=== PATIENT | female | born 1965 | race Hispanic/Latino ===

== ENCOUNTER 2016-12-20 00:11 | Emergency (ER) | payer BC ==
[2016-12-20 00:24] VITALS: BMI 56.2
--- NOTE | 2016-12-20 02:35 | ED PDOC ---
Arrival/HPI - General Chief Complaint: Medical Clearance Time Seen by Provider: 12/20/16 01:59 Historian: Patient - History of Present Illness Narrative History of Present Illness (Text): 12/20/16 02:29 Karen Hogan is a 51 year old female, whose past medical history includes hypertension, bronchitis, pneumonia and diabetes, presents to the emergency department complaining of mild, vague throat and chest discomfort for past few hours. Patient states that symptoms initially presented while watching TV earlier yesterday. Reports that she felt mild shortness of breath, lightheadedness and weakness at that time which has since resolved. Denies any fever, chills, dizziness, nausea, vomiting, diarrhea, or any other complaints at this time. Time/Duration: 1-3 hours Symptom Onset: Sudden Symptom Course: Improving Severity Level: Mild Activities at Onset: Light Context: Home Past Medical History - Provider Review Nursing Documentation Reviewed: Yes - Infectious Disease Hx of Infectious Diseases: None - Tetanus Immunization Tetanus Immunization: Unknown - Cardiac Hx Hypertension: Yes - Pulmonary Hx Respiratory Disorders: Yes Hx Asthma: No Hx Bronchitis: Yes Hx Chronic Obstructive Pulmonary Disease (COPD): No Hx Emphysema: No Hx Pneumonia: Yes Hx Respiratory Aspiration: No Hx Respiratory Tract Infection: No Hx Sleep Apnea: No Hx Tuberculosis: No - Neurological Hx Neurological Disorder: No Hx Alzheimer's Disease: No HX Cerebrovascular Accident: No Hx Dementia: No Hx Dizziness: No Hx Meningitis: No Hx Migraine: No Hx Parkinson's Disease: No Hx Seizures: No Hx Transient Ischemic Attacks (TIA): No - HEENT Hx HEENT Disorder: No Hx Blind: No Hx Cataracts: No Hx Deafness: No Hx Difficulty Chewing: No Hx Epistaxis: No Hx Glaucoma: No Hx Macular Degeneration: No - Renal Hx Renal Disorder: No - Endocrine/Metabolic Hx Diabetes Mellitus Type 2: Yes - Hematological/Oncological Hx Blood Disorders: No - Integumentary Hx Dermatological Disorder: No - Musculoskeletal/Rheumatological Hx Musculoskeletal Disorders: No - Gastrointestinal Hx Gastrointestinal Disorders: No - Genitourinary/Gynecological Hx Genitourinary Disorders: No - Psychiatric Hx Psychophysiologic Disorder: No Hx Anxiety: Yes Hx Depression: No Hx Physical Abuse: No Hx Substance Use: No - Surgical History Hx Dilation and Curettage: Yes (x2) - Anesthesia Hx Anesthesia: Yes Hx Anesthesia Reactions: No - Suicidal Assessment Feels Threatened In Home Enviroment: No Family/Social History - Physician Review Nursing Documentation Reviewed: Yes Family/Social History: No Known Family HX Smoking Status: Never Smoked Hx Alcohol Use: No Hx Substance Use: No Hx Substance Use Treatment: No Allergies/Home Meds Allergies/Adverse Reactions: Allergies naproxen Allergy (Verified 12/20/16 00:21) RASH Home Medications: Home Meds Medication Instructions Recorded Confirmed Losartan [Cozaar] 25 mg PO DAILY 10/30/16 12/20/16 SITagliptin [Januvia] 100 mg PO DAILY 10/30/16 12/20/16 hydroCHLOROthiazide [Microzide] 25 mg PO DAILY 10/30/16 12/20/16 Review of Systems - Physician Review All systems were reviewed & negative as marked: Yes - Review of Systems Constitutional: Normal. absent: Fatigue, Fevers Respiratory: SOB (resolved ). absent: Cough, Sputum Cardiovascular: Chest Pain (vague chest pain ) Gastrointestinal: Normal. absent: Abdominal Pain, Diarrhea, Nausea, Vomiting Neurological: Headache, Other (lightheadedness ) Psychiatric: Normal Physical Exam Vital Signs Reviewed: Yes Vital Signs Temp Pulse Resp BP Pulse Ox 12/20/16 11:40 98.2 F 90 18 129/81 98 12/20/16 10:14 93 H 16 146/86 98 12/20/16 07:40 82 20 145/73 96 12/20/16 06:59 85 16 165/91 H 97 12/20/16 05:54 97.3 F L 95 H 18 152/108 H 96 12/20/16 00:23 98.1 F 103 H 20 152/105 H 99 Temperature: Afebrile Blood Pressure: Normal Pulse: Tachycardic Respiratory Rate: Normal Appearance: Positive for: Well-Appearing, Non-Toxic, Comfortable, Other ( morbidly obese ) Pain Distress: None Mental Status: Positive for: Alert and Oriented X 3 - Systems Exam Head: Present: Atraumatic, Normocephalic Pupils: Present: PERRL Extroacular Muscles: Present: EOMI Conjunctiva: Present: Normal Respiratory/Chest: Present: Clear to Auscultation, Good Air Exchange. No: Respiratory Distress, Accessory Muscle Use Cardiovascular: Present: Regular Rate and Rhythm, Normal S1, S2. No: Murmurs Abdomen: Present: Normal Bowel Sounds. No: Tenderness, Distention, Peritoneal Signs Neurological: Present: GCS=15, CN II-XII Intact, Speech Normal Skin: Present: Warm, Dry, Normal Color. No: Rashes Psychiatric: Present: Alert, Oriented x 3, Normal Insight, Normal Concentration Medical Decision Making ED Course and Treatment: 12/20/16 02:39 Impression: A 51 year old female who present to the emergency department complaining of vague chest and throat discomfort. Reports of shortness of breath , lightheadedness and weakness which has resolved. Plan: -- EKG -- Labs, cardiac enzymes -- Chest X-ray -- Reassess and disposition Progress Notes: 12/20/16 02:42 NSR @ 100 bpm. Normal [place]. Normal interval. 12/20/16 05:25 Chest X-ray interpreted by me: No active diseases. 12/20/16 05:37 Case discussed with and medical resdient, , who are aware and agree with the plan to admit patient to hospital for chest pain. - Lab Interpretations Lab Results: 12/20/16 07:50 12/20/16 07:50 Lab Results 12/20/16 07:50: WBC 7.7, RBC 4.02, Hgb 11.8 L, Hct 36.2, MCV 90.0, MCH 29.4, MCHC 32.6, RDW 13.5, Plt Count 397, MPV 8.4, Gran % 68.0, Lymph % (Auto) 25.0, Hyde % (Auto) 5.2, Eos % (Auto) 1.4 L, Baso % (Auto) 0.4, Gran # 5.20, Lymph # 1.9, Hyde # 0.4, Eos # 0.1, Baso # 0.03, Sodium 140, Potassium 4.1, Chloride 107 , Carbon Dioxide 25, Anion Gap 12, BUN 13, Creatinine 0.6, Est GFR ( Amer ) > 60, Est GFR (Non-Af Amer) > 60, Random Glucose 135 H, Calcium 8.7, Phosphorus 3.3, Magnesium 2.3 H, Total Bilirubin 0.7, AST 44 H, ALT 18, Alkaline Phosphatase 113, Troponin I 0.01, Total Protein 7.4, Albumin 3.6, Globulin 3.8, Albumin/Globulin Ratio 0.9 L 12/20/16 04:42: PT 11.2, INR 1.04, APTT 29.5 12/20/16 03:32: WBC 7.2, RBC 4.03, Hgb 12.1, Hct 36.5, MCV 90.6, MCH 30.0, MCHC 33.2, RDW 13.5, Plt Count 369, MPV 8.2, Sodium 139, Potassium 4.0, Chloride 105 , Carbon Dioxide 25, Anion Gap 13, BUN 15, Creatinine 0.6, Est GFR ( Amer ) > 60, Est GFR (Non-Af Amer) > 60, Random Glucose 165 H, Calcium 9.0, Total Bilirubin 0.6, AST 29, ALT 21, Alkaline Phosphatase 123, Lactate Dehydrogenase 432, Total Creatine Kinase 71, Troponin I 0.01, Total Protein 7.5, Albumin 3.7, Globulin 3.8, Albumin/Globulin Ratio 1.0 L I have reviewed the lab results: Yes - RAD Interpretation Radiology Orders: 12/20/16 02:16 CHEST PORTABLE [RAD] Stat [employer] Teacher: ED Physician - EKG Interpretation Interpreted by ED Physician: Yes Type: 12 lead EKG - Medication Orders Current Medication Orders: Discontinued Medications Aspirin (Ecotrin) 81 mg PO DAILY [facility] Last Admin: 12/20/16 11:11 Dose: 81 MG Hydrochlorothiazide (Hydrodiuril) 25 mg PO DAILY [facility] Last Admin: 12/20/16 11:11 Dose: 25 MG Losartan Potassium (Cozaar) 25 mg PO DAILY [facility] Last Admin: 12/20/16 11:11 Dose: 25 MG Pantoprazole Sodium (Protonix Ec Tab) 40 mg PO ACB [facility] Last Admin: 12/20/16 07:40 Dose: 40 MG - [place] Statement The provider has reviewed the documentation as recorded by the Messi Palm Provider Attestation: All medical record entries made by the Messi were at my direction and personally dictated by me. I have reviewed the chart and agree that the record accurately reflects my personal performance of the history, physical exam, medical decision making, and the department course for this patient. I have also personally directed, reviewed, and agree with the discharge instructions and disposition. Disposition/Present on Arrival - Present on Arrival Any Indicators Present on Arrival: No History of DVT/PE: No History of Uncontrolled Diabetes: No Urinary Catheter: No History of Decub. Ulcer: No History Surgical Site Infection Following: None - Disposition Have Diagnosis and Disposition been Completed?: Yes Diagnosis: Chest pain Disposition: HOSPITALIZED Disposition Time: 05:35 Patient Plan: Observation Condition: GOOD Discharge Instructions (ExitCare): Dyspnea (ED)
[2016-12-20 03:52] LABS: HEMATOCRIT 36.5 % (36.0-48.0); MEAN CELL VOLUME 90.6 fL (80.0-105.0); MEAN CORPUSCULAR HGB CONC 33.2 g/dl (31.0-37.0); MEAN PLATELET VOLUME 8.2 fl (7.0-11.0); RED CELL DISTRIBUTION WIDTH 13.5 % (11.5-14.5); WHITE BLOOD COUNT 7.2 10^3/ul (4.5-11.0)
[2016-12-20 04:29] LABS: TROPONIN I 0.01 ng/mL
[2016-12-20 05:07] LABS: INR 1.04 (0.93-1.08); PARTIAL THROMBOPLASTIN TIME 29.5 Seconds (23.7-30.8)
[2016-12-20 05:10] LABS: ALKALINE PHOSPHATASE 123 U/L (38-133); ALT/SGPT 21 U/L (7-56); AST/SGOT 29 U/L (15-39); BILIRUBIN,TOTAL 0.6 mg/dL (0.2-1.3); BLOOD UREA NITROGEN 15 mg/dL (7-21); CARBON DIOXIDE 25 mmol/L (21-33); CHLORIDE 105 mmol/L (98-107); GFR AFRICAN-AMERICAN > 60; GLUCOSE,RANDOM 165 mg/dL (70-110); SODIUM 139 mmol/L (132-148); TOTAL PROTEIN 7.5 g/dL (5.8-8.3)
--- NOTE | 2016-12-20 06:38 | CP.PCM.HP ---
<Trung Rodriguez - Last Filed: 12/20/16 06:28> History of Present Illness - History of Present Illness History of Present Illness: CC: Abnormal sensation in chest and hot flashes HPI: This is a 51 yo F with PMH of HTN, DM, and hot flashes who presents with complaint of abnormal sensation in her chest with concurrent dizziness, shortness of breath, and weakness. At time of exam, symptoms have resolved, but patient reports still not feeling right. She presented to [facility] on 11/03/16 with similar complaints, and was discharged same day with ASA and Statin and instructions to follow up with an High School Tutor for likely hot flashes and possible menopause. Patient reports that he symptoms are similar but not the same as last presentation, but is unable to verbalize how they are different other than stating, "It just felt a little different this time." She admits she has not yet followed up with the OB, and she has been non-compliant with her Januvia and Atorvastatin, as she feels off when she takes all of her meds at the same time. Patient is adamant that she is not experiencing Chest Pain. Denies current shortness of breath, sensation of room spinning, focal weakness, numbness, pain with inspiration, nausea/emesis, constipation/diarrhea, or dysuria/hematuria. PMH: as above PSH: denies FHx: Mother - CAD in her 70's; father of emphysema/CAD in his late 60's SHx: Denies tobacco, EtOH, illicits/IVDA PMD: Dr. Brock Present on Admission - Present on Admission Any Indicators Present on Admission: No History of DVT/PE: No History of Uncontrolled Diabetes: No Review of Systems - Constitutional Constitutional: Weakness (resolved at time of exam). absent: Chills, Fever Additional comments: sense of warmth/flushing throughout body - EENT Eyes: absent: Blurred Vision, Change in Vision, Loss of Vision Ears: Dizziness (resolved at time of exam) Nose/Mouth/Throat: absent: Sore Throat, Neck Pain - Cardiovascular Cardiovascular: Dyspnea (resolved), Other (chest/throat abnormal sensation/ flutter, patient is adamant this isn't chest pain). absent: Chest Pain, Pain Radiating to Arm/Neck/Jaw, Lightheadedness, Palpitations, Syncope - Respiratory Respiratory: Dyspnea (resolved). absent: Cough, Hemoptysis - Gastrointestinal Gastrointestinal: absent: Abdominal Pain, Constipation, Diarrhea, Nausea, Vomiting - Genitourinary Genitourinary: absent: Difficulty Urinating, Dysuria, Flank Pain, Hematuria - Reproductive: Female Reproductive:Female: Menopausal (suspected), Other (likely hot flashes) - Menstruation Menstruation: Menopausal (suspected) - Musculoskeletal Musculoskeletal: absent: Back Pain, Numbness, Radiating Pain into Limb - Integumentary Integumentary: absent: Pruritus, Rash - Neurological Neurological: Dizziness (resolved), Weakness (resolved). absent: Numbness, Focal Weakness, Loss of Vision, Syncope, Vertigo, Other Visual Disturbances - Psychiatric Psychiatric: Anxiety - Endocrine Endocrine: absent: Fatigue, Palpitations Past Patient History - Infectious Disease Hx of Infectious Diseases: None - Tetanus Immunizations Tetanus Immunization: Unknown - Past Social History Smoking Status: Never Smoked - CARDIAC Hx Hypertension: Yes - PULMONARY Hx Respiratory Disorders: Yes Hx Asthma: No Hx Bronchitis: Yes Hx Chronic Obstructive Pulmonary Disease (COPD): No Hx Emphysema: No Hx Pneumonia: Yes Hx Respiratory Aspiration: No Hx Respiratory Tract Infection: No Hx Sleep Apnea: No Hx Tuberculosis: No - NEUROLOGICAL Hx Neurological Disorder: No Hx Alzheimer's Disease: No HX Cerebrovascular Accident: No Hx Dementia: No Hx Dizziness: No Hx Meningitis: No Hx Migraine: No Hx Parkinson's Disease: No Hx Seizures: No Hx Transient Ischemic Attacks (TIA): No - HEENT Hx HEENT Problems: No Hx Blind: No Hx Cataracts: No Hx Deafness: No Hx Difficulty Chewing: No Hx Epistaxis: No Hx Glaucoma: No Hx Macular Degeneration: No - RENAL Hx Chronic Kidney Disease: No - ENDOCRINE/METABOLIC Hx Diabetes Mellitus Type 2: Yes - HEMATOLOGICAL/ONCOLOGICAL Hx Blood Disorders: No - INTEGUMENTARY Hx Dermatological Problems: No - MUSCULOSKELETAL/RHEUMATOLOGICAL Hx Musculoskeletal Disorders: No - GASTROINTESTINAL Hx Gastrointestinal Disorders: No - GENITOURINARY/GYNECOLOGICAL Hx Genitourinary Disorders: No - PSYCHIATRIC Hx Psychophysiologic Disorder: No Hx Anxiety: Yes Hx Depression: No Hx Physical Abuse: No Hx Substance Use: No - SURGICAL HISTORY Hx Dilation and Curettage: Yes (x2) - ANESTHESIA Hx Anesthesia: Yes Hx Anesthesia Reactions: No Meds Allergies/Adverse Reactions: Allergies Allergy/AdvReac Type Severity Reaction Status Date / Time naproxen Allergy RASH Verified 12/20/16 00:21 Physical Exam - Constitutional Appears: Well, Non-toxic, No Acute Distress - Head Exam Head Exam: ATRAUMATIC, NORMAL INSPECTION, NORMOCEPHALIC - Eye Exam Eye Exam: EOMI, Normal appearance. absent: Conjunctival injection, Scleral icterus Pupil Exam: absent: Irregular, Unequal - ENT Exam ENT Exam: Mucous Membranes Moist - Neck Exam Neck exam: Positive for: Full Rom. Negative for: Lymphadenopathy, Tenderness, Thyromegaly - Respiratory Exam Respiratory Exam: Clear to Auscultation Bilateral, NORMAL BREATHING PATTERN. absent: Accessory Muscle Use, Chest Wall Tenderness, Decreased Breath Sounds, Rales, Rhonchi, Wheezes, Respiratory Distress - Cardiovascular Exam Cardiovascular Exam: REGULAR RHYTHM, RRR, +S1, +S2. absent: Bradycardia, Tachycardia, Irregular Rhythm, +S4 - GI/Abdominal Exam GI & Abdominal Exam: Normal Bowel Sounds, Soft. absent: Diminished Bowel Sounds , Distended, Firm, Hyperactive Bowel Sounds, Hypoactive Bowel Sounds, Rigid, Tenderness Additional comments: obese, not distended - Rectal Exam Rectal Exam: Deferred - Extremities Exam Extremities exam: Positive for: normal capillary refill, normal inspection, pedal pulses present. Negative for: calf tenderness, pedal edema, tenderness - Neurological Exam Neurological exam: Alert, Oriented x3 - Psychiatric Exam Psychiatric exam: Normal Affect, Normal Mood - Skin Skin Exam: Dry, Intact, Normal Color, Warm Results - Vital Signs Recent Vital Signs: Last Vital Signs Temp 97.3 F L 12/20/16 05:54 Pulse 95 H 12/20/16 05:54 Resp 18 12/20/16 05:54 BP 152/108 H 12/20/16 05:54 Pulse Ox 96 12/20/16 05:54 - Labs Result Diagrams: 12/20/16 03:32 12/20/16 03:32 Assessment & Plan - Assessment and Plan (Free Text) Assessment: This is a 51 yo F with PMH of HTN, DM, and hot flashes who presents with complaint of abnormal sensation in her chest with concurrent dizziness, shortness of breath, and weakness. She is being admitted for ACS r/o. Plan: 1) Abnormal Chest sensation with dizziness/shortness of breath and hot flashes -ACS vs anxiety vs menopause vs 2/2 medication non-compliance -Patient was previously encouraged to follow up with OB regarding hot flashes and suspected menopause, she states she nows she needs to, just hasn't made an appointment with hers yet -EKG in the ED NSR at 100 bpm, repeat EKG in AM -Trop x1 negative, trending 2 more -Cardio consulted, appreciate any recs -Patient was previously scheduled to undergo nuclear stress test but was concerned about the test and did not have it; reinforced the need to have the test done and encouraged her to undergo the test -Non-compliant with home Statin and home Januvia, encouraged to follow up with her PCP for medication adjustment -Continue home ASA, Losartan, HCTZ 2) DM -ISS-low, holding home januvia as patient not taking -Consistent carb diet 3) HTN -continue home Losartan and HCTZ Dispo: Tele obs, pending repeat trops/EKG and Cardio's input FEN: Consistent carb diet Access: Peripheral IV Consults: Cardio Ppx: Protonix for GI, SCDs for DVT Patient seen, reviewed, and discussed with attending, Dr. Solis. - Date & Time Date: 12/20/16 Time: 06:56 Decision To Admit - Pt Status Changed To: Hospital Disposition Of: Observation - . Bed Request Type: Telemetry <Roque Solis - Last Filed: 12/23/16 19:20> Results - Vital Signs Recent Vital Signs: Last Vital Signs Temp 98.2 F 12/20/16 11:40 Pulse 90 12/20/16 11:40 Resp 18 12/20/16 11:40 BP 129/81 12/20/16 11:40 Pulse Ox 98 12/20/16 11:40 - Labs Result Diagrams: 12/20/16 07:50 12/20/16 07:50 Attending/Attestation - Attestation I have personally seen and examined this patient.: Yes I have fully participated in the care of the patient.: Yes I have reviewed all pertinent clinical information: Yes
[2016-12-20] MEDS ORDERED: Pantoprazole 40 mg EC Tab PO SCH (07:30)
[2016-12-20 08:06] LABS: ADD MANUAL DIFF? NO
[2016-12-20 08:14] LABS: BASO # 0.03 K/mm3 (0.0-2.0); BASO % 0.4 % (0.0-3.0); EOS # 0.1 (0.0-0.7); EOS % 1.4 % (1.5-5.0); HEMATOCRIT 36.2 % (36.0-48.0); LYMPH # 1.9 (1.2-3.4); MEAN CORPUSCULAR HEMOGLOBIN 29.4 pg (25.0-35.0); MEAN CORPUSCULAR HGB CONC 32.6 g/dl (31.0-37.0); MEAN PLATELET VOLUME 8.4 fl (7.0-11.0); MONO # 0.4 (0.1-0.6); MONO % 5.2 % (1.0-6.0); PLATELET COUNT 397 10^3/uL (120.0-450.0); RED CELL DISTRIBUTION WIDTH 13.5 % (11.5-14.5); WHITE BLOOD COUNT 7.7 10^3/ul (4.5-11.0)
[2016-12-20 08:39] LABS: TROPONIN I 0.01 ng/mL
[2016-12-20 08:56] LABS: ALB/GLOB RATIO 0.9 (1.1-1.8); ALKALINE PHOSPHATASE 113 U/L (38-133); ALT/SGPT 18 U/L (7-56); AST/SGOT 44 U/L (15-39); BILIRUBIN,TOTAL 0.7 mg/dL (0.2-1.3); BLOOD UREA NITROGEN 13 mg/dL (7-21); CALCIUM 8.7 mg/dL (8.4-10.5); CARBON DIOXIDE 25 mmol/L (21-33); CHLORIDE 107 mmol/L (98-107); GFR AFRICAN-AMERICAN > 60; GLUCOSE,RANDOM 135 mg/dL (70-110); MAGNESIUM 2.3 mg/dL (1.7-2.2); PHOSPHOROUS 3.3 mg/dL (2.5-4.5); POTASSIUM 4.1 mmol/L (3.6-5.0); SODIUM 140 mmol/L (132-148); TOTAL PROTEIN 7.4 g/dL (5.8-8.3)
[2016-12-20 10:15] VITALS: O2SAT 98
--- NOTE | 2016-12-20 11:17 | RAD ---
HISTORY: sob COMPARISON: Comparison is made to 11/03/2016 FINDINGS: LUNGS: No evidence of new infiltrate or consolidation in the lungs. PLEURA: No significant pleural effusion identified, no pneumothorax apparent. CARDIOVASCULAR: The cardiac silhouette is mildly enlarged. OSSEOUS STRUCTURES: No significant abnormalities. VISUALIZED UPPER ABDOMEN: Normal. OTHER FINDINGS: None. IMPRESSION: No active disease.
[2016-12-20 11:47] VITALS: BP 129/81; PULSE 90; RESP 18; TEMP 98.2
--- NOTE | 2016-12-20 12:50 | CON ---
DATE: 12/20/2016 SERVICE: Cardiology. REASON FOR CONSULTATION: Funny sensation in the chest, fluttering, like holding her breath, cardiac evaluation. BRIEF CLINICAL HISTORY: This is a 51-year-old female with past medical history significant for hyper tension, obesity, recently diagnosed diabetes, metformin since August, being followed by Dr. Misty hernandez, referred to Dr. Cao for a stress test, which was scheduled in September, but patient canceled herself. Prior to that, patient was scheduled on 07/25/2016, the patient canceled, then patient was rescheduled in September, she canceled. Most recently, the patient was scheduled on 12/01, the patient canceled again because she has mixed feeling that she really does not need that. Came to the [facility] and said that yesterday she had a feeling of a warm feeling all over the body, started from the nose. Then she had a funny feeling sensation in the chest that you feel after holding the breath . No history of nausea, vomiting, chest pain, no history of palpitation. No history of dyspnea on e xertion. No history of syncope. The patient came to the Emergency Room. Length of time discussed w ith the patient. Answered all the questions back and forth. The patient does not want to commit and does not want to that she will go for a stress test or not. Gave 3 options, either go for a s tress test tomorrow, she get admitted, or we can do as outpatient or does not want the stress test. She did not answer clearly. Definitely, she said that she is not ready for a stress test. Maybe cecilia l come as outpatient. No evidence of chest pain. Two troponins are negative. PAST MEDICAL HISTORY: Nothing significant except recently diagnosed diabetes, obesity, oral hypoglyc emic agent and borderline blood pressure. CURRENT MEDICATIONS: The patient is taking hydrochlorothiazide, Januvia, Cozaar, atorvastatin, Lipit or. SOCIAL HISTORY: Denies any smoking. Denies any history of alcohol abuse. RECENT CARDIAC WORKUP: Did not show up for cardiac workup scheduled on 07/25/2016, afterwards cancele d, in September patient rescheduled, now most recently [place] [place] [facility] [place] [facility] [place] a no show and canceled herself. CURRENT MEDICATIONS: As mentioned above. SOCIAL HISTORY: As mentioned above. REVIEW OF SYSTEMS: As per HPI. PHYSICAL EXAMINATION: VITAL SIGNS: Temperature afebrile, heart rate 80, blood pressure 145/73. HEENT: PERRLA. Extraocular muscles intact. NECK: Supple. No carotid bruits. No thyromegaly. CHEST: Clear to auscultation. HEART: S1, S2 regular. ABDOMEN: Soft. EXTREMITIES: Clubbing and cyanosis negative. LABORATORY DATA: Blood workup as follows: WBC 7.7, hemoglobin 11.8, hematocrit 36.2, platelet count 397. Chemistry shows sodium 140, potassium 4.0, chloride 107, carbon dioxide 25, anion gap of 12, B UN 13, creatinine 0.6. Troponin 0.01 x 2 negative. Previously in November, triglyceride 132, VLDL 2 6, cholesterol 209, LDL 148, HDL 35. TSH in November was 1.43. EKG shows normal sinus. No acute ST -T changes, essentially normal EKG. IMPRESSION AND PLAN: Atypical chest pain, does not want to have a stress test, scheduled 3 times so far, patient cancelled, rescheduled 07/25/2016, 09/2016 and then 12/01/2016. Discussed with the patien t at length. Gave all the options, either stay and get a stress test tomorrow or do a stress test an d schedule now, or does not want a stress, will not reschedule. The patient did not commit for anyth ing, said that she will think and will come back and call us herself to schedule. Discussed with Dr. Mas on the telephone in front of the patient and all the options, so will do an echo and then if the troponin remains negative, we will discharge the patient. The patient will call herself to schedule the stress test to complete the workup. Very noncompliant patient and very difficult to handle. Does not commit to anything. Barbara Jansen MD cc: [id number] TT: 12/20/2016 12:49:46 Confirmation # [id number] Dictation # [id number] connie
--- NOTE | 2016-12-20 13:37 | CP.PCM.DIS ---
<Joseph Lee - Last Filed: 12/21/16 23:24> Provider - Provider Time Spent in preparation of Discharge (in minutes): 35 Hospital Course - Lab Results Lab Results: Most Recent Lab Values WBC 7.7 10^3/ul (4.5-11.0) 12/20/16 07:50 RBC 4.02 10^6/uL (3.5-6.1) 12/20/16 07:50 Hgb 11.8 gm/dL (12.0-16.0) L 12/20/16 07:50 Hct 36.2 % (36.0-48.0) 12/20/16 07:50 MCV 90.0 fL (80.0-105.0) 12/20/16 07:50 MCH 29.4 pg (25.0-35.0) 12/20/16 07:50 MCHC 32.6 g/dl (31.0-37.0) 12/20/16 07:50 RDW 13.5 % (11.5-14.5) 12/20/16 07:50 Plt Count 397 10^3/uL (120.0-450.0) 12/20/16 07:50 MPV 8.4 fl (7.0-11.0) 12/20/16 07:50 Gran % 68.0 % (50.0-68.0) 12/20/16 07:50 Lymph % (Auto) 25.0 % (22.0-35.0) 12/20/16 07:50 Hand % (Auto) 5.2 % (1.0-6.0) 12/20/16 07:50 Eos % (Auto) 1.4 % (1.5-5.0) L 12/20/16 07:50 Baso % (Auto) 0.4 % (0.0-3.0) 12/20/16 07:50 Gran # 5.20 (1.4-6.5) 12/20/16 07:50 Lymph # 1.9 (1.2-3.4) 12/20/16 07:50 Hand # 0.4 (0.1-0.6) 12/20/16 07:50 Eos # 0.1 (0.0-0.7) 12/20/16 07:50 Baso # 0.03 K/mm3 (0.0-2.0) 12/20/16 07:50 PT 11.2 Seconds (9.9-11.8) 12/20/16 04:42 INR 1.04 (0.93-1.08) 12/20/16 04:42 APTT 29.5 Seconds (23.7-30.8) 12/20/16 04:42 Sodium 140 mmol/L (132-148) 12/20/16 07:50 Potassium 4.1 mmol/L (3.6-5.0) 12/20/16 07:50 Chloride 107 mmol/L (98-107) 12/20/16 07:50 Carbon Dioxide 25 mmol/L (21-33) 12/20/16 07:50 Anion Gap 12 (10-20) 12/20/16 07:50 BUN 13 mg/dL (7-21) 12/20/16 07:50 Creatinine 0.6 mg/dL (0.5-1.4) 12/20/16 07:50 Est GFR ( Amer) > 60 12/20/16 07:50 Est GFR (Non-Af Amer) > 60 12/20/16 07:50 Random Glucose 135 mg/dL (70-110) H 12/20/16 07:50 Calcium 8.7 mg/dL (8.4-10.5) 12/20/16 07:50 Phosphorus 3.3 mg/dL (2.5-4.5) 12/20/16 07:50 Magnesium 2.3 mg/dL (1.7-2.2) H 12/20/16 07:50 Total Bilirubin 0.7 mg/dL (0.2-1.3) 12/20/16 07:50 AST 44 U/L (15-39) H 12/20/16 07:50 ALT 18 U/L (7-56) 12/20/16 07:50 Alkaline Phosphatase 113 U/L (38-133) 12/20/16 07:50 Lactate Dehydrogenase 432 U/L (333-699) 12/20/16 03:32 Total Creatine Kinase 71 U/L (35-230) 12/20/16 03:32 Troponin I 0.01 ng/mL 12/20/16 07:50 Total Protein 7.4 g/dL (5.8-8.3) 12/20/16 07:50 Albumin 3.6 g/dL (3.0-4.8) 12/20/16 07:50 Globulin 3.8 gm/dL 12/20/16 07:50 Albumin/Globulin Ratio 0.9 (1.1-1.8) L 12/20/16 07:50 - Hospital Course Hospital Course: This is a 51 yo F with PMH of HTN, DM, and hot flashes who presents with complaint of abnormal sensation in her chest with concurrent dizziness, shortness of breath, and weakness. She was admitted to rule out ACS. EKG showed NSR @ 100bpm, chest xray showed no active disease, serial troponins were negative x2. An echocardiogram showed a normal chamber size with an EF of 55-60% , trace AR, trace MR, trace to mild TR with no pericardial effusion. She was then discharged and advised to follow up with cardio to perform a stress test. This is brief summary of her hospitalization. Please refer to her chart for a more detailed account. - Date & Time of H&P Date of H&P: 12/20/16 Time of H&P: 11:25 Discharge Exam - Head Exam Head Exam: ATRAUMATIC, NORMAL INSPECTION, NORMOCEPHALIC - Eye Exam Eye Exam: EOMI, Normal appearance - ENT Exam ENT Exam: Mucous Membranes Moist - Neck Exam Neck exam: Full Rom - Respiratory Exam Respiratory Exam: Clear to PA & Lateral, NORMAL BREATHING PATTERN, UNREMARKABLE - Cardiovascular Exam Cardiovascular Exam: REGULAR RHYTHM, RRR, +S1, +S2 - GI/Abdominal Exam GI & Abdominal Exam: Normal Bowel Sounds, Unremarkable - Extremities Exam Extremities exam: full ROM - Back Exam Back exam: NORMAL INSPECTION. absent: CVA tenderness (L), CVA tenderness (R) - Neurological Exam Neurological exam: CN II-XII Intact, Oriented x3 - Psychiatric Exam Psychiatric exam: Normal Affect, Normal Mood - Skin Skin Exam: Dry, Intact, Normal Color, Warm Discharge Plan - Follow Up Plan Condition: GOOD Disposition: HOSPITALIZED Instructions: Dyspnea (ED) <Hazel Conley - Last Filed: 12/22/16 13:28> Provider - Provider Time Spent in preparation of Discharge (in minutes): 35 Hospital Course - Lab Results Lab Results: Most Recent Lab Values WBC 7.7 10^3/ul (4.5-11.0) 12/20/16 07:50 RBC 4.02 10^6/uL (3.5-6.1) 12/20/16 07:50 Hgb 11.8 gm/dL (12.0-16.0) L 12/20/16 07:50 Hct 36.2 % (36.0-48.0) 12/20/16 07:50 MCV 90.0 fL (80.0-105.0) 12/20/16 07:50 MCH 29.4 pg (25.0-35.0) 12/20/16 07:50 MCHC 32.6 g/dl (31.0-37.0) 12/20/16 07:50 RDW 13.5 % (11.5-14.5) 12/20/16 07:50 Plt Count 397 10^3/uL (120.0-450.0) 12/20/16 07:50 MPV 8.4 fl (7.0-11.0) 12/20/16 07:50 Gran % 68.0 % (50.0-68.0) 12/20/16 07:50 Lymph % (Auto) 25.0 % (22.0-35.0) 12/20/16 07:50 Hand % (Auto) 5.2 % (1.0-6.0) 12/20/16 07:50 Eos % (Auto) 1.4 % (1.5-5.0) L 12/20/16 07:50 Baso % (Auto) 0.4 % (0.0-3.0) 12/20/16 07:50 Gran # 5.20 (1.4-6.5) 12/20/16 07:50 Lymph # 1.9 (1.2-3.4) 12/20/16 07:50 Hand # 0.4 (0.1-0.6) 12/20/16 07:50 Eos # 0.1 (0.0-0.7) 12/20/16 07:50 Baso # 0.03 K/mm3 (0.0-2.0) 12/20/16 07:50 PT 11.2 Seconds (9.9-11.8) 12/20/16 04:42 INR 1.04 (0.93-1.08) 12/20/16 04:42 APTT 29.5 Seconds (23.7-30.8) 12/20/16 04:42 Sodium 140 mmol/L (132-148) 12/20/16 07:50 Potassium 4.1 mmol/L (3.6-5.0) 12/20/16 07:50 Chloride 107 mmol/L (98-107) 12/20/16 07:50 Carbon Dioxide 25 mmol/L (21-33) 12/20/16 07:50 Anion Gap 12 (10-20) 12/20/16 07:50 BUN 13 mg/dL (7-21) 12/20/16 07:50 Creatinine 0.6 mg/dL (0.5-1.4) 12/20/16 07:50 Est GFR ( Amer) > 60 12/20/16 07:50 Est GFR (Non-Af Amer) > 60 12/20/16 07:50 Random Glucose 135 mg/dL (70-110) H 12/20/16 07:50 Calcium 8.7 mg/dL (8.4-10.5) 12/20/16 07:50 Phosphorus 3.3 mg/dL (2.5-4.5) 12/20/16 07:50 Magnesium 2.3 mg/dL (1.7-2.2) H 12/20/16 07:50 Total Bilirubin 0.7 mg/dL (0.2-1.3) 12/20/16 07:50 AST 44 U/L (15-39) H 12/20/16 07:50 ALT 18 U/L (7-56) 12/20/16 07:50 Alkaline Phosphatase 113 U/L (38-133) 12/20/16 07:50 Lactate Dehydrogenase 432 U/L (333-699) 12/20/16 03:32 Total Creatine Kinase 71 U/L (35-230) 12/20/16 03:32 Troponin I 0.01 ng/mL 12/20/16 07:50 Total Protein 7.4 g/dL (5.8-8.3) 12/20/16 07:50 Albumin 3.6 g/dL (3.0-4.8) 12/20/16 07:50 Globulin 3.8 gm/dL 12/20/16 07:50 Albumin/Globulin Ratio 0.9 (1.1-1.8) L 12/20/16 07:50 - Hospital Course Hospital Course: attending note; Patient seen and examined in ER. patient is a 51-year-old female With a history of hypertension,diabetes, perimenopausal symptom is admitted with atypical chest discomfort. EKG normal. Cardiac enzymes 2 negative. Echocardiogram prelim normal. Patient was evaluated by promotion officer Dr. Jansen. Patient did not get a stress test done as outpatient as recommended. Patient agreed to follow up with PMD and cardiology as outpatient. Patient agreed for outpatient stress test. Diagnosis; Atypical chest discomfort Diabetes Hypertension menopausal symptoms non compliance Obesity case discussed with PMD in detail.
--- NOTE | 2016-12-20 18:08 | CARD ---
APPROVED REPORT EKG Measurement Heart [id number] <Conclusion> Normal sinus rhythm Normal ECG
--- NOTE | 2016-12-21 18:37 | CARD ---
APPROVED REPORT EXAM: Two-dimensional and M-mode echocardiogram with Doppler and color Doppler. INDICATION Chest Pain 2D DIMENSIONS Left Atrium (2D)4.0 (1.6-4.0cm)IVSd1.2 (0.7-1.1cm) LVDd4.4 (3.9-5.9cm)PWd1.1 (0.7-1.1cm) LVDs3.1 (2.5-4.0cm)FS (%) 29.7 % LVEF (%)57.0 (>50%) M-Mode DIMENSIONS Aortic Root3.50 (2.2-3.7cm)Aortic Cusp Exc.1.90 (1.5-2.0cm) Aortic Valve AoV Peak Rbbwsrls510.0cm/Daniella Peak GR.7mmHg Mitral Valve MV E Uktblmqu347.0cm/sMV A Uawbseat97.5cm/sE/A ratio1.1 TDI E/Lateral E'0.0E/Medial E'0.0 Tricuspid Valve TR Peak Ggxxsvqk380nw/sRAP [id number] Peak Gr.19mmHg [id number] LEFT VENTRICLE The left ventricle is normal size. There is mild concentric left ventricular hypertrophy. The left ventricular function is normal.EF-55-60% There is normal LV segmental wall motion. The left ventricular diastolic function is normal. No left ventricle thrombus noted on this study. There is no ventricular septal defect visualized. There is no left ventricular aneurysm. There is no mass noted in the left ventricle. RIGHT VENTRICLE The right ventricle is normal size. There is normal right ventricular wall thickness. The right ventricular systolic function is normal. ATRIA The left atrium is borderline dilated. The right atrium size is normal. The interatrial septum is intact with no evidence for an atrial septal defect. AORTIC VALVE The aortic valve is normal in structure. There is trace aortic regurgitation. There is no aortic valvular stenosis. There is no aortic valvular vegetation. MITRAL VALVE The mitral valve is thickened but opens well. Mitral regurgitation is trace. There is no mitral valve stenosis. There is no evidence of mitral valve prolapse. TRICUSPID VALVE The tricuspid valve leaflets are thickened , but open well. There is trace to mild tricuspid regurgitation.RVSP-29 mmof Hg. There is no tricuspid valve stenosis. There is no tricuspid valve prolapse or vegetation. PULMONIC VALVE The pulmonary valve is normal in structure. There is trace pulmonic valvular regurgitation. There is no pulmonic valvular stenosis. GREAT VESSELS The aortic root is normal in size. The ascending aorta is normal in size. The pulmonary artery is normal. The IVC is normal in size and collapses >50% with inspiration. PERICARDIAL EFFUSION There is no pleural effusion. There is no pericardial effusion. <Conclusion> Normal chamber size. EF-55-60% There is trace aortic regurgitation. Mitral regurgitation is trace. There is trace to mild tricuspid regurgitation.RVSP-29 mmof Hg. There is no pericardial effusion. The IVC is normal in size and collapses >50% with inspiration.
== END 2016-12-20 12:21 | disposition home or self-care (01) ==
LOC: ED 00:11 → UNDOADMOB 05:29 → ERH 05:29 → ED 12:21
DX: R07.89 Other chest pain (principal); I10 Essential (primary) hypertension; E11.9 Type 2 diabetes mellitus without complications; E66.9 Obesity, unspecified; Z78.0 Asymptomatic menopausal state

== ENCOUNTER 2016-12-28 01:24 | Emergency (ER) | payer BC ==
[2016-12-28 01:24] VITALS: BMI 56.2
[2016-12-28 02:02] VITALS: RESP 16
--- NOTE | 2016-12-28 02:14 | ED PDOC ---
Arrival/HPI - General Time Seen by Provider: 12/28/16 01:45 Historian: Patient - History of Present Illness Narrative History of Present Illness (Text): 12/28/16 02:15 Karen Hogan is a 51 year old female, with a history of hypertension, bronchitis, pneumonia and diabetes, presents to the emergency department for evaluation of lightheadedness and anxiety. Patient reports that symptoms presented around 9:45 pm. States she has been unable to fall asleep due to the symptoms. Denies any chest pain, shortness of breath, headache, nausea, vomiting , diarrhea, urinary symptoms or any other complaints at this time. Time/Duration: 4-6 hours Symptom Onset: Gradual Symptom Course: Improving Severity Level: Mild Activities at Onset: Light Context: Home Past Medical History - Provider Review Nursing Documentation Reviewed: Yes - Infectious Disease Hx of Infectious Diseases: None - Tetanus Immunization Tetanus Immunization: Unknown - Cardiac Hx Hypertension: Yes - Pulmonary Hx Respiratory Disorders: Yes Hx Asthma: No Hx Bronchitis: Yes Hx Chronic Obstructive Pulmonary Disease (COPD): No Hx Emphysema: No Hx Pneumonia: Yes Hx Respiratory Aspiration: No Hx Respiratory Tract Infection: No Hx Sleep Apnea: No Hx Tuberculosis: No - Neurological Hx Neurological Disorder: No Hx Alzheimer's Disease: No HX Cerebrovascular Accident: No Hx Dementia: No Hx Dizziness: No Hx Meningitis: No Hx Migraine: No Hx Parkinson's Disease: No Hx Seizures: No Hx Transient Ischemic Attacks (TIA): No - HEENT Hx HEENT Disorder: No Hx Blind: No Hx Cataracts: No Hx Deafness: No Hx Difficulty Chewing: No Hx Epistaxis: No Hx Glaucoma: No Hx Macular Degeneration: No - Renal Hx Renal Disorder: No - Endocrine/Metabolic Hx Diabetes Mellitus Type 2: Yes - Hematological/Oncological Hx Blood Disorders: No - Integumentary Hx Dermatological Disorder: No - Musculoskeletal/Rheumatological Hx Musculoskeletal Disorders: No - Gastrointestinal Hx Gastrointestinal Disorders: No - Genitourinary/Gynecological Hx Genitourinary Disorders: No - Psychiatric Hx Psychophysiologic Disorder: No Hx Anxiety: Yes Hx Depression: No Hx Physical Abuse: No Hx Substance Use: No - Surgical History Hx Dilation and Curettage: Yes (x2) - Anesthesia Hx Anesthesia: Yes Hx Anesthesia Reactions: No - Suicidal Assessment Feels Threatened In Home Enviroment: No Family/Social History - Physician Review Nursing Documentation Reviewed: Yes Family/Social History: No Known Family HX Smoking Status: Never Smoked Hx Alcohol Use: No Hx Substance Use: No Hx Substance Use Treatment: No Allergies/Home Meds Allergies/Adverse Reactions: Allergies naproxen Allergy (Verified 12/28/16 02:14) RASH Home Medications: Home Meds Medication Instructions Recorded Confirmed Losartan [Cozaar] 25 mg PO DAILY 10/30/16 12/28/16 SITagliptin [Januvia] 100 mg PO DAILY 10/30/16 12/28/16 hydroCHLOROthiazide [Microzide] 25 mg PO DAILY 10/30/16 12/28/16 Review of Systems - Physician Review All systems were reviewed & negative as marked: Yes - Review of Systems Constitutional: Normal. absent: Fatigue, Fevers Respiratory: Normal. absent: SOB, Cough Cardiovascular: Normal. absent: Chest Pain Gastrointestinal: Normal. absent: Abdominal Pain, Diarrhea, Nausea, Vomiting Neurological: Other (lightheadedness ). absent: Headache Psychiatric: Anxiety Physical Exam Vital Signs Reviewed: Yes Vital Signs Temp Pulse Resp BP Pulse Ox 12/28/16 03:00 99.6 F 62 16 139/80 97 12/28/16 01:53 98.1 F 94 H 16 133/75 100 Temperature: Afebrile Blood Pressure: Normal Pulse: Regular Respiratory Rate: Normal Appearance: Positive for: Well-Appearing, Non-Toxic, Comfortable Pain Distress: None Mental Status: Positive for: Alert and Oriented X 3 Finger Stick Blood Glucose: 137 - Systems Exam Head: Present: Atraumatic, Normocephalic Pupils: Present: PERRL Extroacular Muscles: Present: EOMI Conjunctiva: Present: Normal Respiratory/Chest: Present: Clear to Auscultation, Good Air Exchange. No: Respiratory Distress, Accessory Muscle Use Cardiovascular: Present: Regular Rate and Rhythm, Normal S1, S2. No: Murmurs Abdomen: Present: Normal Bowel Sounds. No: Tenderness, Distention, Peritoneal Signs Upper Extremity: Present: Normal Inspection. No: Cyanosis, Edema Lower Extremity: Present: Normal Inspection. No: Edema Neurological: Present: GCS=15, CN II-XII Intact, Speech Normal Skin: Present: Warm, Dry, Normal Color. No: Rashes Psychiatric: Present: Alert, Oriented x 3, Normal Insight, Normal Concentration Medical Decision Making ED Course and Treatment: 12/28/16 02:25 Impression: A 51 year old female who presents to the emergency department for lightheadedness and anxiety. Plan: -- EKG -- Xanax -- Reassess and disposition Progress Notes: 12/28/16 02:30 EKG reviewed by me. NSR @ 87 bpm. Prologed QT On re-evaluation, patient feels better and is in no acute distress. I have discussed the results and plan with the patient, who expresses understanding. Patient in agreement with plan to be discharged home. Patient is stable for discharge. Patient was instructed to follow up with physician or return if symptoms worsen or new concerning symptoms arise. - EKG Interpretation Interpreted by ED Physician: Yes Type: 12 lead EKG - Medication Orders Current Medication Orders: Discontinued Medications Alprazolam (Xanax) 0.25 mg PO STAT STA PRN Reason: Protocol Stop: 12/28/16 02:46 Last Admin: 12/28/16 02:57 Dose: 0.25 MG Behavioural Document 12/28/16 02:57 KKL (Rec: 12/28/16 03:04 KKL [id number]) Maintenance Maintenance Dose No Nonmedicinal Nonmedicinal Interventions Redirect Therapeutic Communication Behavior Behavior for Medication: Anxiety - Scribe Statement The provider has reviewed the documentation as recorded by the Wyattibumesh Palm Provider Attestation: All medical record entries made by the Wyattibe were at my direction and personally dictated by me. I have reviewed the chart and agree that the record accurately reflects my personal performance of the history, physical exam, medical decision making, and the department course for this patient. I have also personally directed, reviewed, and agree with the discharge instructions and disposition. Disposition/Present on Arrival - Present on Arrival History of DVT/PE: No History of Uncontrolled Diabetes: No Urinary Catheter: No History Surgical Site Infection Following: None - Disposition Diagnosis: Anxiety Disposition: HOME/ ROUTINE Condition: GOOD Discharge Instructions (ExitCare): Anxiety (ED)
[2016-12-28 03:52] VITALS: BP 139/80; PULSE 62; TEMP 99.6; O2SAT 97
--- NOTE | 2016-12-28 09:00 | CARD ---
APPROVED REPORT EKG Measurement Heart [id number] <Conclusion> Normal sinus rhythm Prolonged QT Abnormal ECG
== END 2016-12-28 03:30 | disposition home or self-care (01) ==
LOC: ED 01:24
DX: F41.9 Anxiety disorder, unspecified (principal); I10 Essential (primary) hypertension; E11.9 Type 2 diabetes mellitus without complications

== ENCOUNTER 2017-01-01 17:41 | Observation (INO) | payer BC ==
[2017-01-01 17:42] VITALS: BMI 56.2
--- NOTE | 2017-01-01 18:39 | ED PDOC ---
Arrival/HPI - General Chief Complaint: Weakness/Neurological Deficit Time Seen by Provider: 01/01/17 18:18 Historian: Patient - History of Present Illness Narrative History of Present Illness (Text): 01/01/17 18:36 Karen Hogan is a 51 year old female, with a history of hypertension, bronchitis, pneumonia and diabetes, presents to the emergency department complaining of intermittent episodes of lightheadedness and generalized weakness for past 2-3 months. Patient also reports of having a non-persistent, occasional chest discomfort radiating to the arms associated with mild shortness of breath. Denies any headache, fever, chills, nausea, vomiting, diarrhea, urinary symptoms or any other complaints at this time. PMD:. Time/Duration: > month (2-3 months ) Symptom Onset: Gradual Symptom Course: Intermittent Severity Level: Mild Activities at Onset: Light Past Medical History - Provider Review Nursing Documentation Reviewed: Yes - Infectious Disease Hx of Infectious Diseases: None - Tetanus Immunization Tetanus Immunization: Unknown - Cardiac Hx Hypertension: Yes - Pulmonary Hx Respiratory Disorders: Yes Hx Asthma: No Hx Bronchitis: Yes Hx Chronic Obstructive Pulmonary Disease (COPD): No Hx Emphysema: No Hx Pneumonia: Yes Hx Respiratory Aspiration: No Hx Respiratory Tract Infection: No Hx Sleep Apnea: No Hx Tuberculosis: No - Neurological Hx Neurological Disorder: No Hx Alzheimer's Disease: No HX Cerebrovascular Accident: No Hx Dementia: No Hx Dizziness: No Hx Meningitis: No Hx Migraine: No Hx Parkinson's Disease: No Hx Seizures: No Hx Transient Ischemic Attacks (TIA): No - HEENT Hx HEENT Disorder: No Hx Blind: No Hx Cataracts: No Hx Deafness: No Hx Difficulty Chewing: No Hx Epistaxis: No Hx Glaucoma: No Hx Macular Degeneration: No - Renal Hx Renal Disorder: No - Endocrine/Metabolic Hx Diabetes Mellitus Type 2: Yes - Hematological/Oncological Hx Blood Disorders: No - Integumentary Hx Dermatological Disorder: No - Musculoskeletal/Rheumatological Hx Musculoskeletal Disorders: No - Gastrointestinal Hx Gastrointestinal Disorders: No - Genitourinary/Gynecological Hx Genitourinary Disorders: No - Psychiatric Hx Psychophysiologic Disorder: No Hx Anxiety: Yes Hx Depression: No Hx Physical Abuse: No Hx Substance Use: No - Surgical History Hx Dilation and Curettage: Yes (x2) - Anesthesia Hx Anesthesia: Yes Hx Anesthesia Reactions: No Hx Malignant Hyperthermia: No - Suicidal Assessment Feels Threatened In Home Enviroment: No Family/Social History - Physician Review Nursing Documentation Reviewed: Yes Family/Social History: No Known Family HX Smoking Status: Never Smoked Hx Alcohol Use: No Hx Substance Use: No Hx Substance Use Treatment: No Allergies/Home Meds Allergies/Adverse Reactions: Allergies naproxen Allergy (Verified 12/28/16 02:14) RASH Home Medications: Home Meds Medication Instructions Recorded Confirmed Losartan [Cozaar] 25 mg PO DAILY 10/30/16 01/01/17 SITagliptin [Januvia] 100 mg PO DAILY 10/30/16 01/01/17 hydroCHLOROthiazide [Microzide] 25 mg PO DAILY 10/30/16 01/01/17 Review of Systems - Physician Review All systems were reviewed & negative as marked: Yes - Review of Systems Constitutional: Fatigue (generalized weakness ). absent: Fevers Respiratory: SOB. absent: Cough, Sputum Cardiovascular: Chest Pain Gastrointestinal: absent: Abdominal Pain, Diarrhea, Nausea, Vomiting Genitourinary Female: Normal Neurological: Dizziness Psychiatric: Anxiety Physical Exam Vital Signs Reviewed: Yes Vital Signs Temp Pulse Resp BP Pulse Ox 01/01/17 19:10 83 24 122/76 95 01/01/17 17:42 98.9 F 96 H 20 131/91 H 99 Temperature: Afebrile Blood Pressure: Normal Pulse: Tachycardic Respiratory Rate: Normal Appearance: Positive for: Well-Appearing, Non-Toxic, Comfortable, Other ( morbidly obese ) Pain Distress: None Mental Status: Positive for: Alert and Oriented X 3 Finger Stick Blood Glucose: 126 - Systems Exam Head: Present: Atraumatic, Normocephalic Pupils: Present: PERRL Extroacular Muscles: Present: EOMI Conjunctiva: Present: Normal Respiratory/Chest: Present: Clear to Auscultation, Good Air Exchange. No: Respiratory Distress, Accessory Muscle Use Cardiovascular: Present: Regular Rate and Rhythm, Normal S1, S2. No: Murmurs Abdomen: Present: Normal Bowel Sounds. No: Tenderness, Distention, Peritoneal Signs Neurological: Present: GCS=15, CN II-XII Intact, Speech Normal, Motor Func Grossly Intact, Normal Sensory Function Skin: Present: Warm, Dry, Normal Color. No: Rashes Psychiatric: Present: Alert, Oriented x 3, Anxious Medical Decision Making ED Course and Treatment: 01/01/17 18:48 Impression: A 51 year old female who presents to the ed for evaluation of intermittent episodes of generalized weakness and dizziness associated with chest discomfort for past 2-3 months. Differential Diagnosis include but are not limited to: anxiety, possibly related to her perimenopausal symptoms vs. acs Plan: -- EKG -- labs, cardiac enzymes -- Xanax -- Reassess and disposition Progress Notes: 01/01/17 18:50 Patient's history is noted. She had an unremarkable echo recently but still has not had a stress test and patient has multiple risk factors for ACS. EKG is nondiagnostic. First set of CE negative - will need to observe further on tele and obtain cardiology consult and stress test. 01/01/17 21:[address] Stcay. - Lab Interpretations Lab Results: 01/01/17 18:17 01/01/17 18:17 Lab Results 01/01/17 18:17: WBC 6.7, RBC 4.49, Hgb 13.6, Hct 39.8, MCV 88.6, MCH 30.3, MCHC 34.2, RDW 13.3, Plt Count 404, MPV 8.4, Gran % 72.3 H, Lymph % (Auto) 21.8 L, [place] % (Auto) 4.7, Eos % (Auto) 0.9 L, Baso % (Auto) 0.3, Gran # 4.87, Lymph # 1.5, [place] # 0.3, Eos # 0.1, Baso # 0.02, PT 10.9, INR 1.01, APTT 30.8, D-Dimer, Quantitative 0.28, Sodium 140, Potassium 3.3 L, Chloride 99, Carbon Dioxide 29, Anion Gap 15, BUN 14, Creatinine 0.6, Est GFR ( Amer) > 60, Est GFR (Non- Af Amer) > 60, Random Glucose 132 H, Calcium 9.9, Magnesium 2.3 H, Total Bilirubin 0.9, AST 22, ALT 26, Alkaline Phosphatase 126, Lactate Dehydrogenase 399, Total Creatine Kinase 62, Troponin I < 0.01, NT-Pro-B Natriuret Pep 31.6, Total Protein 8.3, Albumin 4.3, Globulin 4.1, Albumin/Globulin Ratio 1.0 L, Lipase 70 - RAD Interpretation Radiology Orders: 01/01/17 21:14 CAROTID & VERTEBRAL DUPLEX [US] Stat - EKG Interpretation EKG Interpretation (Text): 01/01/17 21:26 NSR @ 84; no ST/T changes; QTC is 482; normal axis. - Medication Orders Current Medication Orders: Aspirin (Ecotrin) 81 mg PO DAILY HOOD Atorvastatin Calcium (Lipitor) 20 mg PO DIN HOOD Hydrochlorothiazide (Hydrodiuril) 25 mg PO DAILY HOOD Losartan Potassium (Cozaar) 25 mg PO DAILY HOOD Pantoprazole Sodium (Protonix Inj) 40 mg IVP DAILY HOOD Sitagliptin Phosphate (Januvia) 100 mg PO DAILY HOOD Discontinued Medications Alprazolam (Xanax) 0.25 mg PO STAT STA PRN Reason: Protocol Stop: 01/01/17 18:40 Last Admin: 01/01/17 19:11 Dose: 0.25 MG Sodium Chloride (Sodium Chloride 0.9%) 500 mls @ 999 mls/hr IV .Q31M STA Stop: 01/01/17 21:13 Last Admin: 01/01/17 21:17 Dose: 999 MLS/HR eMAR Start Stop Document 01/01/17 21:17 SB (Rec: 01/01/17 21:17 SB [id number]) Intravenous Solution Start Date 01/01/17 Start Time 21:17 End Date 01/01/17 - Scribe Statement The provider has reviewed the documentation as recorded by the Messi Palm Provider Attestation: All medical record entries made by the Messi were at my direction and personally dictated by me. I have reviewed the chart and agree that the record accurately reflects my personal performance of the history, physical exam, medical decision making, and the department course for this patient. I have also personally directed, reviewed, and agree with the discharge instructions and disposition. Disposition/Present on Arrival - Present on Arrival Any Indicators Present on Arrival: No History of DVT/PE: No History of Uncontrolled Diabetes: No Urinary Catheter: No History of Decub. Ulcer: No History Surgical Site Infection Following: None - Disposition Have Diagnosis and Disposition been Completed?: Yes Diagnosis: Atypical chest pain Disposition: HOSPITALIZED Disposition Time: 21:10 Patient Plan: Observation, Telemetry Patient Problems: Current Active Problems Problem Status Diagnosed Atypical chest pain Acute Condition: FAIR Discharge Instructions (ExitCare): Chest Pain (ED)
[2017-01-01 18:57] LABS: ADD MANUAL DIFF? NO
[2017-01-01 19:06] LABS: BASO # 0.02 K/mm3 (0.0-2.0); BASO % 0.3 % (0.0-3.0); EOS # 0.1 (0.0-0.7); EOS % 0.9 % (1.5-5.0); GRAN # 4.87 (1.4-6.5); GRAN % 72.3 % (50.0-68.0); HEMATOCRIT 39.8 % (36.0-48.0); LYMPH # 1.5 (1.2-3.4); LYMPH % 21.8 % (22.0-35.0); MEAN CELL VOLUME 88.6 fL (80.0-105.0); MEAN CORPUSCULAR HEMOGLOBIN 30.3 pg (25.0-35.0); MEAN CORPUSCULAR HGB CONC 34.2 g/dl (31.0-37.0); MEAN PLATELET VOLUME 8.4 fl (7.0-11.0); MONO # 0.3 (0.1-0.6); MONO % 4.7 % (1.0-6.0); PLATELET COUNT 404 10^3/uL (120.0-450.0); RED CELL DISTRIBUTION WIDTH 13.3 % (11.5-14.5); WHITE BLOOD COUNT 6.7 10^3/ul (4.5-11.0)
[2017-01-01 19:16] LABS: D DIMER 0.28 mg/L FEU (0-0.50); INR 1.01 (0.93-1.08); PARTIAL THROMBOPLASTIN TIME 30.8 Seconds (23.7-30.8)
[2017-01-01 20:14] LABS: LIPASE 70 U/L (23-300); MAGNESIUM 2.3 mg/dL (1.7-2.2)
[2017-01-01 20:27] LABS: GFR AFRICAN-AMERICAN > 60
[2017-01-01] MEDS ORDERED: Sodium Chloride 0.9% 500 ML IV STA (20:43)
[2017-01-01 20:55] LABS: TROPONIN I < 0.01 ng/mL
[2017-01-01 21:01] LABS: ALKALINE PHOSPHATASE 126 U/L (38-133); ALT/SGPT 26 U/L (7-56); AST/SGOT 22 U/L (15-39); BILIRUBIN,TOTAL 0.9 mg/dL (0.2-1.3); BLOOD UREA NITROGEN 14 mg/dL (7-21); CALCIUM 9.9 mg/dL (8.4-10.5); CARBON DIOXIDE 29 mmol/L (21-33); CHLORIDE 99 mmol/L (95-110); GLUCOSE,RANDOM 132 mg/dL (70-110); POTASSIUM 3.3 mmol/L (3.6-5.0); SODIUM 140 mmol/L (132-148); TOTAL PROTEIN 8.3 g/dL (5.8-8.3)
--- NOTE | 2017-01-01 21:23 | CP.PCM.HP ---
<Remy Foss - Last Filed: 01/01/17 21:17> History of Present Illness - History of Present Illness History of Present Illness: This is a 51 yo female with past medical hx of HTN, DM, HLD presenting with near syncope. Pt says she has been experiencing hot flashes for several months now and says she will also experience some generalized anxiety and wooziness along with the hot flashes. Usually it goes away. Today she was walking with her to [facility] about 10 am. The [place] is [place] few blocks from her house. She had to stop fdc there because a general feeling of anxiety and generalized wooziness overcame her. She was able to regroup and then went the rest of the way to [facility]. The feeling came back which she described as a "welch " to the head. She felt very unsettled and then decided to leave [facility]. She went with her to a diner, but did not make it all the way as she felt very uncomfortable and they went home instead. She felt some shakiness in her legs and arms but denies passing out. She rested at home, had a bagel to eat, but still felt the sensation after getting up from rest. She then drove to the ER with her . She denies LOC, chest pain, abdominal pain, fevers, chills , vomiting, diarrhea, urinary sx, blood in urine, bloody BMs. PMH: HTN, DM, HLD PSH: None Allergies: Remote hx of allergy to naproxen Home meds: HCTZ, losartan, asa, januvia, lipitor FH: Father- PA- age 69; mother- CAD- diagnosed 68 Social hx: Non smoker. Never smoked. Denies drinking and drug use. Lives in [place] with family. Present on Admission - Present on Admission Any Indicators Present on Admission: No History of DVT/PE: No History of Uncontrolled Diabetes: No Urinary Catheter: No Decubitus Ulcer Present: No Review of Systems - Review of Systems All systems: reviewed and no additional remarkable complaints except Review of Systems: Negative except as stated in HPI. Past Patient History - Infectious Disease Hx of Infectious Diseases: None - Tetanus Immunizations Tetanus Immunization: Unknown - Past Medical History & Family History Past Medical History?: Yes Pertinent Family History: Heart disease in mother and father - Past Social History Smoking Status: Never Smoked Chewing Tobacco Use: No Cigar Use: No Alcohol: None Drugs: Denies Home Situation {Lives}: With Family Domestic Violence: Negative - CARDIAC Hx Hypertension: Yes - PULMONARY Hx Respiratory Disorders: Yes Hx Asthma: No Hx Bronchitis: Yes Hx Chronic Obstructive Pulmonary Disease (COPD): No Hx Emphysema: No Hx Pneumonia: Yes Hx Respiratory Aspiration: No Hx Respiratory Tract Infection: No Hx Sleep Apnea: No Hx Tuberculosis: No - NEUROLOGICAL Hx Neurological Disorder: No Hx Alzheimer's Disease: No HX Cerebrovascular Accident: No Hx Dementia: No Hx Dizziness: No Hx Meningitis: No Hx Migraine: No Hx Parkinson's Disease: No Hx Seizures: No Hx Transient Ischemic Attacks (TIA): No - HEENT Hx HEENT Problems: No Hx Blind: No Hx Cataracts: No Hx Deafness: No Hx Difficulty Chewing: No Hx Epistaxis: No Hx Glaucoma: No Hx Macular Degeneration: No - RENAL Hx Chronic Kidney Disease: No - ENDOCRINE/METABOLIC Hx Diabetes Mellitus Type 2: Yes - HEMATOLOGICAL/ONCOLOGICAL Hx Blood Disorders: No - INTEGUMENTARY Hx Dermatological Problems: No - MUSCULOSKELETAL/RHEUMATOLOGICAL Hx Musculoskeletal Disorders: No - GASTROINTESTINAL Hx Gastrointestinal Disorders: No - GENITOURINARY/GYNECOLOGICAL Hx Genitourinary Disorders: No - PSYCHIATRIC Hx Psychophysiologic Disorder: No Hx Anxiety: Yes Hx Depression: No Hx Physical Abuse: No Hx Substance Use: No - SURGICAL HISTORY Hx Dilation and Curettage: Yes (x2) - ANESTHESIA Hx Anesthesia: Yes Hx Anesthesia Reactions: No Hx Malignant Hyperthermia: No Meds Allergies/Adverse Reactions: Allergies Allergy/AdvReac Type Severity Reaction Status Date / Time naproxen Allergy RASH Verified 12/28/16 02:14 Physical Exam - Constitutional Appears: Non-toxic, No Acute Distress - Head Exam Head Exam: ATRAUMATIC, NORMAL INSPECTION, NORMOCEPHALIC - Eye Exam Eye Exam: EOMI - ENT Exam ENT Exam: Mucous Membranes Moist - Neck Exam Neck exam: Positive for: Normal Inspection - Respiratory Exam Respiratory Exam: Clear to Auscultation Bilateral, NORMAL BREATHING PATTERN - Cardiovascular Exam Cardiovascular Exam: REGULAR RHYTHM, +S1, +S2 - GI/Abdominal Exam GI & Abdominal Exam: Normal Bowel Sounds, Soft. absent: Tenderness - Extremities Exam Extremities exam: Positive for: normal inspection - Back Exam Back exam: NORMAL INSPECTION - Neurological Exam Neurological exam: Alert, CN II-XII Intact, Oriented x3, Reflexes Normal - Psychiatric Exam Psychiatric exam: Anxious - Skin Skin Exam: Dry, Intact, Normal Color, Warm Results - Vital Signs Recent Vital Signs: Last Vital Signs Temp 98.9 F 01/01/17 17:42 Pulse 83 01/01/17 19:10 Resp 24 01/01/17 19:10 BP 122/76 01/01/17 19:10 Pulse Ox 95 01/01/17 19:10 - Labs Result Diagrams: 01/01/17 18:17 01/01/17 18:17 Labs: Laboratory Results - last 24 hr 01/01/17 18:17 WBC 6.7 RBC 4.49 Hgb 13.6 Hct 39.8 MCV 88.6 MCH 30.3 MCHC 34.2 RDW 13.3 Plt Count 404 MPV 8.4 Gran % 72.3 H Lymph % (Auto) 21.8 L [place] % (Auto) 4.7 Eos % (Auto) 0.9 L Baso % (Auto) 0.3 Gran # 4.87 Lymph # 1.5 [place] # 0.3 Eos # 0.1 Baso # 0.02 PT 10.9 INR 1.01 APTT 30.8 D-Dimer, Quantitative 0.28 Sodium 140 Potassium 3.3 L Chloride 99 Carbon Dioxide 29 Anion Gap 15 BUN 14 Creatinine 0.6 Est GFR ( Amer) > 60 Est GFR (Non-Af Amer) > 60 Random Glucose 132 H Calcium 9.9 Magnesium 2.3 H Total Bilirubin 0.9 AST 22 ALT 26 Alkaline Phosphatase 126 Lactate Dehydrogenase 399 Total Creatine Kinase 62 Troponin I < 0.01 NT-Pro-B Natriuret Pep 31.6 Total Protein 8.3 Albumin 4.3 Globulin 4.1 Albumin/Globulin Ratio 1.0 L Lipase 70 Assessment & Plan - Assessment and Plan (Free Text) Assessment: This is a 51 yo female with past medical hx of HTN, DM, HLD presenting with general feeling of wooziness and near syncope 1. Near syncope -orthostatic vital signs -carotid dopplers -neuro consult. Dr. Jennifer No. recs appreciated -cardio consult. -EKG shows nsr with prolonged qt, repeat ekg in morning -first trop negative, serial cardiac enzymes -neuro checks q 4 -telemetry bed 2. Hx of HTN -continue losartan -continue hctz 3. Hx of DM -continue januvia -ISS 4. hx of HLD -continue lipitor -continue asa daily 5. GI/DVT ppx -protonix daily -SCDs <Abhijit Stacy - Last Filed: 01/02/17 05:19> Results - Vital Signs Recent Vital Signs: Last Vital Signs Temp 98.9 F 01/01/17 17:42 Pulse 83 01/01/17 19:10 Resp 24 01/01/17 19:10 BP 122/76 01/01/17 19:10 Pulse Ox 95 01/01/17 19:10 - Labs Result Diagrams: 01/01/17 18:17 01/01/17 18:17 Labs: Laboratory Results - last 24 hr 01/02/17 04:00 Troponin I 0.02 D Attending/Attestation - Attestation I have personally seen and examined this patient.: Yes I have fully participated in the care of the patient.: Yes I have reviewed all pertinent clinical information: Yes Notes (Text): 01/02/17 05:17 Patient was seen with Remy Shields when she was in bed # 5 in the ER. Agree with history , physical examination , assessment and plan.
[2017-01-01] MEDS ORDERED: Potassium Chloride 40 mEq/30 ml LIQ UD PO STA (21:28)
--- NOTE | 2017-01-02 07:18 | US ---
PROCEDURE: Bilateral carotid artery duplex ultrasound HISTORY: Carotid stenosis PHYSICIAN(S): Ken Cruz MD. TECHNIQUE: Duplex sonography and color-flow Doppler were used to evaluate the carotid bifurcations and limited segments of the vertebral arteries bilaterally. FINDINGS: There is mild smooth hypoechoic plaque noted at the carotid bifurcations bilaterally. The peak systolic velocity in the proximal right internal carotid artery is 105 cm/sec. This corresponds to a 40-59 percent proximal right ICA stenosis. Normal systolic velocities are noted in the proximal right external carotid artery. There is antegrade flow in the right vertebral artery. The peak systolic velocity in the proximal left internal carotid artery is 114 cm/sec. This corresponds to a 40-59 percent proximal left ICA stenosis. Normal systolic velocities are noted in the proximal left external carotid artery. There is antegrade flow in the left vertebral artery. IMPRESSION: 1. Bilateral 40-59 percent proximal ICA stenoses. 2. Antegrade flow in both vertebral arteries.
[2017-01-02] MEDS: Insulin Reg-LOW-Coverage SC SCH ×2 (08:07→12:32)
[2017-01-02 09:31] VITALS: TEMP 98.2
--- NOTE | 2017-01-02 11:58 | CARD ---
APPROVED REPORT EKG Measurement Heart [id number] ID [id number] <Conclusion> Normal sinus rhythm Prolonged QT Abnormal ECG
[2017-01-02 14:15] VITALS: BP 120/73; PULSE 80; RESP 16; O2SAT 100
[2017-01-02 14:17] LABS: ADD MANUAL DIFF? NO
[2017-01-02 14:23] LABS: BASO # 0.02 K/mm3 (0.0-2.0); BASO % 0.3 % (0.0-3.0); EOS # 0.1 (0.0-0.7); EOS % 1.2 % (1.5-5.0); GRAN # 4.71 (1.4-6.5); GRAN % 71.4 % (50.0-68.0); LYMPH # 1.5 (1.2-3.4); LYMPH % 23.3 % (22.0-35.0); MEAN CELL VOLUME 89.8 fL (80.0-105.0); MEAN CORPUSCULAR HEMOGLOBIN 30.1 pg (25.0-35.0); MEAN CORPUSCULAR HGB CONC 33.5 g/dl (31.0-37.0); MEAN PLATELET VOLUME 8.4 fl (7.0-11.0); MONO # 0.3 (0.1-0.6); MONO % 3.8 % (1.0-6.0); PLATELET COUNT 370 10^3/uL (120.0-450.0); RED CELL DISTRIBUTION WIDTH 13.4 % (11.5-14.5); WHITE BLOOD COUNT 6.6 10^3/ul (4.5-11.0)
[2017-01-02 14:34] LABS: ALKALINE PHOSPHATASE 104 U/L (38-133); ALT/SGPT 16 U/L (7-56); AST/SGOT 33 U/L (15-39); BILIRUBIN,TOTAL 1.1 mg/dL (0.2-1.3); BLOOD UREA NITROGEN 12 mg/dL (7-21); CARBON DIOXIDE 33 mmol/L (21-33); CHLORIDE 98 mmol/L (98-107); GFR AFRICAN-AMERICAN > 60; GLUCOSE,RANDOM 163 mg/dL (70-110); POTASSIUM 3.2 mmol/L (3.6-5.0); SODIUM 139 mmol/L (132-148); TOTAL PROTEIN 7.8 g/dL (5.8-8.3)
[2017-01-02 14:46] LABS: TROPONIN I < 0.01 ng/mL
--- NOTE | 2017-01-02 14:59 | CP.PCM.DIS ---
<Lauren Dennis - Last Filed: 01/02/17 22:13> Provider - Provider Date of Admission: 01/01/17 21:02 Attending physician: Barbara Seaman MD Primary care physician: Pete Marroquin MD Consults: Cardiology: Dr. Clark Time Spent in preparation of Discharge (in minutes): 35 Diagnosis - Discharge Diagnosis (1) Weakness Status: Acute (2) Atypical chest pain Status: Acute (3) Abnormal EKG Status: Acute (4) Diabetes Status: Chronic (5) Hypertension Status: Chronic (6) Hyperlipidemia Status: Chronic (7) Obesities, morbid Status: Acute (8) Severe obesity (BMI >= 40) Status: Acute Hospital Course - Lab Results Lab Results: Most Recent Lab Values WBC 6.6 10^3/ul (4.5-11.0) 01/02/17 13:50 RBC 4.12 10^6/uL (3.5-6.1) 01/02/17 13:50 Hgb 12.4 gm/dL (12.0-16.0) 01/02/17 13:50 Hct 37.0 % (36.0-48.0) 01/02/17 13:50 MCV 89.8 fL (80.0-105.0) 01/02/17 13:50 MCH 30.1 pg (25.0-35.0) 01/02/17 13:50 MCHC 33.5 g/dl (31.0-37.0) 01/02/17 13:50 RDW 13.4 % (11.5-14.5) 01/02/17 13:50 Plt Count 370 10^3/uL (120.0-450.0) 01/02/17 13:50 MPV 8.4 fl (7.0-11.0) 01/02/17 13:50 Gran % 71.4 % (50.0-68.0) H 01/02/17 13:50 Lymph % (Auto) 23.3 % (22.0-35.0) 01/02/17 13:50 [place] % (Auto) 3.8 % (1.0-6.0) 01/02/17 13:50 Eos % (Auto) 1.2 % (1.5-5.0) L 01/02/17 13:50 Baso % (Auto) 0.3 % (0.0-3.0) 01/02/17 13:50 Gran # 4.71 (1.4-6.5) 01/02/17 13:50 Lymph # 1.5 (1.2-3.4) 01/02/17 13:50 [place] # 0.3 (0.1-0.6) 01/02/17 13:50 Eos # 0.1 (0.0-0.7) 01/02/17 13:50 Baso # 0.02 K/mm3 (0.0-2.0) 01/02/17 13:50 PT 10.9 Seconds (9.9-11.8) 01/01/17 18:17 INR 1.01 (0.93-1.08) 01/01/17 18:17 APTT 30.8 Seconds (23.7-30.8) 01/01/17 18:17 D-Dimer, Quantitative 0.28 mg/L FEU (0-0.50) 01/01/17 18:17 Sodium 139 mmol/L (132-148) 01/02/17 13:50 Potassium 3.2 mmol/L (3.6-5.0) L 01/02/17 13:50 Chloride 98 mmol/L (98-107) 01/02/17 13:50 Carbon Dioxide 33 mmol/L (21-33) 01/02/17 13:50 Anion Gap 11 (10-20) 01/02/17 13:50 BUN 12 mg/dL (7-21) 01/02/17 13:50 Creatinine 0.7 mg/dL (0.5-1.4) 01/02/17 13:50 Est GFR ( Amer) > 60 01/02/17 13:50 Est GFR (Non-Af Amer) > 60 01/02/17 13:50 POC Glucose (mg/dL) 117 mg/dL (65-110) H 01/02/17 08:05 Random Glucose 163 mg/dL (70-110) H 01/02/17 13:50 Calcium 9.0 mg/dL (8.4-10.5) 01/02/17 13:50 Magnesium 2.3 mg/dL (1.7-2.2) H 01/01/17 18:17 Total Bilirubin 1.1 mg/dL (0.2-1.3) 01/02/17 13:50 AST 33 U/L (15-39) 01/02/17 13:50 ALT 16 U/L (7-56) 01/02/17 13:50 Alkaline Phosphatase 104 U/L (38-133) 01/02/17 13:50 Lactate Dehydrogenase 399 U/L (333-699) 01/01/17 18:17 Total Creatine Kinase 62 U/L (35-230) 01/01/17 18:17 Troponin I < 0.01 ng/mL D 01/02/17 13:50 NT-Pro-B Natriuret Pep 31.6 pg/mL (0-450) 01/01/17 18:17 Total Protein 7.8 g/dL (5.8-8.3) 01/02/17 13:50 Albumin 3.8 g/dL (3.0-4.8) 01/02/17 13:50 Globulin 4.0 gm/dL 01/02/17 13:50 Albumin/Globulin Ratio 1.0 (1.1-1.8) L 01/02/17 13:50 Lipase 70 U/L (23-300) 01/01/17 18:17 FSH 3rd Generation 10.7 mIU/mL 01/01/17 18:17 - Hospital Course Hospital Course: Pt is a 51 y/o F with PMH of HTN, HLD, DM2, and severe obesity (BMI 56.3) who presented to the ED after having multiple episodes of feeling week, shaky, and a sensation of heat rushing through her body. Patient denied any dizziness, light headedness, abnormal gait, focal weakness, loss of consciousness or fall. Patient admitted multiple similar episodes, often accompanied by anxiety, over the past few months. Upon presentation she was afebrile, VSS, and CBC and CMP wnl except for a mild hypokalemia and mild hypermagnesemia. EKG showed prolonged QT segment, carotid artery ultrasound revealed BL 40-59% proximal ICA stenosis with BL vertebral antegrade flow, orthostatic vitals showed no orthostatic hypotension. Patient's symptoms resolved after a dose of ativan in the ER. Patient was advised that she should undergo a cardiac stress test, but patient requested setting up an outpatient appointment for a stress test. Cardiology was consulted, and Dr. Clark recommended that patient follow up with him outpatiently for a stress test in the near future. Patient remained stable throughout entire hospital course with resolution of her symptoms for greater than 12 hours. The patient's results and their meanings as well as plans to discharge the patient to home with follow up with her PMD and cardiology were explained at length to the patient. Patient and patient's family expressed understanding and agreed with the plan. Patient also stated that she would discuss with her PMD our recommendation to follow up with a psychiatrist for anxiety. For full hospital course, please refer to full chart. Discharge Exam - Head Exam Head Exam: ATRAUMATIC, NORMAL INSPECTION, NORMOCEPHALIC - Eye Exam Eye Exam: Normal appearance. absent: Conjunctival injection, Scleral icterus - ENT Exam ENT Exam: Mucous Membranes Moist, Normal Oropharynx - Respiratory Exam Respiratory Exam: Clear to PA & Lateral, NORMAL BREATHING PATTERN. absent: Accessory Muscle Use, Rales, Rhonchi, Wheezes, Respiratory Distress - Cardiovascular Exam Cardiovascular Exam: RRR, +S1, +S2. absent: Systolic Murmur - GI/Abdominal Exam GI & Abdominal Exam: Distended, Soft. absent: Tenderness - Extremities Exam Extremities exam: pedal edema Additional comments: no calf tenderness or swelling or erythema - Neurological Exam Neurological exam: Alert, Oriented x3 - Psychiatric Exam Psychiatric exam: Normal Affect, Normal Mood - Skin Skin Exam: Dry, Intact, Normal Color, Warm Discharge Plan - Follow Up Plan Condition: FAIR Disposition: HOME/ ROUTINE Instructions: Menopause (DC), Hypotension (DC), Weakness (GEN), Anxiety (DC) Additional Instructions: 1. Follow up with Dr. Marroquin in his office 1 week 2. Follow up with Dr. Clark in his office as soon as possible for cardiac stress test 3. Consider follow up with [facility] for anxiety 4. Continue to take medications as prescribed by you primary care physician 5. Return to the ED if you experience chest pain, shortness of breath, dizziness , light headedness, have a fall, or any other concerning symptoms. Referrals: Sam Clark MD [Staff Provider] - Pete Marroquin MD [Primary Care Provider] - [facility] [Outside] <Jurgen TAPIA,Barbara - Last Filed: 01/03/17 07:37> Provider - Provider Date of Admission: 01/01/17 21:02 Attending physician: Barbara Seaman MD Primary care physician: Pete Marroquin MD Hospital Course - Lab Results Lab Results: Most Recent Lab Values WBC 6.6 10^3/ul (4.5-11.0) 01/02/17 13:50 RBC 4.12 10^6/uL (3.5-6.1) 01/02/17 13:50 Hgb 12.4 gm/dL (12.0-16.0) 01/02/17 13:50 Hct 37.0 % (36.0-48.0) 01/02/17 13:50 MCV 89.8 fL (80.0-105.0) 01/02/17 13:50 MCH 30.1 pg (25.0-35.0) 01/02/17 13:50 MCHC 33.5 g/dl (31.0-37.0) 01/02/17 13:50 RDW 13.4 % (11.5-14.5) 01/02/17 13:50 Plt Count 370 10^3/uL (120.0-450.0) 01/02/17 13:50 MPV 8.4 fl (7.0-11.0) 01/02/17 13:50 Gran % 71.4 % (50.0-68.0) H 01/02/17 13:50 Lymph % (Auto) 23.3 % (22.0-35.0) 01/02/17 13:50 [place] % (Auto) 3.8 % (1.0-6.0) 01/02/17 13:50 Eos % (Auto) 1.2 % (1.5-5.0) L 01/02/17 13:50 Baso % (Auto) 0.3 % (0.0-3.0) 01/02/17 13:50 Gran # 4.71 (1.4-6.5) 01/02/17 13:50 Lymph # 1.5 (1.2-3.4) 01/02/17 13:50 [place] # 0.3 (0.1-0.6) 01/02/17 13:50 Eos # 0.1 (0.0-0.7) 01/02/17 13:50 Baso # 0.02 K/mm3 (0.0-2.0) 01/02/17 13:50 PT 10.9 Seconds (9.9-11.8) 01/01/17 18:17 INR 1.01 (0.93-1.08) 01/01/17 18:17 APTT 30.8 Seconds (23.7-30.8) 01/01/17 18:17 D-Dimer, Quantitative 0.28 mg/L FEU (0-0.50) 01/01/17 18:17 Sodium 139 mmol/L (132-148) 01/02/17 13:50 Potassium 3.2 mmol/L (3.6-5.0) L 01/02/17 13:50 Chloride 98 mmol/L (98-107) 01/02/17 13:50 Carbon Dioxide 33 mmol/L (21-33) 01/02/17 13:50 Anion Gap 11 (10-20) 01/02/17 13:50 BUN 12 mg/dL (7-21) 01/02/17 13:50 Creatinine 0.7 mg/dL (0.5-1.4) 01/02/17 13:50 Est GFR ( Amer) > 60 01/02/17 13:50 Est GFR (Non-Af Amer) > 60 01/02/17 13:50 POC Glucose (mg/dL) 117 mg/dL (65-110) H 01/02/17 08:05 Random Glucose 163 mg/dL (70-110) H 01/02/17 13:50 Calcium 9.0 mg/dL (8.4-10.5) 01/02/17 13:50 Magnesium 2.3 mg/dL (1.7-2.2) H 01/01/17 18:17 Total Bilirubin 1.1 mg/dL (0.2-1.3) 01/02/17 13:50 AST 33 U/L (15-39) 01/02/17 13:50 ALT 16 U/L (7-56) 01/02/17 13:50 Alkaline Phosphatase 104 U/L (38-133) 01/02/17 13:50 Lactate Dehydrogenase 399 U/L (333-699) 04/02/17 18:17 Total Creatine Kinase 62 U/L (35-230) 01/01/17 18:17 Troponin I < 0.01 ng/mL D 01/02/17 13:50 NT-Pro-B Natriuret Pep 31.6 pg/mL (0-450) 01/01/17 18:17 Total Protein 7.8 g/dL (5.8-8.3) 01/02/17 13:50 Albumin 3.8 g/dL (3.0-4.8) 01/02/17 13:50 Globulin 4.0 gm/dL 01/02/17 13:50 Albumin/Globulin Ratio 1.0 (1.1-1.8) L 01/02/17 13:50 Lipase 70 U/L (23-300) 01/01/17 18:17 FSH 3rd Generation 10.7 mIU/mL 01/01/17 18:17 Attending/Attestation - Attestation I have personally seen and examined this patient.: Yes I have fully participated in the care of the patient.: Yes I have reviewed all pertinent clinical information, including history, physical exam and plan: Yes Notes (Text): Patient was seen and examined with medical van driver .Agreed with resident assessment and plan. Patient does not has any focal weakness, she is amulatory, there is no history of chest paain, palpitation or dyspnea, troponins are negative.She was scheduled to have out patient stress test by her PCP with , wasnot done as she was in ER, did not want to stay for stress test as in patient, patient will be discharged home and will have out patient stress test with . Management plan was discussed in detail with patient Education was provided.
--- NOTE | 2017-01-02 18:59 | CARD ---
APPROVED REPORT EKG Measurement Heart [id number] NM [id number] <Conclusion> Normal sinus rhythm Prolonged QT Abnormal ECG
[2017-01-04 17:17] LABS: ANTI-MULLERIAN HORMONE < 0.03 ng/mL (())
== END 2017-01-02 16:59 | disposition home or self-care (01) ==
LOC: ED 17:41 → ERH 21:02 → 3RSO 01-02 14:09
PROVIDERS: ADMIT Hospitalist; ATTEND Internal Medicine
DX: R07.89 Other chest pain (principal); R53.1 Weakness; I10 Essential (primary) hypertension; E11.9 Type 2 diabetes mellitus without complications; E78.5 Hyperlipidemia, unspecified; E66.01 Morbid (severe) obesity due to excess calories; Z68.43 Body mass index [BMI] 50.0-59.9, adult; I65.23 Occlusion and stenosis of bilateral carotid arteries; E87.6 Hypokalemia; E83.41 Hypermagnesemia; R94.31 Abnormal electrocardiogram [ECG] [EKG]; Z82.49 Family history of ischemic heart disease and other diseases of the circulatory system
CPT/HCPCS: 80053; 82550; 82948; 83001; 83520; 83615; 83690; 83735; 83880; 84484; 85025; 85378; 85610; 85730; 93005; 93880; 99285; C9113; G0378; J3480; J7040

== ENCOUNTER 2017-01-14 14:32 | Emergency (ER) | payer BC ==
[2017-01-14 14:34] VITALS: BMI 56.2
[2017-01-14 14:53] VITALS: TEMP 97.7
--- NOTE | 2017-01-14 16:02 | ED PDOC ---
Arrival/HPI - General Chief Complaint: Weakness/Neurological Deficit Time Seen by Provider: 01/14/17 15:20 Historian: Patient - History of Present Illness Narrative History of Present Illness (Text): 01/14/17 15:30 Karen Hogan is a 51 year old female, whose past medical history includes prediabetes, hypertension, and hyperlipidemia, who presents to the emergency department complaining of feeling uneasy and having "fuzzy thinking" prior to arrival. Patient states that when symptoms began she took Xanax which did not help, causing patient to feel even more uneasy. Patient states that she began to experience body twitching sensation and "fuzzy thinking" prompting patient to come to emergency department. Patient notes that she has had these symptoms before. Patient saw her PMD, Dr. Marroquin, who gave her Xanax for her symptoms. Patient denies any chest pain, shortness of breath, or any other complaint at this time. PMD: Dr. Marroquin Time/Duration: Prior to Arrival Symptom Onset: Gradual Symptom Course: Unchanged Severity Level: Mild Activities at Onset: Light Context: Home Past Medical History - Provider Review Nursing Documentation Reviewed: Yes - Infectious Disease Hx of Infectious Diseases: None - Tetanus Immunization Tetanus Immunization: Unknown - Reproductive Menopause: Yes - Cardiac Hx Hypertension: Yes - Pulmonary Hx Respiratory Disorders: Yes Hx Asthma: No Hx Bronchitis: Yes Hx Chronic Obstructive Pulmonary Disease (COPD): No Hx Emphysema: No Hx Pneumonia: Yes Hx Respiratory Aspiration: No Hx Respiratory Tract Infection: No Hx Sleep Apnea: No Hx Tuberculosis: No - Neurological Hx Neurological Disorder: No Hx Alzheimer's Disease: No HX Cerebrovascular Accident: No Hx Dementia: No Hx Dizziness: No Hx Meningitis: No Hx Migraine: No Hx Parkinson's Disease: No Hx Seizures: No Hx Transient Ischemic Attacks (TIA): No - HEENT Hx HEENT Disorder: No Hx Blind: No Hx Cataracts: No Hx Deafness: No Hx Difficulty Chewing: No Hx Epistaxis: No Hx Glaucoma: No Hx Macular Degeneration: No - Renal Hx Renal Disorder: No - Endocrine/Metabolic Hx Diabetes Mellitus Type 2: Yes - Hematological/Oncological Hx Blood Disorders: No - Integumentary Hx Dermatological Disorder: No - Musculoskeletal/Rheumatological Hx Musculoskeletal Disorders: No - Gastrointestinal Hx Gastrointestinal Disorders: No - Genitourinary/Gynecological Hx Genitourinary Disorders: No - Psychiatric Hx Psychophysiologic Disorder: No Hx Anxiety: Yes Hx Depression: No Hx Physical Abuse: No Hx Substance Use: No - Surgical History Hx Dilation and Curettage: Yes (x2) - Anesthesia Hx Anesthesia: Yes Hx Anesthesia Reactions: No Hx Malignant Hyperthermia: No - Suicidal Assessment Feels Threatened In Home Enviroment: No Family/Social History - Physician Review Nursing Documentation Reviewed: Yes Family/Social History: No Known Family HX Smoking Status: Never Smoked Hx Alcohol Use: No Hx Substance Use: No Hx Substance Use Treatment: No Allergies/Home Meds Allergies/Adverse Reactions: Allergies naproxen Allergy (Verified 01/14/17 14:53) RASH Home Medications: Home Meds Medication Instructions Recorded Confirmed Losartan [Cozaar] 25 mg PO DAILY 10/30/16 01/14/17 SITagliptin [Januvia] 100 mg PO DAILY 10/30/16 01/14/17 Review of Systems - Review of Systems Constitutional: absent: Fevers, Night Sweats Eyes: absent: Vision Changes ENT: absent: Hearing Changes Respiratory: absent: SOB Cardiovascular: absent: Chest Pain, Syncope Gastrointestinal: absent: Abdominal Pain Genitourinary Female: absent: Urine Output Changes Musculoskeletal: absent: Back Pain, Neck Pain Skin: absent: Rash Neurological: absent: Headache, Facial Droop Hemo/Lymphatic: absent: Adenopathy Psychiatric: Anxiety Physical Exam Vital Signs Reviewed: Yes Vital Signs Temp Pulse Resp BP Pulse Ox 01/14/17 17:21 16 99 01/14/17 16:11 79 18 124/79 97 01/14/17 15:22 97.7 F 85 18 126/86 97 01/14/17 14:47 97.7 F 85 19 126/86 98 Temperature: Afebrile Blood Pressure: Normal Pulse: Regular Respiratory Rate: Normal Appearance: Positive for: Well-Appearing, Non-Toxic, Comfortable Pain Distress: None Mental Status: Positive for: Alert and Oriented X 3 - Systems Exam Head: Present: Atraumatic, Normocephalic Pupils: Present: PERRL Extroacular Muscles: Present: EOMI Conjunctiva: Present: Normal Mouth: Present: Moist Mucous Membranes Neck: Present: Normal Range of Motion Respiratory/Chest: Present: Clear to Auscultation, Good Air Exchange. No: Respiratory Distress, Accessory Muscle Use Cardiovascular: Present: Regular Rate and Rhythm, Normal S1, S2. No: Murmurs Abdomen: Present: Normal Bowel Sounds. No: Tenderness, Distention, Peritoneal Signs Back: Present: Normal Inspection Upper Extremity: Present: Normal Inspection. No: Cyanosis, Edema Lower Extremity: Present: Normal Inspection. No: Edema Neurological: Present: GCS=15, CN II-XII Intact, Speech Normal, Motor Func Grossly Intact, Normal Sensory Function, Normal Cerebellar Funct, Norm Deep Tendon Reflexes, Gait Normal, Memory Normal, Normal 2Pt Descrimination Skin: Present: Warm, Dry, Normal Color. No: Rashes Psychiatric: Present: Alert, Oriented x 3, Normal Insight, Normal Concentration Medical Decision Making ED Course and Treatment: 01/14/17 15:30 Impression: 51 year old female complaining of feeling uneasy and "fuzzy thinking" prior to arrival. Differential Diagnosis included but are not limited to: Anxiety, Arrythmia Plan: -- EKG -- Ativan -- Reassess and disposition Prior Visits: Notes and results from previous visits were reviewed. Patient last seen in the ED on 01/01/17 for intermittent episodes of lightheadedness and generalized weakness for past 2-3 months. Patient was admitted to telemetry for further evaluation. Progress Notes: EKG: Ordered, reviewed, and independently interpreted the EKG. Rate : 81 BPM Rhythm : NSR Interpretation : No ST-segment elevations or depressions, no T-wave inversions, normal intervals. Comparison : No previous EKG for comparison. 01/14/17 15:57 Patient symptoms are most consistant with her anxiety. Her exam was completely normal. There were no neurological deficits so this is not consistent wtih stroke like symptoms. After Ativan she felt completely better and will be discharged. Instructed to follow up with Dr. Marroquin. - Medication Orders Current Medication Orders: Discontinued Medications Lorazepam (Ativan) 1 mg PO ONCE ONE PRN Reason: Protocol Stop: 01/14/17 15:44 Last Admin: 01/14/17 16:03 Dose: 1 MG Behavioural Document 01/14/17 16:03 [email or web address] (Rec: 01/14/17 16:03 [email or web address] [id number]) Maintenance Maintenance Dose Yes Nonmedicinal Nonmedicinal Interventions Redirect Behavior Behavior for Medication: Anxiety - Scribe Statement The provider has reviewed the documentation as recorded by the Messi Taylor Provider Scribe Attestation: All medical record entries made by the Scribe were at my direction and personally dictated by me. I have reviewed the chart and agree that the record accurately reflects my personal performance of the history, physical exam, medical decision making, and the department course for this patient. I have also personally directed, reviewed, and agree with the discharge instructions and disposition. Disposition/Present on Arrival - Present on Arrival Any Indicators Present on Arrival: No History of DVT/PE: No History of Uncontrolled Diabetes: No Urinary Catheter: No History of Decub. Ulcer: No History Surgical Site Infection Following: None - Disposition Have Diagnosis and Disposition been Completed?: Yes Diagnosis: Anxiety Disposition: HOME/ ROUTINE Disposition Time: 15:57 Patient Plan: Discharge Condition: IMPROVED Discharge Instructions (ExitCare): Anxiety (ED) Additional Instructions: Ms Hogan, thank you for letting us take care of you today. Your provider was Dr. Doyle You were treated for Anxiety. The emergency medical care you received today was directed at your acute symptoms. If you were prescribed any medication, please fill it and take as directed. It may take several days for your symptoms to resolve. Return to the Emergency Department if your symptoms worsen, do not improve, or if you have any other problems. Please contact your doctor or call one of the physicians/clinics you have been referred to that are listed on the Patient Visit Information form that is included in your discharge packet. Bring any paperwork you were given at discharge with you along with any medications you are taking to your follow up visit. Our treatment cannot replace ongoing medical care by a primary care provider (PCP) outside of the emergency department. Thank you for allowing the [facility] team to be part of your care today. If you had an X-Ray or CT scan: A Radiologist will review the ED reading if any change in treatment is needed we will contact you. If you had a blood, urine, or wound culture: It will take several days for the results, if any change in treatment is needed we will contact you. If you had an STI test: It will take 48 hours for the results. Please call after 1 week if you have not heard back. Referrals: Pete Marroquin MD [Family Provider] - Follow up with primary Forms: WORK NOTE
[2017-01-14 16:11] VITALS: BP 124/79; PULSE 79
[2017-01-14 17:22] VITALS: RESP 16; O2SAT 99
--- NOTE | 2017-01-15 09:49 | CARD ---
APPROVED REPORT EKG Measurement Heart [id number] <Conclusion> Normal sinus rhythm Normal ECG
== END 2017-01-14 17:22 | disposition home or self-care (01) ==
LOC: ED 14:32
DX: F41.9 Anxiety disorder, unspecified (principal)

== ENCOUNTER 2017-01-17 17:42 | Observation (INO) | payer BC ==
[2017-01-17 18:07] VITALS: BMI 62.4
--- NOTE | 2017-01-17 18:32 | ED PDOC ---
Arrival/HPI <Ken Engle Jr. - Last Filed: 01/17/17 19:02> - General Historian: Patient - History of Present Illness Time/Duration: 1-3 hours Symptom Course: Unchanged <Jessica Au - Last Filed: 01/17/17 19:08> - General Time Seen by Provider: 01/17/17 18:05 - History of Present Illness Narrative History of Present Illness (Text): 01/17/17 18:33 51 year old female with past medical history of anxiety, diabetes, hypertension, hyperlipidemia, and morbid obesity presents to [facility] ED complaining of feeling "unwell". Patient reports symptoms first started at 3pm today. Patient was in a in the passenger seat, where she suddenly felt a weird sensation in her chest that travels to the back of her left shoulder. Patient became frustrated and tearful as she could not find the words to describe her symptoms. Patient also reports having finger tremors. Patient has been having multiple similar episodes since August 2016. Patient was evaluated by OBGYN whom suggested her symptoms are menopausal related. Patient was admitted to [facility] in early December. Patient underwent cardiac workups including carotid doppler and echocardiogram which were all unremarkable. Patient had an outpatient stress test last Monday, which was also negative. Patient denies headache, LOC, fever, chills, shortness of breath, chest pain, abdominal pain, nausea, vomiting , diarrhea, constipation, lower extremity swelling, or urinary symptoms. (Jessica Au) Past Medical History - Provider Review Nursing Documentation Reviewed: Yes - Infectious Disease Hx of Infectious Diseases: None - Tetanus Immunization Tetanus Immunization: Unknown - Cardiac Hx Hypertension: Yes - Pulmonary Hx Respiratory Disorders: Yes Hx Asthma: No Hx Bronchitis: Yes Hx Chronic Obstructive Pulmonary Disease (COPD): No Hx Emphysema: No Hx Pneumonia: Yes Hx Respiratory Aspiration: No Hx Respiratory Tract Infection: No Hx Sleep Apnea: No Hx Tuberculosis: No - Neurological Hx Neurological Disorder: No Hx Alzheimer's Disease: No HX Cerebrovascular Accident: No Hx Dementia: No Hx Dizziness: No Hx Meningitis: No Hx Migraine: No Hx Parkinson's Disease: No Hx Seizures: No Hx Transient Ischemic Attacks (TIA): No - HEENT Hx HEENT Disorder: No Hx Blind: No Hx Cataracts: No Hx Deafness: No Hx Difficulty Chewing: No Hx Epistaxis: No Hx Glaucoma: No Hx Macular Degeneration: No - Renal Hx Renal Disorder: No - Endocrine/Metabolic Hx Diabetes Mellitus Type 2: Yes - Hematological/Oncological Hx Blood Disorders: No - Integumentary Hx Dermatological Disorder: No - Musculoskeletal/Rheumatological Hx Musculoskeletal Disorders: No - Gastrointestinal Hx Gastrointestinal Disorders: No - Genitourinary/Gynecological Hx Genitourinary Disorders: No - Psychiatric Hx Psychophysiologic Disorder: No Hx Anxiety: Yes Hx Depression: No Hx Physical Abuse: No Hx Substance Use: No - Surgical History Hx Dilation and Curettage: Yes (x2) - Anesthesia Hx Anesthesia: Yes Hx Anesthesia Reactions: No Hx Malignant Hyperthermia: No - Suicidal Assessment Feels Threatened In Home Enviroment: No <Jessica Au - Last Filed: 01/17/17 19:08> Family/Social History - Physician Review Nursing Documentation Reviewed: Yes Family/Social History: Unknown Family HX Smoking Status: Never Smoked Hx Alcohol Use: No Hx Substance Use: No Hx Substance Use Treatment: No <Jessica Au - Last Filed: 01/17/17 19:08> Allergies/Home Meds <Ken Engle Jr. - Last Filed: 01/17/17 19:02> <Jessica Au - Last Filed: 01/17/17 19:08> Allergies/Adverse Reactions: Allergies naproxen Allergy (Verified 01/17/17 18:09) RASH Home Medications: Home Meds Medication Instructions Recorded Confirmed Losartan [Cozaar] 25 mg PO DAILY 10/30/16 01/14/17 SITagliptin [Januvia] 100 mg PO DAILY 10/30/16 01/14/17 Review of Systems - Physician Review All systems were reviewed & negative as marked: Yes - Review of Systems Constitutional: Other ("feeling unwell"). absent: Fatigue, Fevers Eyes: Normal. absent: Vision Changes ENT: Normal Respiratory: absent: SOB, Cough, Wheezing Cardiovascular: absent: Chest Pain, Palpitations, Calf Pain, Syncope Gastrointestinal: absent: Abdominal Pain, Diarrhea, Nausea, Vomiting Genitourinary Female: absent: Frequency, Hematuria, Vaginal Bleeding Musculoskeletal: Other ("weird sensation on posterior left shoulder"). absent: Arthralgias, Back Pain, Joint Swelling Skin: Normal. absent: Rash, Pruritis Neurological: absent: Headache, Dizziness, Speech Changes, Seizure Endocrine: absent: Diaphoresis Hemo/Lymphatic: absent: Adenopathy, Easy Bleeding, Easy Bruising Psychiatric: Anxiety <Jessica Au - Last Filed: 01/17/17 19:08> Physical Exam Vital Signs Reviewed: Yes Temperature: Afebrile Blood Pressure: Hypertensive Pulse: Regular Respiratory Rate: Normal Appearance: Positive for: Non-Toxic, Unkept Pain Distress: None Mental Status: Positive for: Alert and Oriented X 3 - Systems Exam Head: Present: Atraumatic, Normocephalic Pupils: Present: PERRL Extroacular Muscles: Present: EOMI Conjunctiva: Present: Normal Mouth: Present: Moist Mucous Membranes Neck: Present: Normal Range of Motion Respiratory/Chest: Present: Clear to Auscultation, Good Air Exchange. No: Respiratory Distress, Accessory Muscle Use, Wheezes, Decreased Breath Sounds Cardiovascular: Present: Regular Rate and Rhythm, Normal S1, S2, Peripheal Pulses Present. No: Murmurs, Tachycardic Abdomen: Present: Normal Bowel Sounds. No: Tenderness, Distention, Peritoneal Signs Back: Present: Normal Inspection. No: CVA Tenderness Upper Extremity: Present: Normal Inspection, NORMAL PULSES, Neurovascularly Intact. No: Cyanosis, Edema, Tenderness, Swelling Lower Extremity: Present: Normal Inspection, NORMAL PULSES, Neurovascularly Intact. No: Edema, Tenderness, Swelling Neurological: Present: GCS=15 Skin: Present: Warm, Dry, Normal Color. No: Rashes Psychiatric: Present: Alert, Oriented x 3, Normal Insight, Normal Concentration <Jessica Au - Last Filed: 01/17/17 19:08> Vital Signs Temp Pulse Resp BP Pulse Ox 01/17/17 18:33 98.3 F 85 16 185/112 H 99 01/17/17 18:30 98.2 F 81 18 185/112 H 97 Medical Decision Making <Ken Engle Jr. - Last Filed: 01/17/17 19:02> <Jessica Au - Last Filed: 01/17/17 19:08> ED Course and Treatment: ATTENDING PHYSICIAN FOCUSED HISTORY AND PHYSICAL: Pt is a 51 yr old female who was seen and examined w/ the resident. Pt is c/o of a muscle ache type of pain in her chest off and on since August. Pt had negative stress test last week with Dr. Johnson. Pt also with nondiagnostic recent echos and carotid doppler. No SOB. Pt also c/o feeling anxious for past 1 month or so. The chest symptoms first developed in August--around the same time she stopped getting her period. On our exam, BP 185/112, P 81, R 18, PO 99% Gen: Pt is A&O x 3 in NAD. Pt is obese Heart: RRR Lungs: CTA B/L Neuro: nonfocal Initial Impression: Chest pain Initial Plan: Will get basic labs and EKG and CXR. Fortunately, pt has had fairly extensive cardiac workup over the course of past few weeks. (Ken Engle Jr.) 01/17/17 18:55 -CBC, CMP, BNP -ASA 325mg -CXR -UA, HCG -EKG DDx: Anxiety, menopausal symptoms, electrolyte imbalance 01/17/17 18:58 Based on history and physical examination, patient's symptoms are likely anxiety in nature. (Jessica Au) - RAD Interpretation Radiology Orders: 01/17/17 18:22 CHEST PORTABLE [RAD] Stat - EKG Interpretation EKG Interpretation (Text): 01/17/17 18:57 NSR at 81bpm, no axis deviations, no acute ST change. Read by me. (Jessica Au) - Medication Orders Current Medication Orders: Enalaprilat (Vasotec Iv) 0.625 mg IVP STAT STA Stop: 01/17/17 19:07 Discontinued Medications Aspirin (Aspirin) 325 mg PO STAT STA Stop: 01/17/17 18:22 Last Admin: 01/17/17 19:03 Dose: Not Given Non-Admin Reason: Patient Refused Disposition/Present on Arrival <Ken Engle Jr. - Last Filed: 01/17/17 19:02> - Present on Arrival Any Indicators Present on Arrival: No History of DVT/PE: No History of Uncontrolled Diabetes: No Urinary Catheter: No History of Decub. Ulcer: No History Surgical Site Infection Following: None - Disposition Have Diagnosis and Disposition been Completed?: Yes Disposition Time: 19:08 <Jessica Au - Last Filed: 01/17/17 19:08> - Disposition Diagnosis: Anxiety Condition: STABLE Physician Patient Turnover - . Patient Signed Over To: Beni Ford Handoff Comments: To follow up labs and dispo accordingly <Ken Engle Jr. - Last Filed: 01/17/17 19:02>
[2017-01-17 18:58] LABS: ADD MANUAL DIFF? NO
[2017-01-17 19:03] LABS: BASO # 0.02 K/mm3 (0.0-2.0); BASO % 0.3 % (0.0-3.0); EOS # 0.1 (0.0-0.7); EOS % 1.6 % (1.5-5.0); GRAN # 4.76 (1.4-6.5); GRAN % 70.2 % (50.0-68.0); HEMATOCRIT 40.8 % (36.0-48.0); LYMPH # 1.5 (1.2-3.4); LYMPH % 22.2 % (22.0-35.0); MEAN CELL VOLUME 90.3 fL (80.0-105.0); MEAN CORPUSCULAR HEMOGLOBIN 30.3 pg (25.0-35.0); MEAN CORPUSCULAR HGB CONC 33.6 g/dl (31.0-37.0); MEAN PLATELET VOLUME 8.3 fl (7.0-11.0); MONO # 0.4 (0.1-0.6); MONO % 5.7 % (1.0-6.0); PLATELET COUNT 403 10^3/uL (120.0-450.0); RED CELL DISTRIBUTION WIDTH 13.7 % (11.5-14.5); WHITE BLOOD COUNT 6.8 10^3/ul (4.5-11.0)
[2017-01-17] MEDS ORDERED: EnalaprilAT 1.25 mg/ml Inj IVP STA (19:06)
[2017-01-17 19:12] LABS: INR 0.99 (0.93-1.08); PARTIAL THROMBOPLASTIN TIME 30.2 Seconds (23.7-30.8)
[2017-01-17 19:14] LABS: ALB/GLOB RATIO 0.9 (1.1-1.8); ALKALINE PHOSPHATASE 102 U/L (38-133); ALT/SGPT 31 U/L (7-56); AST/SGOT 23 U/L (15-39); BILIRUBIN,TOTAL 1.1 mg/dL (0.2-1.3); BLOOD UREA NITROGEN 14 mg/dL (7-21); CALCIUM 9.7 mg/dL (8.4-10.5); CARBON DIOXIDE 31 mmol/L (21-33); CHLORIDE 102 mmol/L (98-107); GFR AFRICAN-AMERICAN > 60; GLUCOSE,RANDOM 133 mg/dL (70-110); MAGNESIUM 2.2 mg/dL (1.7-2.2); POTASSIUM 4.5 mmol/L (3.6-5.0); SODIUM 141 mmol/L (132-148)
[2017-01-17 19:24] LABS: URINE BILIRUBIN NEGATIVE (NEGATIVE); URINE BLOOD NEGATIVE (NEGATIVE); URINE GLUCOSE (UA) NEGATIVE (NEGATIVE); URINE KETONE NEGATIVE (NEGATIVE); URINE LEUKOCYTE ESTERASE TRACE Leu/uL (NEGATIVE); URINE PROTEIN NEGATIVE mg/dL (<30 mg/dL); URINE UROBILINOGEN 0.2 E.U./dL (<1 E.U./dL)
[2017-01-17 19:25] LABS: URINE APPEARANCE SLIGHT-CLOUDY (CLEAR); URINE COLOR YELLOW (YELLOW)
[2017-01-17 19:26] LABS: URINE RBC 0 - 2 /hpf (0-2)
[2017-01-17 19:27] LABS: TROPONIN I < 0.01 ng/mL
[2017-01-17 19:27] LABS: URINE BACTERIA OCC (NEG)
--- NOTE | 2017-01-17 19:47 | ED PDOC ---
Physical Exam - Physical Exam Narrative Physical Exam (Text): 01/17/17 19:46 Case endorsed from .Pt. with PMHX HTN,DM,Hyperlipidemia,obesity with c/ o intermittent vague left sided chest discomfort at times radiating to left shoulder/back.No associated sob.No fever,chills or cough.Has had recent Doppler U/S,cardiac stress test which was negative. Vital Signs Temp Pulse Resp BP Pulse Ox 01/17/17 19:35 82 23 149/93 H 100 01/17/17 18:33 98.3 F 85 16 185/112 H 99 01/17/17 18:30 98.2 F 81 18 185/112 H 97 Medical Decision Making ED Course and Treatment: 01/17/17 19:49 Pt. labs here WNL. Pt. still very concerned over recurrence of her symptoms.Cardiac risk factors noted.Will keep for observation ,cardiac reevaluation.president Edmund Guerrero and House MD Dr. Stacy spoken with.Accepts to hospitalist service. - Lab Interpretations Lab Results: 01/17/17 18:40 01/17/17 18:40 Lab Results 01/17/17 19:18: Urine Color Yellow, Urine Appearance Slight-cloudy, Urine pH 7.0 , Ur Specific [place] 1.015, Urine Protein Negative, Urine Glucose (UA) Negative , Urine Ketones Negative, Urine Blood Negative, Urine Nitrate Negative, Urine Bilirubin Negative, Urine Urobilinogen 0.2, Ur Leukocyte Esterase Trace H, Urine RBC 0 - 2, Urine WBC 1 - 3, Ur Epithelial Cells 3 - 4, Urine Bacteria Occ , Urine HCG, Qual Negative 01/17/17 18:40: WBC 6.8, RBC 4.52, Hgb 13.7, Hct 40.8, MCV 90.3, MCH 30.3, MCHC 33.6, RDW 13.7, Plt Count 403, MPV 8.3, Gran % 70.2 H, Lymph % (Auto) 22.2, [place] % (Auto) 5.7, Eos % (Auto) 1.6, Baso % (Auto) 0.3, Gran # 4.76, Lymph # 1.5 , [place] # 0.4, Eos # 0.1, Baso # 0.02, PT 10.7, INR 0.99, APTT 30.2, Sodium 141, Potassium 4.5, Chloride 102, Carbon Dioxide 31, Anion Gap 13, BUN 14, Creatinine 0.7, Est GFR ( Amer) > 60, Est GFR (Non-Af Amer) > 60, Random Glucose 133 H, Calcium 9.7, Magnesium 2.2, Total Bilirubin 1.1, AST 23, ALT 31, Alkaline Phosphatase 102, Lactate Dehydrogenase 476, Total Creatine Kinase 60, Troponin I < 0.01, NT-Pro-B Natriuret Pep 29.3, Total Protein 9.0 H, Albumin 4.4 , Globulin 4.7, Albumin/Globulin Ratio 0.9 L - RAD Interpretation Radiology Orders: 01/17/17 18:22 CHEST PORTABLE [RAD] Stat - Medication Orders Current Medication Orders: Discontinued Medications Aspirin (Aspirin) 325 mg PO STAT STA Stop: 01/17/17 18:22 Last Admin: 01/17/17 19:03 Dose: Not Given Non-Admin Reason: Patient Refused Enalaprilat (Vasotec Iv) 0.625 mg IVP STAT STA Stop: 01/17/17 19:07 Last Admin: 01/17/17 19:44 Dose: Disposition/Present on Arrival - Present on Arrival Any Indicators Present on Arrival: No History of DVT/PE: No History of Uncontrolled Diabetes: No Urinary Catheter: No History of Decub. Ulcer: No History Surgical Site Infection Following: None - Disposition Have Diagnosis and Disposition been Completed?: Yes Diagnosis: Chest pain Disposition: HOSPITALIZED Disposition Time: 19:52 Patient Plan: Observation Patient Problems: Current Active Problems Problem Status Diagnosed Chest pain Acute Condition: STABLE
[2017-01-17 20:22] LABS: CHOLESTEROL 232 mg/dL (130-200)
--- NOTE | 2017-01-17 20:56 | CP.PCM.HP ---
<Eloina Guerrero - Last Filed: 01/17/17 20:41> History of Present Illness - History of Present Illness History of Present Illness: 51 F with PMHx of HTN, DM, and HLD presents to [facility] ED with complaints of chest discomfort. Pt states that beggining at approx 3pm pt started to feel symptoms of uneasiness, anxiety, hot flash, and chest discomfort. THe chest discomfort was described as a "twinge" and radiated towards left shoulder. Pt has experienced these symptoms multiple times over the past 6 months, starting in August 2016. Patient was evaluated by OBGYN whom suggested her symptoms are dayanna-menopausal. Patient was recently admitted to [facility] earlier this month with a negative cardiac workup including: carotid doppler and echocardiogram and an outpatient stress test last Monday, which was also negative. Pt reports of uncontrollable anxiety episodes without any identifiable trigger. Pt denies any recent changes or stresses at work or at home. Pt has a sedentary lifestyle, works from home and doesn't exercise regularly. Pt denied headaches, loc, dizziness, confusions, fever, chills, sob, palpitations, abdominal pains, n/v/d/ c or urinary symptoms. PMHx: HTN, DM, HLD, morbid obesity PSHx: Denied FamHx: Father- CT- 69; mother- CAD Social hx: Non smoker. Never smoked. Denies drinking and drug use. [place]. Home meds: losartan, asa, januvia, lipitor Allergies: naproxen PMD: Dr. Marroquin [employer]: Dr. Clark sign language interpreter: Dr. Camp? Present on Admission - Present on Admission Any Indicators Present on Admission: No History of DVT/PE: No History of Uncontrolled Diabetes: No Urinary Catheter: No Decubitus Ulcer Present: No Review of Systems - Review of Systems Review of Systems: as per HPI otherwise negative Past Patient History - Infectious Disease Hx of Infectious Diseases: None - Tetanus Immunizations Tetanus Immunization: Unknown - Past Medical History & Family History Past Medical History?: Yes - Past Social History Smoking Status: Never Smoked - CARDIAC Hx Hypertension: Yes - PULMONARY Hx Respiratory Disorders: Yes Hx Asthma: No Hx Bronchitis: Yes Hx Chronic Obstructive Pulmonary Disease (COPD): No Hx Emphysema: No Hx Pneumonia: Yes Hx Respiratory Aspiration: No Hx Respiratory Tract Infection: No Hx Sleep Apnea: No Hx Tuberculosis: No - NEUROLOGICAL Hx Neurological Disorder: No Hx Alzheimer's Disease: No HX Cerebrovascular Accident: No Hx Dementia: No Hx Dizziness: No Hx Meningitis: No Hx Migraine: No Hx Parkinson's Disease: No Hx Seizures: No Hx Transient Ischemic Attacks (TIA): No - HEENT Hx HEENT Problems: No Hx Blind: No Hx Cataracts: No Hx Deafness: No Hx Difficulty Chewing: No Hx Epistaxis: No Hx Glaucoma: No Hx Macular Degeneration: No - RENAL Hx Chronic Kidney Disease: No - ENDOCRINE/METABOLIC Hx Diabetes Mellitus Type 2: Yes - HEMATOLOGICAL/ONCOLOGICAL Hx Blood Disorders: No - INTEGUMENTARY Hx Dermatological Problems: No - MUSCULOSKELETAL/RHEUMATOLOGICAL Hx Musculoskeletal Disorders: No - GASTROINTESTINAL Hx Gastrointestinal Disorders: No - GENITOURINARY/GYNECOLOGICAL Hx Genitourinary Disorders: No - PSYCHIATRIC Hx Psychophysiologic Disorder: No Hx Anxiety: Yes Hx Depression: No Hx Physical Abuse: No Hx Substance Use: No - SURGICAL HISTORY Hx Dilation and Curettage: Yes (x2) - ANESTHESIA Hx Anesthesia: Yes Hx Anesthesia Reactions: No Hx Malignant Hyperthermia: No Meds Allergies/Adverse Reactions: Allergies Allergy/AdvReac Type Severity Reaction Status Date / Time naproxen Allergy RASH Verified 01/17/17 18:09 Physical Exam - Constitutional Appears: Well, No Acute Distress Additional comments: morbidly obese - Head Exam Head Exam: ATRAUMATIC, NORMAL INSPECTION, NORMOCEPHALIC - Eye Exam Eye Exam: EOMI, Normal appearance, PERRL Pupil Exam: NORMAL ACCOMODATION, PERRL - ENT Exam ENT Exam: Mucous Membranes Moist, Normal Exam - Neck Exam Neck exam: Positive for: Normal Inspection - Respiratory Exam Respiratory Exam: Clear to Auscultation Bilateral, NORMAL BREATHING PATTERN - Cardiovascular Exam Cardiovascular Exam: REGULAR RHYTHM, +S1, +S2 - GI/Abdominal Exam GI & Abdominal Exam: Normal Bowel Sounds, Soft. absent: Tenderness - Extremities Exam Extremities exam: Positive for: normal inspection. Negative for: pedal edema, tenderness - Back Exam Back exam: NORMAL INSPECTION - Neurological Exam Neurological exam: Alert, CN II-XII Intact, Normal Gait, Oriented x3, Reflexes Normal - Psychiatric Exam Psychiatric exam: Normal Affect, Normal Mood - Skin Skin Exam: Dry, Intact, Normal Color, Warm Results - Vital Signs Recent Vital Signs: Last Vital Signs Temp 98.3 F 01/17/17 18:33 Pulse 82 01/17/17 19:35 Resp 23 01/17/17 19:35 BP 149/93 H 01/17/17 19:35 Pulse Ox 100 01/17/17 19:35 - Labs Result Diagrams: 01/17/17 18:40 01/17/17 18:40 Labs: Laboratory Results - last 24 hr 01/17/17 01/17/17 18:40 19:18 WBC 6.8 RBC 4.52 Hgb 13.7 Hct 40.8 MCV 90.3 MCH 30.3 MCHC 33.6 RDW 13.7 Plt Count 403 MPV 8.3 Gran % 70.2 H Lymph % (Auto) 22.2 [place] % (Auto) 5.7 Eos % (Auto) 1.6 Baso % (Auto) 0.3 Gran # 4.76 Lymph # 1.5 [place] # 0.4 Eos # 0.1 Baso # 0.02 PT 10.7 INR 0.99 APTT 30.2 Sodium 141 Potassium 4.5 Chloride 102 Carbon Dioxide 31 Anion Gap 13 BUN 14 Creatinine 0.7 Est GFR ( Amer) > 60 Est GFR (Non-Af Amer) > 60 Random Glucose 133 H Calcium 9.7 Magnesium 2.2 Total Bilirubin 1.1 AST 23 ALT 31 Alkaline Phosphatase 102 Lactate Dehydrogenase 476 Total Creatine Kinase 60 Troponin I < 0.01 NT-Pro-B Natriuret Pep 29.3 Total Protein 9.0 H Albumin 4.4 Globulin 4.7 Albumin/Globulin Ratio 0.9 L Triglycerides 236 H Cholesterol 232 H LDL Cholesterol Direct 157 H HDL Cholesterol 39 Urine Color Yellow Urine Appearance Slight-cloudy Urine pH 7.0 Ur Specific [place] 1.015 Urine Protein Negative Urine Glucose (UA) Negative Urine Ketones Negative Urine Blood Negative Urine Nitrate Negative Urine Bilirubin Negative Urine Urobilinogen 0.2 Ur Leukocyte Esterase Trace H Urine RBC 0 - 2 Urine WBC 1 - 3 Ur Epithelial Cells 3 - 4 Urine Bacteria Occ Urine HCG, Qual Negative Assessment & Plan - Assessment and Plan (Free Text) Assessment: 51 F with PMHx of HTN, DM, and HLD presents to [facility] ED with complaints of chest discomfort, admitted to tele obs to r/o acs. 1. Chest discomfort, resolved - r/o acs - likely anxiety related - Trops (-) x1, serial trops, serial ekg - EKG: NSR @81 in ED - asa, lipitor - TSH, lipid panel, A1C - Cardiology consulted, Dr. Clark 2. HTN - Hypertensive in ED, likely anxiety related - continue to monitor and continue home meds - cozaar 25 mg daily 3. DM - stable, continue home meds - accuchecks, ISS - HHD 4. HLD - fu lipid panel - lipitor 5. GI ppx 6. DVT ppx seen reviewed and discussed with attending <Abhijit Stacy - Last Filed: 01/17/17 22:44> Results - Vital Signs Recent Vital Signs: Last Vital Signs Temp 98.3 F 01/17/17 18:33 Pulse 82 01/17/17 19:35 Resp 23 01/17/17 19:35 BP 149/93 H 01/17/17 19:35 Pulse Ox 100 01/17/17 19:35 - Labs Result Diagrams: 01/17/17 18:40 01/17/17 18:40 Labs: Laboratory Results - last 24 hr 01/17/17 21:33 POC Glucose (mg/dL) 116 H Attending/Attestation - Attestation I have personally seen and examined this patient.: Yes I have fully participated in the care of the patient.: Yes I have reviewed all pertinent clinical information: Yes Notes (Text): 01/17/17 22:37 Patient was seen by me when she was in room # 266-02. Agree with history , physical examination , assessment and plan. This 51 year old white woman is here after she did not feel well this afternoon and she had chest discomfort, has past medical history of anxiety, NIDDM, obesity, leg swelling being on lasix," walking " PNA, bronchitis , UTI at age 21 years, hot flushes as she is pre menopausal ,migraine headaches.Her PMD is , [employer] at present is , she has an appointment to see , psychiatrist.
[2017-01-17] MEDS: Insulin Lispro (humaLOG) LOW Coverage SC SCH (21:48)
[2017-01-17] MEDS ORDERED: Pneumococcal 23-Valent Vaccine IM ONE (23:20)
[2017-01-18 02:04] VITALS: RESP 20
[2017-01-18 03:03] LABS: ADD MANUAL DIFF? NO
[2017-01-18 03:19] LABS: ALB/GLOB RATIO 0.9 (1.1-1.8); ALKALINE PHOSPHATASE 94 U/L (38-133); ALT/SGPT 35 U/L (7-56); AST/SGOT 26 U/L (15-39); BILIRUBIN,TOTAL 0.9 mg/dL (0.2-1.3); BLOOD UREA NITROGEN 13 mg/dL (7-21); CALCIUM 9.6 mg/dL (8.4-10.5); CARBON DIOXIDE 31 mmol/L (21-33); GFR AFRICAN-AMERICAN > 60; GLUCOSE,RANDOM 109 mg/dL (70-110); TOTAL PROTEIN 7.9 g/dL (5.8-8.3)
[2017-01-18 03:23] LABS: BASO # 0.03 K/mm3 (0.0-2.0); BASO % 0.4 % (0.0-3.0); EOS # 0.2 (0.0-0.7); EOS % 2.7 % (1.5-5.0); GRAN # 3.95 (1.4-6.5); GRAN % 55.7 % (50.0-68.0); HEMATOCRIT 36.8 % (36.0-48.0); LYMPH # 2.4 (1.2-3.4); LYMPH % 34.3 % (22.0-35.0); MEAN CELL VOLUME 90.2 fL (80.0-105.0); MEAN CORPUSCULAR HEMOGLOBIN 29.9 pg (25.0-35.0); MEAN CORPUSCULAR HGB CONC 33.2 g/dl (31.0-37.0); MEAN PLATELET VOLUME 8.2 fl (7.0-11.0); MONO # 0.5 (0.1-0.6); MONO % 6.9 % (1.0-6.0); PLATELET COUNT 374 10^3/uL (120.0-450.0); RED CELL DISTRIBUTION WIDTH 13.8 % (11.5-14.5); WHITE BLOOD COUNT 7.1 10^3/ul (4.5-11.0)
[2017-01-18 03:30] LABS: CHLORIDE 101 mmol/L (98-107); POTASSIUM 3.9 mmol/L (3.6-5.0); SODIUM 138 mmol/L (132-148)
[2017-01-18 03:38] LABS: TROPONIN I < 0.01 ng/mL
[2017-01-18 05:50] VITALS: O2SAT 97
[2017-01-18] MEDS: Insulin Lispro (humaLOG) LOW Coverage SC SCH ×2 (07:58→11:56)
--- NOTE | 2017-01-18 08:49 | CARD ---
APPROVED REPORT EKG Measurement Heart [id number] <Conclusion> Normal sinus rhythm Normal ECG
[2017-01-18] MEDS ORDERED: Enoxaparin 40 mg Syringe SC SCH (10:00)
--- NOTE | 2017-01-18 10:03 | RAD ---
HISTORY: chest pain COMPARISON: 12/20/2016 FINDINGS: LUNGS: No active pulmonary disease. PLEURA: No significant pleural effusion identified, no pneumothorax apparent. CARDIOVASCULAR: Normal. OSSEOUS STRUCTURES: No significant abnormalities. VISUALIZED UPPER ABDOMEN: Normal. OTHER FINDINGS: None. IMPRESSION: No active disease.
[2017-01-18 12:06] VITALS: BP 134/76; PULSE 104; TEMP 98.4
--- NOTE | 2017-01-18 13:53 | CON ---
DATE: 01/18/2017 REQUESTING PHYSICIAN: Dr. Jimenez REASON FOR CONSULTATION: Chest pain. HISTORY OF PRESENT ILLNESS: This is a 51-year-old woman with multiple recent admissions for chest pa in who presented to the Emergency Room with atypical chest discomfort. She has a history of hyperten juvenal and recent onset diabetes and obesity. She states she has been extremely anxious lately. Last week, she underwent an outpatient stress test which was unremarkable. She presents to the Emergency Room yesterday with left-sided chest pain, which she describes as a stabbing sensation lasting severa l seconds. She also had neck pain. She had some associated dyspnea. Her electrocardiogram was unremarkable and cardiac enzymes have been negative. She has had no pain s jacinta admission. She had recently been referred to a psychiatrist and that appointment is pending. H er cardiac risk factors include diabetes, obesity and hypertension. SOCIAL HISTORY: She does not smoke or drink. She is . 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 CURRENT MEDICATIONS: Include Losartan, Januvia, Lipitor and aspirin. ALLERGIES: She had a REACTION TO NAPROSYN in the past. FAMILY HISTORY: Father from myocardial infarction at the age of 69. Her mother had heart disea se as well. REVIEW OF SYSTEMS: A 10 point review of systems is otherwise unremarkable. PHYSICAL EXAMINATION: GENERAL: She is an obese middle-aged woman. She appears moderately anxious. VITAL SIGNS: Blood pressure is 134/76 with a pulse of 100 in sinus, respirations are 16. She is afe brile. HEENT: Normocephalic, atraumatic. NECK: Supple, no JVD noted. CHEST: A few scattered rhonchi heard. HEART: PMI displaced laterally. No pathologic murmur or gallops noted. ABDOMEN: Soft, obese, nontender, normoactive bowel sounds. EXTREMITIES: No clubbing, cyanosis or edema. SKIN: Warm and dry. PSYCHIATRIC: Normal mood and affect. NEUROLOGIC: Alert and oriented x 3. No gross motor or sensory deficits appreciable. DIAGNOSTIC DATA: White count 7.1, hemoglobin and hematocrit 12.2 and 36.8 with a platelet count of 3 74,000. BUN and creatinine are 13 and 0.7, potassium is 3.9. Three sets of cardiac enzymes are norm al. Cholesterol was 232 with an LDL 157, triglycerides of 236, HDL of 39. IMPRESSION: 1. Atypical chest pain, doubt cardiac ischemia. The patient had recent negative stress test and mychal st pain appears atypical at this time. 2. Multiple cardiac risk factors. 3. Recent onset anxiety. RECOMMENDATIONS: From a cardiac standpoint, she is stable for discharge home at this time. She was encouraged to follow through with psychological counseling. Her current medications should be contin ued. Risk factor control was advised. Outpatient followup will be arranged as needed. Thank you for this consultation. Colt Nam MD cc: [id number] TT: 01/18/2017 13:52:15 Confirmation # [id number] Dictation # [id number]
--- NOTE | 2017-01-18 14:47 | CP.PCM.DIS ---
<Cas Harvey - Last Filed: 01/18/17 16:58> Provider - Provider Date of Admission: 01/17/17 19:42 Attending physician: Barbara Seaman MD Primary care physician: Pete Marroquin MD Consults: Dr. Sam Means Time Spent in preparation of Discharge (in minutes): 45 Hospital Course - Lab Results Lab Results: Most Recent Lab Values WBC 7.1 10^3/ul (4.5-11.0) 01/18/17 02:50 RBC 4.08 10^6/uL (3.5-6.1) 01/18/17 02:50 Hgb 12.2 gm/dL (12.0-16.0) 01/18/17 02:50 Hct 36.8 % (36.0-48.0) 01/18/17 02:50 MCV 90.2 fL (80.0-105.0) 01/18/17 02:50 MCH 29.9 pg (25.0-35.0) 01/18/17 02:50 MCHC 33.2 g/dl (31.0-37.0) 01/18/17 02:50 RDW 13.8 % (11.5-14.5) 01/18/17 02:50 Plt Count 374 10^3/uL (120.0-450.0) 01/18/17 02:50 MPV 8.2 fl (7.0-11.0) 01/18/17 02:50 Gran % 55.7 % (50.0-68.0) 01/18/17 02:50 Lymph % (Auto) 34.3 % (22.0-35.0) 01/18/17 02:50 [place] % (Auto) 6.9 % (1.0-6.0) H 01/18/17 02:50 Eos % (Auto) 2.7 % (1.5-5.0) 01/18/17 02:50 Baso % (Auto) 0.4 % (0.0-3.0) 01/18/17 02:50 Gran # 3.95 (1.4-6.5) 01/18/17 02:50 Lymph # 2.4 (1.2-3.4) 01/18/17 02:50 [place] # 0.5 (0.1-0.6) 01/18/17 02:50 Eos # 0.2 (0.0-0.7) 01/18/17 02:50 Baso # 0.03 K/mm3 (0.0-2.0) 01/18/17 02:50 PT 10.7 Seconds (9.9-11.8) 01/17/17 18:40 INR 0.99 (0.93-1.08) 01/17/17 18:40 APTT 30.2 Seconds (23.7-30.8) 01/17/17 18:40 Sodium 138 mmol/L (132-148) 01/18/17 02:50 Potassium 3.9 mmol/L (3.6-5.0) 01/18/17 02:50 Chloride 101 mmol/L (98-107) 01/18/17 02:50 Carbon Dioxide 31 mmol/L (21-33) 01/18/17 02:50 Anion Gap 10 (10-20) 01/18/17 02:50 BUN 13 mg/dL (7-21) 01/18/17 02:50 Creatinine 0.7 mg/dL (0.5-1.4) 01/18/17 02:50 Est GFR ( Amer) > 60 01/18/17 02:50 Est GFR (Non-Af Amer) > 60 01/18/17 02:50 POC Glucose (mg/dL) 102 mg/dL (65-110) 01/18/17 11:07 Random Glucose 109 mg/dL (70-110) 01/18/17 02:50 Hemoglobin A1c 6.9 % (4.2-6.5) H 01/17/17 18:40 Calcium 9.6 mg/dL (8.4-10.5) 01/18/17 02:50 Magnesium 2.2 mg/dL (1.7-2.2) 01/17/17 18:40 Total Bilirubin 0.9 mg/dL (0.2-1.3) 01/18/17 02:50 AST 26 U/L (15-39) 01/18/17 02:50 ALT 35 U/L (7-56) 01/18/17 02:50 Alkaline Phosphatase 94 U/L (38-133) 01/18/17 02:50 Lactate Dehydrogenase 476 U/L (333-699) 01/17/17 18:40 Total Creatine Kinase 60 U/L (35-230) 01/17/17 18:40 Troponin I < 0.01 ng/mL 01/18/17 10:20 NT-Pro-B Natriuret Pep 29.3 pg/mL (0-450) 01/17/17 18:40 Total Protein 7.9 g/dL (5.8-8.3) 01/18/17 02:50 Albumin 3.8 g/dL (3.0-4.8) 01/18/17 02:50 Globulin 4.1 gm/dL 01/18/17 02:50 Albumin/Globulin Ratio 0.9 (1.1-1.8) L 01/18/17 02:50 Triglycerides 236 mg/dL (35-160) H 01/17/17 18:40 Cholesterol 232 mg/dL (130-200) H 01/17/17 18:40 LDL Cholesterol Direct 157 mg/dL (0-129) H 01/17/17 18:40 HDL Cholesterol 39 mg/dL (29-60) 01/17/17 18:40 TSH 3rd Generation 1.44 mIU/mL (0.46-4.68) 01/17/17 18:40 Urine Color Yellow (YELLOW) 01/17/17 19:18 Urine Appearance Slight-cloudy (CLEAR) 01/17/17 19:18 Urine pH 7.0 (4.7-8.0) 01/17/17 19:18 Ur Specific [place] 1.015 (1.005-1.035) 01/17/17 19:18 Urine Protein Negative mg/dL (<30 mg/dL) 01/17/17 19:18 Urine Glucose (UA) Negative mg/dL (NEGATIVE) 01/17/17 19:18 Urine Ketones Negative mg/dL (NEGATIVE) 01/17/17 19:18 Urine Blood Negative (NEGATIVE) 01/17/17 19:18 Urine Nitrate Negative (NEGATIVE) 01/17/17 19:18 Urine Bilirubin Negative (NEGATIVE) 01/17/17 19:18 Urine Urobilinogen 0.2 E.U./dL (<1 E.U./dL) 01/17/17 19:18 Ur Leukocyte Esterase Trace [place]/uL (NEGATIVE) H 01/17/17 19:18 Urine RBC 0 - 2 /hpf (0-2) 01/17/17 19:18 Urine WBC 1 - 3 /hpf (0-6) 01/17/17 19:18 Ur Epithelial Cells 3 - 4 /hpf (0-5) 01/17/17 19:18 Urine Bacteria Occ (NEG) 01/17/17 19:18 Urine HCG, Qual Negative (NEGATIVE) 01/17/17 19:18 - Hospital Course Hospital Course: HPI: 51 F with PMHx of HTN, DM, and HLD presents to [facility] with complaints of chest discomfort. Pt states that beggining at approx 3pm pt started to feel symptoms of uneasiness, anxiety, hot flash, and chest discomfort. THe chest discomfort was described as a "twinge" and radiated towards left shoulder. Pt has experienced these symptoms multiple times over the past 6 months, starting in August 2016. Patient was evaluated by OBGYN whom suggested her symptoms are dayanna-menopausal. Patient was recently admitted to [facility] earlier this month with a negative cardiac workup including: carotid doppler and echocardiogram and an outpatient stress test last Monday, which was also negative. Pt reports of uncontrollable anxiety episodes without any identifiable trigger. Pt denies any recent changes or stresses at work or at home. Pt has a sedentary lifestyle, works from home and doesn't exercise regularly. Pt denied headaches, loc, dizziness, confusions, fever, chills, sob, palpitations, abdominal pains, n /v/d/c or urinary symptoms. Patient is a 51 y/o F who presented to the hospital with complaint of chest discomfort. An initial chest x-ray showed no active disease process. Her initial EKG showed NSR@[address] wave changes. She was admitted for cardiac monitoring and cardiology was consulted. Per cardiology, the patient had a recent stress test which was negative. Her cholesterol was found to be elevated and A1c was found to be 6.9 and she was counseled on the importance of a diabetic diet, weight loss, and daily exercise regimen. She endorsed anxiety and was offered a psychiatry consult. She later reported she had an appointment with an outpatient psychiatrist. Cardiology determined her stable for discharge. She was told to: follow up with your primary care physician and senior trial attorney within a week of discharge; keep a daily log of your blood sugar and what you eat; resume your home medications and take as prescribed; get exercise at least 30 minutes 3 days a week; follow up with your psychiatrist within a week; and if your condition worsens or new symptoms arise, please return to the emergency room. Patient verbalized understanding and was discharged home. - Date & Time of H&P Date of H&P: 01/17/17 Time of H&P: 20:41 Discharge Exam - Head Exam Head Exam: ATRAUMATIC, NORMAL INSPECTION, NORMOCEPHALIC - Eye Exam Eye Exam: EOMI, Normal appearance, PERRL Pupil Exam: NORMAL ACCOMODATION, PERRL - ENT Exam ENT Exam: Mucous Membranes Moist, Normal Oropharynx - Neck Exam Neck exam: Normal Inspection - Respiratory Exam Respiratory Exam: Clear to PA & Lateral, NORMAL BREATHING PATTERN. absent: Rales, Rhonchi, Wheezes - Cardiovascular Exam Cardiovascular Exam: REGULAR RHYTHM, +S1, +S2. absent: Gallop, Rubs, Systolic Murmur - GI/Abdominal Exam GI & Abdominal Exam: Normal Bowel Sounds, Soft. absent: Distended, Firm, Guarding, Tenderness - Extremities Exam Extremities exam: normal capillary refill, pedal edema Additional comments: dusky region on tibia - Neurological Exam Neurological exam: Alert, CN II-XII Intact, Oriented x3 - Psychiatric Exam Psychiatric exam: Anxious - Skin Skin Exam: Dry, Intact, Warm Discharge Plan - Follow Up Plan Condition: STABLE Disposition: HOME/ ROUTINE Instructions: Chest Pain (ED), Chest Pain (DC), Chest Pain (GEN), Obesity (DC) , Obesity (GEN), Hypertension (DC), Hypertension (GEN) Additional Instructions: You are medically stable for discharge. Please follow up with your primary care physician and senior trial attorney within a week of discharge. Keep a daily log of your blood sugar and what you eat. Please resume your home medications and take as prescribed. Get exercise at least 30 minutes 3 days a week. Please follow up with your psychiatrist within a week. If your condition worsens or new symptoms arise, please return to the emergency room. Referrals: Pete Marroquin MD [Primary Care Provider] - Follow up with primary <Barbara Seaman MD - Last Filed: 01/18/17 17:51> Provider - Provider Date of Admission: 01/17/17 19:42 Attending physician: Barbara Seaman MD Primary care physician: Pete Marroquin MD Hospital Course - Lab Results Lab Results: Most Recent Lab Values WBC 7.1 10^3/ul (4.5-11.0) 01/18/17 02:50 RBC 4.08 10^6/uL (3.5-6.1) 01/18/17 02:50 Hgb 12.2 gm/dL (12.0-16.0) 01/18/17 02:50 Hct 36.8 % (36.0-48.0) 01/18/17 02:50 MCV 90.2 fL (80.0-105.0) 01/18/17 02:50 MCH 29.9 pg (25.0-35.0) 01/18/17 02:50 MCHC 33.2 g/dl (31.0-37.0) 01/18/17 02:50 RDW 13.8 % (11.5-14.5) 01/18/17 02:50 Plt Count 374 10^3/uL (120.0-450.0) 01/18/17 02:50 MPV 8.2 fl (7.0-11.0) 01/18/17 02:50 Gran % 55.7 % (50.0-68.0) 01/18/17 02:50 Lymph % (Auto) 34.3 % (22.0-35.0) 01/18/17 02:50 [place] % (Auto) 6.9 % (1.0-6.0) H 01/18/17 02:50 Eos % (Auto) 2.7 % (1.5-5.0) 01/18/17 02:50 Baso % (Auto) 0.4 % (0.0-3.0) 01/18/17 02:50 Gran # 3.95 (1.4-6.5) 01/18/17 02:50 Lymph # 2.4 (1.2-3.4) 01/18/17 02:50 [place] # 0.5 (0.1-0.6) 01/18/17 02:50 Eos # 0.2 (0.0-0.7) 01/18/17 02:50 Baso # 0.03 K/mm3 (0.0-2.0) 01/18/17 02:50 PT 10.7 Seconds (9.9-11.8) 01/17/17 18:40 INR 0.99 (0.93-1.08) 01/17/17 18:40 APTT 30.2 Seconds (23.7-30.8) 01/17/17 18:40 Sodium 138 mmol/L (132-148) 01/18/17 02:50 Potassium 3.9 mmol/L (3.6-5.0) 01/18/17 02:50 Chloride 101 mmol/L (98-107) 01/18/17 02:50 Carbon Dioxide 31 mmol/L (21-33) 01/18/17 02:50 Anion Gap 10 (10-20) 01/18/17 02:50 BUN 13 mg/dL (7-21) 01/18/17 02:50 Creatinine 0.7 mg/dL (0.5-1.4) 01/18/17 02:50 Est GFR ( Amer) > 60 01/18/17 02:50 Est GFR (Non-Af Amer) > 60 01/18/17 02:50 POC Glucose (mg/dL) 102 mg/dL (65-110) 01/18/17 11:07 Random Glucose 109 mg/dL (70-110) 01/18/17 02:50 Hemoglobin A1c 6.9 % (4.2-6.5) H 01/17/17 18:40 Calcium 9.6 mg/dL (8.4-10.5) 01/18/17 02:50 Magnesium 2.2 mg/dL (1.7-2.2) 01/17/17 18:40 Total Bilirubin 0.9 mg/dL (0.2-1.3) 01/18/17 02:50 AST 26 U/L (15-39) 01/18/17 02:50 ALT 35 U/L (7-56) 01/18/17 02:50 Alkaline Phosphatase 94 U/L (38-133) 01/18/17 02:50 Lactate Dehydrogenase 476 U/L (333-699) 01/17/17 18:40 Total Creatine Kinase 60 U/L (35-230) 01/17/17 18:40 Troponin I < 0.01 ng/mL 01/18/17 10:20 NT-Pro-B Natriuret Pep 29.3 pg/mL (0-450) 01/17/17 18:40 Total Protein 7.9 g/dL (5.8-8.3) 01/18/17 02:50 Albumin 3.8 g/dL (3.0-4.8) 01/18/17 02:50 Globulin 4.1 gm/dL 01/18/17 02:50 Albumin/Globulin Ratio 0.9 (1.1-1.8) L 01/18/17 02:50 Triglycerides 236 mg/dL (35-160) H 01/17/17 18:40 Cholesterol 232 mg/dL (130-200) H 01/17/17 18:40 LDL Cholesterol Direct 157 mg/dL (0-129) H 01/17/17 18:40 HDL Cholesterol 39 mg/dL (29-60) 01/17/17 18:40 TSH 3rd Generation 1.44 mIU/mL (0.46-4.68) 01/17/17 18:40 Urine Color Yellow (YELLOW) 01/17/17 19:18 Urine Appearance Slight-cloudy (CLEAR) 01/17/17 19:18 Urine pH 7.0 (4.7-8.0) 01/17/17 19:18 Ur Specific [place] 1.015 (1.005-1.035) 01/17/17 19:18 Urine Protein Negative mg/dL (<30 mg/dL) 01/17/17 19:18 Urine Glucose (UA) Negative mg/dL (NEGATIVE) 01/17/17 19:18 Urine Ketones Negative mg/dL (NEGATIVE) 01/17/17 19:18 Urine Blood Negative (NEGATIVE) 01/17/17 19:18 Urine Nitrate Negative (NEGATIVE) 01/17/17 19:18 Urine Bilirubin Negative (NEGATIVE) 01/17/17 19:18 Urine Urobilinogen 0.2 E.U./dL (<1 E.U./dL) 01/17/17 19:18 Ur Leukocyte Esterase Trace [place]/uL (NEGATIVE) H 01/17/17 19:18 Urine RBC 0 - 2 /hpf (0-2) 01/17/17 19:18 Urine WBC 1 - 3 /hpf (0-6) 01/17/17 19:18 Ur Epithelial Cells 3 - 4 /hpf (0-5) 01/17/17 19:18 Urine Bacteria Occ (NEG) 01/17/17 19:18 Urine HCG, Qual Negative (NEGATIVE) 01/17/17 19:18 Attending/Attestation - Attestation I have personally seen and examined this patient.: Yes I have fully participated in the care of the patient.: Yes I have reviewed all pertinent clinical information, including history, physical exam and plan: Yes Notes (Text): Patient was seen and examined with medical staff services coordinator .Agreed with resident assessment and plan. 51 F with PMHx of HTN, DM, and Hyperlipidemia , recent negative stress test was admitted with atypical chest pain, serial troponins are normal, EKG is negative for ischemic changes,patient was evaluated by cardiology, no further work up is needed.She will be discharged home and will follow up with PCP and her Psychiatrist as out patient. Management plan was discussed in detail with patient Education was provided.
== END 2017-01-18 17:47 | disposition home or self-care (01) ==
LOC: ED 17:42 → ERH 19:42 → 2RNO 20:58
PROVIDERS: ADMIT Internal Medicine; ATTEND Internal Medicine
DX: R07.89 Other chest pain (principal); F41.9 Anxiety disorder, unspecified; I10 Essential (primary) hypertension; E78.5 Hyperlipidemia, unspecified; E11.9 Type 2 diabetes mellitus without complications; E66.01 Morbid (severe) obesity due to excess calories; Z68.43 Body mass index [BMI] 50.0-59.9, adult; Z79.84 Long term (current) use of oral hypoglycemic drugs
CPT/HCPCS: 36415; 71010; 80053; 80061; 81001; 82550; 82948; 83036; 83615; 83735; 83880; 84443; 84484; 84703; 85025; 85610; 85730; 87086; 93005; 99285; G0378; J1650

== ENCOUNTER 2017-01-28 08:08 | Emergency (ER) | payer BC ==
[2017-01-28 08:12] VITALS: BMI 56.8
[2017-01-28 08:22] VITALS: PULSE 80; TEMP 97.6
--- NOTE | 2017-01-28 08:23 | ED PDOC ---
Arrival/HPI - General Time Seen by Provider: 01/28/17 08:14 Historian: Patient - History of Present Illness Narrative History of Present Illness (Text): 01/28/17 08:25 Karen Hogan is a 51 year old female whose past medical history includes Hypertension, Diabetes, Hyperlipidemia, and Anxiety, who presents to the emergency department complaining of feeling generally weak and shaky. Patient reports she has been regularly taking her blood pressure and sugar levels and patient states it is within normal limits. Patient also reports increased irritability. Patient has been eating normally and denies any changes in habits. Patient also states symptoms are not similar to her previous anxiety attacks. Patient denies any fever, chills, chest pain, shortness of breath, nausea, vomiting, diarrhea, urinary symptoms, back pain, neck pain, headache, or any other complaints. PMD: Pete Marroquin MD Time/Duration: < week (2-3 days) Symptom Onset: Gradual Symptom Course: Unchanged Activities at Onset: Light Context: Home Past Medical History - Provider Review Nursing Documentation Reviewed: Yes - Infectious Disease Hx of Infectious Diseases: None - Tetanus Immunization Tetanus Immunization: Unknown - Cardiac Hx Hypertension: Yes Hx Peripheral Edema: Yes (ble +1 discolored dry skin) Other/Comment: pt denies chest pain, c/o a twing to right and left side of breast and r arm at times - Pulmonary Hx Respiratory Disorders: Yes Hx Asthma: No Hx Bronchitis: Yes Hx Chronic Obstructive Pulmonary Disease (COPD): No Hx Emphysema: No Hx Pneumonia: Yes Hx Respiratory Aspiration: No Hx Respiratory Tract Infection: No Hx Sleep Apnea: No Hx Tuberculosis: No - Neurological Hx Neurological Disorder: No Hx Alzheimer's Disease: No HX Cerebrovascular Accident: No Hx Dementia: No Hx Dizziness: No Hx Meningitis: No Hx Migraine: No Hx Parkinson's Disease: No Hx Seizures: No Hx Transient Ischemic Attacks (TIA): No - HEENT Hx HEENT Disorder: Yes (reading glasses) Hx Blind: No Hx Cataracts: No Hx Deafness: No Hx Difficulty Chewing: No Hx Epistaxis: No Hx Glaucoma: No Hx Macular Degeneration: No - Renal Hx Renal Disorder: No - Endocrine/Metabolic Hx Diabetes Mellitus Type 2: Yes - Hematological/Oncological Hx Blood Disorders: No - Integumentary Hx Dermatological Disorder: No - Musculoskeletal/Rheumatological Hx Musculoskeletal Disorders: No Hx Falls: No - Gastrointestinal Hx Gastrointestinal Disorders: Yes (obese) - Genitourinary/Gynecological Hx Genitourinary Disorders: No - Psychiatric Hx Psychophysiologic Disorder: No Hx Anxiety: Yes Hx Depression: No Hx Physical Abuse: No Hx Substance Use: No - Surgical History Hx Amputation: No Hx Appendectomy: No Hx Cholecystectomy: No Hx Gastric Bypass Surgery: No Hx Hysterectomy: No Hx Inguinal Hernia Repair: No Hx Joint Replacement: No Hx Kidney Transplant: No Hx Liver Transplant: No Hx Mastectomy: No Hx Musculoskeletal Surgery: No Hx Open Heart Surgery: No Hx Orthopedic Surgery: No Hx Splenectomy: No Hx Valve Replacement: No Other/Comment: d and c x 2 - Anesthesia Hx Anesthesia: Yes Hx Anesthesia Reactions: No Hx Malignant Hyperthermia: No - Suicidal Assessment Feels Threatened In Home Enviroment: No Family/Social History - Physician Review Nursing Documentation Reviewed: Yes Family/Social History: No Known Family HX Smoking Status: Never Smoked Hx Alcohol Use: No Hx Substance Use: No Hx Substance Use Treatment: No Allergies/Home Meds Allergies/Adverse Reactions: Allergies naproxen Allergy (Verified 01/17/17 18:09) RASH Home Medications: Home Meds Medication Instructions Recorded Confirmed Losartan [Cozaar] 25 mg PO DAILY 10/30/16 01/28/17 SITagliptin [Januvia] 100 mg PO DAILY 10/30/16 01/28/17 ALPRAZolam [Xanax] 0.25 mg PO TID PRN 01/28/17 01/28/17 DULoxetine [Cymbalta] 30 mg PO HS 01/28/17 01/28/17 Review of Systems - Physician Review All systems were reviewed & negative as marked: Yes - Review of Systems Constitutional: Other (Generalized Weakness; Tremors). absent: Fevers Eyes: Normal ENT: Normal Respiratory: Normal. absent: SOB, Cough Cardiovascular: Normal. absent: Chest Pain, Palpitations Gastrointestinal: Normal. absent: Abdominal Pain, Diarrhea, Nausea, Vomiting Genitourinary Female: Normal. absent: Dysuria, Frequency, Hematuria, Urine Output Changes Musculoskeletal: Normal. absent: Back Pain, Neck Pain Skin: Normal Neurological: Other (Lightheaded). absent: Headache Endocrine: Normal Hemo/Lymphatic: Normal Psychiatric: Normal. absent: Anxiety, Depression, Suicidal Ideation Physical Exam Vital Signs Reviewed: Yes Vital Signs Temp Pulse Resp BP Pulse Ox 01/28/17 11:03 80 16 130/94 H 98 01/28/17 08:09 97.6 F 80 18 149/87 97 Temperature: Afebrile Blood Pressure: Normal Pulse: Regular Respiratory Rate: Normal Appearance: Positive for: Well-Appearing, Non-Toxic, Comfortable Pain Distress: None Mental Status: Positive for: Alert and Oriented X 3 - Systems Exam Head: Present: Atraumatic, Normocephalic Pupils: Present: PERRL Extroacular Muscles: Present: EOMI Conjunctiva: Present: Normal Mouth: Present: Moist Mucous Membranes Neck: Present: Normal Range of Motion Respiratory/Chest: Present: Clear to Auscultation, Good Air Exchange. No: Respiratory Distress, Accessory Muscle Use Cardiovascular: Present: Regular Rate and Rhythm, Normal S1, S2. No: Murmurs Abdomen: Present: Normal Bowel Sounds. No: Tenderness, Distention, Peritoneal Signs Back: Present: Normal Inspection Upper Extremity: Present: Normal Inspection. No: Cyanosis, Edema Lower Extremity: Present: Normal Inspection. No: Edema Neurological: Present: GCS=15, CN II-XII Intact, Speech Normal Skin: Present: Warm, Dry, Normal Color. No: Rashes Psychiatric: Present: Alert, Oriented x 3, Normal Insight, Normal Concentration Medical Decision Making ED Course and Treatment: 01/28/17 08:25 Impression: 51 year old female complaining of feeling weak, lightheaded, and shaky. Differential Diagnosis include but are not limited to: Anxiety vs. Hyperglycemia vs. Electrolyte Abnormalities Plan: -- EKG -- Labs, cardiac enzymes -- Ativan -- Reassess and disposition Prior Visits: Notes and results from previous visits were reviewed. Patient was last seen in the emergency department on 01/17/17 for general maliase and uncomfortable feeling in her chest. Progress Notes: 01/28/17 08:30 EKG: Ordered, reviewed, and independently interpreted the EKG. Rate : 85 BPM Rhythm : NSR Interpretation : No ST-segment elevations or depressions, no T-wave inversions, normal intervals. 01/28/17 10:50 Labs reviewed. EKG reviewed and documented. Symptoms have resolved after a dose of Ativan. On re-evaluation, the patient feels better and is in no acute distress. I have discussed the results and plan with the patient, who expresses understanding. Patient in agreement with plan to discharged home. Patient is stable for discharge. Patient was instructed to follow up with physician/clinic in 1-2 days or return if symptoms worsen or new concerning symptoms arise. - Lab Interpretations Lab Results: 01/28/17 09:06 01/28/17 09:06 Lab Results 01/28/17 09:06: Sodium 139, Potassium 3.9, Chloride 102, Carbon Dioxide 28, Anion Gap 13, BUN 12, Creatinine 0.7, Est GFR ( Amer) > 60, Est GFR (Non- Af Amer) > 60, Random Glucose 147 H, Calcium 9.4, Magnesium 2.1, Total Bilirubin 1.1, AST 23, ALT 37, Alkaline Phosphatase 89, Lactate Dehydrogenase 394, Total Creatine Kinase 53, Troponin I < 0.01, Total Protein 7.8, Albumin 3.9 , Globulin 4.0, Albumin/Globulin Ratio 1.0 L 01/28/17 09:06: WBC 6.1, RBC 4.05, Hgb 12.1, Hct 36.2, MCV 89.4, MCH 29.9, MCHC 33.4, RDW 13.7, Plt Count 367, MPV 8.3, Gran % 62.2, Lymph % (Auto) 27.8, [place] % (Auto) 7.5 H, Eos % (Auto) 2.0, Baso % (Auto) 0.5, Gran # 3.81, Lymph # 1.7, [place] # 0.5, Eos # 0.1, Baso # 0.03 - EKG Interpretation Interpreted by ED Physician: Yes Type: 12 lead EKG - Medication Orders Current Medication Orders: Discontinued Medications Lorazepam (Ativan) 1 mg PO ONCE ONE PRN Reason: Protocol Stop: 01/28/17 08:32 Last Admin: 01/28/17 09:00 Dose: 1 mg - [place] Statement The provider has reviewed the documentation as recorded by the Messi Carvalho Provider Attestation: All medical record entries made by the Messi were at my direction and personally dictated by me. I have reviewed the chart and agree that the record accurately reflects my personal performance of the history, physical exam, medical decision making, and the department course for this patient. I have also personally directed, reviewed, and agree with the discharge instructions and disposition. Disposition/Present on Arrival - Present on Arrival Any Indicators Present on Arrival: No History of DVT/PE: No History of Uncontrolled Diabetes: No Urinary Catheter: No History Surgical Site Infection Following: None - Disposition Have Diagnosis and Disposition been Completed?: Yes Diagnosis: Weakness Disposition: HOME/ ROUTINE Disposition Time: 10:51 Patient Plan: Discharge Condition: IMPROVED Discharge Instructions (ExitCare): Weakness (ED) Additional Instructions: Ms Hogan, thank you for letting us take care of you today. Your provider was Dr. Doyle. You were treated for Weakness, Anxiety. The emergency medical care you received today was directed at your acute symptoms. If you were prescribed any medication, please fill it and take as directed. It may take several days for your symptoms to resolve. Return to the Emergency Department if your symptoms worsen, do not improve, or if you have any other problems. Please contact your doctor or call one of the physicians/clinics you have been referred to that are listed on the Patient Visit Information form that is included in your discharge packet. Bring any paperwork you were given at discharge with you along with any medications you are taking to your follow up visit. Our treatment cannot replace ongoing medical care by a primary care provider (PCP) outside of the emergency department. Thank you for allowing the [facility] team to be part of your care today. If you had an X-Ray or CT scan: A Radiologist will review the ED reading if any change in treatment is needed we will contact you. If you had a blood, urine, or wound culture: It will take several days for the results, if any change in treatment is needed we will contact you. If you had an STI test: It will take 48 hours for the results. Please call after 1 week if you have not heard back. Referrals: Jildy Josefina Smith, [Non-Staff] - Follow up with primary Forms: [facility] Visits Discharge (Senegalese)
[2017-01-28 09:07] LABS: ADD MANUAL DIFF? NO
[2017-01-28 09:20] LABS: BASO # 0.03 K/mm3 (0.0-2.0); BASO % 0.5 % (0.0-3.0); EOS # 0.1 (0.0-0.7); GRAN # 3.81 (1.4-6.5); GRAN % 62.2 % (50.0-68.0); HEMATOCRIT 36.2 % (36.0-48.0); LYMPH # 1.7 (1.2-3.4); LYMPH % 27.8 % (22.0-35.0); MEAN CELL VOLUME 89.4 fL (80.0-105.0); MEAN CORPUSCULAR HEMOGLOBIN 29.9 pg (25.0-35.0); MEAN CORPUSCULAR HGB CONC 33.4 g/dl (31.0-37.0); MEAN PLATELET VOLUME 8.3 fl (7.0-11.0); MONO # 0.5 (0.1-0.6); MONO % 7.5 % (1.0-6.0); PLATELET COUNT 367 10^3/uL (120.0-450.0); RED CELL DISTRIBUTION WIDTH 13.7 % (11.5-14.5); WHITE BLOOD COUNT 6.1 10^3/ul (4.5-11.0)
[2017-01-28 09:25] LABS: ALKALINE PHOSPHATASE 89 U/L (38-133); ALT/SGPT 37 U/L (7-56); AST/SGOT 23 U/L (15-39); BILIRUBIN,TOTAL 1.1 mg/dL (0.2-1.3); BLOOD UREA NITROGEN 12 mg/dL (7-21); CALCIUM 9.4 mg/dL (8.4-10.5); CARBON DIOXIDE 28 mmol/L (21-33); CHLORIDE 102 mmol/L (98-107); GFR AFRICAN-AMERICAN > 60; GLUCOSE,RANDOM 147 mg/dL (70-110); MAGNESIUM 2.1 mg/dL (1.7-2.2); POTASSIUM 3.9 mmol/L (3.6-5.0); SODIUM 139 mmol/L (132-148); TOTAL PROTEIN 7.8 g/dL (5.8-8.3)
[2017-01-28 09:39] LABS: TROPONIN I < 0.01 ng/mL
[2017-01-28 11:05] VITALS: BP 130/94; RESP 16; O2SAT 98
--- NOTE | 2017-01-28 13:29 | CARD ---
APPROVED REPORT EKG Measurement Heart [id number] <Conclusion> Normal sinus rhythm Normal ECG
== END 2017-01-28 11:04 | disposition home or self-care (01) ==
LOC: ED 08:08
DX: R53.1 Weakness (principal); E11.9 Type 2 diabetes mellitus without complications; I10 Essential (primary) hypertension

== ENCOUNTER 2017-01-30 07:43 | Emergency (ER) | payer BC ==
[2017-01-30 07:44] VITALS: BMI 56.8
--- NOTE | 2017-01-30 07:52 | ED PDOC ---
Arrival/HPI - General Time Seen by Provider: 01/30/17 07:50 Historian: Patient - History of Present Illness Narrative History of Present Illness (Text): 01/30/17 08:00 A 51 year old female presents to the emergency department complaining of anxiety attack and feeling anxious since this morning. Patient reports feels like previous anxiety attack. Patient denies any chest pain, shortness of breath , palpitations, dyspnea on exertion or any other complaints at this time. Patient also notes Ativan helped her symptoms last time she presented to emergency department. Time/Duration: 4-6 hours Symptom Onset: Sudden Symptom Course: Unchanged Activities at Onset: Rest Context: Home Associated Symptoms (Text): none Past Medical History - Provider Review Nursing Documentation Reviewed: Yes - Infectious Disease Hx of Infectious Diseases: None - Tetanus Immunization Tetanus Immunization: Unknown - Cardiac Hx Hypertension: Yes Hx Peripheral Edema: Yes (ble +1 discolored dry skin) Other/Comment: pt denies chest pain, c/o a twing to right and left side of breast and r arm at times - Pulmonary Hx Respiratory Disorders: Yes Hx Asthma: No Hx Bronchitis: Yes Hx Chronic Obstructive Pulmonary Disease (COPD): No Hx Emphysema: No Hx Pneumonia: Yes Hx Respiratory Aspiration: No Hx Respiratory Tract Infection: No Hx Sleep Apnea: No Hx Tuberculosis: No - Neurological Hx Neurological Disorder: No Hx Alzheimer's Disease: No HX Cerebrovascular Accident: No Hx Dementia: No Hx Dizziness: No Hx Meningitis: No Hx Migraine: No Hx Parkinson's Disease: No Hx Seizures: No Hx Transient Ischemic Attacks (TIA): No - HEENT Hx HEENT Disorder: Yes (reading glasses) Hx Blind: No Hx Cataracts: No Hx Deafness: No Hx Difficulty Chewing: No Hx Epistaxis: No Hx Glaucoma: No Hx Macular Degeneration: No - Renal Hx Renal Disorder: No - Endocrine/Metabolic Hx Diabetes Mellitus Type 2: Yes - Hematological/Oncological Hx Blood Disorders: No - Integumentary Hx Dermatological Disorder: No - Musculoskeletal/Rheumatological Hx Musculoskeletal Disorders: No Hx Falls: No - Gastrointestinal Hx Gastrointestinal Disorders: Yes (obese) - Genitourinary/Gynecological Hx Genitourinary Disorders: No - Psychiatric Hx Psychophysiologic Disorder: No Hx Anxiety: Yes Hx Depression: No Hx Physical Abuse: No Hx Substance Use: No - Surgical History Hx Amputation: No Hx Appendectomy: No Hx Cholecystectomy: No Hx Gastric Bypass Surgery: No Hx Hysterectomy: No Hx Inguinal Hernia Repair: No Hx Joint Replacement: No Hx Kidney Transplant: No Hx Liver Transplant: No Hx Mastectomy: No Hx Musculoskeletal Surgery: No Hx Open Heart Surgery: No Hx Orthopedic Surgery: No Hx Splenectomy: No Hx Valve Replacement: No Other/Comment: d and c x 2 - Anesthesia Hx Anesthesia: Yes Hx Anesthesia Reactions: No Hx Malignant Hyperthermia: No - Suicidal Assessment Feels Threatened In Home Enviroment: No Family/Social History - Physician Review Nursing Documentation Reviewed: Yes Family/Social History: No Known Family HX Smoking Status: Never Smoked Hx Alcohol Use: No Hx Substance Use: No Hx Substance Use Treatment: No Allergies/Home Meds Allergies/Adverse Reactions: Allergies naproxen Allergy (Verified 01/17/17 18:09) RASH Home Medications: Home Meds Medication Instructions Recorded Confirmed Losartan [Cozaar] 25 mg PO DAILY 10/30/16 01/30/17 SITagliptin [Januvia] 100 mg PO DAILY 10/30/16 01/30/17 ALPRAZolam [Xanax] 0.25 mg PO HS PRN 01/28/17 01/30/17 DULoxetine [Cymbalta] 30 mg PO HS 01/28/17 01/30/17 Review of Systems - Physician Review All systems were reviewed & negative as marked: Yes Physical Exam - Physical Exam Narrative Physical Exam (Text): 01/30/17 08:06- Review of Systems Constitutional: Normal. absent: Fatigue, Weight Change, Fevers Eyes: Normal ENT: Normal Respiratory: Normal absent: SOB, Cough, Sputum Cardiovascular: Normal absent: Chest pain, Palpitations, Syncope, Dyspnea on exertion Gastrointestinal: Normal absent: Abdominal pain, Diarrhea, Nausea, Vomiting Genitourinary: Normal. absent: Dysuria, Frequency, Hematuria Musculoskeletal: Normal. absent: Arthralgias, Back Pain, Neck Pain Skin: Normal Neurological: Normal absent: Focal Weakness Endocrine: Normal Hemo/Lymphatic: Normal Psychiatric: Anxiety - Physical exam Patient appears age appropriate, speaking full sentences without difficulty - Systems Exam Head: Present: Atraumatic, Normocephalic Pupils: Present: PERRL Extraocular Muscles: Present: EOMI Conjunctiva: Present: Normal Mouth: Present: Moist Mucous Membranes Neck: Present: Normal Range of Motion. No: MIDLINE TENDERNESS, Paraspinal Tenderness Respiratory/Chest: Present: Clear to Auscultation, Good Air Exchange. No: Respiratory Distress, Accessory Muscle Use, Tachypneic Cardiovascular: Present: Regular Rate and Rhythm, Normal S1, S2, Peripheral Pulses Present. No: Murmurs Abdomen: Present: Normal Bowel Sounds, No: Tenderness, Peritoneal Signs, Rebound, Guarding, Distention Back: Present: Normal Inspection. No: Midline Tenderness, Paraspinal Tenderness Upper Extremity: Present: Normal Inspection. No: Cyanosis, Edema Lower Extremity: Present: Normal Inspection. No: Edema Neurological: Present: GCS=15, Speech Normal, cranial nerves II through XII fully intact with no cerebellar abnormality, neuro-sensory fully intact. No focal neurological deficits. Skin: Present: Warm, Dry, Normal Color. No: Rashes Lymphatic: Present: OX3, NI, NC Psychiatric: Present: Alert, Oriented x 3, Normal Insight, Normal Concentration. Denies SI/HI Vital Signs Reviewed: Yes Vital Signs Pulse Resp BP Pulse Ox 01/30/17 07:53 85 18 166/95 H 98 Temperature: Afebrile Blood Pressure: Hypertensive Pulse: Regular Respiratory Rate: Normal Appearance: Positive for: Well-Appearing, Non-Toxic, Comfortable Pain Distress: None Mental Status: Positive for: Alert and Oriented X 3 Medical Decision Making ED Course and Treatment: 01/30/17 08:07 Impression: A 51 year old female with anxiety attack. On physical exam, patient had no acute findings. Plan: -- Ativan -- Reassess and disposition Prior Visits: Notes and results from previous visits were reviewed. Patient was admitted to emergency department on 01/17/17 for evaluation of chest discomfort. Patient had a negative Carotid Doppler Eco and outpatient stress test. Progress Notes: 01/30/17 09:00 On reevaluation, patient states that her anxiety is much better at this time. States that she has a psychiatrist with whom she follows up. States that she has no suicidal or homicidal ideations. States she feels comfortable being discharged home with outpatient follow-up. Pt states she understands to return to the ER right away for new or worsening symptoms or for inability to f/u with PMD or specialist as instructed. Patient states that she fully agrees with and understands discharge instructions. States that she agrees with the plan and disposition. Verbalized and repeated discharge instructions and plan. I have given the patient opportunity to ask any additional questions. - Medication Orders Current Medication Orders: Discontinued Medications Lorazepam (Ativan) 2 mg IM ONCE ONE Stop: 01/30/17 08:12 Last Admin: 01/30/17 08:20 Dose: 2 mg - Wyattibe Statement The provider has reviewed the documentation as recorded by the Wyattibumesh Treviño All medical record entries made by the Wyattibumesh were at my direction and personally dictated by me. I have reviewed the chart and agree that the record accurately reflects my personal performance of the history, physical exam, medical decision making, and the department course for this patient. I have also personally directed, reviewed, and agree with the discharge instructions and disposition. Disposition/Present on Arrival - Present on Arrival Any Indicators Present on Arrival: No History of DVT/PE: No History of Uncontrolled Diabetes: No Urinary Catheter: No History Surgical Site Infection Following: None - Disposition Have Diagnosis and Disposition been Completed?: Yes Diagnosis: Anxiety Disposition: HOME/ ROUTINE Disposition Time: 09:01 Patient Plan: Discharge Condition: GOOD Discharge Instructions (ExitCare): Anxiety (ED) Additional Instructions: PLEASE RETURN TO THE EMERGENCY DEPARTMENT FOR NEW OR WORSENING SYMPTOMS. RETURN RIGHT AWAY IF YOU CANNOT FOLLOW UP WITH YOUR PRIMARY CARE DOCTOR, CLINIC, OR SPECIALIST IN 1-2 DAYS. Referrals: Pete Marroquin MD [Primary Care Provider] - Follow up with primary
[2017-01-30 09:12] VITALS: BP 134/88; PULSE 75; RESP 16; O2SAT 95
[2017-01-30 09:45] VITALS: TEMP 98.7
== END 2017-01-30 09:50 | disposition home or self-care (01) ==
LOC: ED 07:43
DX: F41.9 Anxiety disorder, unspecified (principal); I10 Essential (primary) hypertension; E11.9 Type 2 diabetes mellitus without complications
CPT/HCPCS: 96372; 99283; J2060

== ENCOUNTER 2017-01-31 14:01 | Inpatient (IN) | payer BC ==
[2017-01-31 14:02] VITALS: BMI 56.8
[2017-01-31 14:29] VITALS: O2SAT 98
--- NOTE | 2017-01-31 14:34 | ED PDOC ---
Arrival/HPI - General Chief Complaint: Anxiety Time Seen by Provider: 01/31/17 14:04 Historian: Patient - History of Present Illness Narrative History of Present Illness (Text): 01/31/17 14:29 A 51 year old female presents to the emergency department complaining of feeling anxious. Patient reports it is similar to previous anxiety attacks. Patient denies suicidal or homicidal ideation. Patient denies any other complaints at this time. Symptom Onset: Sudden Symptom Course: Unchanged Activities at Onset: Rest Context: Home Associated Symptoms (Text): none Past Medical History - Provider Review Nursing Documentation Reviewed: Yes - Infectious Disease Hx of Infectious Diseases: None - Tetanus Immunization Tetanus Immunization: Unknown - Cardiac Hx Hypertension: Yes Hx Peripheral Edema: Yes (ble +1 discolored dry skin) Other/Comment: pt denies chest pain, c/o a twing to right and left side of breast and r arm at times - Pulmonary Hx Respiratory Disorders: Yes Hx Asthma: No Hx Bronchitis: Yes Hx Chronic Obstructive Pulmonary Disease (COPD): No Hx Emphysema: No Hx Pneumonia: Yes Hx Respiratory Aspiration: No Hx Respiratory Tract Infection: No Hx Sleep Apnea: No Hx Tuberculosis: No - Neurological Hx Neurological Disorder: No Hx Alzheimer's Disease: No HX Cerebrovascular Accident: No Hx Dementia: No Hx Dizziness: No Hx Meningitis: No Hx Migraine: No Hx Parkinson's Disease: No Hx Seizures: No Hx Transient Ischemic Attacks (TIA): No - HEENT Hx HEENT Disorder: Yes (reading glasses) Hx Blind: No Hx Cataracts: No Hx Deafness: No Hx Difficulty Chewing: No Hx Epistaxis: No Hx Glaucoma: No Hx Macular Degeneration: No - Renal Hx Renal Disorder: No - Endocrine/Metabolic Hx Diabetes Mellitus Type 2: Yes - Hematological/Oncological Hx Blood Disorders: No - Integumentary Hx Dermatological Disorder: No - Musculoskeletal/Rheumatological Hx Musculoskeletal Disorders: No Hx Falls: No - Gastrointestinal Hx Gastrointestinal Disorders: Yes (obese) - Genitourinary/Gynecological Hx Genitourinary Disorders: No - Psychiatric Hx Psychophysiologic Disorder: No Hx Anxiety: Yes Hx Depression: No Hx Physical Abuse: No Hx Substance Use: No - Surgical History Hx Amputation: No Hx Appendectomy: No Hx Cholecystectomy: No Hx Gastric Bypass Surgery: No Hx Hysterectomy: No Hx Joint Replacement: No Hx Kidney Transplant: No Hx Liver Transplant: No Hx Mastectomy: No Hx Musculoskeletal Surgery: No Hx Open Heart Surgery: No Hx Orthopedic Surgery: No Hx Splenectomy: No Hx Valve Replacement: No Other/Comment: d and c x 2 - Anesthesia Hx Anesthesia: Yes Hx Anesthesia Reactions: No Hx Malignant Hyperthermia: No - Suicidal Assessment Feels Threatened In Home Enviroment: No Family/Social History - Physician Review Nursing Documentation Reviewed: Yes Family/Social History: No Known Family HX Smoking Status: Never Smoked Hx Alcohol Use: No Hx Substance Use: No Hx Substance Use Treatment: No Allergies/Home Meds Allergies/Adverse Reactions: Allergies naproxen Allergy (Verified 01/31/17 14:23) RASH Home Medications: Home Meds Medication Instructions Recorded Confirmed Losartan [Cozaar] 25 mg PO DAILY 10/30/16 01/30/17 SITagliptin [Januvia] 100 mg PO DAILY 10/30/16 01/30/17 ALPRAZolam [Xanax] 0.25 mg PO HS PRN 01/28/17 01/31/17 DULoxetine [Cymbalta] 30 mg PO HS 01/28/17 01/30/17 Review of Systems - Physician Review All systems were reviewed & negative as marked: Yes Physical Exam - Physical Exam Narrative Physical Exam (Text): 01/31/17 14:34- Review of Systems Constitutional: Normal. absent: Fatigue, Weight Change, Fevers Eyes: Normal ENT: Normal Respiratory: Normal absent: SOB, Cough, Sputum Cardiovascular: Normal absent: Chest pain, Palpitations, Syncope Gastrointestinal: Normal absent: Abdominal pain, Diarrhea, Nausea, Vomiting Genitourinary: Normal. absent: Dysuria, Frequency, Hematuria Musculoskeletal: Normal. absent: Arthralgias, Back Pain, Neck Pain Skin: Normal Neurological: Normal absent: Focal Weakness Endocrine: Normal Hemo/Lymphatic: Normal Psychiatric: Anxiety - Physical exam Patient appears age appropriate, speaking full sentences without difficulty - Systems Exam Head: Present: Atraumatic, Normocephalic Pupils: Present: PERRL Extraocular Muscles: Present: EOMI Conjunctiva: Present: Normal Mouth: Present: Moist Mucous Membranes Neck: Present: Normal Range of Motion. No: MIDLINE TENDERNESS, Paraspinal Tenderness Respiratory/Chest: Present: Clear to Auscultation, Good Air Exchange. No: Respiratory Distress, Accessory Muscle Use, Tachypneic Cardiovascular: Present: Regular Rate and Rhythm, Normal S1, S2, Peripheral Pulses Present. No: Murmurs Abdomen: Present: Normal Bowel Sounds, No: Tenderness, Peritoneal Signs, Rebound, Guarding, Distention Back: Present: Normal Inspection. No: Midline Tenderness, Paraspinal Tenderness Upper Extremity: Present: Normal Inspection. No: Cyanosis, Edema Lower Extremity: Present: Normal Inspection. No: Edema Neurological: Present: GCS=15, Speech Normal, cranial nerves II through XII fully intact with no cerebellar abnormality, neuro-sensory fully intact. No focal neurological deficits. Skin: Present: Warm, Dry, Normal Color. No: Rashes Lymphatic: Present: OX3, NI, NC Psychiatric: Present: Anxious, Alert, Oriented x 3, Normal Concentration. No: homicidal and suicidal ideation Vital Signs Reviewed: Yes Vital Signs Temp Pulse Resp BP Pulse Ox 01/31/17 14:19 98.4 F 88 18 121/87 98 Temperature: Afebrile Blood Pressure: Normal Pulse: Regular Respiratory Rate: Normal Appearance: Positive for: Well-Appearing, Non-Toxic, Comfortable Pain Distress: None Mental Status: Positive for: Alert and Oriented X 3 Medical Decision Making ED Course and Treatment: 01/31/17 14:36 Impression: A 51 year old female with anxiety attacks. On physical exam, patient had no acute findings. Patient denies suicidal and homicidal ideation. Plan: -- EKG -- chest xray -- labs -- Urinalysis -- Ativan -- Reassess and disposition Prior Visits: Notes and results from previous visits were reviewed. Patient last seen in the emergency department on 01/31/16 for evaluation of similar anxiety attack. Progress Notes: EKG: Ordered, reviewed, and independently interpreted the EKG. Rate : 88 BPM Rhythm : NSR Interpretation : No ST-segment elevations or depressions, no T-wave inversions, normal intervals. Patient will be evaluated by [facility]. 01/31/17 15:51 evaluated by Trish from [facility], states to admit to Dr. Brown's service pt in no distress at this time, aware of and agrees with plan - Lab Interpretations Lab Results: 01/31/17 14:30 01/31/17 14:30 Lab Results 01/31/17 14:30: Alcohol, Quantitative < 10 01/31/17 14:30: Salicylates < 1 L, Acetaminophen < 10.0 L 01/31/17 14:30: Sodium 139, Potassium 3.7, Chloride 100, Carbon Dioxide 28, Anion Gap 15, BUN 10, Creatinine 0.8, Est GFR ( Amer) > 60, Est GFR (Non- Af Amer) > 60, Random Glucose 119 H, Calcium 9.3, Total Bilirubin 1.4 H, AST 22 , ALT 34, Alkaline Phosphatase 90, Lactate Dehydrogenase 428, Total Creatine Kinase 97, Troponin I < 0.01, Total Protein 8.8 H, Albumin 4.2, Globulin 4.7, Albumin/Globulin Ratio 0.9 L 01/31/17 14:30: WBC 8.1 D, RBC 4.35, Hgb 13.2, Hct 39.1, MCV 89.9, MCH 30.3, MCHC 33.8, RDW 13.6, Plt Count 383, MPV 8.1, Gran % 67.2, Lymph % (Auto) 24.7, [place] % (Auto) 6.2 H, Eos % (Auto) 1.7, Baso % (Auto) 0.2, Gran # 5.41, Lymph # 2.0, [place] # 0.5, Eos # 0.1, Baso # 0.02 I have reviewed the lab results: Yes - RAD Interpretation Radiology Orders: 01/31/17 14:27 CHEST PORTABLE [RAD] Stat - EKG Interpretation Interpreted by ED Physician: Yes Type: 12 lead EKG - Medication Orders Current Medication Orders: Discontinued Medications Lorazepam (Ativan) 2 mg IM STAT STA Stop: 01/31/17 14:27 Last Admin: 01/31/17 14:42 Dose: 2 mg - Scribe Statement The provider has reviewed the documentation as recorded by the Messi Treviño All medical record entries made by the Messi were at my direction and personally dictated by me. I have reviewed the chart and agree that the record accurately reflects my personal performance of the history, physical exam, medical decision making, and the department course for this patient. I have also personally directed, reviewed, and agree with the discharge instructions and disposition. Disposition/Present on Arrival - Present on Arrival Any Indicators Present on Arrival: No History of DVT/PE: No History of Uncontrolled Diabetes: No Urinary Catheter: No History of Decub. Ulcer: No History Surgical Site Infection Following: None - Disposition Have Diagnosis and Disposition been Completed?: Yes Diagnosis: Anxiety Disposition: HOSPITALIZED Disposition Time: 15:53 Patient Plan: Admission Condition: FAIR Referrals: Pete Marroquin MD [Primary Care Provider] - Follow up with primary
[2017-01-31 14:52] LABS: ADD MANUAL DIFF? NO
[2017-01-31 14:55] LABS: BASO # 0.02 K/mm3 (0.0-2.0); BASO % 0.2 % (0.0-3.0); EOS # 0.1 (0.0-0.7); EOS % 1.7 % (1.5-5.0); GRAN # 5.41 (1.4-6.5); GRAN % 67.2 % (50.0-68.0); HEMATOCRIT 39.1 % (36.0-48.0); LYMPH % 24.7 % (22.0-35.0); MEAN CELL VOLUME 89.9 fL (80.0-105.0); MEAN CORPUSCULAR HEMOGLOBIN 30.3 pg (25.0-35.0); MEAN CORPUSCULAR HGB CONC 33.8 g/dl (31.0-37.0); MEAN PLATELET VOLUME 8.1 fl (7.0-11.0); MONO # 0.5 (0.1-0.6); MONO % 6.2 % (1.0-6.0); PLATELET COUNT 383 10^3/uL (120.0-450.0); RED CELL DISTRIBUTION WIDTH 13.6 % (11.5-14.5); WHITE BLOOD COUNT 8.1 10^3/ul (4.5-11.0)
[2017-01-31 15:07] LABS: ALB/GLOB RATIO 0.9 (1.1-1.8); ALKALINE PHOSPHATASE 90 U/L (38-133); ALT/SGPT 34 U/L (7-56); AST/SGOT 22 U/L (15-39); BILIRUBIN,TOTAL 1.4 mg/dL (0.2-1.3); BLOOD UREA NITROGEN 10 mg/dL (7-21); CALCIUM 9.3 mg/dL (8.4-10.5); CARBON DIOXIDE 28 mmol/L (21-33); CHLORIDE 100 mmol/L (98-107); GFR AFRICAN-AMERICAN > 60; GLUCOSE,RANDOM 119 mg/dL (70-110); POTASSIUM 3.7 mmol/L (3.6-5.0); SODIUM 139 mmol/L (132-148); TOTAL PROTEIN 8.8 g/dL (5.8-8.3)
[2017-01-31 15:25] LABS: TROPONIN I < 0.01 ng/mL
--- NOTE | 2017-01-31 20:54 | CARD ---
APPROVED REPORT EKG Measurement Heart [id number] <Conclusion> Normal sinus rhythm Normal ECG
[2017-02-01 07:29] VITALS: RESP 20
[2017-02-01 08:09] LABS: FREE T4 1.25 ng/dL (0.78-2.19)
[2017-02-01 08:23] LABS: THYROID STIMULATING HORMONE 2.47 mIU/mL (0.46-4.68)
--- NOTE | 2017-02-01 13:44 | PN ---
DATE: 02/01/2017 INITIAL PROGRESS NOTE AND ADMISSION MEDICAL NOTE The patient is a 51-year-old white female. She is seen in the behavioral care unit. She was admitted yesterday with anxiety and feeling down. The patient has past history of hypertension. She also has a history of hyperglycemia on and off. The patient had no other symptoms, significant medical history. She has 4 children. The youngest is 9 years of age. The patient is not a DNR. ALLERGIES: The patient has no known allergies at this time. PAST SURGICAL HISTORY: None. MEDICAL EXAMINATION: GENERAL: She is ambulating. She answers all questions, and she is monitoring her blood sugar twice a day. HEAD: Normocephalic. EYES: Pupils are equal and reactive to light. NECK: Thyroid is not enlarged clinically. No lymphadenopathy. Carotid pulses are present. LUNGS: Trachea is central. Breath sounds vesicular. No adventitious sounds are heard. HEART: NSR. S1, S2 present. No murmurs. No arrhythmias noted. The patient has no evidence of any clinical rubs on the precordial area. ABDOMEN: Obesity is present, predominantly truncal. The patient's organ examination: Liver, spleen not palpable clinically. The patient has no evidence of clinical hernia. CENTRAL NERVOUS SYSTEM: She is conscious, rational, oriented. Her cranial nerves are intact II-XII. The patient's examination of the eye as mentioned - the pupils are equal and reactive to light, and vision is good. Examination of the motor and sensory functions are within normal limits. Cerebellar function is within normal limits clinically. ADMITTING DIAGNOSIS: Anxiety with hypertension and hyperglycemia by history. The patient is on a diet. Her blood pressure will be monitored. MEDICATIONS: Losartan 50 mg p.o. daily. The patient will also be on a 2 gram sodium diet. We will follow up medically, and the thyroid function studies are within normal limits. LABORATORY DATA: Chemistry: The sugar was 119 - the highest number. The low number is 94. The patient's bilirubin is 1.4, but we will repeat her chemistries in 2 days. Currently, the sodium is 139. Potassium is 3.7, and the patient's GFR is within normal limits - greater than 60. The x-ray of the chest is clear. EKG is normal sinus rhythm, no murmurs, and no ischemic abnormalities are noted. Mandy Kirk MD cc: [phone] TT: 02/01/2017 13:42:57 Confirmation # [id number] Dictation # [id number] MTDD
--- NOTE | 2017-02-01 14:25 | PCM.PSYCH ---
Initial Psychiatric Evaluation - Initial Psychiatric Evaluation Type of Admission: Voluntary Legal Status: Capacity (pt has capacity to sign consent for treatment) Chief Complaint (in patient's own words): "I don't know what happened to me, nothing was bothering me, but since November started to feel very depressed, hopeless feeling very anxious, was not able to function, I need to have help". Patient's Reaction to Hospitalization: patient was admitted to the psychiatric inpatient unit for evaluation and stabilization of depressive symptoms, anxiety symptoms, panic attacks, inability to function. History of Present Illness and Precipitating Events: shortly patient is 51 years old female, not known previous psychiatric history, patient denied history of being admitted to psychiatric inpatient unit, denied history of suicidal attempts, patient was brought in to the emergency room by her , status post panic attack, patient found to be depressed, anxious, was not able to function, patient had frequent visits to the emergency room for evaluation of anxiety symptoms (since October 2016 patient had 11 visits to the emergency room for panic attacks) patient was seen by psychiatrist Dr. Marrero last Monday, but patient was not able to wait until follow-up appointment with him and brought herself to the hospital looking for admission. pt was seen at the treatment team today with RICHARD DOWNEY and this ticket writer, good personal hygiene, good ADLs. Pt presented to be tearful, affect was flat at the beginning of the interview, by the end of the interview pt was able to smile. Pt also presented to be anxious. Patient said that since November 2016 patient started to feel depressed, there is no precipitating factors, patient also reported to feel hopeless, low energy , it would take extra time for her chores to be completed, patient was not able to function. Patient denied thoughts of harming herself or others. Patient reported that she was feeling anxious, had a feeling that her throat is closing, patient would feel very anxious, restless patient tried to calm herself and going outside as well as breathing exercises but nothing was helping her. Patient also reported that she was feeling that she is dying and something horrible might happen to her. Patient reported there is no stress in the house, patient has supportive and loving family, patient denied hearing voices denied seeing things, patient denied smoking denies using drugs. Patient also reported that she cannot drive car, feeling very uncomfortable on the highways, was not able to visit her familypolice while from here. Past psychiatric history: Patient denied history of being admissions to psychiatric inpatient and patient denied history of suicidal attempts. Patient reported initially Dr. Marroquin prescribed her Xanax 0.25 mg twice a day as needed and Cymbalte, but patient reported that medications were not helping her , her PMD sent pt for the psychiatric evaluation and that is why pt was seen by Dr. Marrero last week but pt was not able to wait till the next appt. More over patient had more than 11 visits to the emergency room for anxiety symptoms sounds October 2016, obviously patient was not functioning well, keeps : [facility] emergency room, needed to be admitted into the psychiatric inpatient unit in order to be stabilized on medications. Medical h/o: obesity and HTN. Family h/o: denied this ticket writer started Klonopin yesterday 0.5 mg was given to the patient at the nighttime patient reported that she tolerated that well willing to increase that further as well as denied any side effects from that medication. Patient also was educated about Prozac on Paxil as well as Wellbutrin patient used to be on Prozac for depression and anxiety. Risk benefits alternatives of the medications were discussed with the patient patient verbalized understanding. Patient denied history of abuse, denied history of trauma. 01/31/17 14:30 01/31/17 14:30 Lab Results 02/01/17 11:59: POC Glucose (mg/dL) 94 02/01/17 07:34: Free T4 1.25, TSH 3rd Generation 2.47 02/01/17 07:34: Fasting Glucose 110 02/01/17 07:23: POC Glucose (mg/dL) 104 01/31/17 21:59: POC Glucose (mg/dL) 114 H 01/31/17 14:30: Alcohol, Quantitative < 10 01/31/17 14:30: Salicylates < 1 L, Acetaminophen < 10.0 L 01/31/17 14:30: Sodium 139, Potassium 3.7, Chloride 100, Carbon Dioxide 28, Anion Gap 15, BUN 10, Creatinine 0.8, Est GFR ( Amer) > 60, Est GFR (Non- Af Amer) > 60, Random Glucose 119 H, Calcium 9.3, Total Bilirubin 1.4 H, AST 22 , ALT 34, Alkaline Phosphatase 90, Lactate Dehydrogenase 428, Total Creatine Kinase 97, Troponin I < 0.01, Total Protein 8.8 H, Albumin 4.2, Globulin 4.7, Albumin/Globulin Ratio 0.9 L 01/31/17 14:30: WBC 8.1 D, RBC 4.35, Hgb 13.2, Hct 39.1, MCV 89.9, MCH 30.3, MCHC 33.8, RDW 13.6, Plt Count 383, MPV 8.1, Gran % 67.2, Lymph % (Auto) 24.7, [place] % (Auto) 6.2 H, Eos % (Auto) 1.7, Baso % (Auto) 0.2, Gran # 5.41, Lymph # 2.0, [place] # 0.5, Eos # 0.1, Baso # 0.02 Temp Pulse Resp BP Pulse Ox 98.1 F 79 20 111/68 98 02/01/17 07:28 02/01/17 09:41 02/01/17 07:28 02/01/17 09:41 01/31/17 15:56 Current Medications: Active Medications Generic Name Dose Route Start Last Admin Trade Name Freq PRN Reason Stop Dose Admin Aspirin 81 mg 02/01/17 09:45 02/01/17 09:41 Ecotrin PO 81 mg DAILY HOOD Administration Clonazepam 0.5 mg 02/01/17 14:00 Klonopin PO 0800,1400 HOOD Protocol Clonazepam 0.5 mg 02/01/17 10:22 Klonopin PO HS PRN prn anxiety/insomnia Protocol Fluoxetine HCl 10 mg 02/01/17 10:15 Prozac PO DAILY HOOD Losartan Potassium 50 mg 02/01/17 09:30 02/01/17 09:41 Cozaar PO 50 mg DAILY HOOD Administration Trazodone HCl 50 mg 01/31/17 18:33 Desyrel PO HS PRN Insomnia Past Psychiatric History - Past Psychiatric History Previous Treatment History: None Prior Professional Help: see HPI Prior Psychiatric Treatment: see HPI At what hospital: see HPI Duration: see HPI Nature of Treatment: see HPI Explanation of prior treatment: see HPI History of Abuse: see HPI History of ETOH/Drug Use: see HPI History of Family Illness: see HPI Pertinent Medical Hx (Current Medical&Sleep Prob, Allergies): Allergies Allergy/AdvReac Type Severity Reaction Status Date / Time naproxen Allergy RASH Verified 01/31/17 17:16 Losartan [Cozaar] 50 mg PO DAILY 10/30/16 SITagliptin [Januvia] 100 mg PO DAILY 10/30/16 Aspirin [Ecotrin] 81 mg PO DAILY #30 tabec 11/03/16 Atorvastatin [Lipitor] 20 mg PO DIN #30 tab 11/03/16 ALPRAZolam [Xanax] 0.25 mg PO HS PRN 01/28/17 DULoxetine [Cymbalta] 30 mg PO HS 01/28/17 Review of Systems - Review of Systems Systems not reviewed;Unavailable: Acuity of Condition - EENT Eyes: As Per HPI Ears: As Per HPI Nose/Mouth/Throat: As Per HPI - Breasts Breasts: As Per HPI - Cardiovascular Cardiovascular: As Per HPI - Respiratory Respiratory: As Per HPI - Gastrointestinal Gastrointestinal: As Per HPI - Genitourinary Genitourinary: As Per HPI - Reproductive: Female Reproductive:Female: As Per HPI - Menstruation Menstruation: As Per HPI - Musculoskeletal Musculoskeletal: As Par HPI - Integumentary Integumentary: As Per HPI - Neurological Neurological: As Per HPI - Psychiatric Psychiatric: As Per HPI - Endocrine Endocrine: As Per HPI - Hematologic/Lymphatic Hematologic: As Per HPI Mental Status Examination - Personal Presentation Personal Presentation: Looks stated age - Affect Affect: Constricted - Motor Activity Motor Activity: Calm - Reliability in Providing Information Reliability in Providing Information: Fair - Speech Speech: Organized - Mood Mood: Depressed, Anxious - Formal Thought Process Formal Thought Process: No Impairment - Obsessions/Compulsions Obsessions: None Compulsions: None - Cognitive Functions Orientation: Person, Place, Situation Sensorium: Alert Attention/Concentration: Easily distracted Abstract Thinking: [place] Estimate of Intelligence: Average Judgement: Intact, as evidence by: Insight regarding need for hospitalization - Risk Risk: Diminished functioning - Strength & Assets Inventory Strength & Assets Inventory: Intelligence, Family support, Education, Employment status, Employment history, Skills, Interests/hobbies, Spiritual affiliations, Life experience, Cooperative DSM 5 DX - DSM 5 DSM 5 Diagnosis: rule out major depressive disorder Rule out panic disorder with agoraphobia - Recommended/Plan of Treatment Treatment Recommendations and Plan of Treatment: milieu, structure, supportive therapy Losartan [Cozaar] 50 mg PO DAILY to be continued SITagliptin [Januvia] 100 mg PO DAILY to be continued Aspirin [Ecotrin] 81 mg PO DAILY to be continued Atorvastatin [Lipitor] 20 mg PO DIN to be continued ALPRAZolam will be discontinued DULoxetine will be discontinued Klonopin was started 0.5 mg twice a day and at the nighttime for insomnia and anxiety Prozac will be started 10 mg daily for depression and anxiety with a plan to titrate it up orchard worker 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 Elise's office as outpatient We'll monitor closely Medical consult appreciated. Patient complained of insomnia, frequent wake ups but refused to be seen by postal service sectional center manager, patient does not want o be evaluated for sleep apnea Projected ELOS: 5 days Prognosis: fair Discharge Plan and Discharge Criteria: Pt will be not depressed or manic, will be more hopeful, will be not psychotic or anxious, will be not having thoughts of harming self or others, will be tolerating medications well, will not have major side effects, will be able to function, will not pose threat to self or others. - Smoking Cessation Smoking Cessation Initiated: No Reason for not providing: Patient does not smoke, does not use drugs
[2017-02-01] MEDS ORDERED: Alum-Mag Hydrox-Simethicone Susp (30 mL) PO PRN (18:15)
[2017-02-01] MEDS ORDERED: Magnesium Hydroxide Susp 30 ml UD PO PRN (18:15)
--- NOTE | 2017-02-02 12:16 | PN ---
DATE: 02/02/2017 The patient is a 51-year-old white female. She is admitted to the [facility] behavioral care unit. She was admitted with anxiety and the patient has history of hypertension. ALLERGIES: SHE HAS ALLERGY TO NAPROSYN. SHE IS ALSO NOT ABLE TO TOLERATE JANUVIA AND METFORMIN IN THE PAST. The patient is seen this morning. She is comfortable, cheerful, but continues to dwell on her anxiety state. She has no pain, no shortness of breath. MEDICATIONS: Consist of losartan 50 mg daily, aspirin 81 mg daily. The patient is on trazodone 50 mg at night. The patient takes Klonopin 0.5 mg at night and patient is on Prozac 10 mg daily. PHYSICAL EXAMINATION: VITAL SIGNS: This morning, the patient's pulse is 80, blood pressure 132/86. HEAD: Normocephalic. NECK: The thyroid is not enlarged. Carotid pulses are present. No lymphadenopathy. LUNGS: Trachea central. Breath sounds vesicular. No adventitious sounds. HEART: Normal sinus rhythm. S1, S2 present. No murmurs, no rubs. ABDOMEN: Soft, obesity present, which is truncal obesity. Liver, spleen not palpable. CENTRAL NERVOUS SYSTEM: The patient has no focal neurological deficits. The patient is ambulating. Her medications will be continued. Her lab work was reviewed. There is no significant abnormality. We will continue medical management. Follow up with the patient's care. Mandy Kirk MD cc: [id number] TT: 02/02/2017 12:16:18 Confirmation # [id number] Dictation # [id number] en MTDD
--- NOTE | 2017-02-02 14:50 | PCM.PYCHPN ---
Psychiatric Progress Note - Psychiatric Progress Note Patient seen today, length of contact: 30 minutes Patient Chief Complaint: "I think Klonopin works better than Xanax" Problems Identified/Issues Discussed: Suicide/ homicide prevention, past psychiatric h/o, current psychiatric symptoms , medical problems, risk/benefits and alternatives of medications, medications compliance, coping strategies, substance abuse h/o, relapse prevention, importance of follow up with psychiatrist and therapist, discharge plan. Medical Problems: obesity, hypertension, see HPI for more detailed information Diagnostic Results: 01/31/17 14:30 01/31/17 14:30 Lab Results 02/02/17 11:21: POC Glucose (mg/dL) 110 02/02/17 08:06: POC Glucose (mg/dL) 101 02/01/17 16:32: POC Glucose (mg/dL) 92 02/01/17 11:59: POC Glucose (mg/dL) 94 02/01/17 07:34: Free T4 1.25, TSH 3rd Generation 2.47 02/01/17 07:34: Fasting Glucose 110 02/01/17 07:34: RPR Nonreactive 02/01/17 07:23: POC Glucose (mg/dL) 104 01/31/17 21:59: POC Glucose (mg/dL) 114 H 01/31/17 14:30: Alcohol, Quantitative < 10 01/31/17 14:30: Salicylates < 1 L, Acetaminophen < 10.0 L 01/31/17 14:30: Sodium 139, Potassium 3.7, Chloride 100, Carbon Dioxide 28, Anion Gap 15, BUN 10, Creatinine 0.8, Est GFR ( Amer) > 60, Est GFR (Non- Af Amer) > 60, Random Glucose 119 H, Calcium 9.3, Total Bilirubin 1.4 H, AST 22 , ALT 34, Alkaline Phosphatase 90, Lactate Dehydrogenase 428, Total Creatine Kinase 97, Troponin I < 0.01, Total Protein 8.8 H, Albumin 4.2, Globulin 4.7, Albumin/Globulin Ratio 0.9 L 01/31/17 14:30: WBC 8.1 D, RBC 4.35, Hgb 13.2, Hct 39.1, MCV 89.9, MCH 30.3, MCHC 33.8, RDW 13.6, Plt Count 383, MPV 8.1, Gran % 67.2, Lymph % (Auto) 24.7, [place] % (Auto) 6.2 H, Eos % (Auto) 1.7, Baso % (Auto) 0.2, Gran # 5.41, Lymph # 2.0, [place] # 0.5, Eos # 0.1, Baso # 0.02 Vital Signs Temp Pulse Resp BP Pulse Ox 02/02/17 09:29 80 132/86 02/02/17 07:36 98.8 F 80 20 132/86 02/01/17 16:42 70 20 119/80 02/01/17 09:41 79 111/68 02/01/17 07:28 98.1 F 79 20 111/68 01/31/17 15:56 79 18 135/88 98 01/31/17 14:27 98 F 80 18 137/93 H 01/31/17 14:19 98.4 F 88 18 121/87 98 DSM 5 Symptoms Update: shortly patient is 51 years old female, not known previous psychiatric history, patient denied history of being admitted to psychiatric inpatient unit, denied history of suicidal attempts, patient was brought in to the emergency room by her , status post panic attack, patient found to be depressed, anxious, was not able to function, patient had frequent visits to the emergency room for evaluation of anxiety symptoms (since October 2016 patient had 11 visits to the emergency room for panic attacks) patient was seen by psychiatrist Dr. Marrero last Monday, but patient was not able to wait until follow-up appointment with him and brought herself to the hospital looking for admission. pt was seen at the TV room today , good personal hygiene, good ADLs. Pt presented to be ess tearful, affect was more reactive. Patient reported that she likes Klonopin better than Xanax, patient reported to feel mild improvement with her anxiety, patient reported no side effects from the Prozac, patient is willing to increase the dose today. Patient still has episodes of panic attacks, patient reported that she had one yesterday but it was less severe than usual. patient reported to feeldepressed and hopeless, denied suicidal ideation or plan or intent. Patient adjusting to the unit well, patient started to go to groups, visible in the unit. patient tolerates medication well, no side effects observed or reported, no EPS , aims 0 impression: DSM 5 rule out major depressive disorder Rule out panic disorder with agoraphobia Medication Change: Yes (Prozac increased) Medical Record Reviewed: Yes Consults ordered or reviewed: medical consultation appreciated, note reviewed Mental Status Examination - Cognitive Function Orientation: Person, Place, Situation Memory: Intact Attention: Poor (some improvement) Concentration: Poor (some improvement) Association: WNL Fund of Knowledge: WNL - Mood Mood: Depressed (I feel depressed ), Anxious (had 1 panic attack yesterday) - Affect Affect: Constricted (Less tearful, mood congruent) - Speech Speech: Appropriate - Formal Thought Process Formal Thought Process: No Impairment - Suicidal Ideation Suicidal Ideation: No - Homicidal Ideation Homicidal Ideation: No Goal/Treatment Plan - Goal/Treatment Plan Need for Continued Stay: Remain at risks for inpatient hospitalization, Severe depression anxiety, Discharge may exacerbated symptoms, Severe functional impairment Progress Toward Problem(s) and Goals/Treatment Plan: milieu, structure, supportive therapy Losartan [Cozaar] 50 mg PO DAILY to be continued SITagliptin [Januvia] 100 mg PO DAILY to be continued Aspirin [Ecotrin] 81 mg PO DAILY to be continued Atorvastatin [Lipitor] 20 mg PO DIN to be continued ALPRAZolam will be discontinued DULoxetine will be discontinued Klonopin was started 0.5 mg twice a day and at the nighttime for insomnia and anxiety yesterday Prozac will be increased to 20mg daily for depression and anxiety with a plan to titrate it up 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 Elise's office as outpatient We'll monitor closely Medical consult appreciated. Patient complained of insomnia, frequent wake ups but refused to be seen by pulp maker, patient does not want o be evaluated for sleep apnea Estimated Date of D/C: 02/06/17 (we'll monitor closely)
--- NOTE | 2017-02-03 17:00 | PCM.PYCHPN ---
Psychiatric Progress Note - Psychiatric Progress Note Patient seen today, length of contact: 30 minutes Patient Chief Complaint: "I think Klonopin works better than Xanax" Problems Identified/Issues Discussed: Suicide/ homicide prevention, past psychiatric h/o, current psychiatric symptoms , medical problems, risk/benefits and alternatives of medications, medications compliance, coping strategies, substance abuse h/o, relapse prevention, importance of follow up with psychiatrist and therapist, discharge plan. Medical Problems: obesity, hypertension, see HPI for more detailed information Diagnostic Results: 01/31/17 14:30 01/31/17 14:30 Lab Results 02/02/17 11:21: POC Glucose (mg/dL) 110 02/02/17 08:06: POC Glucose (mg/dL) 101 02/01/17 16:32: POC Glucose (mg/dL) 92 02/01/17 11:59: POC Glucose (mg/dL) 94 02/01/17 07:34: Free T4 1.25, TSH 3rd Generation 2.47 02/01/17 07:34: Fasting Glucose 110 02/01/17 07:34: RPR Nonreactive 02/01/17 07:23: POC Glucose (mg/dL) 104 01/31/17 21:59: POC Glucose (mg/dL) 114 H 01/31/17 14:30: Alcohol, Quantitative < 10 01/31/17 14:30: Salicylates < 1 L, Acetaminophen < 10.0 L 01/31/17 14:30: Sodium 139, Potassium 3.7, Chloride 100, Carbon Dioxide 28, Anion Gap 15, BUN 10, Creatinine 0.8, Est GFR ( Amer) > 60, Est GFR (Non- Af Amer) > 60, Random Glucose 119 H, Calcium 9.3, Total Bilirubin 1.4 H, AST 22 , ALT 34, Alkaline Phosphatase 90, Lactate Dehydrogenase 428, Total Creatine Kinase 97, Troponin I < 0.01, Total Protein 8.8 H, Albumin 4.2, Globulin 4.7, Albumin/Globulin Ratio 0.9 L 01/31/17 14:30: WBC 8.1 D, RBC 4.35, Hgb 13.2, Hct 39.1, MCV 89.9, MCH 30.3, MCHC 33.8, RDW 13.6, Plt Count 383, MPV 8.1, Gran % 67.2, Lymph % (Auto) 24.7, [place] % (Auto) 6.2 H, Eos % (Auto) 1.7, Baso % (Auto) 0.2, Gran # 5.41, Lymph # 2.0, [place] # 0.5, Eos # 0.1, Baso # 0.02 Vital Signs Temp Pulse Resp BP Pulse Ox 02/02/17 09:29 80 132/86 02/02/17 07:36 98.8 F 80 20 132/86 02/01/17 16:42 70 20 119/80 02/01/17 09:41 79 111/68 02/01/17 07:28 98.1 F 79 20 111/68 01/31/17 15:56 79 18 135/88 98 01/31/17 14:27 98 F 80 18 137/93 H 01/31/17 14:19 98.4 F 88 18 121/87 98 Temp Pulse Resp BP Pulse Ox 98.2 F 70 20 115/75 98 02/03/17 06:31 02/03/17 16:15 02/03/17 06:31 02/03/17 16:15 01/31/17 15:56 DSM 5 Symptoms Update: shortly patient is 51 years old female, not known previous psychiatric history, patient denied history of being admitted to psychiatric inpatient unit, denied history of suicidal attempts, patient was brought in to the emergency room by her , status post panic attack, patient found to be depressed, anxious, was not able to function, patient had frequent visits to the emergency room for evaluation of anxiety symptoms (since October 2016 patient had 11 visits to the emergency room for panic attacks) patient was seen by psychiatrist Dr. Marrero last Monday, but patient was not able to wait until follow-up appointment with him and brought herself to the hospital looking for admission. pt was seen at the tx team today , good personal hygiene, good ADLs. Pt presented to be less tearful, affect was more reactive. Patient reported that she feels improvement with her anxiety, patient reported no side effects from the Prozac, dose was increased yesterday. denied panic attacks, last one was yesterday, reported to feel less depressed, denied suicidal ideation or plan or intent. Pt willing to be d/c tomorrow. Patient adjusting to the unit well, patient started to go to groups, visible in the unit. patient tolerates medication well, no side effects observed or reported, no EPS , aims 0 impression: DSM 5 rule out major depressive disorder Rule out panic disorder with agoraphobia Medication Change: No (Prozac increased yesterday) Medical Record Reviewed: Yes Consults ordered or reviewed: medical consultation appreciated, note reviewed Mental Status Examination - Cognitive Function Orientation: Person, Place, Situation Memory: Intact Attention: Poor (some improvement) Concentration: Poor (some improvement) Association: WNL Fund of Knowledge: WNL - Mood Mood: Depressed (I feel little better), Anxious (I think it's under control now) - Affect Affect: Constricted (Less tearful, mood congruent) - Speech Speech: Appropriate - Formal Thought Process Formal Thought Process: No Impairment - Suicidal Ideation Suicidal Ideation: No - Homicidal Ideation Homicidal Ideation: No Goal/Treatment Plan - Goal/Treatment Plan Need for Continued Stay: Remain at risks for inpatient hospitalization, Severe depression anxiety, Discharge may exacerbated symptoms, Severe functional impairment Progress Toward Problem(s) and Goals/Treatment Plan: milieu, structure, supportive therapy Losartan [Cozaar] 50 mg PO DAILY to be continued SITagliptin [Januvia] 100 mg PO DAILY to be continued Aspirin [Ecotrin] 81 mg PO DAILY to be continued Atorvastatin [Lipitor] 20 mg PO DIN to be continued Klonopin was started 0.5 mg twice a day and at the nighttime for insomnia and anxiety yesterday Prozac 20mg daily for depression and anxiety with a plan to titrate it up 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 Elise's office as outpatient We'll monitor closely Medical consult appreciated. Patient complained of insomnia, frequent wake ups but refused to be seen by wind field manager, patient does not want o be evaluated for sleep apnea patient said that she will be ready to be discharged tomorrow, we'll prescriptions were left with the nurses, patient is scheduled for discharge on 02/04/2017. Estimated Date of D/C: 02/04/17 (we'll monitor closely)
--- NOTE | 2017-02-03 17:10 | PN ---
DATE: 02/03/2017 The patient in the behavioral care unit, [facility] in [place], room 515, bed 2. The patient is seen sitting down. The patient has no additional complaints. She states she is feeling better and improving. PHYSICAL EXAMINATION: VITAL SIGNS: The patient's pulse 70, blood pressure 115/75, respirations are 20. The patient's O2 sat is 99% on room air. LUNGS: Clear. HEART: Normal sinus rhythm. ABDOMEN: Soft. CENTRAL NERVOUS SYSTEM: No focal deficits. MEDICATIONS: Consist of losartan 50 mg daily. The patient is on Desyrel 50 mg at bedtime, aspirin, Klonopin, Prozac 20 mg daily. Her condition is improving. The patient is clinically stable. Blood pressure is controlled. The patient will be seen for follow up. Mandy Kirk MD cc: [id number] TT: 02/03/2017 17:10:06 Confirmation # [id number] Dictation # [id number] MTDD
[2017-02-04 06:40] VITALS: BP 119/75; PULSE 87; TEMP 98
--- NOTE | 2017-02-04 09:37 | PCM.PYCHDC ---
Mental Status Examination - Mental Status Examination Orientation: Person, Place, Situation Memory: Intact Mood: Neutral Affect: Broad Speech: Appropriate Attention: WNL Concentration: WNL Association: WNL Fund of Knowledge: WNL Formal Thought Process: No Impairment Description of patient's judgement and insight: fair I/J Psychotic Thoughts and Behaviors: No AVH, paranoia. No delusions elicited Suicidal Ideation: No Current Homicidal Ideation?: No Discharge Summary - Discharge Note Reason for Hospitalization: shortly patient is 51 years old female, not known previous psychiatric history, patient denied history of being admitted to psychiatric inpatient unit, denied history of suicidal attempts, patient was brought in to the emergency room by her , status post panic attack, patient found to be depressed, anxious, was not able to function, patient had frequent visits to the emergency room for evaluation of anxiety symptoms (since October 2016 patient had 11 visits to the emergency room for panic attacks) patient was seen by psychiatrist Dr. Marrero last Monday, but patient was not able to wait until follow-up appointment with him and brought herself to the hospital looking for admission. Psychiatric History (includes Medical, Family, Personal Hx): see HPI Laboratory Data: Abnormal Lab Results 02/02/17 02/03/17 02/03/17 16:41 07:17 11:43 POC Glucose (mg/dL) 121 H 90 95 02/03/17 02/03/17 16:04 21:47 POC Glucose (mg/dL) 93 155 H Laboratory Tests 01/31/17 01/31/17 01/31/17 14:30 14:30 14:30 WBC 8.1 D RBC 4.35 Hgb 13.2 Hct 39.1 MCV 89.9 MCH 30.3 MCHC 33.8 RDW 13.6 Plt Count 383 MPV 8.1 Gran % 67.2 Lymph % (Auto) 24.7 Keith % (Auto) 6.2 H Eos % (Auto) 1.7 Baso % (Auto) 0.2 Gran # 5.41 Lymph # 2.0 Keith # 0.5 Eos # 0.1 Baso # 0.02 Sodium 139 Potassium 3.7 Chloride 100 Carbon Dioxide 28 Anion Gap 15 BUN 10 Creatinine 0.8 Est GFR ( Amer) > 60 Est GFR (Non-Af Amer) > 60 POC Glucose (mg/dL) Random Glucose 119 H Fasting Glucose Calcium 9.3 Total Bilirubin 1.4 H AST 22 ALT 34 Alkaline Phosphatase 90 Lactate Dehydrogenase 428 Total Creatine Kinase 97 Troponin I < 0.01 Total Protein 8.8 H Albumin 4.2 Globulin 4.7 Albumin/Globulin Ratio 0.9 L Free T4 TSH 3rd Generation Salicylates < 1 L Acetaminophen < 10.0 L Alcohol, Quantitative RPR 01/31/17 01/31/17 02/01/17 14:30 21:59 07:23 WBC RBC Hgb Hct MCV MCH MCHC RDW Plt Count MPV Gran % Lymph % (Auto) Keith % (Auto) Eos % (Auto) Baso % (Auto) Gran # Lymph # Keith # Eos # Baso # Sodium Potassium Chloride Carbon Dioxide Anion Gap BUN Creatinine Est GFR ( Amer) Est GFR (Non-Af Amer) POC Glucose (mg/dL) 114 H 104 Random Glucose Fasting Glucose Calcium Total Bilirubin AST ALT Alkaline Phosphatase Lactate Dehydrogenase Total Creatine Kinase Troponin I Total Protein Albumin Globulin Albumin/Globulin Ratio Free T4 TSH 3rd Generation Salicylates Acetaminophen Alcohol, Quantitative < 10 RPR 02/01/17 02/01/17 02/01/17 07:34 07:34 07:34 WBC RBC Hgb Hct MCV MCH MCHC RDW Plt Count MPV Gran % Lymph % (Auto) Keith % (Auto) Eos % (Auto) Baso % (Auto) Gran # Lymph # Keith # Eos # Baso # Sodium Potassium Chloride Carbon Dioxide Anion Gap BUN Creatinine Est GFR ( Amer) Est GFR (Non-Af Amer) POC Glucose (mg/dL) Random Glucose Fasting Glucose 110 Calcium Total Bilirubin AST ALT Alkaline Phosphatase Lactate Dehydrogenase Total Creatine Kinase Troponin I Total Protein Albumin Globulin Albumin/Globulin Ratio Free T4 1.25 TSH 3rd Generation 2.47 Salicylates Acetaminophen Alcohol, Quantitative RPR Nonreactive 02/01/17 02/01/17 02/02/17 11:59 16:32 08:06 WBC RBC Hgb Hct MCV MCH MCHC RDW Plt Count MPV Gran % Lymph % (Auto) Keith % (Auto) Eos % (Auto) Baso % (Auto) Gran # Lymph # Keith # Eos # Baso # Sodium Potassium Chloride Carbon Dioxide Anion Gap BUN Creatinine Est GFR ( Amer) Est GFR (Non-Af Amer) POC Glucose (mg/dL) 94 92 101 Random Glucose Fasting Glucose Calcium Total Bilirubin AST ALT Alkaline Phosphatase Lactate Dehydrogenase Total Creatine Kinase Troponin I Total Protein Albumin Globulin Albumin/Globulin Ratio Free T4 TSH 3rd Generation Salicylates Acetaminophen Alcohol, Quantitative RPR 02/02/17 02/02/17 02/03/17 11:21 16:41 07:17 WBC RBC Hgb Hct MCV MCH MCHC RDW Plt Count MPV Gran % Lymph % (Auto) Keith % (Auto) Eos % (Auto) Baso % (Auto) Gran # Lymph # Keith # Eos # Baso # Sodium Potassium Chloride Carbon Dioxide Anion Gap BUN Creatinine Est GFR ( Amer) Est GFR (Non-Af Amer) POC Glucose (mg/dL) 110 121 H 90 Random Glucose Fasting Glucose Calcium Total Bilirubin AST ALT Alkaline Phosphatase Lactate Dehydrogenase Total Creatine Kinase Troponin I Total Protein Albumin Globulin Albumin/Globulin Ratio Free T4 TSH 3rd Generation Salicylates Acetaminophen Alcohol, Quantitative RPR 02/03/17 02/03/17 02/03/17 11:43 16:04 21:47 WBC RBC Hgb Hct MCV MCH MCHC RDW Plt Count MPV Gran % Lymph % (Auto) Keith % (Auto) Eos % (Auto) Baso % (Auto) Gran # Lymph # Keith # Eos # Baso # Sodium Potassium Chloride Carbon Dioxide Anion Gap BUN Creatinine Est GFR ( Amer) Est GFR (Non-Af Amer) POC Glucose (mg/dL) 95 93 155 H Random Glucose Fasting Glucose Calcium Total Bilirubin AST ALT Alkaline Phosphatase Lactate Dehydrogenase Total Creatine Kinase Troponin I Total Protein Albumin Globulin Albumin/Globulin Ratio Free T4 TSH 3rd Generation Salicylates Acetaminophen Alcohol, Quantitative RPR Consultations:: List each consultation separately and include: 1. Reason for request. 2. Findings. 3. Follow-up Consultations: Seen by Dr. Kirk on 02/01, 02/02 and 02/03/17 Summary of Hospital Course include:: 1. Description of specific treatment plan utilized for patients during their course of treatmen. 2. Summarize the time- course for resolution of acute symptoms and/or regressed behaviors. 3. Describe issues identified and worked on during hospitalization. 4. Describe medication utilized. 5. Describe medical problems identified and treated. 6. Reassessment of suicide risk Summary of Hospital Course: shortly patient is 51 years old female, not known previous psychiatric history, patient denied history of being admitted to psychiatric inpatient unit, denied history of suicidal attempts, patient was brought in to the emergency room by her , status post panic attack, patient found to be depressed, anxious, was not able to function, patient had frequent visits to the emergency room for evaluation of anxiety symptoms (since October 2016 patient had 11 visits to the emergency room for panic attacks) patient was seen by psychiatrist Dr. Marrero last Monday, but patient was not able to wait until follow-up appointment with him and brought herself to the hospital looking for admission. pt was seen at the tx team today , good personal hygiene, good ADLs. Pt presented to be less tearful, affect was more reactive. Patient reported that she feels improvement with her anxiety, patient reported no side effects from the Prozac, dose was increased yesterday. denied panic attacks, last one was yesterday, reported to feel less depressed, denied suicidal ideation or plan or intent. Pt willing to be d/c tomorrow. Patient adjusting to the unit well, patient started to go to groups, visible in the unit. patient tolerates medication well, no side effects observed or reported, no EPS , aims 0 ~~~~~ Patient scheduled for discharge today and this provider meets with her to ensure stability for discharge. Patient reports improvement since her admission and denies having any new concerns. Indicates anxiety is much improved, and feels mood is improved due to improved anxiety. Denies having any wishes, suicidal thoughts or thoughts to harm others. Patient also denies having any perceptual disturbance during today's interview. Focus and eye contact are good. Patient is related and affect demonstrates full range with appropriate reactivity. Overall she feels very comfortable with today's discharge date and after care plans. - Final Diagnosis (DSM 5) Condition upon Discharge: FAIR DSM 5: DSM 5 rule out major depressive disorder Disposition: HOME/ ROUTINE Follow-up Treatment Plan: PER NOTE 02/01/17 Social Work Progress Note by Christine Will Treatment Team Meeting: PT met with staff and Dr. Ratliff regarding pt's course of treatment. Dr. Ratliff explained purpose of meeting to patient. PT reports having no prior psychiatric admissions. PT reports living in [place], [place] with her and 4 children. PT reports having 4 kids, 24,22,17, and 9 years old. PT reports she was referred to on Monday. PT reports over the weekend, she woke up feeling depressed and later felt that her legs felt shaky. PT reports she tried to do different activities to distract herself. PT reports her brought her to the hospital. PT reports she was given Ativan IM which made her sleepy for the entire day. PT reports she was then discharged. PT reports feeling uncomfortable yesterday and reported feeling soreness on her upper chest and side. PT reports having symptoms while out to lunch with her and her friend. PT reports conversation was not stressful. PT reports her brought her back to the hospital, was given Ativan IM. PT reports having no reason to feel depressed or anxious. PT reports having a good marriage and family. Pt reports having no hx of trauma. PT reports she started to feel anxious and depressed in November 2016. PT reports often speaking to her PCP, Dr. Pascual about her symptoms. PT reports sometimes having low energy. PT describes herself as a "control freak." PT denies having OCD traits. PT denies any hx of abuse. PT reports sometimes feeling restless for a long length of time. PT reports going to [employer] in which she was told that she is not going through menopause. PT denies any drug, alcohol, or tobacco use. PT denies any a/v/t hallucinations. PT reports hx of HTN, and borderline diabetic. PT reports she does not sleep a lot but is not unusual for the patient. Dr. Ratliff discussed treatment plan with patient. Dr. Ratliff informed pt that she will be d/c on Monday (02/03/17). PLEASE REFER TO SW NOTE FOR FULL DISPOSITION AND D/C MEDS Prescriptions/Medication Reconciliation: Atorvastatin [Lipitor] 20 mg PO DIN #7 tab clonazePAM [Klonopin] 0.5 mg PO 0800,1400,2200 #45 tab FLUoxetine [Fluoxetine HCl] 20 mg PO DAILY #14 cap Losartan [Cozaar] 50 mg PO DAILY #7 tab - Smoking Cessation Smoking Cessation Medication prescribed: No - Antipsychotic Medications Pt discharged on 2 or more routine antipsychotic medications: No
--- NOTE | 2017-02-05 14:52 | PN ---
DATE: 02/04/2017 The patient is seen on psychiatry floor, standing in the hallway, talking on the phone. The patient stated that she felt a little anxious this morning and wanted to wait to discuss with the psychiatris t regarding discharge option. The patient's overnight nurse's notes were reviewed. The patient slep t well without any adverse event documented overnight. The patient reported that this morning she fe lt some anxiety. The patient has been cleared by psychiatry for discharge. PHYSICAL EXAMINATION: VITAL SIGNS: T-max 98.2, heart rate 87, blood pressure 119/75-102/88, 115/75, respirations 20, O2 sa t is 98%. HEAD: Normocephalic, atraumatic. HEENT: Shows pink conjunctivae, anicteric sclerae. No oropharyngeal lesion. No neck rigidity. CHEST: Symmetrical. LUNGS: Shows no rales, crackles, or wheezing. CARDIOVASCULAR: S1, S2, regular rhythm. ABDOMEN: Obese, positive bowel sounds. GENITALIA: Female. RECTAL: Deferred. EXTREMITIES: Shows chronic nonpitting edema. MUSCULOSKELETAL: Shows a body mass index of 58. The patient is morbidly obese at almost 300 pounds. NEUROLOGIC: Cranial nerves II-XII intact. GAIT: Independent. VASCULAR: Palpable pulses. PSYCHIATRIC: As per psychiatrist's note. DIAGNOSTICS: From 01/31, fingerstick blood sugars were reviewed. All diagnostic data reviewed from t his hospitalization. Drug screen was negative. RPR negative. Microbiology negative. EKG was revie wed, which was normal sinus rhythm, normal EKG. The patient was seen by psychiatrists, Dr. Brown and Dr. Means. IMPRESSION AND PLAN: 1. Morbid obesity with elevated body mass index of almost 58. 2. Hypertension. 3. Anxiety disorder. 4. Panic disorder. 5. History of anxiety and depression. 6. Major depressive disorder versus panic disorder with agoraphobia. 7. History of hypertension, history of dyslipidemia, history of morbid obesity. PLAN: At this time, patient is to be seen and cleared by psychiatrist for discharge. Covering for Nehal Brown. The patient is medically otherwise stable. CURRENT MEDICATIONS: 1. Cozaar 50 mg daily. 2. Desyrel or trazodone 50 mg at bedtime p.r.n. 3. Aspirin 81 mg daily. 4. Klonopin 0.5 mg at bedtime p.r.n. 5. Klonopin 0.5 mg twice a day at 8 a.m., 2 p.m. 6. Maalox and milk of magnesia p.r.n. 7. Prozac 20 mg daily. 8. Tylenol 650 p.r.n. If patient is discharged by the psychiatrist, patient needs to follow up with outpatient primary care physician and psychiatrist, which patient is aware. Dictated and electronically signed, not read. Desean Pinto MD cc: [id number] TT: 02/05/2017 14:51:38 Confirmation # [id number] Dictation # [id number]
== END 2017-02-04 17:33 | disposition home or self-care (01) | DRG 881 ==
LOC: ED 14:01 → ERH 15:54 → PSYC 16:38
PROVIDERS: ADMIT Psychiatry & Neurology Psychiatry; ATTEND Psychiatry & Neurology Psychiatry
PROC: GZ3ZZZZ Medication Management (ICD-10-PCS; principal; 2017-02-01)
DX: F32.9 Major depressive disorder, single episode, unspecified (principal); Z68.43 Body mass index [BMI] 50.0-59.9, adult; I10 Essential (primary) hypertension; E11.9 Type 2 diabetes mellitus without complications; E66.01 Morbid (severe) obesity due to excess calories; F41.0 Panic disorder [episodic paroxysmal anxiety]; E78.5 Hyperlipidemia, unspecified; G47.00 Insomnia, unspecified; Z79.84 Long term (current) use of oral hypoglycemic drugs

== ENCOUNTER 2017-02-05 13:06 | Emergency (ER) | payer BC ==
[2017-02-05 13:13] VITALS: BP 147/82; PULSE 88; RESP 18; TEMP 98.5; O2SAT 97; BMI 55.6
--- NOTE | 2017-02-05 13:42 | ED PDOC ---
Arrival/HPI - General Chief Complaint: Weakness/Neurological Deficit Time Seen by Provider: 02/05/17 13:14 Historian: Patient - History of Present Illness Narrative History of Present Illness (Text): 02/05/17 16:56 Patient is a 51 yo female presents to the ED with history of feeling very weak today after taking her medications this morning. Patient state she took an additional dose of Cymbalta this morning on instructions of her psychiatrist. She was recently discharged from psychiatric floor yesterday. Patient denies overdose of medication, denies suicidal or homicidal ideation. Denies headache. Denies chest pain or shortness of breath. states that she did not have energy and did not want to get up and walk this morning after taking medication. Past Medical History - Provider Review Nursing Documentation Reviewed: Yes - Infectious Disease Hx of Infectious Diseases: None - Tetanus Immunization Tetanus Immunization: Unknown - Cardiac Hx Hypertension: Yes Hx Peripheral Edema: Yes (ble +1 discolored dry skin) - Pulmonary Hx Respiratory Disorders: Yes Hx Bronchitis: Yes Hx Pneumonia: Yes - Neurological Hx Neurological Disorder: No - HEENT Hx HEENT Disorder: No (reading glasses) - Renal Hx Renal Disorder: No - Endocrine/Metabolic Hx Diabetes Mellitus Type 2: Yes (Diet controlled) - Hematological/Oncological Hx Blood Disorders: No - Integumentary Hx Dermatological Disorder: No - Musculoskeletal/Rheumatological Hx Musculoskeletal Disorders: No - Gastrointestinal Hx Gastrointestinal Disorders: Yes (obese) - Genitourinary/Gynecological Hx Genitourinary Disorders: No - Psychiatric Hx Psychophysiologic Disorder: Yes Hx Anxiety: Yes Hx Substance Use: No - Surgical History Hx Amputation: No Hx Appendectomy: No Hx Cholecystectomy: No Hx Gastric Bypass Surgery: No Hx Hysterectomy: No Hx Joint Replacement: No Hx Kidney Transplant: No Hx Liver Transplant: No Hx Mastectomy: No Hx Musculoskeletal Surgery: No Hx Open Heart Surgery: No Hx Orthopedic Surgery: No Hx Splenectomy: No Hx Valve Replacement: No Other/Comment: d and c x 2 - Anesthesia Hx Anesthesia: Yes Hx Anesthesia Reactions: No Hx Malignant Hyperthermia: No - Suicidal Assessment Feels Threatened In Home Enviroment: No Family/Social History - Physician Review Nursing Documentation Reviewed: Yes Family/Social History: No Known Family HX Smoking Status: Never Smoked Hx Alcohol Use: No Hx Substance Use: No Hx Substance Use Treatment: No Allergies/Home Meds Allergies/Adverse Reactions: Allergies naproxen Allergy (Verified 02/05/17 13:13) RASH Home Medications: Home Meds Medication Instructions Recorded Confirmed DULoxetine [Cymbalta] 60 mg PO DAILY 02/05/17 02/05/17 Review of Systems - Review of Systems Constitutional: Fatigue. absent: Fevers Eyes: absent: Vision Changes ENT: absent: Hearing Changes, Sore Throat Respiratory: absent: SOB, Cough Cardiovascular: absent: Chest Pain, Palpitations, Edema, WARREN Gastrointestinal: Appetite Changes. absent: Abdominal Pain Genitourinary Female: absent: Dysuria, Frequency Musculoskeletal: absent: Back Pain, Neck Pain Skin: absent: Rash Neurological: absent: Headache, Dizziness, Focal Weakness Hemo/Lymphatic: absent: Easy Bleeding Psychiatric: Anxiety, Depression. absent: Suicidal Ideation Physical Exam Vital Signs Reviewed: Yes Vital Signs Temp Pulse Resp BP Pulse Ox 02/05/17 13:07 98.5 F 88 18 147/82 97 Temperature: Afebrile Blood Pressure: Normal Pulse: Regular Respiratory Rate: Normal Appearance: Positive for: Well-Appearing, Non-Toxic, Comfortable Pain Distress: None Mental Status: Positive for: Alert and Oriented X 3 - Systems Exam Head: Present: Atraumatic, Normocephalic Pupils: Present: PERRL Extroacular Muscles: Present: EOMI Mouth: Present: Moist Mucous Membranes Pharnyx: No: ERYTHEMA Nose (Internal): Present: Normal Inspection, No Active Bleeding Neck: Present: Normal Range of Motion. No: Meningeal Signs Respiratory/Chest: Present: Clear to Auscultation. No: Respiratory Distress Cardiovascular: Present: Regular Rate and Rhythm Abdomen: Present: Normal Bowel Sounds. No: Tenderness, Distention, Peritoneal Signs Rectal: No: Gross Blood Back: No: CVA Tenderness Upper Extremity: No: Cyanosis, Edema Lower Extremity: Present: NORMAL PULSES, Neurovascularly Intact. No: Edema, CALF TENDERNESS Neurological: Present: CN II-XII Intact, Speech Normal, Motor Func Grossly Intact, Normal Sensory Function, Memory Normal Skin: Present: Warm Psychiatric: Present: Alert, Anxious, Depressed Mood Medical Decision Making ED Course and Treatment: 02/05/17 13:41 Impression: Patient with recent admission for depression/anxiety, felt weakness after taking her psychiatric mediation today. suppelments history. She was instructed to take an additional does of her medication today and felt symptoms after taking additonal dose. No overdose or suicidal ideation expressed. Prior Visits: Notes and results from previous visits were reviewed. Patient was last reported to the emergency department on 01/31/17 for evaluation after a panic attack. Patient had frequent visits to the emergency department for evaluation of depression and anxiety symptoms. Progress Notes: Patient with serial neuro exams in ed. She has no slurred speech. No cranial nerve deficits. She is ambulatory. No fever. No headache. No focal motor or sensory deficits with serial exams. Patient's past cardiac workups and medical evaluation reviewed. Exam not consistent with endocrine emergency. She was cleared for mental health evaluation. Patient evaluated bey mental health and cleared for discharge as she has psychiatrist and therapist followup. On reexam, labs reviewed with patient and family. Stressed need for close follow-up and for her to just take medication as prescribed until follow-up with her physician. 02/05/17 22:35 - Lab Interpretations Lab Results: 02/05/17 14:05 02/05/17 14:05 Lab Results 02/05/17 14:05: Sodium 138, Potassium 4.1, Chloride 101, Carbon Dioxide 27, Anion Gap 14, BUN 12, Creatinine 0.6, Est GFR ( Amer) > 60, Est GFR (Non- Af Amer) > 60, Random Glucose 120 H, Calcium 9.2, Total Bilirubin 1.1, AST 23, ALT 39, Alkaline Phosphatase 89, Total Protein 8.4 H, Albumin 4.0, Globulin 4.4 , Albumin/Globulin Ratio 0.9 L 02/05/17 14:05: WBC 7.2, RBC 4.29, Hgb 13.1, Hct 38.7, MCV 90.2, MCH 30.5, MCHC 33.9, RDW 13.7, Plt Count 383, MPV 8.3, Gran % 68.9 H, Lymph % (Auto) 24.2, [place] % (Auto) 5.3, Eos % (Auto) 1.3 L, Baso % (Auto) 0.3, Gran # 4.96, Lymph # 1.7, [place] # 0.4, Eos # 0.1, Baso # 0.02 - EKG Interpretation EKG Interpretation (Text): 02/05/17 22:34 EKG at 13:50 normal sinus rhythm rate of [address] elevations Interpreted by ED Physician: Yes Type: 12 lead EKG - Scribe Statement Arleensalmaida Treviño All medical record entries made by the Scribe were at my direction and personally dictated by me. I have reviewed the chart and agree that the record accurately reflects my personal performance of the history, physical exam, medical decision making, and the department course for this patient. I have also personally directed, reviewed, and agree with the discharge instructions and disposition. Disposition/Present on Arrival - Present on Arrival Any Indicators Present on Arrival: No History of DVT/PE: No History of Uncontrolled Diabetes: No Urinary Catheter: No History of Decub. Ulcer: No History Surgical Site Infection Following: None - Disposition Have Diagnosis and Disposition been Completed?: Yes Diagnosis: Weakness Disposition: HOME/ ROUTINE Disposition Time: 16:00 Patient Plan: Discharge Condition: GOOD Discharge Instructions (ExitCare): Weakness (ED) Additional Instructions: Take your medication only as directed. For any headaches, any chest pain, any shortness of breath, any abdominal pain, any nausea or vomiting, any numbness or weakness, any unsteadiness, any persistent or worsening of symptoms, get rechecked. Follow-up with your psychiatrist as directed. Referrals: Pete Marroquin MD [Primary Care Provider] - Follow up with primary
[2017-02-05 14:06] LABS: ADD MANUAL DIFF? NO
[2017-02-05 14:11] LABS: BASO # 0.02 K/mm3 (0.0-2.0); BASO % 0.3 % (0.0-3.0); EOS # 0.1 (0.0-0.7); EOS % 1.3 % (1.5-5.0); GRAN # 4.96 (1.4-6.5); GRAN % 68.9 % (50.0-68.0); HEMATOCRIT 38.7 % (36.0-48.0); LYMPH # 1.7 (1.2-3.4); LYMPH % 24.2 % (22.0-35.0); MEAN CELL VOLUME 90.2 fL (80.0-105.0); MEAN CORPUSCULAR HEMOGLOBIN 30.5 pg (25.0-35.0); MEAN CORPUSCULAR HGB CONC 33.9 g/dl (31.0-37.0); MEAN PLATELET VOLUME 8.3 fl (7.0-11.0); MONO # 0.4 (0.1-0.6); MONO % 5.3 % (1.0-6.0); PLATELET COUNT 383 10^3/uL (120.0-450.0); RED CELL DISTRIBUTION WIDTH 13.7 % (11.5-14.5); WHITE BLOOD COUNT 7.2 10^3/ul (4.5-11.0)
[2017-02-05 14:18] LABS: ALB/GLOB RATIO 0.9 (1.1-1.8); ALKALINE PHOSPHATASE 89 U/L (38-133); ALT/SGPT 39 U/L (7-56); AST/SGOT 23 U/L (15-39); BILIRUBIN,TOTAL 1.1 mg/dL (0.2-1.3); BLOOD UREA NITROGEN 12 mg/dL (7-21); CALCIUM 9.2 mg/dL (8.4-10.5); CARBON DIOXIDE 27 mmol/L (21-33); CHLORIDE 101 mmol/L (98-107); GFR AFRICAN-AMERICAN > 60; GLUCOSE,RANDOM 120 mg/dL (70-110); POTASSIUM 4.1 mmol/L (3.6-5.0); SODIUM 138 mmol/L (132-148); TOTAL PROTEIN 8.4 g/dL (5.8-8.3)
--- NOTE | 2017-02-05 21:20 | CARD ---
APPROVED REPORT EKG Measurement Heart [id number] <Conclusion> Normal sinus rhythm Normal ECG
== END 2017-02-05 17:14 | disposition home or self-care (01) ==
LOC: ED 13:06
DX: R53.1 Weakness (principal); I10 Essential (primary) hypertension; E11.9 Type 2 diabetes mellitus without complications; F41.9 Anxiety disorder, unspecified

== ENCOUNTER 2017-02-14 18:06 | Inpatient (IN) | payer BC ==
[2017-02-14 18:06] VITALS: BMI 55.6
[2017-02-14 20:05] LABS: URINE BILIRUBIN NEGATIVE (NEGATIVE); URINE BLOOD NEGATIVE (NEGATIVE); URINE GLUCOSE (UA) NEGATIVE (NEGATIVE); URINE KETONE NEGATIVE (NEGATIVE); URINE LEUKOCYTE ESTERASE MODERATE Leu/uL (NEGATIVE); URINE PROTEIN NEGATIVE mg/dL (<30 mg/dL); URINE UROBILINOGEN 0.2 E.U./dL (<1 E.U./dL)
[2017-02-14 20:07] LABS: URINE APPEARANCE CLEAR (CLEAR); URINE COLOR YELLOW (YELLOW)
[2017-02-14 20:13] LABS: URINE BACTERIA SMALL (NEG); URINE EPITHELIAL CELLS MANY /hpf (0-5); URINE RBC NEGATIVE /hpf (0-2)
[2017-02-14 20:33] LABS: ADD MANUAL DIFF? NO
[2017-02-14 20:59] LABS: BASO # 0.03 K/mm3 (0.0-2.0); BASO % 0.4 % (0.0-3.0); EOS # 0.1 (0.0-0.7); EOS % 1.4 % (1.5-5.0); GRAN # 4.42 (1.4-6.5); GRAN % 59.7 % (50.0-68.0); HEMATOCRIT 38.3 % (36.0-48.0); LYMPH # 2.5 (1.2-3.4); LYMPH % 33.1 % (22.0-35.0); MEAN CELL VOLUME 90.1 fL (80.0-105.0); MEAN CORPUSCULAR HEMOGLOBIN 30.1 pg (25.0-35.0); MEAN CORPUSCULAR HGB CONC 33.4 g/dl (31.0-37.0); MEAN PLATELET VOLUME 8.4 fl (7.0-11.0); MONO # 0.4 (0.1-0.6); MONO % 5.4 % (1.0-6.0); PLATELET COUNT 393 10^3/uL (120.0-450.0); RED CELL DISTRIBUTION WIDTH 13.8 % (11.5-14.5); WHITE BLOOD COUNT 7.4 10^3/ul (4.5-11.0)
[2017-02-14 21:08] LABS: ALKALINE PHOSPHATASE 97 U/L (38-133); ALT/SGPT 29 U/L (7-56); AST/SGOT 22 U/L (15-39); BILIRUBIN,TOTAL 1.1 mg/dL (0.2-1.3); BLOOD UREA NITROGEN 13 mg/dL (7-21); CALCIUM 9.1 mg/dL (8.4-10.5); CARBON DIOXIDE 27 mmol/L (21-33); CHLORIDE 102 mmol/L (98-107); GFR AFRICAN-AMERICAN > 60; GLUCOSE,RANDOM 95 mg/dL (70-110); POTASSIUM 3.8 mmol/L (3.6-5.0); SODIUM 137 mmol/L (132-148); TOTAL PROTEIN 7.9 g/dL (5.8-8.3)
--- NOTE | 2017-02-14 22:09 | ED PDOC ---
Arrival/HPI - General Chief Complaint: Weakness/Neurological Deficit Time Seen by Provider: 02/14/17 18:30 Historian: Patient - History of Present Illness Narrative History of Present Illness (Text): 02/14/17 22:06 51-year-old female presents today with worsening anxiety. pt states she has been taking klonipin without improvement in her anxiety. pt states that every time she takes medication it works for only 4 hours and then the symptoms come back. She denies any exacerbating factors. Pt states she just isnt feeling right. states she feels very anxious. states that she is having problems functioning at home due to the severe anxiety. Patient states this is been an ongoing issue and she's had to be admitted in the past for medication adjustment. She states she recently started Prozac about 10 days ago when she knows it takes more time to take effect that she is not feeling any better. Time/Duration: Prior to Arrival Symptom Onset: Sudden Past Medical History - Provider Review Nursing Documentation Reviewed: Yes - Travel History Have you recently traveled outside [place] w/in the past 3 mons?: No - Infectious Disease Hx of Infectious Diseases: None - Tetanus Immunization Tetanus Immunization: Unknown - Cardiac Hx Cardiac Disorders: Yes Hx Hypertension: Yes - Pulmonary Hx Tuberculosis: No - Neurological HX Cerebrovascular Accident: No Hx Seizures: No - HEENT Hx HEENT Disorder: No (reading glasses) - Renal Hx Renal Disorder: No - Endocrine/Metabolic Hx Endocrine Disorders: Yes Hx Diabetes Mellitus Type 2: Yes - Hematological/Oncological Hx Cancer: No - Integumentary Hx Dermatological Disorder: No - Musculoskeletal/Rheumatological Hx Musculoskeletal Disorders: No - Gastrointestinal Hx Gastrointestinal Disorders: No - Genitourinary/Gynecological Hx Sexually Transmitted Diseases: No - Psychiatric Hx Psychophysiologic Disorder: Yes Hx Anxiety: Yes Hx Substance Use: No - Surgical History Hx Amputation: No Hx Appendectomy: No Hx Cholecystectomy: No Hx Gastric Bypass Surgery: No Hx Hysterectomy: No Hx Joint Replacement: No Hx Kidney Transplant: No Hx Liver Transplant: No Hx Mastectomy: No Hx Musculoskeletal Surgery: No Hx Open Heart Surgery: No Hx Orthopedic Surgery: No Hx Splenectomy: No Hx Valve Replacement: No Other/Comment: d and c x 2 - Anesthesia Hx Anesthesia: Yes Hx Anesthesia Reactions: No Hx Malignant Hyperthermia: No - Suicidal Assessment Feels Threatened In Home Enviroment: No Family/Social History - Physician Review Nursing Documentation Reviewed: Yes Family/Social History: Unknown Family HX Smoking Status: Never Smoked Hx Alcohol Use: No Hx Substance Use: No Hx Substance Use Treatment: No Allergies/Home Meds Allergies/Adverse Reactions: Allergies naproxen Allergy (Verified 02/14/17 18:18) RASH Home Medications: Home Meds Medication Instructions Recorded Confirmed FLUoxetine [Prozac] 20 mg PO DAILY 02/14/17 02/14/17 clonazePAM [Klonopin] 0.5 tab PO QID PRN 02/14/17 02/14/17 Review of Systems - Review of Systems Constitutional: absent: Fatigue, Fevers Respiratory: absent: SOB, Cough Cardiovascular: absent: Chest Pain, Palpitations Gastrointestinal: absent: Abdominal Pain, Nausea, Vomiting Genitourinary Female: absent: Dysuria, Frequency, Hematuria Musculoskeletal: absent: Arthralgias Skin: absent: Rash, Pruritis Neurological: absent: Headache, Dizziness, Gait Changes Psychiatric: Anxiety. absent: Depression, Suicidal Ideation Physical Exam Vital Signs Reviewed: Yes Vital Signs Temp Pulse Resp BP Pulse Ox 02/14/17 22:28 97.5 F L 80 18 122/61 98 02/14/17 18:18 98 F 78 16 141/89 97 Temperature: Afebrile Blood Pressure: Normal Pulse: Regular Respiratory Rate: Normal Appearance: Positive for: Well-Appearing, Non-Toxic, Comfortable Pain Distress: None Mental Status: Positive for: Alert and Oriented X 3 - Systems Exam Head: Present: Atraumatic Mouth: Present: Moist Mucous Membranes Neck: Present: Normal Range of Motion Respiratory/Chest: Present: Clear to Auscultation, Good Air Exchange. No: Respiratory Distress, Accessory Muscle Use Cardiovascular: Present: Regular Rate and Rhythm, Normal S1, S2. No: Murmurs Abdomen: No: Tenderness Upper Extremity: Present: Normal Inspection, Normal ROM Lower Extremity: Present: Normal Inspection, Normal ROM Neurological: Present: GCS=15, Speech Normal Skin: Present: Warm, Dry, Normal Color. No: Rashes Psychiatric: Present: Alert, Oriented x 3 Medical Decision Making ED Course and Treatment: 02/14/17 22:10 Patient is nontoxic well-appearing in no distress vital signs are stable. CBC WNL CMP WNL Tylenol WNL Salicylate WNL Alcohol level WNL Urine drug screen wnl UA; moderate leukocytes; contaminated; will check urine culture. cxr: wnl ekg: NSR at 66b/m no st elevations normal axis. pt is medically cleared for PES evaluation Patient was seen and evaluated by PES screener: damion will admit patient to behavioral health floor for anxiety Impression; anxiety admit to behavioral health floor. - Lab Interpretations Lab Results: 02/14/17 20:15 02/14/17 20:15 Lab Results 02/14/17 20:15: WBC 7.4, RBC 4.25, Hgb 12.8, Hct 38.3, MCV 90.1, MCH 30.1, MCHC 33.4, RDW 13.8, Plt Count 393, MPV 8.4, Gran % 59.7, Lymph % (Auto) 33.1, Clinch % (Auto) 5.4, Eos % (Auto) 1.4 L, Baso % (Auto) 0.4, Gran # 4.42, Lymph # 2.5, Clinch # 0.4, Eos # 0.1, Baso # 0.03 02/14/17 20:15: Alcohol, Quantitative < 10 02/14/17 20:15: Salicylates < 1 L, Acetaminophen < 10.0 L 02/14/17 20:15: Sodium 137, Potassium 3.8, Chloride 102, Carbon Dioxide 27, Anion Gap 12, BUN 13, Creatinine 0.6, Est GFR ( Amer) > 60, Est GFR (Non- Af Amer) > 60, Random Glucose 95, Calcium 9.1, Total Bilirubin 1.1, AST 22, ALT 29, Alkaline Phosphatase 97, Total Protein 7.9, Albumin 4.0, Globulin 3.9, Albumin/Globulin Ratio 1.0 L 02/14/17 19:40: Urine Color Yellow, Urine Appearance Clear, Urine pH 6.0, Ur Specific [place] <= 1.005, Urine Protein Negative, Urine Glucose (UA) Negative, Urine Ketones Negative, Urine Blood Negative, Urine Nitrate Negative, Urine Bilirubin Negative, Urine Urobilinogen 0.2, Ur Leukocyte Esterase Moderate H, Urine RBC Negative, Urine WBC 1 - 3, Ur Epithelial Cells Many, Urine Bacteria Small, Urine HCG, Qual Negative 02/14/17 19:40: Urine Opiates Screen Negative, Urine Methadone Screen Negative, Ur Barbiturates Screen Negative, Ur Phencyclidine Scrn Negative, Ur Amphetamines Screen Negative, U Benzodiazepines Scrn Negative, U Oth Cocaine Metabols Negative, U Cannabinoids Screen Negative - RAD Interpretation Radiology Orders: 02/14/17 19:28 CHEST PORTABLE [RAD] Stat Disposition/Present on Arrival - Present on Arrival Any Indicators Present on Arrival: No History of DVT/PE: No History of Uncontrolled Diabetes: No Urinary Catheter: No History of Decub. Ulcer: No History Surgical Site Infection Following: None - Disposition Have Diagnosis and Disposition been Completed?: Yes Diagnosis: Anxiety Disposition: HOSPITALIZED Disposition Time: 22:00 Patient Plan: Admission Condition: FAIR
[2017-02-14] MEDS ORDERED: Magnesium Hydroxide Susp 30 ml UD PO PRN (23:59)
[2017-02-14] MEDS ORDERED: Alum-Mag Hydrox-Simethicone Susp (30 mL) PO PRN (23:59)
--- NOTE | 2017-02-15 07:33 | RAD ---
HISTORY: pes/anxiety COMPARISON: 01/17/2017 FINDINGS: LUNGS: No active pulmonary disease. PLEURA: No significant pleural effusion identified, no pneumothorax apparent. CARDIOVASCULAR: Normal. OSSEOUS STRUCTURES: No significant abnormalities. VISUALIZED UPPER ABDOMEN: Normal. OTHER FINDINGS: None. IMPRESSION: No active disease.
[2017-02-15] MEDS: Pantoprazole 40 mg EC Tab PO SCH (11:54)
--- NOTE | 2017-02-15 14:08 | CON ---
DATE: 02/15/2017 REQUESTING PHYSICIAN: Dr. Evy Brown. REASON FOR CONSULTATION: Medical management. HISTORY OF PRESENT ILLNESS: The patient is a 51-year-old morbidly obese female who was recently hosp italized into psychiatric service came back to the Emergency Room yesterday complaining of increasing anxiety, increasing panic, interrupted sleep and waking up and having short periods of sleep with wa vielka up from sleep because of anxiety and panic with generalized weakness. The patient stated that s he was discharged recently from [facility] on 02/04 or 02/05. The patient was also seen according to her by Dr. Marrero. The patient was referred for psychotherapy section which the patient was suppos ed to start today. The patient was seen in the Emergency Room by the physician community assistant and the pat zohreh's 13-system review was positive for anxiety despite taking Klonopin without having any improveme nt in anxiety and panic. The patient also stated that the medication only works for few hours, then the symptoms are coming back with increasing anxiety, increasing panic and fragmented and interrupted sleep: REVIEW OF SYSTEMS: A 13-system review was done. Pertinent positive and negative dictated above. ALLERGIES: NAPROSYN. CODE STATUS: Full code. LIVING WILL AND ADVANCED DIRECTIVE: None. HEIGHT: 5 feet. WEIGHT: 284. BMI: Almost 56. HOME MEDICATIONS: Klonopin 0.5 mg q.i.d. p.r.n., Cozaar 50 mg daily, aspirin 81 mg daily, Prozac 20 mg daily. SOCIAL HISTORY: The patient denies smoking, denies alcohol, denies substance abuse. Denies communic able transmissible disease. 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 FAMILY HISTORY: Positive for hypertension, questionable diabetes. PAST MEDICAL HISTORY: Significant for hypertension, morbid obesity, history of questionable type 2 d iabetes mellitus, history of anxiety, history of depression, history of panic disorder, history of in somnia, history of D and C, history of pneumonia. The patient's past medical history is also signifi cant for morbid obesity, history of diabetes mellitus with last hemoglobin A1c of 6.9 in 12/2016. Pas t medical history is also significant for hypertension, hyperlipidemia, hypercholesterolemia with syed vated LDL and hypertriglyceridemia, history of morbid obesity. The patient's past medical history is significant pyuria. The patient's past medical history is significant for 40-59% proximal bilateral internal carotid artery stenosis of the carotid ultrasound done by the patient's primary care physic zuleyka in 12/2016. The patient's past medical history is significant for hypertension, history of hypert ensive cardiovascular disease, history of left ventricular ejection fraction of 57%, history of mild concentric left ventricular hypertrophy, history of trace mitral and aortic regurgitation, history of mild tricuspid regurgitation, history of morbid obesity with a body mass index of greater than 55. History of hypertensive cardiovascular disease. The patient's past medical history is also significa nt for history of morbid obesity, history of panic disorder, history of major depressive disorder ariane mary panic disorder and agoraphobia, history of morbid obesity. The patient's past medical history is also significant for, history of hypertension, history of atypical chest pain, history of hypertensi on, history of diabetes mellitus, family history of coronary artery disease and emphysema. The patie nt's past medical history is also significant for obesity, history of atypical chest pain, history of menometrorrhagia. The patient's past medical history is significant for history of atypical chest p ain. The patient's past medical history is also significant for morbid obesity. The patient was seen and evaluated in the Emergency Room by the physician community assistant. PHYSICAL EXAMINATION: VITAL SIGNS: T-max of 98, heart rate of 78-98, blood pressure ranging from 141/89 to 123/93, respira tions 18-20, O2 sat 98%. GENERAL: The patient is seen in room 516. The patient is ambulating independently. The patient is alert, oriented x 3, states that she is feeling less anxious and less panicky since admission. HEAD: Normocephalic, atraumatic. HEENT: Shows pink conjunctivae, anicteric sclerae, No oropharyngeal lesion. NECK: No neck rigidity. CHEST: Kyphosis. LUNGS: Show no rales, crackles, or wheezing. CARDIOVASCULAR: S1, S2, regular rhythm. ABDOMEN: Morbidly obese, positive bowel sounds. GENITALIA: Female. RECTAL: Deferred. EXTREMITIES: Show swelling of the lower extremity. GAIT: Independent. NEUROLOGIC: The patient is alert, awake, oriented x 3. Cranial nerves II-XII intact. Gait examinat ion is independent. MUSCULOSKELETAL: Shows a body mass index of greater than 55. VASCULAR: Palpable pulses. PSYCHIATRIC: As per psychiatry evaluation. DIAGNOSTICS: WBC 7.4, hemoglobin/hematocrit 12.8 and 38.3, platelets 393. Chemistry: Sodium 137, p otassium 3.8, chloride 102, CO2 27, anion gap 12, BUN 13, creatinine 0.6, GFR greater than 60, glucos e 95. LFTs are normal. Urine pH 6.0, specific gravity less than 1.005. moderate leukocyte, bacteri a small, hCG negative, glucose negative, nitrite negative, urine protein negative. Urine drug screen negative. Tylenol and salicylate level negative. Alcohol level less than 10. The patient's chest x-ray was done in the Emergency Room on 02/14. The chest x-ray was reported to be negative. It shows no active disease. EKG shows sinus rhythm, heart rate in 60s, LVH pattern. The patient was evaluated in the Emergency Room by the physician community assistant in the ER. The patient wa s referred to ____. The patient was medically cleared in the Emergency Room. The patient was admitt ed to psychiatry floor in acute exacerbation of anxiety. IMPRESSION: 1. Acute exacerbation of anxiety with panic episodes. 2. Sleep disorder with fragmented sleep. 3. History of hypertension. 4. History of diabetes, history of hypercholesterolemia, dyslipidemia, history of morbid obesity, hi story of depression. 5. History of morbid obesity, history of depressive disorder. 6. History of panic disorder with anxiety, depression. PLAN: At this time, the patient is to be admitted to psychiatry floor under Dr. Evy Brown. T he patient's lab data for the last few months was reviewed. The patient's cholesterol was found to b e elevated. The patient has been ordered hemoglobin A1c, vitamin D25 hydroxy. CURRENT MEDICATIONS: 1. Aspirin 81 mg daily, Cozaar 50 mg daily, trazodone or Desyrel 50 mg at bedtime p.r.n., Inderal 10 mg at bedtime for tachycardia. 2. Klonopin 0.5 mg 3 times a day at 8:00 a.m., 2:00 p.m. and 10:00 p.m. 3. Lipitor 40 mg daily. Maalox, milk of magnesia p.r.n. 4. Protonix 40 mg daily for GI prophylaxis, Prozac 20 mg daily, Tylenol p.r.n. The patient has been put on heart healthy diet. Out of bed, BANDAR stockings. At present, patient's fu rther diagnostic data which will be ordered be reviewed. The patient will be followed closely from m edical perspective depending upon any intervention needed from the medicine which will be offered and ordered. Dictated and electronically signed, not read. Desean Pinto MD cc: [id number] TT: 02/15/2017 14:08:03 Confirmation # [id number] Dictation # [id number]
--- NOTE | 2017-02-15 15:37 | PCM.PSYCH ---
Initial Psychiatric Evaluation - Initial Psychiatric Evaluation Type of Admission: Voluntary Legal Status: Capacity (patient has capacity to sign consent for treatment) Chief Complaint (in patient's own words): "I was not able to function, I was keep having panic attacks, every 4 hours and was feeling very anxious, yesterday had severe panic attack, that's why I came to the hospital" Patient's Reaction to Hospitalization: atient was admitted for evaluation and stabilization of anxiety symptoms, depressive symptoms, inability to function, for medication management, and therapy. History of Present Illness and Precipitating Events: shortly patient is 51 years old female, with h/o anxiety, most likely panic disorder with agoraphobia, one previous admission to the psych unit less than a month ago, no suicidal attempts, patient brought herself to the hospital , c/o "severe panic attack", requested to be admitted to the psych unit, pt said she cannot function, her anxiety is "out of control", pt was keep coming to ED for panic attacks(since October 2016 patient had 12 visits to the emergency room for panic attacks) patient was seen by psychiatrist Dr[facility]rero [facility], but patient was not able to wait until follow-up appointment with him and brought herself to the hospital looking for admission. pt was seen at the treatment team today with RICHARD DOWNEY and this database report writer, good personal hygiene, good ADLs. Pt presented to be anxious. Pt said that she has anxiety "every four hours", pt said "I am waking up with panic attacks", pt said she was not able to function, was not able to do her chores. pt said that due to pharmacy refusing to fill her prozac she was taking cymbalta (60mg) (most likely pt filled cymbalta and this database report writer provided pt with prescription of prozac, pt said that she was feeling "like a zombie", pt tried to take klonopin but was "very sedated". Patient reported that she was feeling anxious, had a feeling that her throat is closing, patient would feel very anxious, restless patient tried to calm herself and going outside as well as breathing exercises but nothing was helping her. Patient also reported that she was feeling that she is dying and something horrible might happen to her. Patient reported there is no stress in the house, patient has supportive and loving family, patient denied hearing voices denied seeing things, patient denied smoking denies using drugs. Patient said that since November 2016 patient started to feel depressed, there is no precipitating factors, patient also reported to feel hopeless, low energy , it would take extra time for her chores to be completed, patient was not able to function. Patient denied thoughts of harming herself or others. Patient also reported that she cannot drive car, feeling very uncomfortable on the highways, was not able to visit her familypolice while from here. Past psychiatric history: Patient has one hospitalization to this unit less than a month ago, denied history of suicidal attempts. Initially Dr. Marroquin prescribed her Xanax 0.25 mg twice a day as needed and Cymbalta, but patient reported that medications were not helping her, currently pt under care of Dr. Marrero pt had appt scheduled for today, but pt was not able to wait and came to the hospital, looking for admission. More over patient had more than 12 visits to the emergency room for anxiety symptoms sounds October 2016, obviously patient was not functioning well, keeps coming to the emergency room, needed to be admitted into the psychiatric inpatient unit in order to be stabilized on medications. Medical h/o: obesity and HTN. Family h/o: denied patient reported that she tolerated Prozac well, presented to be continuing to continue on that medication, patient reported that Klonopin was helping her anxiety willing to continue that. Patient denied history of abuse, denied history of trauma. 02/14/17 20:15 02/14/17 20:15 Lab Results 02/14/17 20:15: WBC 7.4, RBC 4.25, Hgb 12.8, Hct 38.3, MCV 90.1, MCH 30.1, MCHC 33.4, RDW 13.8, Plt Count 393, MPV 8.4, Gran % 59.7, Lymph % (Auto) 33.1, [place] % (Auto) 5.4, Eos % (Auto) 1.4 L, Baso % (Auto) 0.4, Gran # 4.42, Lymph # 2.5, [place] # 0.4, Eos # 0.1, Baso # 0.03 02/14/17 20:15: Alcohol, Quantitative < 10 02/14/17 20:15: Salicylates < 1 L, Acetaminophen < 10.0 L 02/14/17 20:15: Sodium 137, Potassium 3.8, Chloride 102, Carbon Dioxide 27, Anion Gap 12, BUN 13, Creatinine 0.6, Est GFR ( Amer) > 60, Est GFR (Non- Af Amer) > 60, Random Glucose 95, Calcium 9.1, Total Bilirubin 1.1, AST 22, ALT 29, Alkaline Phosphatase 97, Total Protein 7.9, Albumin 4.0, Globulin 3.9, Albumin/Globulin Ratio 1.0 L 02/14/17 19:40: Urine Color Yellow, Urine Appearance Clear, Urine pH 6.0, Ur Specific Duff <= 1.005, Urine Protein Negative, Urine Glucose (UA) Negative, Urine Ketones Negative, Urine Blood Negative, Urine Nitrate Negative, Urine Bilirubin Negative, Urine Urobilinogen 0.2, Ur Leukocyte Esterase Moderate H, Urine RBC Negative, Urine WBC 1 - 3, Ur Epithelial Cells Many, Urine Bacteria Small, Urine HCG, Qual Negative 02/14/17 19:40: Urine Opiates Screen Negative, Urine Methadone Screen Negative, Ur Barbiturates Screen Negative, Ur Phencyclidine Scrn Negative, Ur Amphetamines Screen Negative, U Benzodiazepines Scrn Negative, U Oth Cocaine Metabols Negative, U Cannabinoids Screen Negative Vital Signs Temp Pulse Pulse Resp BP Pulse Ox 02/15/17 08:24 98 H 123/93 H 02/15/17 07:18 97.9 F 98 H 22 123/93 H 02/14/17 23:59 78 16 02/14/17 22:28 97.5 F L 80 18 122/61 98 02/14/17 18:18 98 F 78 16 141/89 97 Current Medications: Active Medications Generic Name Dose Route Start Last Admin Trade Name Freq PRN Reason Stop Dose Admin Acetaminophen 650 mg 02/14/17 23:59 Tylenol 325mg Tab PO Q6H PRN Pain, Mild (1-3) Al Hydrox/Mg Hydrox/Simethicone 30 ml 02/14/17 23:59 Maalox Plus 30 Ml PO DAILY PRN Upset Stomach Aspirin 81 mg 02/15/17 12:00 02/15/17 12:03 Aspirin Chewable PO 81 mg DAILY HOOD Administration Atorvastatin Calcium 40 mg 02/15/17 17:00 Lipitor PO DIN HOOD Clonazepam 0.5 mg 02/15/17 08:00 02/15/17 13:48 Klonopin PO 0.5 mg 0800,1400,2200 HOOD Administration Protocol Fluoxetine HCl 20 mg 02/15/17 08:00 02/15/17 08:25 Prozac PO 20 mg DAILY HOOD Administration Losartan Potassium 50 mg 02/15/17 08:00 02/15/17 08:24 Cozaar PO 50 mg DAILY HOOD Administration Magnesium Hydroxide 30 ml 02/14/17 23:59 Milk Of Magnesia PO DAILY PRN Constipation Pantoprazole Sodium 40 mg 02/15/17 09:15 02/15/17 11:54 Protonix Ec Tab PO 40 mg ACB HOOD Administration Propranolol HCl 10 mg 02/15/17 22:00 Inderal PO HS HOOD Trazodone HCl 50 mg 02/14/17 23:57 Desyrel PO HS PRN Insomnia Past Psychiatric History - Past Psychiatric History Previous Treatment History: Inpatient Prior Professional Help: see HPI Prior Psychiatric Treatment: see HPI At what hospital: see HPI Duration: see HPI Nature of Treatment: see HPI Explanation of prior treatment: see HPI History of Abuse: see HPI History of ETOH/Drug Use: see HPI History of Family Illness: see HPI Pertinent Medical Hx (Current Medical&Sleep Prob, Allergies): Allergies Allergy/AdvReac Type Severity Reaction Status Date / Time naproxen Allergy RASH Verified 02/14/17 18:18 Aspirin [Ecotrin] 81 mg PO DAILY 02/03/17 Losartan [Cozaar] 50 mg PO DAILY #7 tab 02/03/17 FLUoxetine [Prozac] 20 mg PO DAILY 02/14/17 clonazePAM [Klonopin] 0.5 tab PO QID PRN 02/14/17 was educated about the risk, benefits, alternatives of all of the medications. Review of Systems - Review of Systems Systems not reviewed;Unavailable: Acuity of Condition - EENT Eyes: As Per HPI Ears: As Per HPI Nose/Mouth/Throat: As Per HPI - Breasts Breasts: As Per HPI - Cardiovascular Cardiovascular: As Per HPI - Respiratory Respiratory: As Per HPI - Gastrointestinal Gastrointestinal: As Per HPI - Genitourinary Genitourinary: As Per HPI - Reproductive: Female Reproductive:Female: As Per HPI - Menstruation Menstruation: As Per HPI - Musculoskeletal Musculoskeletal: As Par HPI - Integumentary Integumentary: As Per HPI - Neurological Neurological: As Per HPI - Psychiatric Psychiatric: As Per HPI - Endocrine Endocrine: As Per HPI - Hematologic/Lymphatic Hematologic: As Per HPI Mental Status Examination - Personal Presentation Personal Presentation: Looks stated age - Affect Affect: Constricted - Motor Activity Motor Activity: Calm - Reliability in Providing Information Reliability in Providing Information: Fair - Speech Speech: Organized - Mood Mood: Depressed, Anxious - Formal Thought Process Formal Thought Process: No Impairment - Obsessions/Compulsions Obsessions: None Compulsions: None - Cognitive Functions Orientation: Person, Place, Situation, Time Sensorium: Alert Attention/Concentration: Easily distracted Abstract Thinking: As evidence by literal perception of proverbs, As evidence by abstract perception of proverbs Estimate of Intelligence: Average Judgement: Intact, as evidence by: Insight regarding need for hospitalization - Risk Risk: Diminished functioning - Strength & Assets Inventory Strength & Assets Inventory: Intelligence, Family support, Education, Employment status, Employment history, Skills, Interests/hobbies, Spiritual affiliations, Life experience, Cooperative - Limitations Limitations: Other (severe anxiety disorder) DSM 5 DX - DSM 5 DSM 5 Diagnosis: major depressive disorder Panic disorder with agoraphobia Rule out generalized anxiety disorder Rule out anxiety due to general medical condition, patient seems to be premenopausal and hormonal changes could contribute to pt's presentation - Recommended/Plan of Treatment Treatment Recommendations and Plan of Treatment: milieu, structure, supportive therapy Aspirin [Ecotrin] 81 mg PO DAILY Losartan [Cozaar] 50 mg PO DAILY FLUoxetine [Prozac] 20 mg PO DAILY clonazePAM [Klonopin] 0.5 tab PO tid pt was asked to do anxiety chart with timing prn meds HS meds for insomnia medical f/u will monitor closely Projected ELOS: 7days Prognosis: guarded Discharge Plan and Discharge Criteria: Pt will be not depressed or manic, will be more hopeful, will be not psychotic or anxious, will be not having thoughts of harming self or others, will be tolerating medications well, will not have major side effects, will be able to function, will not pose threat to self or others. - Smoking Cessation Smoking Cessation Initiated: No Reason for not providing: pt does not smoke
--- NOTE | 2017-02-15 16:33 | CARD ---
APPROVED REPORT EKG Measurement Heart [id number] <Conclusion> Normal sinus rhythm Normal ECG
--- NOTE | 2017-02-16 15:05 | PN ---
DATE: 02/16/2017 The patient is seen in the day room in psychiatry. The patient is sitting up in the chair in the group therapy. The patient is alert, awake, responsive. The patient appears to be cheerful. The patient denies any anxiety or depression. The patient denies any sleep problems. PHYSICAL EXAMINATION: VITAL SIGNS: I am unable to access the vital signs, but last vital signs according to the nurses blood pressure has improved to 128/73, heart rate is down to 78. The patient was yesterday seen by the social studies department chair and the psychiatrist. HEAD: Normocephalic, atraumatic. HEENT: Shows pink conjunctivae, anicteric sclerae. No oropharyngeal lesion. NECK: No neck rigidity. CHEST: Symmetrical. LUNGS: Show no rales, crackles, or wheezing. CARDIOVASCULAR: Shows S1, S2, regular rhythm. ABDOMEN: Morbidly obese. GENITALIA: Female. RECTAL: Deferred. EXTREMITIES: Chronic nonpitting swelling of the lower extremity, no calf tenderness, no Homans signs. MUSCULOSKELETAL: Shows elevated body mass index of greater than 55. NEUROLOGIC: The patient is alert, awake, oriented x 3. Cranial nerves II-XII limited. Gait examination is independent. VASCULAR: Palpable pulses. PSYCHIATRIC: As per evaluation by psychiatrist. DIAGNOSTICS: Hemoglobin A1c 6.3. Vitamin D25 hydroxy level is low, less than 20. IMPRESSION: 1. Acute exacerbation of anxiety with episodic panic disorder and agoraphobia. 2. History of depression. 3. Sleep disorder with interrupted, fragmented sleep. 4. Questionable Insomnia. 5. Morbid obesity with elevated body mass index of greater than 55. 6. Hypertension. 7. Tachycardia. 8. Prediabetes with hemoglobin A1c of 6.3. 9. Hypovitaminosis D. 10. History of dyslipidemia, hyperlipidemia, elevated LDL. 1. Acute exacerbation of anxiety with panic episodes. 2. Sleep disorder with fragmented sleep. 3. History of hypertension. 4. History of diabetes, history of hypercholesterolemia, dyslipidemia, history of morbid obesity, history of depression. 5. History of morbid obesity, history of depressive disorder. 6. History of panic disorder with anxiety, depression. PLAN: At this time, the patient will be continued on the medications as per the MAR. The patient is to be continued on antihypertensive plus patient is started on vitamin D3 2000 international units daily. The patient will continue on the psychiatric medication which has been ordered by Dr. Brown and the patient will be continued on her antihypertensives, including Cozaar 50 daily, Inderal 10 mg at bedtime, Lipitor 40 mg daily and other medications. The patient's further diagnostic and therapeutic data will be reviewed when the [employer] system is up and running. Dictated and electronically signed, not read. Desean Pinto MD cc: [id number] TT: 02/16/2017 11:11:10 Confirmation # [id number] Dictation # [id number] tn MTDD
--- NOTE | 2017-02-16 15:06 | PN ---
DATE: 02/16/2017 FOLLOWUP NOTE Shortly, the patient is a 51-year-old female who was admitted for worsening of depressive s ymptoms, as well as anxiety and inability to function. Please see my initial note for more detailed information. The patient was seen today at the morning time next to the nursing station. As the patient was advis ed yesterday to start doing anxiety chart, the patient was compliant with that task. The patient ray ded to this check writer salesperson. Based on the patient's impression, she had 1 panic attack during the nighttime a t 4:00 a.m., which lasted 15 minutes. Without medication, the patient started to feel better. The p atient was advised to continue doing the anxiety chart. The patient reported that she tolerates medications well, denied side effects. The patient has trans ient panic attacks, as well as depressive symptoms are present. The patient is willing to increase t he dose of Prozac tomorrow. We will definitely do so. The patient tolerates medication well. No si de effects observed or reported. No psychotic symptoms observed. As per nursing staff, the patient started to go to groups. The patient is pleasant and cooperative. LABORATORY DATA: There are no new labs. The patient was seen by medical team. The patient wanted to be seen by Dr. Kirk and requested his consult while she is in the psychiatric inpatient unit. Dr. Kirk is on vacation. Dr. Sia calvo is covering. Dr. Pinto saw the patient yesterday and today. MENTAL STATUS EXAMINATION: The patient presented to be alert and oriented. Hygiene is improving. F air eye contact. Speech was underproductive, low volume. Mood described, "I have panic attacks at t he nighttime." Affect was constricted. Thought process was goal directed, coherent. Thought conten t: The patient denied visual, auditory, or tactile hallucinations. Denied paranoid ideation. The p atient denied thoughts of harming herself or others, denied intent or plan. Insight and judgment are fair. Impulses are well controlled. IMPRESSION: Major depressive disorder, single episode, severe, without psychosis, panic disorder wit h agoraphobia. Rule out generalized anxiety disorder. PLAN: Continue current management. Prozac will be increased to 30 mg daily, as well as Klonopin 0.5 mg 3 times a day. If we need to, we will give medication at the nighttime for insomnia. Medical te am will follow the patient up. Milieu structure and supportive therapy. Should you have any questio ns, give me a call back. Evy Brown MD cc: [id number] TT: 02/16/2017 14:49:25 Confirmation # [id number] Dictation # [id number] jn
[2017-02-17] MEDS: Pantoprazole 40 mg EC Tab PO SCH (08:50)
--- NOTE | 2017-02-17 09:28 | PN ---
DATE: 02/17/2017 The patient is seen in psychiatry day room and in dining room. The patient is sitting up in the bed. The patient is very cheerful, appears happy, does not appear to be depressed, does not appear to be anxious. Overnight nurse's notes were reviewed. The patient's nurse's notes were reviewed. The patient slept well according to the nurse's notes. The patient was found to be pleasant and friendly. PHYSICAL EXAMINATION: VITAL SIGNS: T-max afebrile. Heart rate 66, 68, 64, 90. Blood pressure 134/98 , 125/62, 122/66. Respirations 20, O2 sat is 97%-98%. HEAD: Normocephalic, atraumatic. HEENT: Shows pink conjunctivae, anicteric sclerae. No oropharyngeal lesion. NECK: No neck rigidity. CHEST: Kyphosis. LUNGS: Shows no rales, crackles, or wheezing. CARDIOVASCULAR: Shows S1, S2, regular rhythm. ABDOMEN: Morbidly obese. GENITALIA: Female. RECTAL: Deferred. EXTREMITIES: Shows chronic nonpitting edema of the lower extremity. MUSCULOSKELETAL: Shows a body mass index of 55.5. NEUROLOGIC: Cranial nerves II-XII intact. GAIT: Independent. VASCULAR: Palpable pulses. PSYCHIATRIC: As per psychiatry evaluation. DIAGNOSTIC DATA: Reviewed. Vitamin B12 less than 12.8. CBC within normal limits. Hemoglobin A1c 6.3. IMPRESSION AND PLAN: 1. Major depressive disorder, single episode, severe, without psychosis. 2. Panic disorder with agoraphobia. 3. Possible generalized anxiety disorder. 4. Morbid obesity with elevated body mass index of greater than 55. 5. Acute exacerbation of anxiety with panic disorder and agoraphobia. 6. History of depression. 7. Sleep disorder with interrupted, fragmented sleep. 8. Questionable Insomnia. 9. Hypertension. 10. Tachycardia 11. Prediabetes with hemoglobin A1c of 6.3. 12. Hypovitaminosis D. 13. History of dyslipidemia and hyperlipidemia and elevated LDL. 1. Acute exacerbation of anxiety with episodic panic disorder and agoraphobia. 2. History of depression. 3. Sleep disorder with interrupted, fragmented sleep. 4. Questionable Insomnia. 5. Morbid obesity with elevated body mass index of greater than 55. 6. Hypertension. 7. Tachycardia. 8. Prediabetes with hemoglobin A1c of 6.3. 9. Hypovitaminosis D. 10. History of dyslipidemia, hyperlipidemia, elevated LDL. 1. Acute exacerbation of anxiety with panic episodes. 2. Sleep disorder with fragmented sleep. 3. History of hypertension. 4. History of diabetes, history of hypercholesterolemia, dyslipidemia, history of morbid obesity, history of depression. 5. History of morbid obesity, history of depressive disorder. 6. History of panic disorder with anxiety, depression. PLAN: At this time, patient is medically stable. The patient has been followed by psychiatry. The patient was seen by psych social worker. The patient is to be continued on the following medications: Aspirin 81 mg daily, Cozaar 50 mg daily, Desyrel or trazodone 50 mg at bedtime p.r.n., Inderal 10 mg at bedtime, Klonopin 0.5 mg at 8 a.m., 2 p.m. 10 p.m., Lipitor 40 mg daily, Protonix 40 mg daily, Prozac 30 mg daily, Tylenol 650 q. 6 p.r.n., vitamin D3 2000 units daily. The patient is on heart healthy diet, out of bed, BANDAR stockings. At present, patient is stable from medical perspective. The patient medically stable from a medicine perspective. The patient is cleared medically at present. The patient will be followed peripherally and would intervene if any medical indications are there for evaluation and treatment. Will presently sign off from the case. The patient has been advised and recommended to maintain outpatient followup with her medical doctor on a regular basis with continuation of her blood pressure medicines including Cozaar 50 daily, Inderal 10 mg, Lipitor 40 daily, and Vitamin D3 2000 international units daily. The patient was explained about the details of her medical condition, diagnostic test results. All details explained to the patient in layman's language. All questions and concerns answered. Dictated and electronically signed, not read. Desean Pinto MD cc: [id number] TT: 02/17/2017 09:27:45 Confirmation # [id number] Dictation # [id number] MTDD
--- NOTE | 2017-02-17 16:52 | PCM.PYCHPN ---
Psychiatric Progress Note - Psychiatric Progress Note Patient seen today, length of contact: 30 minutes Patient Chief Complaint: "I feel that now I am doing it right weight' Problems Identified/Issues Discussed: Suicide/ homicide prevention, past psychiatric h/o, current psychiatric symptoms , medical problems, risk/benefits and alternatives of medications, medications compliance, coping strategies, substance abuse h/o, relapse prevention, importance of follow up with psychiatrist and therapist, discharge plan. Medical Problems: hypertension, obesity, hypovitminosis D, dyslipidemia Diagnostic Results: 02/14/17 20:15 02/14/17 20:15 Lab Results 02/15/17 09:40: Hemoglobin A1c 6.3 02/15/17 09:40: 25-OH Vitamin D Total < 12.8 L 02/14/17 20:15: WBC 7.4, RBC 4.25, Hgb 12.8, Hct 38.3, MCV 90.1, MCH 30.1, MCHC 33.4, RDW 13.8, Plt Count 393, MPV 8.4, Gran % 59.7, Lymph % (Auto) 33.1, [place] % (Auto) 5.4, Eos % (Auto) 1.4 L, Baso % (Auto) 0.4, Gran # 4.42, Lymph # 2.5, [place] # 0.4, Eos # 0.1, Baso # 0.03 02/14/17 20:15: Alcohol, Quantitative < 10 02/14/17 20:15: Salicylates < 1 L, Acetaminophen < 10.0 L 02/14/17 20:15: Sodium 137, Potassium 3.8, Chloride 102, Carbon Dioxide 27, Anion Gap 12, BUN 13, Creatinine 0.6, Est GFR ( Amer) > 60, Est GFR (Non- Af Amer) > 60, Random Glucose 95, Calcium 9.1, Total Bilirubin 1.1, AST 22, ALT 29, Alkaline Phosphatase 97, Total Protein 7.9, Albumin 4.0, Globulin 3.9, Albumin/Globulin Ratio 1.0 L 02/14/17 19:40: Urine Color Yellow, Urine Appearance Clear, Urine pH 6.0, Ur Specific [place] <= 1.005, Urine Protein Negative, Urine Glucose (UA) Negative, Urine Ketones Negative, Urine Blood Negative, Urine Nitrate Negative, Urine Bilirubin Negative, Urine Urobilinogen 0.2, Ur Leukocyte Esterase Moderate H, Urine RBC Negative, Urine WBC 1 - 3, Ur Epithelial Cells Many, Urine Bacteria Small, Urine HCG, Qual Negative 02/14/17 19:40: Urine Opiates Screen Negative, Urine Methadone Screen Negative, Ur Barbiturates Screen Negative, Ur Phencyclidine Scrn Negative, Ur Amphetamines Screen Negative, U Benzodiazepines Scrn Negative, U Oth Cocaine Metabols Negative, U Cannabinoids Screen Negative Vital Signs Temp Pulse Pulse Resp BP Pulse Ox 02/17/17 16:43 60 111/68 02/17/17 08:49 66 102/71 02/17/17 07:22 97.8 F 90 20 102/71 02/17/17 07:20 97.8 F 66 20 125/62 02/16/17 21:57 68 134/98 H 02/16/17 16:00 64 151/74 H 02/15/17 16:51 62 122/66 02/15/17 08:24 98 H 123/93 H 02/15/17 07:18 97.9 F 98 H 22 123/93 H 02/14/17 23:59 78 16 02/14/17 22:28 97.5 F L 80 18 122/61 98 02/14/17 18:18 98 F 78 16 141/89 97 DSM 5 Symptoms Update: shortly patient is 51 years old female, with h/o anxiety, most likely panic disorder with agoraphobia, one previous admission to the psych unit less than a month ago, no suicidal attempts, patient brought herself to the hospital , c/o "severe panic attack", requested to be admitted to the psych unit, pt said she cannot function, her anxiety is "out of control", pt was keep coming to ED for panic attacks(since October 2016 patient had 12 visits to the emergency room for panic attacks) patient was seen by psychiatrist Dr. Marrero [facility], but patient was not able to wait until follow-up appointment with him and brought herself to the hospital looking for admission. pt was seen at the TV room. Pt presented to be less anxious. Pt said that anxiety is mostly at the night time, but "I could feel better within a few minutes", pt said that she tolerates meds well, no side effects observed or reported. Pt said that he depressive symptoms are "little better, I thing this combination of medications works well", pt said "I feel this time I am doing it right way, I needed to be in the hospital to adjust my meds, I was not doing well". I aims 0, no EPS. As per staff patient is pleasant, corporative, started to go to groups, socially appropriate, at times could be grandiose and refusing groups. Impression: DSM 5 Diagnosis: major depressive disorder Panic disorder with agoraphobia Rule out generalized anxiety disorder Rule out anxiety due to general medical condition, patient seems to be premenopausal and hormonal changes could contribute to pt's presentation Medication Change: Yes (Prozac was increased) Medical Record Reviewed: Yes Consults ordered or reviewed: medical consult appreciated Mental Status Examination - Cognitive Function Orientation: Person, Place, Situation, Time Memory: Intact Attention: Poor (ssome improvement) Concentration: Poor (some improvement) Association: WNL Fund of Knowledge: WNL - Mood Mood: Depressed (I feel little better), Anxious (anxiety majority of the time at night) - Affect Affect: Constricted - Formal Thought Process Formal Thought Process: No Impairment - Suicidal Ideation Suicidal Ideation: No - Homicidal Ideation Homicidal Ideation: No Goal/Treatment Plan - Goal/Treatment Plan Need for Continued Stay: Remain at risks for inpatient hospitalization, Severe depression anxiety, Discharge may exacerbated symptoms, Failed transitioning, Severe functional impairment Progress Toward Problem(s) and Goals/Treatment Plan: milieu, structure, supportive therapy Aspirin [Ecotrin] 81 mg PO DAILY Losartan [Cozaar] 50 mg PO DAILY FLUoxetine [Prozac] 30 mg PO DAILY clonazePAM [Klonopin] 0.5 tab PO tid pt was asked to do anxiety chart with timing, aims anxiety on that the nighttime prn meds HS meds for insomnia medical f/u appreciated 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
--- NOTE | 2017-02-18 08:39 | PCM.PYCHPN ---
Psychiatric Progress Note - Psychiatric Progress Note Patient seen today, length of contact: 25 minutes Patient Chief Complaint: "still anxious" Problems Identified/Issues Discussed: I reviewed assessment and recent notes. I met with patient In the dayroom. She is fairly groomed and oriented to month, year, location and circumstances. She reports some improvement since admission however anxiety persists. Affect is congruent. Patient denies any hopelessness or suicidal thoughts. She can express her needs well. Patient denies perceptual disturbance and does not appear to be responded to internal stimuli. Delusions were not elicited. She has been tolerating her medications and denies any new discomfort or pain. Staff notes indicate the patient has been bright and smiling in the community. Compliant with medications and generally pleasant. There were no behavioral issues overnight Diagnostic Results: major depressive disorder Panic disorder with agoraphobia Rule out generalized anxiety disorder Rule out anxiety due to general medical condition, patient seems to be premenopausal and hormonal changes could contribute to pt's presentation Medication Change: No ( ) Medical Record Reviewed: Yes (notes, reports, labs, vitals) Mental Status Examination - Cognitive Function Orientation: Person, Place, Situation, Time Memory: Intact Attention: Poor (ssome improvement) Concentration: Poor (some improvement) Association: WNL Fund of Knowledge: WNL - Mood Mood: Depressed (I feel little better), Anxious (anxiety majority of the time at night) - Affect Affect: Constricted, Other (anxious) - Speech Speech: Appropriate - Formal Thought Process Formal Thought Process: No Impairment - Suicidal Ideation Suicidal Ideation: No - Homicidal Ideation Homicidal Ideation: No Goal/Treatment Plan - Goal/Treatment Plan Need for Continued Stay: Remain at risks for inpatient hospitalization, Severe depression anxiety, Discharge may exacerbated symptoms, Failed transitioning, Severe functional impairment Progress Toward Problem(s) and Goals/Treatment Plan: * c/w current tx and plan * No new weekend labs * Vitals reviewed and noted below: Selected Entries 02/17/17 02/17/17 02/17/17 07:22 08:49 16:43 Temperature 97.8 F Pulse Rate 90 66 60 Respiratory 20 Rate Blood Pressure 102/71 102/71 111/68 02/18/17 00:08 Temperature 98.1 F Pulse Rate 71 Respiratory 18 Rate Blood Pressure 133/86 Estimated Date of D/C: 02/21/17 (monitor closely)
[2017-02-18] MEDS: Pantoprazole 40 mg EC Tab PO SCH ×2 (09:17→09:25)
[2017-02-19] MEDS: Pantoprazole 40 mg EC Tab PO SCH (08:55)
--- NOTE | 2017-02-19 09:14 | PCM.PYCHPN ---
Psychiatric Progress Note - Psychiatric Progress Note Patient seen today, length of contact: 25 minutes Patient Chief Complaint: "still anxious" Problems Identified/Issues Discussed: I reviewed recent notes and met with patient in her room. She is groomed and well-oriented to month, year, location and circumstances. She reports some improvement in anxiety since admission though still felt "a little anxious" in the afternoon yesterday. Denies panic attacks. Affect is still anxious. Patient denies any hopelessness or suicidal thoughts. She can express her needs well. Slept well again last night. Patient denies perceptual disturbance and does not appear to be responded to internal stimuli. Delusions were not elicited. She has been tolerating her medications and denies any new discomfort or pain. Staff notes indicate the patient has been bright and smiling in the community. Compliant with medications and generally pleasant. There were no behavioral issues over the weekend Diagnostic Results: major depressive disorder Panic disorder with agoraphobia Rule out generalized anxiety disorder Rule out anxiety due to general medical condition, patient seems to be premenopausal and hormonal changes could contribute to pt's presentation Medication Change: No ( ) Medical Record Reviewed: Yes (notes, reports, labs, vitals) Mental Status Examination - Cognitive Function Orientation: Person, Place, Situation, Time Memory: Intact Attention: Poor (ssome improvement) Concentration: Poor (some improvement) Association: WNL Fund of Knowledge: WNL - Mood Mood: Depressed (I feel little better), Anxious (still anxious) - Affect Affect: Constricted, Other (anxious) - Speech Speech: Appropriate - Formal Thought Process Formal Thought Process: No Impairment - Suicidal Ideation Suicidal Ideation: No - Homicidal Ideation Homicidal Ideation: No Goal/Treatment Plan - Goal/Treatment Plan Need for Continued Stay: Remain at risks for inpatient hospitalization, Severe depression anxiety, Discharge may exacerbated symptoms, Failed transitioning, Severe functional impairment Progress Toward Problem(s) and Goals/Treatment Plan: * c/w current tx and plan * No new weekend labs * Vitals reviewed and noted below: Selected Entries 02/19/17 02/19/17 08:00 08:55 Temperature 98.7 F Pulse Rate 71 71 Respiratory 16 Rate Blood Pressure 103/70 103/70 Estimated Date of D/C: 02/21/17 (monitor closely)
[2017-02-20] MEDS: Pantoprazole 40 mg EC Tab PO SCH (09:13)
--- NOTE | 2017-02-20 12:09 | PN ---
DATE: 02/20/2017 The patient is still in the psychiatry floor. The patient is seen in the breakfast room. The patient is interacting with the group. Overnight and the weekend nurse's notes were reviewed. The patient has been calm without any panic attacks, without any adverse events documented. The patient slept well. PHYSICAL EXAMINATION: VITAL SIGNS: In the last 24-48 hours were reviewed. Heart rate is averaging around 70s and 60s beats per minute, blood pressure is averaging systolic around 120s and 130s, diastolic around 70s and 80s and 60s, respiration 20, O2 sat is 97%-98%. HEAD: Normocephalic, atraumatic. HEENT: Shows pinkish conjunctivae. Anicteric sclerae. No oropharyngeal lesion. NECK: No neck rigidity. CHEST: Kyphosis. LUNGS: Shows no rales, crackles, or wheezing. CARDIOVASCULAR: Shows S1, S2, regular rhythm. ABDOMEN: Morbidly obese. GENITALIA: Female. RECTAL: Deferred. EXTREMITIES: Shows chronic nonpitting edema. MUSCULOSKELETAL: Shows a body mass index of 56. NEUROLOGIC: Cranial nerves II-XII intact. Plantars are downward. DTRs are 2+ . Neuro examination without any gross deficit. GAIT: Independent. VASCULAR: Palpable pulses. PSYCHIATRIC: As per psychiatrist's recommendations and evaluation. DIAGNOSTICS: None in the last 24-48 hours. The patient seen by the psychiatrist. The patient is scheduled for possible discharge today or tomorrow. IMPRESSION AND PLAN: 1. Major depressive disorder, single episode, severe, without psychosis. 2. Panic disorder with agoraphobia. 3. Possible generalized anxiety disorder. 4. Morbid obesity with elevated body mass index of greater than 55. 5. Hypertension. 6. Tachycardia. 7. Prediabetes with hemoglobin A1c of 6.3. 8. Morbid obesity. 9. Hypertension. 10. Tachycardia. 11. Acute exacerbation of anxiety with panic disorder and agoraphobia. 12. History of depression. 13. Questionable and possible sleep disorder with interrupted fragmented sleep with questionable insomnia. 14. Hypertension. 15. Hypovitaminosis D. 16. Dyslipidemia, hyperlipidemia and elevated LDL. 17. Hypovitaminosis D. 1. Major depressive disorder, single episode, severe, without psychosis. 2. Panic disorder with agoraphobia. 3. Possible generalized anxiety disorder. 4. Morbid obesity with elevated body mass index of greater than 55. 5. Acute exacerbation of anxiety with panic disorder and agoraphobia. 6. History of depression. 7. Sleep disorder with interrupted, fragmented sleep. 8. Questionable Insomnia. 9. Hypertension. 10. Tachycardia 11. Prediabetes with hemoglobin A1c of 6.3. 12. Hypovitaminosis D. 13. History of dyslipidemia and hyperlipidemia and elevated LDL. 1. Acute exacerbation of anxiety with episodic panic disorder and agoraphobia. 2. History of depression. 3. Sleep disorder with interrupted, fragmented sleep. 4. Questionable Insomnia. 5. Morbid obesity with elevated body mass index of greater than 55. 6. Hypertension. 7. Tachycardia. 8. Prediabetes with hemoglobin A1c of 6.3. 9. Hypovitaminosis D. 10. History of dyslipidemia, hyperlipidemia, elevated LDL. 1. Acute exacerbation of anxiety with panic episodes. 2. Sleep disorder with fragmented sleep. 3. History of hypertension. 4. History of diabetes, history of hypercholesterolemia, dyslipidemia, history of morbid obesity, history of depression. 5. History of morbid obesity, history of depressive disorder. 6. History of panic disorder with anxiety, depression. PLAN: At this time, patient is medically cleared for discharge. The patient is to continue her antihypertensive medicines, vitamin D and statins. CURRENT MEDICATIONS: Aspirin 81 mg daily, Cozaar 50 mg daily, trazodone or Desyrel 50 mg at bedtime p.r.n., Inderal 10 mg at bedtime, Klonopin 0.5 mg 3 times a day 8 a.m., 2 p.m., 10 p.m., Lipitor 40 mg daily, Protonix 40 mg daily for GI prophylaxis, Prozac 30 mg daily, Tylenol 650 q. 6 p.r.n. and vitamin D3 2000 units daily. Heart healthy diet, out of bed, BANDAR stockings. The patient has been extensively explained about the details of her medical condition, need for close outpatient followup, need for outpatient routine blood testing. All discussed and explained to the patient at length and all questions and concerns answered. Dictated and electronically signed, not read. Desean Pinto MD cc: [id number] TT: 02/20/2017 12:08:25 Confirmation # [id number] Dictation # [id number] en MTDD
--- NOTE | 2017-02-20 15:29 | PCM.PYCHPN ---
Psychiatric Progress Note - Psychiatric Progress Note Patient seen today, length of contact: Patient minutes Patient Chief Complaint: "I I feel medication started to work" Problems Identified/Issues Discussed: Suicide/ homicide prevention, past psychiatric h/o, current psychiatric symptoms , medical problems, risk/benefits and alternatives of medications, medications compliance, coping strategies, substance abuse h/o, relapse prevention, importance of follow up with psychiatrist and therapist, discharge plan. Medical Problems: hypertension, obesity, hypovitminosis D, dyslipidemia Diagnostic Results: 02/14/17 20:15 02/14/17 20:15 Lab Results 02/15/17 09:40: Hemoglobin A1c 6.3 02/15/17 09:40: 25-OH Vitamin D Total < 12.8 L 02/14/17 20:15: WBC 7.4, RBC 4.25, Hgb 12.8, Hct 38.3, MCV 90.1, MCH 30.1, MCHC 33.4, RDW 13.8, Plt Count 393, MPV 8.4, Gran % 59.7, Lymph % (Auto) 33.1, [place] % (Auto) 5.4, Eos % (Auto) 1.4 L, Baso % (Auto) 0.4, Gran # 4.42, Lymph # 2.5, [place] # 0.4, Eos # 0.1, Baso # 0.03 02/14/17 20:15: Alcohol, Quantitative < 10 02/14/17 20:15: Salicylates < 1 L, Acetaminophen < 10.0 L 02/14/17 20:15: Sodium 137, Potassium 3.8, Chloride 102, Carbon Dioxide 27, Anion Gap 12, BUN 13, Creatinine 0.6, Est GFR ( Amer) > 60, Est GFR (Non- Af Amer) > 60, Random Glucose 95, Calcium 9.1, Total Bilirubin 1.1, AST 22, ALT 29, Alkaline Phosphatase 97, Total Protein 7.9, Albumin 4.0, Globulin 3.9, Albumin/Globulin Ratio 1.0 L 02/14/17 19:40: Urine Color Yellow, Urine Appearance Clear, Urine pH 6.0, Ur Specific [place] <= 1.005, Urine Protein Negative, Urine Glucose (UA) Negative, Urine Ketones Negative, Urine Blood Negative, Urine Nitrate Negative, Urine Bilirubin Negative, Urine Urobilinogen 0.2, Ur Leukocyte Esterase Moderate H, Urine RBC Negative, Urine WBC 1 - 3, Ur Epithelial Cells Many, Urine Bacteria Small, Urine HCG, Qual Negative 02/14/17 19:40: Urine Opiates Screen Negative, Urine Methadone Screen Negative, Ur Barbiturates Screen Negative, Ur Phencyclidine Scrn Negative, Ur Amphetamines Screen Negative, U Benzodiazepines Scrn Negative, U Oth Cocaine Metabols Negative, U Cannabinoids Screen Negative Vital Signs Temp Pulse Pulse Resp BP Pulse Ox 02/17/17 16:43 60 111/68 02/17/17 08:49 66 102/71 02/17/17 07:22 97.8 F 90 20 102/71 02/17/17 07:20 97.8 F 66 20 125/62 02/16/17 21:57 68 134/98 H 02/16/17 16:00 64 151/74 H 02/15/17 16:51 62 122/66 02/15/17 08:24 98 H 123/93 H 02/15/17 07:18 97.9 F 98 H 22 123/93 H 02/14/17 23:59 78 16 02/14/17 22:28 97.5 F L 80 18 122/61 98 02/14/17 18:18 98 F 78 16 141/89 97 DSM 5 Symptoms Update: shortly patient is 51 years old female, with h/o anxiety, most likely panic disorder with agoraphobia, one previous admission to the psych unit less than a month ago, no suicidal attempts, patient brought herself to the hospital , c/o "severe panic attack", requested to be admitted to the psych unit, pt said she cannot function, her anxiety is "out of control", pt was keep coming to ED for panic attacks(since October 2016 patient had 12 visits to the emergency room for panic attacks) patient was seen by psychiatrist Dr. Marrero at the [facility], but patient was not able to wait until follow-up appointment with him and brought herself to the hospital looking for admission. Pt presented to be less anxious. Pt said she had two panic attacks over the weekend, but "they were less severe", pt tolerated meds well, no side effects, pt still feels not ready for d/c, pt willing to increase dose of meds. As per staff patient is pleasant, corporative, started to go to groups, socially appropriate, at times could be grandiose and refusing groups. Impression: DSM 5 Diagnosis: major depressive disorder Panic disorder with agoraphobia Rule out generalized anxiety disorder Rule out anxiety due to general medical condition, patient seems to be premenopausal and hormonal changes could contribute to pt's presentation Medication Change: Yes (Prozac increased) Medical Record Reviewed: Yes (notes, reports, labs, vitals) Consults ordered or reviewed: medical consult appreciated Mental Status Examination - Cognitive Function Orientation: Person, Place, Situation, Time Memory: Intact Attention: Poor (some improvement) Concentration: Poor (some improvement) Association: WNL Fund of Knowledge: WNL - Mood Mood: Depressed (I feel little better), Anxious (still anxious) - Affect Affect: Constricted, Other (anxious) - Speech Speech: Appropriate - Formal Thought Process Formal Thought Process: No Impairment - Suicidal Ideation Suicidal Ideation: No - Homicidal Ideation Homicidal Ideation: No Goal/Treatment Plan - Goal/Treatment Plan Need for Continued Stay: Remain at risks for inpatient hospitalization, Severe depression anxiety, Discharge may exacerbated symptoms, Failed transitioning, Severe functional impairment Progress Toward Problem(s) and Goals/Treatment Plan: milieu, structure, supportive therapy Aspirin [Ecotrin] 81 mg PO DAILY Losartan [Cozaar] 50 mg PO DAILY FLUoxetine [Prozac] 40 mg PO DAILY clonazePAM [Klonopin] 0.5 tab PO tid pt was asked to do anxiety chart with timing, aims anxiety on that the nighttime prn meds HS meds for insomnia medical f/u 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
[2017-02-21] MEDS: Pantoprazole 40 mg EC Tab PO SCH (09:08)
[2017-02-21 10:04] VITALS: O2SAT 98
--- NOTE | 2017-02-21 16:10 | PCM.PYCHPN ---
Psychiatric Progress Note - Psychiatric Progress Note Patient seen today, length of contact: 30min Patient Chief Complaint: "I feel better" Problems Identified/Issues Discussed: Suicide/ homicide prevention, past psychiatric h/o, current psychiatric symptoms , medical problems, risk/benefits and alternatives of medications, medications compliance, coping strategies, substance abuse h/o, relapse prevention, importance of follow up with psychiatrist and therapist, discharge plan. Medical Problems: hypertension, obesity, hypovitminosis D, dyslipidemia Diagnostic Results: 02/14/17 20:15 02/14/17 20:15 Lab Results 02/15/17 09:40: Hemoglobin A1c 6.3 02/15/17 09:40: 25-OH Vitamin D Total < 12.8 L 02/14/17 20:15: WBC 7.4, RBC 4.25, Hgb 12.8, Hct 38.3, MCV 90.1, MCH 30.1, MCHC 33.4, RDW 13.8, Plt Count 393, MPV 8.4, Gran % 59.7, Lymph % (Auto) 33.1, [place] % (Auto) 5.4, Eos % (Auto) 1.4 L, Baso % (Auto) 0.4, Gran # 4.42, Lymph # 2.5, [place] # 0.4, Eos # 0.1, Baso # 0.03 02/14/17 20:15: Alcohol, Quantitative < 10 02/14/17 20:15: Salicylates < 1 L, Acetaminophen < 10.0 L 02/14/17 20:15: Sodium 137, Potassium 3.8, Chloride 102, Carbon Dioxide 27, Anion Gap 12, BUN 13, Creatinine 0.6, Est GFR ( Amer) > 60, Est GFR (Non- Af Amer) > 60, Random Glucose 95, Calcium 9.1, Total Bilirubin 1.1, AST 22, ALT 29, Alkaline Phosphatase 97, Total Protein 7.9, Albumin 4.0, Globulin 3.9, Albumin/Globulin Ratio 1.0 L 02/14/17 19:40: Urine Color Yellow, Urine Appearance Clear, Urine pH 6.0, Ur Specific [place] <= 1.005, Urine Protein Negative, Urine Glucose (UA) Negative, Urine Ketones Negative, Urine Blood Negative, Urine Nitrate Negative, Urine Bilirubin Negative, Urine Urobilinogen 0.2, Ur Leukocyte Esterase Moderate H, Urine RBC Negative, Urine WBC 1 - 3, Ur Epithelial Cells Many, Urine Bacteria Small, Urine HCG, Qual Negative 02/14/17 19:40: Urine Opiates Screen Negative, Urine Methadone Screen Negative, Ur Barbiturates Screen Negative, Ur Phencyclidine Scrn Negative, Ur Amphetamines Screen Negative, U Benzodiazepines Scrn Negative, U Oth Cocaine Metabols Negative, U Cannabinoids Screen Negative Vital Signs Temp Pulse Pulse Resp BP Pulse Ox 02/17/17 16:43 60 111/68 02/17/17 08:49 66 102/71 02/17/17 07:22 97.8 F 90 20 102/71 02/17/17 07:20 97.8 F 66 20 125/62 02/16/17 21:57 68 134/98 H 02/16/17 16:00 64 151/74 H 02/15/17 16:51 62 122/66 02/15/17 08:24 98 H 123/93 H 02/15/17 07:18 97.9 F 98 H 22 123/93 H 02/14/17 23:59 78 16 02/14/17 22:28 97.5 F L 80 18 122/61 98 02/14/17 18:18 98 F 78 16 141/89 97 Temp Pulse Resp BP Pulse Ox 97.6 F 62 19 154/84 H 98 02/21/17 09:40 02/21/17 09:40 02/21/17 09:40 02/21/17 09:40 02/14/17 22:28 DSM 5 Symptoms Update: shortly patient is 51 years old female, with h/o anxiety, most likely panic disorder with agoraphobia, one previous admission to the psych unit less than a month ago, no suicidal attempts, patient brought herself to the hospital , c/o "severe panic attack", requested to be admitted to the psych unit, pt said she cannot function, her anxiety is "out of control", pt was keep coming to ED for panic attacks(since October 2016 patient had 12 visits to the emergency room for panic attacks) patient was seen by psychiatrist [facility], but patient was not able to wait until follow-up appointment with him and brought herself to the hospital looking for admission. Pt presented to be less anxious. pt reported that she thinks that she could deal with her anxiety symptoms now, pt also said that her depressive symptoms are "much better". pt deem ready for d/c tomorrow. pt reported tolerating medications well, no side effects observed or reported, aims 0, no EPS. As per staff patient is pleasant, corporative, started to go to groups, socially appropriate. Impression: DSM 5 Diagnosis: major depressive disorder Panic disorder with agoraphobia Rule out generalized anxiety disorder Rule out anxiety due to general medical condition, patient seems to be premenopausal and hormonal changes could contribute to pt's presentation Medication Change: No (Prozac increased yesterday) Medical Record Reviewed: Yes (notes, reports, labs, vitals) Consults ordered or reviewed: medical consult appreciated Mental Status Examination - Cognitive Function Orientation: Person, Place, Situation, Time Memory: Intact Attention: Poor (some improvement) Concentration: Poor (some improvement) Association: WNL Fund of Knowledge: WNL - Mood Mood: Depressed (I feel little better), Anxious (I feel less depressed and less anxious) - Affect Affect: Constricted (but more reactive) - Speech Speech: Appropriate - Formal Thought Process Formal Thought Process: No Impairment - Suicidal Ideation Suicidal Ideation: No - Homicidal Ideation Homicidal Ideation: No Goal/Treatment Plan - Goal/Treatment Plan Need for Continued Stay: Remain at risks for inpatient hospitalization, Severe depression anxiety, Discharge may exacerbated symptoms, Failed transitioning, Severe functional impairment Progress Toward Problem(s) and Goals/Treatment Plan: milieu, structure, supportive therapy Aspirin [Ecotrin] 81 mg PO DAILY Losartan [Cozaar] 50 mg PO DAILY FLUoxetine [Prozac] 40 mg PO DAILY clonazePAM [Klonopin] 0.5 tab PO tid pt was asked to do anxiety chart with timing, aims anxiety on that the nighttime prn meds HS meds for insomnia medical f/u appreciated will monitor closely reworker evaluation patient will be discharged tomorrow Estimated Date of D/C: 02/22/17 (monitor closely)
[2017-02-22 07:44] VITALS: BP 110/73; PULSE 68; RESP 20; TEMP 98.1
[2017-02-22] MEDS: Pantoprazole 40 mg EC Tab PO SCH (07:52)
--- NOTE | 2017-02-22 16:11 | PCM.PYCHDC ---
Mental Status Examination - Mental Status Examination Orientation: Person, Place, Situation, Time Memory: Intact Mood: Neutral Affect: Broad Attention: WNL Concentration: WNL Association: WNL Fund of Knowledge: WNL Formal Thought Process: No Impairment Description of patient's judgement and insight: Pt has improved insight into mental and medical illness, pt was compliant with medications and unit rules and regulations, pt was going to groups, was calm, cooperative, socially appropriate, no behavioral incidents, no agitation, no aggression. Psychotic Thoughts and Behaviors: Pt denied v/a/t hallucinations, denied paranoid ideations, pt does not appear to be psychotic, and thought process is goal directed. Suicidal Ideation: No Current Homicidal Ideation?: No Plan: pt adamantly denied thoughts of harming self or others denied intent or plan. Discharge Summary - Discharge Note Reason for Hospitalization: radha was admitted for evaluation and stabilization of anxiety symptoms, depressive symptoms, inability to function, for medication management, and therapy. Psychiatric History (includes Medical, Family, Personal Hx): see HPI Laboratory Data: 02/14/17 20:15 02/14/17 20:15 Lab Results 02/15/17 09:40: Hemoglobin A1c 6.3 02/15/17 09:40: 25-OH Vitamin D Total < 12.8 L 02/14/17 20:15: WBC 7.4, RBC 4.25, Hgb 12.8, Hct 38.3, MCV 90.1, MCH 30.1, MCHC 33.4, RDW 13.8, Plt Count 393, MPV 8.4, Gran % 59.7, Lymph % (Auto) 33.1, [place] % (Auto) 5.4, Eos % (Auto) 1.4 L, Baso % (Auto) 0.4, Gran # 4.42, Lymph # 2.5, [place] # 0.4, Eos # 0.1, Baso # 0.03 02/14/17 20:15: Alcohol, Quantitative < 10 02/14/17 20:15: Salicylates < 1 L, Acetaminophen < 10.0 L 02/14/17 20:15: Sodium 137, Potassium 3.8, Chloride 102, Carbon Dioxide 27, Anion Gap 12, BUN 13, Creatinine 0.6, Est GFR ( Amer) > 60, Est GFR (Non- Af Amer) > 60, Random Glucose 95, Calcium 9.1, Total Bilirubin 1.1, AST 22, ALT 29, Alkaline Phosphatase 97, Total Protein 7.9, Albumin 4.0, Globulin 3.9, Albumin/Globulin Ratio 1.0 L 02/14/17 19:40: Urine Color Yellow, Urine Appearance Clear, Urine pH 6.0, Ur Specific [place] <= 1.005, Urine Protein Negative, Urine Glucose (UA) Negative, Urine Ketones Negative, Urine Blood Negative, Urine Nitrate Negative, Urine Bilirubin Negative, Urine Urobilinogen 0.2, Ur Leukocyte Esterase Moderate H, Urine RBC Negative, Urine WBC 1 - 3, Ur Epithelial Cells Many, Urine Bacteria Small, Urine HCG, Qual Negative 02/14/17 19:40: Urine Opiates Screen Negative, Urine Methadone Screen Negative, Ur Barbiturates Screen Negative, Ur Phencyclidine Scrn Negative, Ur Amphetamines Screen Negative, U Benzodiazepines Scrn Negative, U Oth Cocaine Metabols Negative, U Cannabinoids Screen Negative Vital Signs Temp Pulse Pulse Resp BP Pulse Ox 02/22/17 07:42 98.1 F 68 20 110/73 02/21/17 23:08 72 117/80 02/21/17 16:13 58 L 116/76 02/21/17 09:40 97.6 F 62 19 154/84 H 02/21/17 09:08 62 154/84 H 02/21/17 06:52 97.6 F 62 19 154/84 H 02/20/17 23:15 80 101/70 02/20/17 16:30 70 114/72 02/20/17 09:13 81 137/75 02/20/17 07:43 97.9 F 61 20 137/75 02/19/17 16:00 97.4 F L 63 17 134/91 H 02/19/17 08:55 71 103/70 02/19/17 08:00 98.7 F 71 16 103/70 02/18/17 22:47 80 126/82 02/18/17 10:20 97.5 F L 02/18/17 09:24 72 122/78 02/18/17 09:14 72 122/78 02/18/17 09:03 97.8 F 72 16 122/78 02/18/17 07:47 97.8 F 72 16 122/78 02/18/17 00:08 98.1 F 71 18 133/86 02/17/17 16:43 60 111/68 02/17/17 08:49 66 102/71 02/17/17 07:22 97.8 F 90 20 102/71 02/17/17 07:20 97.8 F 66 20 125/62 02/16/17 21:57 68 134/98 H 02/16/17 16:00 64 151/74 H 02/15/17 16:51 62 122/66 02/15/17 08:24 98 H 123/93 H 02/15/17 07:18 97.9 F 98 H 22 123/93 H 02/14/17 23:59 78 16 02/14/17 22:28 97.5 F L 80 18 122/61 98 02/14/17 18:18 98 F 78 16 141/89 97 Consultations:: List each consultation separately and include: 1. Reason for request. 2. Findings. 3. Follow-up Consultations: medical consult appreciated see notes for more detailed information Summary of Hospital Course include:: 1. Description of specific treatment plan utilized for patients during their course of treatmen. 2. Summarize the time- course for resolution of acute symptoms and/or regressed behaviors. 3. Describe issues identified and worked on during hospitalization. 4. Describe medication utilized. 5. Describe medical problems identified and treated. 6. Reassessment of suicide risk Summary of Hospital Course: shortly patient is 51 years old female, with h/o anxiety, most likely panic disorder with agoraphobia, one previous admission to the psych unit less than a month ago, no suicidal attempts, patient brought herself to the hospital , c/o "severe panic attack", requested to be admitted to the psych unit, pt said she cannot function, her anxiety is "out of control", pt was keep coming to ED for panic attacks(since October 2016 patient had 12 visits to the emergency room for panic attacks) patient was seen by psychiatrist Dr. [facility]rero [facility] the [facility], but patient was not able to wait until follow-up appointment with him and brought herself to the hospital looking for admission. at the time of admission pt presented to be anxious. Pt said that she has anxiety "every four hours", pt said "I am waking up with panic attacks", pt said she was not able to function, was not able to do her chores. pt said that due to pharmacy refusing to fill her prozac she was taking cymbalta (60mg) ( most likely pt filled cymbalta and this writer editor provided pt with prescription of prozac, pt said that she was feeling "like a zombie", pt tried to take klonopin but was "very sedated". Patient reported that she was feeling anxious, had a feeling that her throat is closing, patient would feel very anxious, restless patient tried to calm herself and going outside as well as breathing exercises but nothing was helping her. Patient also reported that she was feeling that she is dying and something horrible might happen to her. Patient reported there is no stress in the house, patient has supportive and loving family, patient denied hearing voices denied seeing things, patient denied smoking denies using drugs. Patient said that since November 2016 patient started to feel depressed, there is no precipitating factors, patient also reported to feel hopeless, low energy , it would take extra time for her chores to be completed, patient was not able to function. Patient denied thoughts of harming herself or others. Patient also reported that she cannot drive car, feeling very uncomfortable on the highways, was not able to visit her familypolice while from here. Past psychiatric history: Patient has one hospitalization to this unit less than a month ago, denied history of suicidal attempts. Initially Dr. Marroquin prescribed her Xanax 0.25 mg twice a day as needed and Cymbalta, but patient reported that medications were not helping her, currently pt under care of Dr. Marrero pt had appt scheduled for today, but pt was not able to wait and came to the hospital, looking for admission. More over patient had more than 12 visits to the emergency room for anxiety symptoms sounds October 2016, obviously patient was not functioning well, keeps coming to the emergency room, needed to be admitted into the psychiatric inpatient unit in order to be stabilized on medications. Medical h/o: obesity and HTN. Family h/o: denied patient reported that she tolerated Prozac well, presented to be continuing to continue on that medication, patient reported that Klonopin was helping her anxiety willing to continue that. Patient denied history of abuse, denied history of trauma. 02/14/17 20:15 02/14/17 20:15 Lab Results 02/14/17 20:15: WBC 7.4, RBC 4.25, Hgb 12.8, Hct 38.3, MCV 90.1, MCH 30.1, MCHC 33.4, RDW 13.8, Plt Count 393, MPV 8.4, Gran % 59.7, Lymph % (Auto) 33.1, [place] % (Auto) 5.4, Eos % (Auto) 1.4 L, Baso % (Auto) 0.4, Gran # 4.42, Lymph # 2.5, [place] # 0.4, Eos # 0.1, Baso # 0.03 02/14/17 20:15: Alcohol, Quantitative < 10 02/14/17 20:15: Salicylates < 1 L, Acetaminophen < 10.0 L 02/14/17 20:15: Sodium 137, Potassium 3.8, Chloride 102, Carbon Dioxide 27, Anion Gap 12, BUN 13, Creatinine 0.6, Est GFR ( Amer) > 60, Est GFR (Non- Af Amer) > 60, Random Glucose 95, Calcium 9.1, Total Bilirubin 1.1, AST 22, ALT 29, Alkaline Phosphatase 97, Total Protein 7.9, Albumin 4.0, Globulin 3.9, Albumin/Globulin Ratio 1.0 L 02/14/17 19:40: Urine Color Yellow, Urine Appearance Clear, Urine pH 6.0, Ur Specific [place] <= 1.005, Urine Protein Negative, Urine Glucose (UA) Negative, Urine Ketones Negative, Urine Blood Negative, Urine Nitrate Negative, Urine Bilirubin Negative, Urine Urobilinogen 0.2, Ur Leukocyte Esterase Moderate H, Urine RBC Negative, Urine WBC 1 - 3, Ur Epithelial Cells Many, Urine Bacteria Small, Urine HCG, Qual Negative 02/14/17 19:40: Urine Opiates Screen Negative, Urine Methadone Screen Negative, Ur Barbiturates Screen Negative, Ur Phencyclidine Scrn Negative, Ur Amphetamines Screen Negative, U Benzodiazepines Scrn Negative, U Oth Cocaine Metabols Negative, U Cannabinoids Screen Negative Vital Signs Temp Pulse Pulse Resp BP Pulse Ox 02/15/17 08:24 98 H 123/93 H 02/15/17 07:18 97.9 F 98 H 22 123/93 H 02/14/17 23:59 78 16 02/14/17 22:28 97.5 F L 80 18 122/61 98 02/14/17 18:18 98 F 78 16 141/89 97 shouldn't was stabilized on the following medications: Prozac 40 mg daily for depression and anxiety Klonopin 0.5 mg 3 times a day as needed for anxiety atient tolerated medications well, no side effects observed or reported, no EPS , aims 0. Patient was seen by medical team patient wanted to be seen by Dr. Sellers, was on vacation, Dr. Thornton was covering for him. Over the course of this hospitalization pt was attending groups, pt also had medication management, had therapeutic milieu. Overall pt improved significantly, pt's affect became brighter, pt was less depressed, has realistic future oriented plans, pt also does not appear to be psychotic, or anxious, pt was socially appropriate, no behavioral issues, pts insight improved as well and soon pt deemed to be ready for discharge. At the time of the discharge pt denied been depressed, denied thoughts of harming self or others, denied psychotic symptoms, and pt does not appeared to be psychotic, denied been anxious, was considered to pose no threat to self or others, will be following up at 's office, information about follow up appointment, time and address provided to the pt, it is patient responsibility to follow up with outpatient clinic, PMD as well as specialists (see SW note for more detailed information). In case pt will need to obtain results of studies pending at discharge pt was provided with contact information of Psychiatric Inpatient unit [phone] as well as Medical Record Department [phone]. pt was provided with prescriptions for all of medications (please see medication reconciliation form) Pt was educated about safety plan in case of worsening of symptoms or in case of suicidal or homicidal ideation call 911 or go to the nearest ER, also was educated to take meds as prescribed and stay away from drugs, pt verbalized understanding. - Diagnosis (1) Major depressive disorder Current Visit: Yes Status: Acute (2) Panic disorder with agoraphobia Current Visit: Yes Status: Acute (3) Anxiety Current Visit: Yes Status: Acute - Final Diagnosis (DSM 5) Condition upon Discharge: FAIR Disposition: HOME/ ROUTINE Follow-up Treatment Plan: At the time of the discharge pt denied been depressed, denied thoughts of harming self or others, denied psychotic symptoms, and pt does not appeared to be psychotic, denied been anxious, was considered to pose no threat to self or others, will be following up at 's office, information about follow up appointment, time and address provided to the pt, it is patient responsibility to follow up with outpatient clinic, PMD as well as specialists (see SW note for more detailed information). In case pt will need to obtain results of studies pending at discharge pt was provided with contact information of Psychiatric Inpatient unit [phone] as well as Medical Record Department [phone]. pt was provided with prescriptions for all of medications (please see medication reconciliation form) Pt was educated about safety plan in case of worsening of symptoms or in case of suicidal or homicidal ideation call 911 or go to the nearest ER, also was educated to take meds as prescribed and stay away from drugs, pt verbalized understanding. Prescriptions/Medication Reconciliation: Aspirin [Aspirin Chewable] 81 mg PO DAILY #30 Atorvastatin [Lipitor] 40 mg PO DIN #30 tab Cholecalciferol [Vitamin D 1000 IU] 2,000 iu PO DAILY #120 tab clonazePAM [Klonopin] 0.5 mg PO 0800,1400,2200 #30 tab FLUoxetine [Prozac] 40 mg PO DAILY #14 cap - Smoking Cessation Smoking Cessation Medication prescribed: No Reason for not providing: patient doesn't smoke - Antipsychotic Medications Pt discharged on 2 or more routine antipsychotic medications: No
--- NOTE | 2017-02-22 20:32 | PN ---
DATE: 02/22/2017 The patient is seen in the day room. The patient was ambulating on the floor. The patient was seen in the day room and then outside in the hallway. The patient is alert, awake, oriented x 3. Overnight nurse's notes were reviewed. There was no documented adverse event documented. The patient is feeling significantly better since the of admission. The patient denies anxiety. Denies suicidal or homicidal ideation, denies depression, denies panic, denies sleep problems. PHYSICAL EXAMINATION: VITAL SIGNS: T-max afebrile, heart rate 78-84, blood pressure yesterday was elevated at 140/84, 152/87. Today, blood pressure 122/70, 112/80. Heart rate is within normal limits. O2 sat is within normal limits. HEAD: Normocephalic, atraumatic. HEENT: Shows pink conjunctivae, anicteric sclerae. No oropharyngeal lesion. NECK: No neck rigidity. CHEST: Kyphosis. LUNGS: Shows no rales, crackles or wheezing. CARDIOVASCULAR: Shows S1, S2, regular rhythm. ABDOMEN: Morbidly obese. GENITALIA: Female. RECTAL: Deferred. EXTREMITIES: Shows chronic nonpitting edema of the lower extremity and chronic swelling of the lower extremities. MUSCULOSKELETAL: Shows elevated body mass index. NEUROLOGIC: The patient is alert, awake, oriented x 3. Cranial nerves II-XII intact. Gait examination is independent. VASCULAR: Palpable pulses. PSYCHIATRIC: As per psychiatry. DIAGNOSTIC DATA: None from today. The patient is presently being in the process of being discharged today as per psychiatry. IMPRESSION AND PLAN: 1. Acute exacerbation of anxiety, depression. 2. Panic disorder with agoraphobia. 3. Questionable sleep disorder with fragmented interrupted sleep. 4. Morbid obesity with elevated body mass index. 5. Hypertension. 6. Tachycardia. 7. Prediabetes with hemoglobin A1c of 6.3. 8. Dyslipidemia with hypercholesterolemia and elevated LDL. 9. Hypovitaminosis D. 10. Morbid obesity. 1. Major depressive disorder, single episode, severe, without psychosis. 2. Panic disorder with agoraphobia. 3. Possible generalized anxiety disorder. 4. Morbid obesity with elevated body mass index of greater than 55. 5. Hypertension. 6. Tachycardia. 7. Prediabetes with hemoglobin A1c of 6.3. 8. Morbid obesity. 9. Hypertension. 10. Tachycardia. 11. Acute exacerbation of anxiety with panic disorder and agoraphobia. 12. History of depression. 13. Questionable and possible sleep disorder with interrupted fragmented sleep with questionable insomnia. 14. Hypertension. 15. Hypovitaminosis D. 16. Dyslipidemia, hyperlipidemia and elevated LDL. 17. Hypovitaminosis D. 1. Major depressive disorder, single episode, severe, without psychosis. 2. Panic disorder with agoraphobia. 3. Possible generalized anxiety disorder. 4. Morbid obesity with elevated body mass index of greater than 55. 5. Acute exacerbation of anxiety with panic disorder and agoraphobia. 6. History of depression. 7. Sleep disorder with interrupted, fragmented sleep. 8. Questionable Insomnia. 9. Hypertension. 10. Tachycardia 11. Prediabetes with hemoglobin A1c of 6.3. 12. Hypovitaminosis D. 13. History of dyslipidemia and hyperlipidemia and elevated LDL. 1. Acute exacerbation of anxiety with episodic panic disorder and agoraphobia. 2. History of depression. 3. Sleep disorder with interrupted, fragmented sleep. 4. Questionable Insomnia. 5. Morbid obesity with elevated body mass index of greater than 55. 6. Hypertension. 7. Tachycardia. 8. Prediabetes with hemoglobin A1c of 6.3. 9. Hypovitaminosis D. 10. History of dyslipidemia, hyperlipidemia, elevated LDL. 1. Acute exacerbation of anxiety with panic episodes. 2. Sleep disorder with fragmented sleep. 3. History of hypertension. 4. History of diabetes, history of hypercholesterolemia, dyslipidemia, history of morbid obesity, history of depression. 5. History of morbid obesity, history of depressive disorder. 6. History of panic disorder with anxiety, depression. PLAN: At this time, patient has been cleared by psychiatry for discharge. I have already cleared the patient for discharge a few days ago. The patient was again re-advised to follow up with her primary care physician. The patient was advised to resume the medicines which are recommended by me including Inderal 10 mg at bedtime, Lipitor 40 mg daily, Cozaar 50 mg daily, Vitamin D3 2000 International Units daily in addition to the psychotropic medications, which are ordered by Dr. Brown. The patient is for discharge today. The patient is to be followed up with PMD and psychiatry on the outpatient. The patient was advised and counseled about weight loss, strict diet. The patient was advised routine screening diagnostic tests including routine and screening mammogram, bone density and colonoscopy, etc. Dictated and electronically signed, not read. Desean Pinto MD cc: [id number] TT: 02/22/2017 20:31:31 Confirmation # [id number] Dictation # [id number]
== END 2017-02-22 16:52 | disposition home or self-care (01) | DRG 885 ==
LOC: ED 18:06 → ERH 22:12 → PSYC 23:53
PROVIDERS: ADMIT Psychiatry & Neurology Psychiatry; ATTEND Psychiatry & Neurology Psychiatry
DX: F32.2 Major depressive disorder, single episode, severe without psychotic features (principal); Z68.43 Body mass index [BMI] 50.0-59.9, adult; F40.01 Agoraphobia with panic disorder; I10 Essential (primary) hypertension; E78.5 Hyperlipidemia, unspecified; E78.00 Pure hypercholesterolemia, unspecified; E66.01 Morbid (severe) obesity due to excess calories; R73.03 Prediabetes; E55.9 Vitamin D deficiency, unspecified; R00.0 Tachycardia, unspecified; G47.00 Insomnia, unspecified

== ENCOUNTER 2017-03-23 23:13 | Emergency (ER) | payer BC ==
[2017-03-23 23:26] VITALS: BMI 54.6
[2017-03-23 23:33] VITALS: TEMP 96.5; O2SAT 98
[2017-03-24 01:30] LABS: ADD MANUAL DIFF? NO
--- NOTE | 2017-03-24 01:34 | ED PDOC ---
Arrival/HPI - General Historian: Patient <Kalani Faust PA-C - Last Filed: 03/24/17 02:17> <Dyllan Rene - Last Filed: 03/24/17 04:35> - General Chief Complaint: Weakness/Neurological Deficit Time Seen by Provider: 03/24/17 00:00 - History of Present Illness Narrative History of Present Illness (Text): 03/24/17 01:38 51 yo F w/ pmh of DM, HTN, high cholesterol, depression and anxiety presents with 1 day h/o feeling fatigue, with generalized weakness which started after taking a new anti-psychotic medication Rexuli this AM, which was Rx by her psychiatrist to take along with prozac to improve her chronic depression. Patient states that she then developed at 5 pm this evening while sitting and talking on the phone, R shoulder / arm discomfort worse with movement, which radiates to the R upper chest. Otherwise : (-) diaphoresis, (-) dyspnea, (-) pleuritic component, (-) ripping or tearing quality, (-) positional component, ( -) exertional component, (-) dizziness, (-) syncope, (-) nausea, (-) abdominal pain, (-) vomiting, (-) urinary symptoms, (-) calf swelling/pain, (-) neuro deficits, (-) trauma, (-) fever, (-) URI, (-) headache, (-) travel. Psychiatric symptoms: (-) hallucinations, (-) suicidal ideation, (-) homicidal ideation, (- ) substance abuse. PMD [place] (Kalani Faust PA-C) Past Medical History - Provider Review Nursing Documentation Reviewed: Yes - Infectious Disease Hx of Infectious Diseases: None - Tetanus Immunization Tetanus Immunization: Unknown - Cardiac Hx Peripheral Edema: Yes - Pulmonary Hx Tuberculosis: No - Neurological HX Cerebrovascular Accident: No Hx Seizures: No - HEENT Hx HEENT Disorder: No (reading glasses) - Renal Hx Renal Disorder: No - Endocrine/Metabolic Hx Endocrine Disorders: Yes Hx Diabetes Mellitus Type 2: Yes - Hematological/Oncological Hx Cancer: No - Integumentary Hx Dermatological Disorder: No - Musculoskeletal/Rheumatological Hx Musculoskeletal Disorders: No - Gastrointestinal Hx Gastrointestinal Disorders: No - Genitourinary/Gynecological Hx Sexually Transmitted Diseases: No - Psychiatric Hx Anxiety: Yes Hx Substance Use: No - Surgical History Hx Amputation: No Hx Appendectomy: No Hx Cholecystectomy: No Hx Gastric Bypass Surgery: No Hx Hysterectomy: No Hx Joint Replacement: No Hx Kidney Transplant: No Hx Liver Transplant: No Hx Mastectomy: No Hx Musculoskeletal Surgery: No Hx Open Heart Surgery: No Hx Orthopedic Surgery: No Hx Splenectomy: No Hx Valve Replacement: No Other/Comment: d and c x 2 - Anesthesia Hx Anesthesia: Yes Hx Anesthesia Reactions: No Hx Malignant Hyperthermia: No - Suicidal Assessment Feels Threatened In Home Enviroment: No <Kalani Faust PA-C - Last Filed: 03/24/17 02:17> Family/Social History - Physician Review Nursing Documentation Reviewed: Yes Family/Social History: Diabetes, Neoplasm/Cancer Smoking Status: Never Smoked Hx Alcohol Use: No Hx Substance Use: No Hx Substance Use Treatment: No <Kalani Faust PA-C - Last Filed: 03/24/17 02:17> Allergies/Home Meds <Kalani Faust PA-C - Last Filed: 03/24/17 02:17> <Dyllan Rene - Last Filed: 03/24/17 04:35> Allergies/Adverse Reactions: Allergies naproxen Allergy (Verified 02/14/17 18:18) RASH Review of Systems - Review of Systems Constitutional: Normal, Fatigue. absent: Weight Change, Fevers Respiratory: Normal. absent: SOB, Cough, Sputum Cardiovascular: Normal. absent: Chest Pain, Palpitations, Edema Gastrointestinal: Normal. absent: Abdominal Pain, Stool Changes, Appetite Changes Genitourinary Female: Normal. absent: Dysuria, Frequency, Hematuria Musculoskeletal: Normal, Arthralgias. absent: Back Pain, Neck Pain Skin: Normal. absent: Rash, Pruritis, Skin Lesions <Kalani Faust PA-C - Last Filed: 03/24/17 02:17> Physical Exam <Kalani Faust PA-C - Last Filed: 03/24/17 02:17> <Dyllan Rene - Last Filed: 03/24/17 04:35> - Physical Exam Narrative Physical Exam (Text): 03/24/17 01:35 GENERAL APPEARANCE: Patient is awake, alert, oriented x 3, in no acute distress. SKIN: Warm, dry; (-) cyanosis. EYES: (-) conjunctival pallor. ENMT: Mucous membranes moist. NECK: (-) tenderness, (-) stiffness, (-) lymphadenopathy, (-) JVD. CHEST AND RESPIRATORY: (-) rash, (-) chest wall tenderness. Lungs: (-) rales , (-) rhonchi, (-) wheezes, (-) rub; breath sounds equal bilaterally. HEART AND CARDIOVASCULAR: (-) irregularity; (-) murmur, (-) gallop, (-) rub. ABDOMEN AND GI: Soft; (-) distention, (-) tenderness, (-) palpable pulsatile mass. EXTREMITIES: (-) tenderness, (+) pain elicited at the R shoulder joint with ROM of the R arm, (-) deformity; (-) edema, (-) calf tenderness. (+) distal pulses. NEURO AND PSYCH: Mental status as above. Affect: normal. Memory: Intact. 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 Strength and DTRs symmetric. (Kalani Faust PA-C) Vital Signs Temp Pulse Resp BP Pulse Ox 03/23/17 23:32 96.5 F L 71 17 137/95 H 98 Medical Decision Making <Kalani Faust PA-C - Last Filed: 03/24/17 02:17> <Dyllan Rene - Last Filed: 03/24/17 04:35> ED Course and Treatment: 03/24/17 01:31 51 yo F w/ pmh of DM, HTN, high cholesterol, depression and anxiety presents with 1 day h/o feeling fatigue, with generalized weakness and R arm pain, which started after taking a new anti-psychotic medication Rexuli, which was Rx by her psychiatrist to take along with prozac to improve her chronic depression. Based on history and exam, to consider medication side effect, chronic depression vs anxiety attack. Plan - Labs - EKG - CXR - IV line - UA EKG: NSR at 63 bpm, normal axis, (-) acute ST changes, as read by YOHANA. Case endorsed to Dr. Rene pending CXR, labs, and disposition. (Govind BRISENO,Kalani Cary) 03/24/17 04:27 On reevaluation, Patient is in no distress and is resting comfortably in bed. No SI/HI. Denies any complaints at this time. States that she will call psychiatrist and make an appointment tomorrow Pt states she understands to return to the ER right away for new or worsening symptoms or for inability to f/u with PMD or specialist as instructed. Patient states that she fully agrees with and understands discharge instructions. States that she agrees with the plan and disposition. Verbalized and repeated discharge instructions and plan. I have given the patient opportunity to ask any additional questions. (Dyllan Rene) - Lab Interpretations Lab Results: 03/24/17 01:25 03/24/17 01:25 Lab Results 03/24/17 02:30: Urine Color Light yellow, Urine Appearance Sl cloudy, Urine pH 6.0, Ur Specific [place] 1.010, Urine Protein Negative, Urine Glucose (UA) Negative, Urine Ketones Negative, Urine Blood Trace-lysed H, Urine Nitrate Negative, Urine Bilirubin Negative, Urine Urobilinogen 0.2, Ur Leukocyte Esterase Moderate H, Urine RBC 1 - 3, Urine WBC 2 - 5, Ur Epithelial Cells 1 - 3 , Urine Bacteria Mod 03/24/17 01:25: Sodium 137, Potassium 4.0, Chloride 100, Carbon Dioxide 28, Anion Gap 13, BUN 18, Creatinine 0.7, Est GFR ( Amer) > 60, Est GFR (Non- Af Amer) > 60, Random Glucose 98, Calcium 9.4, Magnesium 2.0, Total Bilirubin 0.9, AST 24, ALT 29, Alkaline Phosphatase 111, Lactate Dehydrogenase 409, Total Creatine Kinase 60, Troponin I < 0.01, Total Protein 7.7, Albumin 4.0, Globulin 3.7, Albumin/Globulin Ratio 1.1 03/24/17 01:25: WBC 6.6, RBC 4.26, Hgb 12.9, Hct 38.8, MCV 91.1, MCH 30.3, MCHC 33.2, RDW 13.3, Plt Count 351, MPV 8.2, Gran % 52.2, Lymph % (Auto) 37.5 H, [place] % (Auto) 7.7 H, Eos % (Auto) 2.0, Baso % (Auto) 0.6, Gran # 3.47, Lymph # 2.5, [place] # 0.5, Eos # 0.1, Baso # 0.04 - RAD Interpretation Radiology Orders: 03/24/17 00:01 CHEST TWO VIEWS (PA/LAT) [RAD] 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 <Kalani Faust PA-C - Last Filed: 03/24/17 02:17> Disposition/Present on Arrival - Present on Arrival Any Indicators Present on Arrival: No History of DVT/PE: No History of Uncontrolled Diabetes: No Urinary Catheter: No History of Decub. Ulcer: No History Surgical Site Infection Following: None - Disposition Have Diagnosis and Disposition been Completed?: Yes Disposition Time: 02:00 <Kalani Faust PA-C - Last Filed: 03/24/17 02:17> - Disposition Have Diagnosis and Disposition been Completed?: Yes Patient Plan: Discharge <Dyllan Rene - Last Filed: 03/24/17 04:35> - Disposition Diagnosis: Weakness, Fatigue Disposition: HOME/ ROUTINE Patient Problems: Current Active Problems Problem Status Onset Fatigue Acute Weakness Acute Condition: GOOD Discharge Instructions (ExitCare): Weakness (ED) Additional Instructions: PLEASE RETURN TO THE EMERGENCY DEPARTMENT FOR NEW OR WORSENING SYMPTOMS. RETURN RIGHT AWAY IF YOU CANNOT FOLLOW UP WITH YOUR PRIMARY CARE DOCTOR, CLINIC, OR SPECIALIST IN 1-2 DAYS. Referrals: Evy Brown MD [Staff Provider] - Follow up with primary
[2017-03-24 01:47] LABS: BASO # 0.04 K/mm3 (0.0-2.0); BASO % 0.6 % (0.0-3.0); EOS # 0.1 (0.0-0.7); GRAN # 3.47 (1.4-6.5); GRAN % 52.2 % (50.0-68.0); HEMATOCRIT 38.8 % (36.0-48.0); LYMPH # 2.5 (1.2-3.4); LYMPH % 37.5 % (22.0-35.0); MEAN CELL VOLUME 91.1 fL (80.0-105.0); MEAN CORPUSCULAR HEMOGLOBIN 30.3 pg (25.0-35.0); MEAN CORPUSCULAR HGB CONC 33.2 g/dl (31.0-37.0); MEAN PLATELET VOLUME 8.2 fl (7.0-11.0); MONO # 0.5 (0.1-0.6); MONO % 7.7 % (1.0-6.0); PLATELET COUNT 351 10^3/uL (120.0-450.0); RED CELL DISTRIBUTION WIDTH 13.3 % (11.5-14.5); WHITE BLOOD COUNT 6.6 10^3/ul (4.5-11.0)
[2017-03-24 01:50] LABS: ALB/GLOB RATIO 1.1 (1.1-1.8); ALKALINE PHOSPHATASE 111 U/L (38-133); ALT/SGPT 29 U/L (7-56); AST/SGOT 24 U/L (15-39); BILIRUBIN,TOTAL 0.9 mg/dL (0.2-1.3); BLOOD UREA NITROGEN 18 mg/dL (7-21); CALCIUM 9.4 mg/dL (8.4-10.5); CARBON DIOXIDE 28 mmol/L (21-33); CHLORIDE 100 mmol/L (98-107); GFR AFRICAN-AMERICAN > 60; GLUCOSE,RANDOM 98 mg/dL (70-110); SODIUM 137 mmol/L (132-148); TOTAL PROTEIN 7.7 g/dL (5.8-8.3)
[2017-03-24 02:10] LABS: TROPONIN I < 0.01 ng/mL
[2017-03-24 03:03] LABS: URINE BILIRUBIN NEGATIVE (NEGATIVE); URINE BLOOD TRACE-LYSED (NEGATIVE); URINE GLUCOSE (UA) NEGATIVE (NEGATIVE); URINE KETONE NEGATIVE (NEGATIVE); URINE LEUKOCYTE ESTERASE MODERATE Leu/uL (NEGATIVE); URINE PROTEIN NEGATIVE mg/dL (<30 mg/dL); URINE UROBILINOGEN 0.2 E.U./dL (<1 E.U./dL)
[2017-03-24 03:13] LABS: URINE APPEARANCE SL CLOUDY (CLEAR); URINE COLOR LIGHT YELLOW (YELLOW)
[2017-03-24 03:15] LABS: URINE BACTERIA MOD (NEG)
[2017-03-24 05:28] VITALS: BP 120/77; PULSE 67; RESP 18
--- NOTE | 2017-03-24 15:21 | RAD ---
HISTORY: R sided chest pain COMPARISON: 02/14/2017 TECHNIQUE: Chest PA and lateral FINDINGS: LUNGS: No active pulmonary disease. PLEURA: No significant pleural effusion identified. No pneumothorax apparent. CARDIOVASCULAR: Normal. OSSEOUS STRUCTURES: No significant abnormalities. VISUALIZED UPPER ABDOMEN: Normal. OTHER FINDINGS: None. IMPRESSION: No active disease.
--- NOTE | 2017-03-24 18:07 | CARD ---
APPROVED REPORT EKG Measurement Heart [id number] <Conclusion> Normal sinus rhythm Normal ECG
== END 2017-03-24 05:33 | disposition home or self-care (01) ==
LOC: ED 23:13
DX: R53.1 Weakness (principal); R53.83 Other fatigue; E11.9 Type 2 diabetes mellitus without complications; I10 Essential (primary) hypertension; E78.00 Pure hypercholesterolemia, unspecified

== ENCOUNTER 2017-04-03 10:33 | Inpatient (IN) | payer BC ==
[2017-04-03 10:34] VITALS: BMI 54.6
[2017-04-03 11:04] VITALS: O2SAT 96
[2017-04-03 12:00] LABS: BASO # 0.03 K/mm3 (0.0-2.0); BASO % 0.5 % (0.0-3.0); EOS # 0.1 (0.0-0.7); EOS % 1.7 % (1.5-5.0); GRAN # 4.18 (1.4-6.5); GRAN % 65.2 % (50.0-68.0); HEMOGLOBIN 12.7 gm/dL (12.0-16.0); LYMPH # 1.7 (1.2-3.4); LYMPH % 26.8 % (22.0-35.0); MEAN CORPUSCULAR HEMOGLOBIN 30.1 pg (25.0-35.0); MEAN CORPUSCULAR HGB CONC 33.1 g/dl (31.0-37.0); MEAN PLATELET VOLUME 8.2 fl (7.0-11.0); MONO # 0.4 (0.1-0.6); MONO % 5.8 % (1.0-6.0); PLATELET COUNT 346 10^3/uL (120.0-450.0); RBC 4.22 10^6/uL (3.5-6.1); RED CELL DISTRIBUTION WIDTH 13.4 % (11.5-14.5); WHITE BLOOD COUNT 6.4 10^3/ul (4.5-11.0)
[2017-04-03 12:01] LABS: PH,URINE 6.5 (4.7-8.0); URINE APPEARANCE CLEAR (CLEAR); URINE BILIRUBIN NEGATIVE (NEGATIVE); URINE BLOOD NEGATIVE (NEGATIVE); URINE COLOR STRAW (YELLOW); URINE GLUCOSE (UA) NEGATIVE (NEGATIVE); URINE LEUKOCYTE ESTERASE NEGATIVE Leu/uL (NEGATIVE); URINE NITRATE NEGATIVE (NEGATIVE); URINE PROTEIN NEGATIVE mg/dL (<30 mg/dL); URINE UROBILINOGEN 0.2 E.U./dL (<1 E.U./dL)
--- NOTE | 2017-04-03 12:08 | ED PDOC ---
Arrival/HPI - General Chief Complaint: Psychiatric Evaluation Time Seen by Provider: 04/03/17 11:10 Historian: Patient - History of Present Illness Narrative History of Present Illness (Text): 04/03/17 12:11 A 51 year old female, whose past medical history includes hypertension, depression and anxiety, presents to the emergency department with depressing thoughts since this morning. Patient also reports a sore throat sensation but denies any suicidal ideation, homicidal ideation or any other complaints at this time. PMD: Dr. Marroquin Psych: Dr. Evy Brown Time/Duration: 1-3 hours Symptom Onset: Sudden Activities at Onset: Rest Context: Home Past Medical History - Provider Review Nursing Documentation Reviewed: Yes - Infectious Disease Hx of Infectious Diseases: None - Tetanus Immunization Tetanus Immunization: Unknown - Cardiac Hx Hypertension: Yes Hx Peripheral Edema: Yes - Pulmonary Hx Respiratory Disorders: No Hx Tuberculosis: No - Neurological HX Cerebrovascular Accident: No Hx Seizures: No - HEENT Hx HEENT Disorder: No (reading glasses) - Renal Hx Renal Disorder: No - Endocrine/Metabolic Hx Endocrine Disorders: Yes Hx Diabetes Mellitus Type 2: Yes - Hematological/Oncological Hx Blood Disorders: No Hx Cancer: No - Integumentary Hx Dermatological Disorder: No - Musculoskeletal/Rheumatological Hx Musculoskeletal Disorders: No - Gastrointestinal Hx Gastrointestinal Disorders: No - Genitourinary/Gynecological Hx Sexually Transmitted Diseases: No - Psychiatric Hx Psychophysiologic Disorder: Yes Hx Anxiety: Yes Hx Depression: Yes Hx Substance Use: No - Surgical History Hx Amputation: No Hx Appendectomy: No Hx Cholecystectomy: No Hx Gastric Bypass Surgery: No Hx Hysterectomy: No Hx Joint Replacement: No Hx Kidney Transplant: No Hx Liver Transplant: No Hx Mastectomy: No Hx Musculoskeletal Surgery: No Hx Open Heart Surgery: No Hx Orthopedic Surgery: No Hx Splenectomy: No Hx Valve Replacement: No Other/Comment: d and c x 2 - Anesthesia Hx Anesthesia: Yes Hx Anesthesia Reactions: No Hx Malignant Hyperthermia: No - Suicidal Assessment Feels Threatened In Home Enviroment: No Family/Social History - Physician Review Nursing Documentation Reviewed: Yes Family/Social History: No Known Family HX Smoking Status: Never Smoked Hx Alcohol Use: No Hx Substance Use: No Hx Substance Use Treatment: No Allergies/Home Meds Allergies/Adverse Reactions: Allergies naproxen Allergy (Verified 04/03/17 10:46) RASH Home Medications: Home Meds Medication Instructions Recorded Confirmed Propranolol [Inderal] 10 mg PO DAILY 04/03/17 04/03/17 Review of Systems - Physician Review All systems were reviewed & negative as marked: Yes Physical Exam - Physical Exam Narrative Physical Exam (Text): 04/03/17 12:11- Review of Systems Constitutional: Normal. absent: Fatigue, Weight Change, Fevers Eyes: Normal ENT: sore throat sensation Respiratory: Normal absent: SOB, Cough, Sputum Cardiovascular: Normal absent: Chest pain, Palpitations, Syncope Gastrointestinal: Normal absent: Abdominal pain, Diarrhea, Nausea, Vomiting Genitourinary: Normal. absent: Dysuria, Frequency, Hematuria Musculoskeletal: Normal. absent: Arthralgias, Back Pain, Neck Pain Skin: Normal Neurological: Normal absent: Focal Weakness Endocrine: Normal Hemo/Lymphatic: Normal Psychiatric: depression, anxiety absent: suicidal ideation, homicidal ideation - Physical exam Patient appears age appropriate, speaking full sentences without difficulty - Systems Exam Head: Present: Atraumatic, Normocephalic Pupils: Present: PERRL Extraocular Muscles: Present: EOMI Conjunctiva: Present: Normal Mouth: Present: Moist Mucous Membranes Neck: Present: Normal Range of Motion. No: MIDLINE TENDERNESS, Paraspinal Tenderness Respiratory/Chest: Present: Clear to Auscultation, Good Air Exchange. No: Respiratory Distress, Accessory Muscle Use, Tachypnic Cardiovascular: Present: Regular Rate and Rhythm, Normal S1, S2, Peripheral Pulses Present. No: Murmurs Abdomen: Present: Normal Bowel Sounds, No: Tenderness, Peritoneal Signs, Rebound, Guarding, Distention Back: Present: Normal Inspection. No: Midline Tenderness, Paraspinal Tenderness Upper Extremity: Present: Normal Inspection. No: Cyanosis, Edema Lower Extremity: Present: Normal Inspection. No: Edema Neurological: Present: GCS=15, Speech Normal, cranial nerves II through XII fully intact with no cerebellar abnormality, neuro-sensory fully intact. No focal neurological deficits. Skin: Present: Warm, Dry, Normal Color. No: Rashes Lymphatic: Present: OX3, NI, NC Psychiatric: Present: Alert, Oriented x 3, Normal Insight, Normal Concentration Vital Signs Reviewed: Yes Vital Signs Temp Pulse Resp BP Pulse Ox 04/03/17 12:52 97.8 F 74 20 143/89 96 04/03/17 10:50 98.5 F 75 20 133/83 96 Temperature: Afebrile Blood Pressure: Normal Pulse: Regular Respiratory Rate: Normal Appearance: Positive for: Well-Appearing, Non-Toxic, Comfortable Pain Distress: None Mental Status: Positive for: Alert and Oriented X 3 - Systems Exam Pharnyx: Present: Normal. No: ERYTHEMA, EXUDATE, TONSILS ENLARGED, Peritonsilar Swelling, Uvular Deviation, Muffled/Hoarse Voice, [place], Soft Palate/Uvular Edema Medical Decision Making ED Course and Treatment: 04/03/17 12:04 Impression: A 51 year old female with depression and sore throat sensation. No acute findings on physical exam. Differential Diagnosis included but are not limited to: anxiety vs. depression Plan: -- EKG -- labs -- Urinalysis -- Reassess and disposition Prior Visits: Notes and results from previous visits were reviewed. Patient was admitted to 02/14/17 to behavioral health unit. Patient was treated for anxiety and disorder Progress Notes: 04/03/17 12:16 EKG shows NSR at [address]-segment elevations, normal intervals. Interpreted by me. 04/03/17 13:06 seen by Trish from [facility] Dr. Brown, plan to admit to behavioral health - Lab Interpretations Lab Results: 04/03/17 11:45 04/03/17 11:45 Lab Results 04/03/17 11:45: Alcohol, Quantitative < 10 04/03/17 11:45: Salicylates < 1 L, Acetaminophen < 10.0 L 04/03/17 11:45: Urine Opiates Screen Negative, Urine Methadone Screen Negative, Ur Barbiturates Screen Negative, Ur Phencyclidine Scrn Negative, Ur Amphetamines Screen Negative, U Benzodiazepines Scrn Negative, U Oth Cocaine Metabols Negative, U Cannabinoids Screen Negative 04/03/17 11:45: Sodium 137, Potassium 3.8, Chloride 101, Carbon Dioxide 28, Anion Gap 12, BUN 14, Creatinine 0.7, Est GFR ( Amer) > 60, Est GFR (Non- Af Amer) > 60, Random Glucose 102, Calcium 9.5, Total Bilirubin 1.2, AST 23, ALT 22, Alkaline Phosphatase 101, Total Protein 7.8, Albumin 4.0, Globulin 3.8, Albumin/Globulin Ratio 1.1 04/03/17 11:45: Urine Color Straw, Urine Appearance Clear, Urine pH 6.5, Ur Specific [place] <= 1.005, Urine Protein Negative, Urine Glucose (UA) Negative, Urine Ketones Negative, Urine Blood Negative, Urine Nitrate Negative, Urine Bilirubin Negative, Urine Urobilinogen 0.2, Ur Leukocyte Esterase Negative 04/03/17 11:45: WBC 6.4, RBC 4.22, Hgb 12.7, Hct 38.4, MCV 91.0, MCH 30.1, MCHC 33.1, RDW 13.4, Plt Count 346, MPV 8.2, Gran % 65.2, Lymph % (Auto) 26.8, [place] % (Auto) 5.8, Eos % (Auto) 1.7, Baso % (Auto) 0.5, Gran # 4.18, Lymph # 1.7, [place] # 0.4, Eos # 0.1, Baso # 0.03 I have reviewed the lab results: Yes - EKG Interpretation Interpreted by ED Physician: Yes Type: 12 lead EKG - Scribe Statement The provider has reviewed the documentation as recorded by the Messi Treviño Provider Scribe Attestation: All medical record entries made by the Messi were at my direction and personally dictated by me. I have reviewed the chart and agree that the record accurately reflects my personal performance of the history, physical exam, medical decision making, and the department course for this patient. I have also personally directed, reviewed, and agree with the discharge instructions and disposition. Disposition/Present on Arrival - Present on Arrival Any Indicators Present on Arrival: No History of DVT/PE: No History of Uncontrolled Diabetes: No Urinary Catheter: No History of Decub. Ulcer: No History Surgical Site Infection Following: None - Disposition Have Diagnosis and Disposition been Completed?: Yes Diagnosis: Anxiety Disposition: HOME/ ROUTINE Disposition Time: 13:07 Patient Plan: Discharge Patient Problems: Current Active Problems Problem Status Onset Anxiety Acute Condition: GOOD Discharge Instructions (ExitCare): Anxiety (ED) Additional Instructions: PLEASE RETURN TO THE EMERGENCY DEPARTMENT FOR NEW OR WORSENING SYMPTOMS. RETURN RIGHT AWAY IF YOU CANNOT FOLLOW UP WITH YOUR PRIMARY CARE DOCTOR, CLINIC, OR SPECIALIST IN 1-2 DAYS. Referrals: PCP,NO [Primary Care Provider] - Follow up with primary Evy Brown MD [Staff Provider] - Follow up with primary
[2017-04-03 12:12] LABS: SALICYLATE < 1 mg/dL (2.0-20.0)
[2017-04-03 12:14] LABS: ALB/GLOB RATIO 1.1 (1.1-1.8); ALT/SGPT 22 U/L (7-56); AST/SGOT 23 U/L (15-39); BLOOD UREA NITROGEN 14 mg/dL (7-21); CALCIUM 9.5 mg/dL (8.4-10.5); GFR AFRICAN-AMERICAN > 60; GFR NON-AFRICAN AMERICAN > 60
[2017-04-03 12:15] LABS: ACETAMINOPHEN < 10.0 ug/ml (10.0-20.0)
[2017-04-03 12:22] LABS: BARBITURATES, UR NEGATIVE (NEGATIVE); BENZODIAZEPINES, UR NEGATIVE (NEGATIVE); OPIATES, UR NEGATIVE (NEGATIVE); PHENCYCLIDINE, UR NEGATIVE (NEGATIVE)
--- NOTE | 2017-04-03 15:46 | CARD ---
APPROVED REPORT EKG Measurement Heart [id number] <Conclusion> Normal sinus rhythm with borderline 1st degree AVB
[2017-04-03] MEDS ORDERED: Alum-Mag Hydrox-Simethicone Susp (30 mL) PO PRN (17:39)
[2017-04-03] MEDS ORDERED: Magnesium Hydroxide Susp 30 ml UD PO PRN (17:39)
--- NOTE | 2017-04-03 18:10 | PCM.BM ---
<Apollo Menchaca - Last Filed: 04/03/17 18:08> Treatment Plan Problems - Problems identified on initial assessmt Anxiety Date Initiated: 04/03/17 Time Initiated: 18:09 Assessment reference: NA Status: Active Priority: 1 Panic Attacks Date Initiated: 04/03/17 Time Initiated: 18:09 Assessment reference: NA Status: Active Priority: 2 Altered Sleep Patterns Date Initiated: 04/03/17 Time Initiated: 18:09 Assessment reference: NA Status: Active Priority: 3 Treatment assets and liabiliti Patient Assests: cooperative, educated, insightful, self-reliant, ADL independent, physically healthy, good support system, negotiates basic needs, financial stabiity, cognitively intact, good interpersonal skills - Milieu Protocol Maintain good personal hygiene: daily Encourage regular showers, daily Remind patient to perform daily oral care, daily Assist patient to perform ADL's Maintain personal safety: every shift Educate patient to report safety concerns to staff, every shift Monitor environment for contraband/sharps Medication safety: Monitor for expected outcome, potential side effects: every shift, Assess barriers to learning: every shift, Assess readiness for medication education: every shift Family Contact - Goals for Treatment Patient goals for treatment: "To find a solution to my anxiety" <Evy Brown - Last Filed: 04/04/17 13:15> - Diagnosis (1) Major depressive disorder Status: Acute Interventions: 04/04/17 13:16 Psychoeducation Psychopharmacology/adjustment of medications as needed/ monitoring possible side effects Evaluate pt on daily basis Compliance with medications and follow up appointments Suicide and homicide risk assessment and prevention Relapse prevention Reduction of symptoms Improve functional status Family intervention As outpatient: cognitive behavioral therapy/interpersonal psychotherapy/ psychodynamic psychotherapy/problem-solving therapy (2) Panic disorder with agoraphobia Status: Acute Interventions: 04/04/17 13:16 Psychoeducation Psychopharmacology/adjustment of medications as needed/ monitoring possible side effects Evaluate pt on daily basis Compliance with medications and follow up appointments Suicide and homicide risk assessment and prevention, coping strategies, safety plan Reduction of symptoms Relaxation techniques and breathing exercises Improve functional status Family intervention As outpatient: cognitive behavioral therapy <Juancarlos Khan - Last Filed: 04/05/17 11:53> - Milieu Protocol Maintain good personal hygiene: daily Encourage regular showers, daily Remind patient to perform daily oral care, daily Assist patient to perform ADL's Maintain personal safety: daily Educate patient to report safety concerns to staff, daily Monitor environment for contraband/sharps Medication safety: Monitor for expected outcome, potential side effects: daily, Assess barriers to learning: daily, Assess readiness for medication education: daily <Christine Will Y - Last Filed: 04/06/17 08:37> Family Contact Family involvement: Family/SO is involved Family contact: Patient agrees to contact Family contact name: Filemon Hogan()[phone] - Outside Agency [facility] Care involvment: Not involved Agency contact name: [facility]/Dr. Jaylen Marrero Agency contact number: [phone] - Goals for Treatment Patient goals for treatment: "To stop my anxiety." Discharge/Continuing Care - Discharge Discharge to:: Home
--- NOTE | 2017-04-03 19:33 | CP.PCM.CON ---
History of Present Illness - History of Present Illness History of Present Illness: INCREASING DEPRESSION X 2 WEEKS ANXIETY POOR NIGHT TIME SLEEP ?? DAYTIME HYPER SOMNOLENCE. Review of Systems - Constitutional Constitutional: As Per HPI - EENT Eyes: As Per HPI Ears: As Per HPI Nose/Mouth/Throat: As Per HPI - Cardiovascular Cardiovascular: As Per HPI - Respiratory Respiratory: As Per HPI - Gastrointestinal Gastrointestinal: As Per HPI - Genitourinary Genitourinary: As Per HPI - Reproductive: Female Reproductive:Female: As Per HPI - Menstruation Menstruation: As Per HPI - Musculoskeletal Musculoskeletal: As Per HPI - Neurological Neurological: As Per HPI - Psychiatric Psychiatric: Abnormal Sleep Pattern, Anxiety, Depression, Panic Attacks - Endocrine Endocrine: As Per HPI - Hematologic/Lymphatic Hematologic: As Per HPI Past Patient History - Infectious Disease Hx of Infectious Diseases: None - Tetanus Immunizations Tetanus Immunization: Unknown - Past Medical History & Family History Past Medical History?: Yes - Past Social History Smoking Status: Never Smoked - CARDIAC Hx Hypercholesterolemia: Yes Hx Hypertension: Yes Hx Peripheral Edema: Yes Other/Comment: MORBID OBESITY,HTN,TACHYCARDIA,PRE DAIBETES,DYSLIPDEMIA, POSSIBLE SLEEP RELATED DISORDER. HX OF MULTIPLE EXACERABTION OF ANXIETY, DEPRESSION, PANIC DISORDER WITH AGORAPHOBIA. - PULMONARY Hx Respiratory Disorders: No Hx Tuberculosis: No - NEUROLOGICAL HX Cerebrovascular Accident: No Hx Seizures: No - HEENT Hx HEENT Problems: No (reading glasses) - RENAL Hx Chronic Kidney Disease: No - ENDOCRINE/METABOLIC Hx Endocrine Disorders: Yes Hx Diabetes Mellitus Type 2: Yes Other/Comment: HYPOVITAMINOSIS-D - HEMATOLOGICAL/ONCOLOGICAL Hx Blood Disorders: No Hx Cancer: No - INTEGUMENTARY Hx Dermatological Problems: No - MUSCULOSKELETAL/RHEUMATOLOGICAL Hx Musculoskeletal Disorders: No - GASTROINTESTINAL Hx Gastrointestinal Disorders: No - GENITOURINARY/GYNECOLOGICAL Hx Sexually Transmitted Disorders: No - PSYCHIATRIC Hx Anxiety: Yes Hx Depression: Yes Hx Panic Symptoms: Yes Hx Substance Use: No - SURGICAL HISTORY Hx Amputation: No Hx Appendectomy: No Hx Cholecystectomy: No Hx Gastric Bypass Surgery: No Hx Hysterectomy: No Hx Joint Replacement: No Hx Kidney Transplant: No Hx Liver Transplant: No Hx Mastectomy: No Hx Musculoskeletal Surgery: No Hx Open Heart Surgery: No Hx Orthopedic Surgery: No Hx Splenectomy: No Hx Valve Replacement: No Other/Comment: d and c x 2 - ANESTHESIA Hx Anesthesia: Yes Hx Anesthesia Reactions: No Hx Malignant Hyperthermia: No Meds Allergies/Adverse Reactions: Allergies Allergy/AdvReac Type Severity Reaction Status Date / Time naproxen Allergy RASH Verified 04/03/17 18:17 - Medications Medications: Current Medications Acetaminophen (Tylenol 325mg Tab) 650 mg PO Q6H PRN PRN Reason: Pain, Mild (1-3) Al Hydrox/Mg Hydrox/Simethicone (Maalox Plus 30 Ml) 30 ml PO DAILY PRN PRN Reason: Upset Stomach Clonazepam (Klonopin) 0.5 mg PO 0800,1400,2200 HOOD PRN Reason: Protocol Fluoxetine HCl (Prozac) 40 mg PO DAILY HOOD Magnesium Hydroxide (Milk Of Magnesia) 30 ml PO DAILY PRN PRN Reason: Constipation Zaleplon (Sonata) 5 mg PO HS PRN PRN Reason: Insomnia Physical Exam - Head Exam Head Exam: ATRAUMATIC - Eye Exam Eye Exam: EOMI, Normal appearance, PERRL Pupil Exam: NORMAL ACCOMODATION, PERRL - ENT Exam ENT Exam: Mucous Membranes Moist, Normal Exam - Neck Exam Neck exam: Positive for: Normal Inspection - Respiratory Exam Respiratory Exam: Clear to Auscultation Bilateral, NORMAL BREATHING PATTERN - Cardiovascular Exam Cardiovascular Exam: REGULAR RHYTHM - GI/Abdominal Exam GI & Abdominal Exam: Normal Bowel Sounds, Soft Additional comments: MORBID OBESE ABDOMEN. - Rectal Exam Rectal Exam: NORMAL INSPECTION - Exam Exam: NORMAL INSPECTION External exam: NORMAL EXTERNAL EXAM - Extremities Exam Extremities exam: Positive for: normal inspection - Back Exam Back exam: NORMAL INSPECTION - Neurological Exam Neurological exam: Alert, CN II-XII Intact, Normal Gait, Oriented x3, Reflexes Normal - Psychiatric Exam Psychiatric exam: Anxious, Normal Affect, Normal Mood - Skin Skin Exam: Dry, Intact, Normal Color, Warm Results - Vital Signs Recent Vital Signs: Last Vital Signs Temp 97.8 F 04/03/17 12:52 Pulse 74 04/03/17 12:52 Resp 18 04/03/17 17:40 BP 143/89 04/03/17 12:52 Pulse Ox 96 04/03/17 12:52 - Labs Result Diagrams: 04/03/17 11:45 04/03/17 11:45 - Impressions Impression: A/P ACUTE EXACERBATION OF RECURRENT DEPRESSION, ANXIETY AND PANIC DISORDER. ??SLEEP RELATED DISORDER AWITH DAYTIME HYPERSOMNOLENCE. HX HTN PRE DIABETES, OBESITY, DYSLIPIDEMIA, HYPOVITAMINOSIS-D, TACHYCARDIA ADMIT TO PSYCH FOR FURTHER INTERVENTIONS. APPEARS MEDICALLY STABLE ALL DIAGNOSTIC DATA REVIEWED AND D/W PATIENT.
--- NOTE | 2017-04-04 12:04 | PCM.PSYCH ---
Initial Psychiatric Evaluation - Initial Psychiatric Evaluation Type of Admission: Voluntary Legal Status: Capacity (Patient has capacity to sign consent for treatment) Chief Complaint (in patient's own words): "I don't know what is going on with me, I was feeling very anxious, I had feeling that something stuck in my throat, I was more depressed, I was feeling hopeless, my family was very concerned about me and brought me to the hospital" Patient's Reaction to Hospitalization: atient was admitted to the psychiatric inpatient unit for evaluation and stabilization of depressive symptoms, inability to function, feeling anxious, for medication adjustment. Patient wants to be in the hospital in order to adjust medications, willing to get treatment. History of Present Illness and Precipitating Events: shortly patient is 51 years old female, with h/o anxiety, most likely panic disorder with agoraphobia, two previous admission to the psych unit pt was d/c 02/21/2017, pt currently under service (local psychiatrist), no suicidal attempts, patient brought to the ED by her son, c/o "something stuck in my throat, feeling of anxiou", pt requested to be admitted to the psych unit , pt said she cannot function, at present moment pt feels her depression "is worse", pt was keep coming to ED for evaluation, (since October 2016 patient had 15 visits to the emergency room for panic attacks), pt reported being compliant with meds and f/u appts and therapy sessions, but still requested admission. pt was seen at the treatment team today good personal hygiene, good ADLs, this wrier is very familiar with the pt from the previous admissions. Pt reported that was prescribed a new medication Rexulti, "I was feeling that I am drugged up, I was feeling that I am like a zombie", pt said that she stopped taking it right after the first dose. Pt said that she had "relatively good three days last week, I thought that I am better, but I was wrong...", pt said that she has no energy, no motivation, "I could stay in bed all day long", pt said that her anxiety "cold be presented with different symptoms, I could be very anxious, tremolos, I could have feeling that something is stuck in my throat, I could have feeling that my chest is heavy". pt denied thoughts of harming self or others, but obviously "I am not functioning at all". Patient reported there is no stress in the house, patient has supportive and loving family, patient denied hearing voices denied seeing things, patient denied smoking denies using drugs. pt said that she is not afraid of deaths, denied fear of aging. Past psych h/o: patient said that since November 2016 patient started to feel depressed, there is no precipitating factors, and anxious. Initially Dr. Marroquin prescribed her Xanax 0.25 mg twice a day as needed and Cymbalta. Currently pt under care of Dr. Marrero, see above. Medical h/o: obesity and HTN, pt was seen by Systems Mgr about two months ago. Family h/o: denied Patient denied history of abuse, denied history of trauma. in regards of meds, 2pm dose of klonopin "I feel very sleepy on it", will decrease it. pt is willing to increase prozac, "I think it is working". 04/03/17 11:45 04/03/17 11:45 Lab Results 04/03/17 11:45: Alcohol, Quantitative < 10 04/03/17 11:45: Salicylates < 1 L, Acetaminophen < 10.0 L 04/03/17 11:45: Urine Opiates Screen Negative, Urine Methadone Screen Negative, Ur Barbiturates Screen Negative, Ur Phencyclidine Scrn Negative, Ur Amphetamines Screen Negative, U Benzodiazepines Scrn Negative, U Oth Cocaine Metabols Negative, U Cannabinoids Screen Negative 04/03/17 11:45: Sodium 137, Potassium 3.8, Chloride 101, Carbon Dioxide 28, Anion Gap 12, BUN 14, Creatinine 0.7, Est GFR ( Amer) > 60, Est GFR (Non- Af Amer) > 60, Random Glucose 102, Calcium 9.5, Total Bilirubin 1.2, AST 23, ALT 22, Alkaline Phosphatase 101, Total Protein 7.8, Albumin 4.0, Globulin 3.8, Albumin/Globulin Ratio 1.1 04/03/17 11:45: Urine Color Straw, Urine Appearance Clear, Urine pH 6.5, Ur Specific [place] <= 1.005, Urine Protein Negative, Urine Glucose (UA) Negative, Urine Ketones Negative, Urine Blood Negative, Urine Nitrate Negative, Urine Bilirubin Negative, Urine Urobilinogen 0.2, Ur Leukocyte Esterase Negative 04/03/17 11:45: WBC 6.4, RBC 4.22, Hgb 12.7, Hct 38.4, MCV 91.0, MCH 30.1, MCHC 33.1, RDW 13.4, Plt Count 346, MPV 8.2, Gran % 65.2, Lymph % (Auto) 26.8, [place] % (Auto) 5.8, Eos % (Auto) 1.7, Baso % (Auto) 0.5, Gran # 4.18, Lymph # 1.7, [place] # 0.4, Eos # 0.1, Baso # 0.03 Vital Signs Temp Pulse Resp BP Pulse Ox 04/04/17 08:57 69 131/80 04/03/17 22:32 78 115/79 04/03/17 17:40 18 04/03/17 12:52 97.8 F 74 20 143/89 96 04/03/17 10:50 98.5 F 75 20 133/83 96 Current Medications: Active Medications Generic Name Dose Route Start Last Admin Trade Name Freq PRN Reason Stop Dose Admin Acetaminophen 650 mg 04/03/17 17:39 Tylenol 325mg Tab PO Q6H PRN Pain, Mild (1-3) Al Hydrox/Mg Hydrox/Simethicone 30 ml 04/03/17 17:39 Maalox Plus 30 Ml PO DAILY PRN Upset Stomach Aspirin 81 mg 04/04/17 08:00 04/04/17 08:57 Ecotrin PO 81 mg DAILY HOOD Administration Atorvastatin Calcium 40 mg 04/04/17 17:00 Lipitor PO DIN HOOD Cholecalciferol 2,000 iu 04/04/17 08:00 04/04/17 08:58 Vitamin D PO 2,000 iu DAILY HOOD Administration Clonazepam 0.5 mg 04/03/17 22:00 04/04/17 08:57 Klonopin PO 0.5 mg 0800,1400,2200 HOOD Administration Protocol Fluoxetine HCl 40 mg 04/04/17 08:00 04/04/17 08:56 Prozac PO 40 mg DAILY HOOD Administration Losartan Potassium 50 mg 04/04/17 08:00 04/04/17 08:57 Cozaar PO 50 mg DAILY HOOD Administration Magnesium Hydroxide 30 ml 04/03/17 17:39 Milk Of Magnesia PO DAILY PRN Constipation Propranolol HCl 10 mg 04/03/17 22:00 04/03/17 22:32 Inderal PO 10 mg HS HOOD Administration Zaleplon 5 mg 04/03/17 17:38 Sonata PO HS PRN Insomnia Past Psychiatric History - Past Psychiatric History Previous Treatment History: Inpatient Prior Professional Help: see HPI Prior Psychiatric Treatment: see HPI At what hospital: see HPI Duration: see HPI Nature of Treatment: see HPI Explanation of prior treatment: see HPI History of Abuse: see HPI History of ETOH/Drug Use: see HPI History of Family Illness: see HPI Pertinent Medical Hx (Current Medical&Sleep Prob, Allergies): Allergies Allergy/AdvReac Type Severity Reaction Status Date / Time naproxen Allergy RASH Verified 04/03/17 18:17 Aspirin [Aspirin Chewable] 81 mg PO DAILY #30 02/22/17 Atorvastatin [Lipitor] 40 mg PO DIN #30 tab 02/22/17 Cholecalciferol [Vitamin D 1000 IU] 2,000 iu PO DAILY #120 tab 02/22/17 FLUoxetine [Prozac] 40 mg PO DAILY #14 cap 02/22/17 Losartan [Cozaar] 50 mg PO DAILY tab 02/22/17 clonazePAM [Klonopin] 0.5 mg PO 0800,1400,2200 #30 tab 02/22/17 Nitrofurantoin Macrocrystals [Macrobid] 100 mg PO BID #20 cap 03/25/17 Propranolol [Inderal] 10 mg PO DAILY 04/03/17 Review of Systems - Review of Systems Systems not reviewed;Unavailable: Acuity of Condition - EENT Eyes: As Per HPI Ears: As Per HPI Nose/Mouth/Throat: As Per HPI - Breasts Breasts: As Per HPI - Cardiovascular Cardiovascular: As Per HPI - Respiratory Respiratory: As Per HPI - Gastrointestinal Gastrointestinal: As Per HPI - Genitourinary Genitourinary: As Per HPI - Reproductive: Female Reproductive:Female: As Per HPI - Menstruation Menstruation: As Per HPI - Musculoskeletal Musculoskeletal: As Par HPI - Integumentary Integumentary: As Per HPI - Neurological Neurological: As Per HPI - Psychiatric Psychiatric: As Per HPI - Endocrine Endocrine: As Per HPI - Hematologic/Lymphatic Hematologic: As Per HPI Mental Status Examination - Personal Presentation Personal Presentation: Looks older than stated age - Affect Affect: Constricted (but reactive mood congruent) - Motor Activity Motor Activity: Calm - Reliability in Providing Information Reliability in Providing Information: Fair - Speech Speech: Organized - Mood Mood: Depressed ("depression is more prominent for me"), Anxious ("I had feeling that something stuck in my throat") - Formal Thought Process Formal Thought Process: No Impairment - Obsessions/Compulsions Obsessions: None Compulsions: None - Cognitive Functions Orientation: Person, Place, Situation, Time Sensorium: Alert Attention/Concentration: Easily distracted Estimate of Intelligence: Average Judgement: Intact, as evidence by: Insight regarding need for hospitalization - Risk Risk: Diminished functioning - Strength & Assets Inventory Strength & Assets Inventory: Intelligence, Family support, Education, Skills, Interests/hobbies, Spiritual affiliations, Life experience, Cooperative - Limitations Limitations: Other (diminish in functioning) DSM 5 DX - DSM 5 DSM 5 Diagnosis: Rule out major depressive disorder Generalized anxiety disorder Panic disorder with agoraphobia - Recommended/Plan of Treatment Treatment Recommendations and Plan of Treatment: milieu, structure, supportive therapy Aspirin [Aspirin Chewable] 81 mg PO DAILY resumed Atorvastatin [Lipitor] 40 mg PO DIN resumed Cholecalciferol [Vitamin D 1000 IU] 2,000 iu PO DAILY resumed FLUoxetine [Prozac] will be increased to 40 mg PO DAILY and 10 mg at the afternoon altogether it will be 50 mg a day for depression and anxiety Losartan [Cozaar] 50 mg PO DAILY will be resumed clonazePAM [Klonopin] 0.5 mg PO 0800,2200 and 0.25 mg at 2 PM for anxiety Propranolol [Inderal] 10 mg PO DAILY we'll discuss with the medical team sometimes better blockers could give worsening of depression Dr. 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 - Smoking Cessation Smoking Cessation Initiated: No Reason for not providing: atient does not smoke
--- NOTE | 2017-04-04 18:25 | CP.PCM.PN ---
Subjective - Date & Time of Evaluation Date of Evaluation: 04/04/17 Time of Evaluation: 11:00 - Subjective Subjective: PATIENT SEEN IN ROOM 517 AMBULATIONG SLEEPT [place] LAST NIGHT Objective - Vital Signs/Intake and Output Vital Signs (last 24 hours): Temp Pulse Resp BP Pulse Ox 97.8 F 62 18 102/69 96 04/03/17 12:52 04/04/17 16:00 04/03/17 17:40 04/04/17 16:00 04/03/17 12:52 - Medications Medications: Current Medications Acetaminophen (Tylenol 325mg Tab) 650 mg PO Q6H PRN PRN Reason: Pain, Mild (1-3) Al Hydrox/Mg Hydrox/Simethicone (Maalox Plus 30 Ml) 30 ml PO DAILY PRN PRN Reason: Upset Stomach Aspirin (Ecotrin) 81 mg PO DAILY [facility] Last Admin: 04/04/17 08:57 Dose: 81 mg Atorvastatin Calcium (Lipitor) 40 mg PO DIN [facility] Last Admin: 04/04/17 17:41 Dose: 40 mg Cholecalciferol (Vitamin D) 2,000 iu PO DAILY [facility] Last Admin: 04/04/17 08:58 Dose: 2,000 iu Clonazepam (Klonopin) 0.25 mg PO 1400 HOOD PRN Reason: Protocol Last Admin: 04/04/17 14:04 Dose: 0.25 mg Clonazepam (Klonopin) 0.5 mg PO 0800,2200 [facility] PRN Reason: Protocol Fluoxetine HCl (Prozac) 40 mg PO DAILY [facility] Last Admin: 04/04/17 08:56 Dose: 40 mg Fluoxetine HCl (Prozac) 10 mg PO 1400 [facility] Last Admin: 04/04/17 14:04 Dose: 10 mg Losartan Potassium (Cozaar) 50 mg PO DAILY [facility] Last Admin: 04/04/17 08:57 Dose: 50 mg Magnesium Hydroxide (Milk Of Magnesia) 30 ml PO DAILY PRN PRN Reason: Constipation Propranolol HCl (Inderal) 10 mg PO HS [facility] Last Admin: 04/03/17 22:32 Dose: 10 mg Zaleplon (Sonata) 5 mg PO HS PRN PRN Reason: Insomnia - Additional Findings Additional findings: [facility] [address] [facility], [address] Health Information Management Consult Note : [phone] Draft Patient: MONICO LUBIN Acct:[id number] Unit: [id number] : 1965 Loc: PSYC Room/Bed: [facility] Age/Sex: 51 / F ADM Status: ADM IN ADM Date: 04/03/17 Dis Date: Dictated By: Desean Pinto MD History of Present Illness - History of Present Illness History of Present Illness: INCREASING DEPRESSION X 2 WEEKS ANXIETY POOR NIGHT TIME SLEEP ?? DAYTIME HYPER SOMNOLENCE. Review of Systems - Constitutional Constitutional: As Per HPI - EENT Eyes: As Per HPI Ears: As Per HPI Nose/Mouth/Throat: As Per HPI - Cardiovascular Cardiovascular: As Per HPI - Respiratory Respiratory: As Per HPI - Gastrointestinal Gastrointestinal: As Per HPI - Genitourinary Genitourinary: As Per HPI - Reproductive: Female Reproductive:Female: As Per HPI - Menstruation Menstruation: As Per HPI - Musculoskeletal Musculoskeletal: As Per HPI - Neurological Neurological: As Per HPI - Psychiatric Psychiatric: Abnormal Sleep Pattern, Anxiety, Depression, Panic Attacks - Endocrine Endocrine: As Per HPI - Hematologic/Lymphatic Hematologic: As Per HPI Past Patient History - Infectious Disease Hx of Infectious Diseases: None - Tetanus Immunizations Tetanus Immunization: Unknown - Past Medical History & Family History Past Medical History?: Yes - Past Social History Smoking Status: Never Smoked - CARDIAC Hx Hypercholesterolemia: Yes Hx Hypertension: Yes Hx Peripheral Edema: Yes Other/Comment: MORBID OBESITY,HTN,TACHYCARDIA,PRE DAIBETES,DYSLIPDEMIA, POSSIBLE SLEEP RELATED DISORDER. HX OF MULTIPLE EXACERABTION OF ANXIETY, DEPRESSION, PANIC DISORDER WITH AGORAPHOBIA. - PULMONARY Hx Respiratory Disorders: No Hx Tuberculosis: No - NEUROLOGICAL HX Cerebrovascular Accident: No Hx Seizures: No - HEENT Hx HEENT Problems: No (reading glasses) - RENAL Hx Chronic Kidney Disease: No - ENDOCRINE/METABOLIC Hx Endocrine Disorders: Yes Hx Diabetes Mellitus Type 2: Yes Other/Comment: HYPOVITAMINOSIS-D - HEMATOLOGICAL/ONCOLOGICAL Hx Blood Disorders: No Hx Cancer: No - INTEGUMENTARY Hx Dermatological Problems: No - MUSCULOSKELETAL/RHEUMATOLOGICAL Hx Musculoskeletal Disorders: No - GASTROINTESTINAL Hx Gastrointestinal Disorders: No - GENITOURINARY/GYNECOLOGICAL Hx Sexually Transmitted Disorders: No - PSYCHIATRIC Hx Anxiety: Yes Hx Depression: Yes Hx Panic Symptoms: Yes Hx Substance Use: No - SURGICAL HISTORY Hx Amputation: No Hx Appendectomy: No Hx Cholecystectomy: No Hx Gastric Bypass Surgery: No Hx Hysterectomy: No Hx Joint Replacement: No Hx Kidney Transplant: No Hx Liver Transplant: No Hx Mastectomy: No Hx Musculoskeletal Surgery: No Hx Open Heart Surgery: No Hx Orthopedic Surgery: No Hx Splenectomy: No Hx Valve Replacement: No Other/Comment: d and c x 2 - ANESTHESIA Hx Anesthesia: Yes Hx Anesthesia Reactions: No Hx Malignant Hyperthermia: No Meds Allergies/Adverse Reactions: Allergies Allergy/AdvReac Type Severity Reaction Status Date / Time naproxen Allergy RASH Verified 04/03/17 18:17 - Medications Medications: Current Medications Acetaminophen (Tylenol 325mg Tab) 650 mg PO Q6H PRN PRN Reason: Pain, Mild (1-3) Al Hydrox/Mg Hydrox/Simethicone (Maalox Plus 30 Ml) 30 ml PO DAILY PRN PRN Reason: Upset Stomach Clonazepam (Klonopin) 0.5 mg PO 0800,1400,2200 HOOD PRN Reason: Protocol Fluoxetine HCl (Prozac) 40 mg PO DAILY HOOD Magnesium Hydroxide (Milk Of Magnesia) 30 ml PO DAILY PRN PRN Reason: Constipation Zaleplon (Sonata) 5 mg PO HS PRN PRN Reason: Insomnia Physical Exam - Head Exam Head Exam: ATRAUMATIC - Eye Exam Eye Exam: EOMI, Normal appearance, PERRL Pupil Exam: NORMAL ACCOMODATION, PERRL - ENT Exam ENT Exam: Mucous Membranes Moist, Normal Exam - Neck Exam Neck exam: Positive for: Normal Inspection - Respiratory Exam Respiratory Exam: Clear to Auscultation Bilateral, NORMAL BREATHING PATTERN - Cardiovascular Exam Cardiovascular Exam: REGULAR RHYTHM - GI/Abdominal Exam GI & Abdominal Exam: Normal Bowel Sounds, Soft Additional comments: MORBID OBESE ABDOMEN. - Rectal Exam Rectal Exam: NORMAL INSPECTION - Exam Exam: NORMAL INSPECTION External exam: NORMAL EXTERNAL EXAM - Extremities Exam Extremities exam: Positive for: normal inspection - Back Exam Back exam: NORMAL INSPECTION - Neurological Exam Neurological exam: Alert, CN II-XII Intact, Normal Gait, Oriented x3, Reflexes Normal - Psychiatric Exam Psychiatric exam: Anxious, Normal Affect, Normal Mood - Skin Skin Exam: Dry, Intact, Normal Color, Warm Results - Vital Signs Recent Vital Signs: Last Vital Signs Temp 97.8 F 04/03/17 12:52 Pulse 74 04/03/17 12:52 Resp 18 04/03/17 17:40 BP 143/89 04/03/17 12:52 Pulse Ox 96 04/03/17 12:52 - Labs Result Diagrams: 04/03/17 11:45 04/03/17 11:45 - Impressions Impression: A/P ACUTE EXACERBATION OF RECURRENT DEPRESSION, ANXIETY AND PANIC DISORDER. ??SLEEP RELATED DISORDER AWITH DAYTIME HYPERSOMNOLENCE. HX HTN PRE DIABETES, OBESITY, DYSLIPIDEMIA, HYPOVITAMINOSIS-D, TACHYCARDIA ADMIT TO PSYCH FOR FURTHER INTERVENTIONS. APPEARS MEDICALLY STABLE ALL DIAGNOSTIC DATA REVIEWED AND D/W PATIENT. Dictated By: Blair TAPIA,Desean Fish Dictated Date/Time: 04/03/171931 Signed By: Signed Date/Time: Co-Signed By: Co-Signed Date/Time: Attestation: Assessment and Plan - Assessment and Plan (Free Text) Assessment: AE DEPRESSION AND ANXIETY
[2017-04-05 07:39] LABS: GLUCOSE,FASTING 100 mg/dL (65-110); HDL CHOLESTEROL 36 mg/dL (29-60)
[2017-04-05 07:51] LABS: LDL CHOLESTEROL 125 mg/dL (0-129)
[2017-04-05 07:53] LABS: FREE T4 1.03 ng/dL (0.78-2.19)
--- NOTE | 2017-04-05 08:25 | CP.PCM.PN ---
Subjective - Date & Time of Evaluation Date of Evaluation: 04/05/17 Time of Evaluation: 08:00 - Subjective Subjective: Patient is seen this morning. She is admitted to the psychiatry floor for anxiety. Objective - Vital Signs/Intake and Output Vital Signs (last 24 hours): Temp Pulse Resp BP Pulse Ox 97.8 F 62 18 102/69 96 04/03/17 12:52 04/04/17 21:11 04/03/17 17:40 04/04/17 21:11 04/03/17 12:52 - Medications Medications: Current Medications Acetaminophen (Tylenol 325mg Tab) 650 mg PO Q6H PRN PRN Reason: Pain, Mild (1-3) Al Hydrox/Mg Hydrox/Simethicone (Maalox Plus 30 Ml) 30 ml PO DAILY PRN PRN Reason: Upset Stomach Aspirin (Ecotrin) 81 mg PO DAILY [facility] Last Admin: 04/04/17 08:57 Dose: 81 mg Atorvastatin Calcium (Lipitor) 40 mg PO DIN [facility] Last Admin: 04/04/17 17:41 Dose: 40 mg Cholecalciferol (Vitamin D) 2,000 iu PO DAILY [facility] Last Admin: 04/04/17 08:58 Dose: 2,000 iu Clonazepam (Klonopin) 0.25 mg PO 1400 [facility] PRN Reason: Protocol Last Admin: 04/04/17 14:04 Dose: 0.25 mg Clonazepam (Klonopin) 0.5 mg PO 0800,2200 [facility] PRN Reason: Protocol Last Admin: 04/04/17 21:12 Dose: 0.5 mg Fluoxetine HCl (Prozac) 40 mg PO DAILY [facility] Last Admin: 04/04/17 08:56 Dose: 40 mg Fluoxetine HCl (Prozac) 10 mg PO 1400 [facility] Last Admin: 04/04/17 14:04 Dose: 10 mg Losartan Potassium (Cozaar) 50 mg PO DAILY [facility] Last Admin: 04/04/17 08:57 Dose: 50 mg Magnesium Hydroxide (Milk Of Magnesia) 30 ml PO DAILY PRN PRN Reason: Constipation Propranolol HCl (Inderal) 10 mg PO HS [facility] Last Admin: 04/04/17 21:11 Dose: 10 mg Zaleplon (Sonata) 5 mg PO HS PRN PRN Reason: Insomnia - Constitutional Appears: No Acute Distress - Head Exam Head Exam: ATRAUMATIC, NORMOCEPHALIC - Cardiovascular Exam Cardiovascular Exam: +S1, +S2 - GI/Abdominal Exam GI & Abdominal Exam: Soft, Normal Bowel Sounds. absent: Tenderness - Neurological Exam Neurological Exam: Alert, Awake, Oriented x3 Assessment and Plan - Assessment and Plan (Free Text) Assessment: HTN HLP Anxiety Vitamin D deficiency Plan: continue vit D supplements, antihypertensives for hypertension and lipitor for hyperlipidemia anxiety treatment as per psychiatry
[2017-04-05 10:23] VITALS: TEMP 98.1
--- NOTE | 2017-04-05 14:15 | PCM.PYCHPN ---
Psychiatric Progress Note - Psychiatric Progress Note Patient seen today, length of contact: 30 minutes Patient Chief Complaint: "the problem is, my anxiety could be presented with different symptoms, I didn' t know that I had a panic attack" Problems Identified/Issues Discussed: Suicide/ homicide prevention, past psychiatric h/o, current psychiatric symptoms , medical problems, risk/benefits and alternatives of medications, medications compliance, coping strategies, substance abuse h/o, relapse prevention, importance of follow up with psychiatrist and therapist, discharge plan. Medical Problems: HTN, dyslipidemia see medical tem for additional information Diagnostic Results: 04/03/17 11:45 04/03/17 11:45 Lab Results 04/05/17 07:00: Free T4 1.03, TSH 3rd Generation 1.79 04/05/17 07:00: Fasting Glucose 100, Triglycerides 144, Cholesterol 179, LDL Cholesterol Direct 125, HDL Cholesterol 36 04/03/17 11:45: Alcohol, Quantitative < 10 04/03/17 11:45: Salicylates < 1 L, Acetaminophen < 10.0 L 04/03/17 11:45: Urine Opiates Screen Negative, Urine Methadone Screen Negative, Ur Barbiturates Screen Negative, Ur Phencyclidine Scrn Negative, Ur Amphetamines Screen Negative, U Benzodiazepines Scrn Negative, U Oth Cocaine Metabols Negative, U Cannabinoids Screen Negative 04/03/17 11:45: Sodium 137, Potassium 3.8, Chloride 101, Carbon Dioxide 28, Anion Gap 12, BUN 14, Creatinine 0.7, Est GFR ( Amer) > 60, Est GFR (Non- Af Amer) > 60, Random Glucose 102, Calcium 9.5, Total Bilirubin 1.2, AST 23, ALT 22, Alkaline Phosphatase 101, Total Protein 7.8, Albumin 4.0, Globulin 3.8, Albumin/Globulin Ratio 1.1 04/03/17 11:45: Urine Color Straw, Urine Appearance Clear, Urine pH 6.5, Ur Specific [place] <= 1.005, Urine Protein Negative, Urine Glucose (UA) Negative, Urine Ketones Negative, Urine Blood Negative, Urine Nitrate Negative, Urine Bilirubin Negative, Urine Urobilinogen 0.2, Ur Leukocyte Esterase Negative 04/03/17 11:45: WBC 6.4, RBC 4.22, Hgb 12.7, Hct 38.4, MCV 91.0, MCH 30.1, MCHC 33.1, RDW 13.4, Plt Count 346, MPV 8.2, Gran % 65.2, Lymph % (Auto) 26.8, [place] % (Auto) 5.8, Eos % (Auto) 1.7, Baso % (Auto) 0.5, Gran # 4.18, Lymph # 1.7, [place] # 0.4, Eos # 0.1, Baso # 0.03 Vital Signs Temp Pulse Resp BP Pulse Ox 04/05/17 10:22 98.1 F 76 16 131/78 04/05/17 08:46 76 131/78 04/04/17 21:11 62 102/69 04/04/17 16:00 62 102/69 04/04/17 08:57 69 131/80 04/03/17 22:32 78 115/79 04/03/17 17:40 18 04/03/17 12:52 97.8 F 74 20 143/89 96 04/03/17 10:50 98.5 F 75 20 133/83 96 DSM 5 Symptoms Update: shortly patient is 51 years old female, with h/o anxiety, most likely panic disorder with agoraphobia, two previous admission to the psych unit pt was d/c 02/21/2017, pt currently under service (local psychiatrist), no suicidal attempts, patient brought to the ED by her son, c/o "something stuck in my throat, feeling of anxious", pt requested to be admitted to the psych unit , pt said she cannot function, at present moment pt feels her depression "is worse", pt was keep coming to ED for evaluation, (since October 2016 patient had 15 visits to the emergency room for panic attacks), pt reported being compliant with meds and f/u appts and therapy sessions, but still requested admission. pt was seen at the treatment team affect is brighter, pt said that she could have panic attacks presenting with different symptoms, pt was educated abut CBT , some techniques implemented, pt was receptive. this wrier had a family meeting with pt's Filemon, [phone]/ [phone] yesterday, pt gave permission to speak to him, pt was more depressed for the past two years, pt was not that active as she used to be, pt never verbalized thoughts of harming self or others, family seems to be supportive. pt's was receptive to have family sessions. pt tolerates meds well, no side effects observed or reported, AIMS 0, no EPS. klonopin was decreased yesterday, pt said "I am less sleepy", when this hand sign writer asked if she wants to d/c 2pm dose, pt refused. pt is in agreement to increase Prozac to 60mg daily as per RN report pt is calm,cooperative, less depressed, socially appropriate. Impression: panic disorder mdd Medication Change: Yes (prozac increased, klonopin decresaed) Medical Record Reviewed: Yes Consults ordered or reviewed: medical consult appreciated Mental Status Examination - Cognitive Function Orientation: Person, Place, Situation, Time Memory: Intact Attention: WNL Concentration: WNL Association: WN Fund of Knowledge: WN - Mood Mood: Depressed (less), Anxious (less) - Affect Affect: Constricted (but reactive mood congruent) - Formal Thought Process Formal Thought Process: No Impairment - Suicidal Ideation Suicidal Ideation: No - Homicidal Ideation Homicidal Ideation: No Goal/Treatment Plan - Goal/Treatment Plan Need for Continued Stay: Remain at risks for inpatient hospitalization, Severe depression anxiety, Discharge may exacerbated symptoms, Failed transitioning, Severe functional impairment Progress Toward Problem(s) and Goals/Treatment Plan: milieu, structure, supportive therapy Aspirin [Aspirin Chewable] 81 mg PO DAILY resumed Atorvastatin [Lipitor] 40 mg PO DIN resumed Cholecalciferol [Vitamin D 1000 IU] 2,000 iu PO DAILY resumed FLUoxetine [Prozac] will be increased to 60mg daily for depression and anxiety Losartan [Cozaar] 50 mg PO DAILY will be resumed clonazePAM [Klonopin] 0.5 mg PO 0800,2200 and 0.25 mg at 2 PM for anxiety Propranolol [Inderal] 10 mg PO DAILY we'll discuss with the medical team sometimes better blockers could give worsening of depression Dr. 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
[2017-04-06 07:47] VITALS: RESP 20
--- NOTE | 2017-04-06 08:37 | CP.PCM.PN ---
Subjective - Date & Time of Evaluation Date of Evaluation: 04/06/17 Time of Evaluation: 08:15 - Subjective Subjective: Patient to be discharged today. She has no new complaints. Objective - Vital Signs/Intake and Output Vital Signs (last 24 hours): Temp Pulse Resp BP Pulse Ox 98.1 F 65 20 130/95 H 96 04/06/17 07:46 04/06/17 07:46 04/06/17 07:46 04/06/17 07:46 04/03/17 12:52 - Medications Medications: Current Medications Acetaminophen (Tylenol 325mg Tab) 650 mg PO Q6H PRN PRN Reason: Pain, Mild (1-3) Al Hydrox/Mg Hydrox/Simethicone (Maalox Plus 30 Ml) 30 ml PO DAILY PRN PRN Reason: Upset Stomach Aspirin (Ecotrin) 81 mg PO DAILY REPLACED BY [facility] Last Admin: 04/05/17 08:47 Dose: 81 mg Atorvastatin Calcium (Lipitor) 40 mg PO DIN REPLACED BY [facility] Last Admin: 04/05/17 16:46 Dose: 40 mg Cholecalciferol (Vitamin D) 2,000 iu PO DAILY REPLACED BY [facility] Last Admin: 04/05/17 08:47 Dose: 2,000 iu Clonazepam (Klonopin) 0.25 mg PO 1400 [facility]PL[facility]ED BY [facility] PRN Reason: Protocol Last Admin: 04/05/17 14:11 Dose: 0.25 mg Clonazepam (Klonopin) 0.5 mg PO 0800,2200 REPLACED BY [facility] PRN Reason: Protocol Last Admin: 04/05/17 22:25 Dose: 0.5 mg Fluoxetine HCl (Prozac) 40 mg PO DAILY REPLACED BY [facility] Last Admin: 04/05/17 08:46 Dose: 40 mg Fluoxetine HCl (Prozac) 20 mg PO 1400 REPLACED BY [facility] Losartan Potassium (Cozaar) 50 mg PO DAILY REPLACED BY [facility] Last Admin: 04/05/17 08:46 Dose: 50 mg Magnesium Hydroxide (Milk Of Magnesia) 30 ml PO DAILY PRN PRN Reason: Constipation Propranolol HCl (Inderal) 10 mg PO HS REPLACED BY [facility] Last Admin: 04/05/17 21:35 Dose: 10 mg Zaleplon (Sonata) 5 mg PO HS PRN PRN Reason: Insomnia - Respiratory Exam Respiratory Exam: Clear to Ausculation Bilateral, NORMAL BREATHING PATTERN - Cardiovascular Exam Cardiovascular Exam: +S1, +S2 - GI/Abdominal Exam GI & Abdominal Exam: Soft, Normal Bowel Sounds - Neurological Exam Neurological Exam: Alert, Awake, Oriented x3 Assessment and Plan - Assessment and Plan (Free Text) Assessment: HTN HLP Vitamin D deficiency Anxiety Plan: Patient to be discharged home today. continue antihypertensives, Vitamin D as she was taking at home continue psychiatric medications as per psychiatry followup with PMD
--- NOTE | 2017-04-06 15:33 | PCM.PYCHDC ---
Mental Status Examination - Mental Status Examination Orientation: Person, Place, Situation, Time Memory: Intact Mood: Neutral Affect: Constricted (but reactive mood congruent) Speech: Appropriate Attention: WNL Concentration: WNL Association: WNL Fund of Knowledge: WNL Formal Thought Process: No Impairment Description of patient's judgement and insight: Pt has improved insight into mental and medical illness, pt was compliant with medications and unit rules and regulations, pt was going to groups, was calm, cooperative, socially appropriate, no behavioral incidents, no agitation, no aggression. Psychotic Thoughts and Behaviors: Pt denied v/a/t hallucinations, denied paranoid ideations, pt does not appear to be psychotic, and thought process is goal directed. Suicidal Ideation: No Current Homicidal Ideation?: No Plan: pt adamantly denied thoughts of harming self or others denied intent or plan. Discharge Summary - Discharge Note Reason for Hospitalization: radha was admitted to the psychiatric inpatient unit for evaluation and stabilization of depressive symptoms, inability to function, feeling anxious, for medication adjustment. Patient wants to be in the hospital in order to adjust medications, willing to get treatment. Psychiatric History (includes Medical, Family, Personal Hx): see HPI Laboratory Data: Abnormal Lab Results 04/05/17 07:00 RPR Nonreactive Consultations:: List each consultation separately and include: 1. Reason for request. 2. Findings. 3. Follow-up Consultations: medical consult appreciated Summary of Hospital Course include:: 1. Description of specific treatment plan utilized for patients during their course of treatmen. 2. Summarize the time- course for resolution of acute symptoms and/or regressed behaviors. 3. Describe issues identified and worked on during hospitalization. 4. Describe medication utilized. 5. Describe medical problems identified and treated. 6. Reassessment of suicide risk Summary of Hospital Course: shortly patient is 51 years old female, with h/o anxiety, most likely panic disorder with agoraphobia, two previous admission to the psych unit pt was d/c 02/21/2017, pt currently under service (local psychiatrist), no suicidal attempts, patient brought to the ED by her son, c/o "something stuck in my throat, feeling of anxiou", pt requested to be admitted to the psych unit , pt said she cannot function, at present moment pt feels her depression "is worse", pt was keep coming to ED for evaluation, (since October 2016 patient had 15 visits to the emergency room for panic attacks), pt reported being compliant with meds and f/u appts and therapy sessions, but still requested admission. pt was seen at the treatment team today good personal hygiene, good ADLs, this wrier is very familiar with the pt from the previous admissions. Pt reported that was prescribed a new medication Rexulti, "I was feeling that I am drugged up, I was feeling that I am like a zombie", pt said that she stopped taking it right after the first dose. Pt said that she had "relatively good three days last week, I thought that I am better, but I was wrong...", pt said that she has no energy, no motivation, "I could stay in bed all day long", pt said that her anxiety "cold be presented with different symptoms, I could be very anxious, tremolos, I could have feeling that something is stuck in my throat, I could have feeling that my chest is heavy". pt denied thoughts of harming self or others, but obviously "I am not functioning at all". Patient reported there is no stress in the house, patient has supportive and loving family, patient denied hearing voices denied seeing things, patient denied smoking denies using drugs. pt said that she is not afraid of deaths, denied fear of aging. Past psych h/o: patient said that since November 2016 patient started to feel depressed, there is no precipitating factors, and anxious. Initially Dr. Marroquin prescribed her Xanax 0.25 mg twice a day as needed and Cymbalta. Currently pt under care of Dr. Marrero, see above. Medical h/o: obesity and HTN, pt was seen by Bul[facility] Weeder about two months ago. Family h/o: denied Patient denied history of abuse, denied history of trauma. in regards of meds, 2pm dose of klonopin "I feel very sleepy on it", will decrease it. pt is willing to increase prozac, "I think it is working". 04/03/17 11:45 04/03/17 11:45 Lab Results 04/03/17 11:45: Alcohol, Quantitative < 10 04/03/17 11:45: Salicylates < 1 L, Acetaminophen < 10.0 L 04/03/17 11:45: Urine Opiates Screen Negative, Urine Methadone Screen Negative, Ur Barbiturates Screen Negative, Ur Phencyclidine Scrn Negative, Ur Amphetamines Screen Negative, U Benzodiazepines Scrn Negative, U Oth Cocaine Metabols Negative, U Cannabinoids Screen Negative 04/03/17 11:45: Sodium 137, Potassium 3.8, Chloride 101, Carbon Dioxide 28, Anion Gap 12, BUN 14, Creatinine 0.7, Est GFR ( Amer) > 60, Est GFR (Non- Af Amer) > 60, Random Glucose 102, Calcium 9.5, Total Bilirubin 1.2, AST 23, ALT 22, Alkaline Phosphatase 101, Total Protein 7.8, Albumin 4.0, Globulin 3.8, Albumin/Globulin Ratio 1.1 04/03/17 11:45: Urine Color Straw, Urine Appearance Clear, Urine pH 6.5, Ur Specific [place] <= 1.005, Urine Protein Negative, Urine Glucose (UA) Negative, Urine Ketones Negative, Urine Blood Negative, Urine Nitrate Negative, Urine Bilirubin Negative, Urine Urobilinogen 0.2, Ur Leukocyte Esterase Negative 04/03/17 11:45: WBC 6.4, RBC 4.22, Hgb 12.7, Hct 38.4, MCV 91.0, MCH 30.1, MCHC 33.1, RDW 13.4, Plt Count 346, MPV 8.2, Gran % 65.2, Lymph % (Auto) 26.8, [place] % (Auto) 5.8, Eos % (Auto) 1.7, Baso % (Auto) 0.5, Gran # 4.18, Lymph # 1.7, [place] # 0.4, Eos # 0.1, Baso # 0.03 Vital Signs Temp Pulse Resp BP Pulse Ox 04/04/17 08:57 69 131/80 04/03/17 22:32 78 115/79 04/03/17 17:40 18 04/03/17 12:52 97.8 F 74 20 143/89 96 04/03/17 10:50 98.5 F 75 20 133/83 96 Prozac was increased to 60 mg a day Klonopin was decreased to 0.5 mg at the morning time 0.25 mg at afternoon and 0.5 mg at the nighttime CBT was provided to the patient, patient was receptive this hand sign writer had missing but patient Filemon, please see notes for more detailed information, patient was in agreement to have family sessions at Dr. Marrero's office. patient was seen by medical team, please see notes for more detailed information. Patient tolerates medications well, no side effects observed or reported. Over the course of this hospitalization pt was attending groups, pt also had medication management, had therapeutic milieu. Overall pt improved significantly, pt's affect became brighter, pt was less depressed, has realistic future oriented plans, pt also does not appear to be psychotic, or anxious, pt was socially appropriate, no behavioral issues, pts insight improved as well and soon pt deemed to be ready for discharge. At the time of the discharge pt denied been depressed, denied thoughts of harming self or others, denied psychotic symptoms, and pt does not appeared to be psychotic, denied been anxious, was considered to pose no threat to self or others, will be following up at 's office, information about follow up appointment, time and address provided to the pt, it is patient responsibility to follow up with outpatient clinic, PMD as well as specialists (see SW note for more detailed information). In case pt will need to obtain results of studies pending at discharge pt was provided with contact information of Psychiatric Inpatient unit [phone] as well as Medical Record Department [phone]. pt was provided with prescriptions for all of medications (please see medication reconciliation form) Pt was educated about safety plan in case of worsening of symptoms or in case of suicidal or homicidal ideation call 911 or go to the nearest ER, also was educated to take meds as prescribed and stay away from drugs, pt verbalized understanding. - Diagnosis (1) Major depressive disorder Current Visit: No Status: Acute Priority: Low (2) Panic disorder with agoraphobia Current Visit: No Status: Acute Priority: Medium - Final Diagnosis (DSM 5) Condition upon Discharge: GOOD Disposition: HOME/ ROUTINE Follow-up Treatment Plan: At the time of the discharge pt denied been depressed, denied thoughts of harming self or others, denied psychotic symptoms, and pt does not appeared to be psychotic, denied been anxious, was considered to pose no threat to self or others, will be following up at 's office, information about follow up appointment, time and address provided to the pt, it is patient responsibility to follow up with outpatient clinic, PMD as well as specialists (see SW note for more detailed information). In case pt will need to obtain results of studies pending at discharge pt was provided with contact information of Psychiatric Inpatient unit [phone] as well as Medical Record Department [phone]. pt was provided with prescriptions for all of medications (please see medication reconciliation form) Pt was educated about safety plan in case of worsening of symptoms or in case of suicidal or homicidal ideation call 911 or go to the nearest ER, also was educated to take meds as prescribed and stay away from drugs, pt verbalized understanding. off note patient was provided with prescription for Prozac 20 mg daily only because patient has 40 mg of the Prozac at home No Klonopin prescription was provided to the patient because patient has 0.5 mg 3 times a day back at home, patient was advised to score 0.5 mg at the afternoon and take only half of the pill at the afternoon. Patient steak and Prozac for anxiety and depression as well as Klonopin as needed for anxiety. This hand sign writer spent more than 30 minutes with the patient today before discharge. CBT technique was explained to the patient patient was receptive. Prescriptions/Medication Reconciliation: clonazePAM [Klonopin] 0.25 mg PO 1400 #7 tab clonazePAM [Klonopin] 0.5 mg PO 0800,2200 #30 tab FLUoxetine [Prozac] 60 mg PO DAILY #45 cap - Smoking Cessation Smoking Cessation Medication prescribed: No Reason for not providing: atient doesn't smoke - Antipsychotic Medications Pt discharged on 2 or more routine antipsychotic medications: No
[2017-04-06 17:03] VITALS: BP 130/95; PULSE 65
== END 2017-04-06 16:45 | disposition home or self-care (01) | DRG 885 ==
LOC: ED 10:33 → ERH 13:42 → PSYC 14:59
PROVIDERS: ADMIT Psychiatry & Neurology Psychiatry; ATTEND Psychiatry & Neurology Psychiatry
DX: F33.9 Major depressive disorder, recurrent, unspecified (principal); Z68.43 Body mass index [BMI] 50.0-59.9, adult; I10 Essential (primary) hypertension; E66.01 Morbid (severe) obesity due to excess calories; E11.9 Type 2 diabetes mellitus without complications; E55.9 Vitamin D deficiency, unspecified; F40.01 Agoraphobia with panic disorder; E78.00 Pure hypercholesterolemia, unspecified; E78.5 Hyperlipidemia, unspecified; F41.1 Generalized anxiety disorder; G47.10 Hypersomnia, unspecified; Z79.899 Other long term (current) drug therapy; Z88.6 Allergy status to analgesic agent; R40.2412 Glasgow coma scale score 13-15, at arrival to emergency department; R00.0 Tachycardia, unspecified

== ENCOUNTER 2017-05-22 13:43 | Emergency (ER) | payer BC ==
[2017-05-22 13:58] VITALS: BMI 50.8
[2017-05-22 14:01] VITALS: RESP 18; TEMP 98.7; O2SAT 98
--- NOTE | 2017-05-22 14:15 | ED PDOC ---
Arrival/HPI - General Chief Complaint: Psychiatric Evaluation Time Seen by Provider: 05/22/17 14:02 Historian: Patient - History of Present Illness Narrative History of Present Illness (Text): 05/22/17 14:12 A 51 year old female, whose past medical history includes hypertension, anxiety and depression, presents to the emergency department complaining of anxiety and depression. Patient reports she feels her medications are not effective. Patient denies any physical complaints. Patient denies any fever, chills, nausea , vomiting, abdominal pain, chest pain, shortness of breath, suicidal ideation, homicidal ideation or any other complaints. Time/Duration: Prior to Arrival Symptom Course: Unchanged Quality: Other Context: Home Past Medical History - Provider Review Nursing Documentation Reviewed: Yes - Infectious Disease Hx of Infectious Diseases: None - Tetanus Immunization Tetanus Immunization: Unknown - Cardiac Hx Hypertension: Yes Hx Peripheral Edema: Yes Other/Comment: MORBID OBESITY,HTN,TACHYCARDIA,PRE DAIBETES,DYSLIPDEMIA, POSSIBLE SLEEP RELATED DISORDER. HX OF MULTIPLE EXACERABTION OF ANXIETY, DEPRESSION, PANIC DISORDER WITH AGORAPHOBIA. - Pulmonary Hx Respiratory Disorders: Yes - Neurological HX Cerebrovascular Accident: No Hx Seizures: No - HEENT Hx HEENT Disorder: No (reading glasses) - Renal Hx Renal Disorder: No - Endocrine/Metabolic Hx Endocrine Disorders: Yes Hx Diabetes Mellitus Type 2: Yes Other/Comment: HYPOVITAMINOSIS-D - Hematological/Oncological Hx Blood Disorders: No Hx Cancer: No - Integumentary Hx Dermatological Disorder: No - Musculoskeletal/Rheumatological Hx Musculoskeletal Disorders: No - Gastrointestinal Hx Gastrointestinal Disorders: No - Genitourinary/Gynecological Hx Sexually Transmitted Diseases: No - Psychiatric Hx Depression: No Hx Substance Use: No - Surgical History Hx Amputation: No Hx Appendectomy: No Hx Cholecystectomy: No Hx Gastric Bypass Surgery: No Hx Hysterectomy: No Hx Joint Replacement: No Hx Kidney Transplant: No Hx Liver Transplant: No Hx Mastectomy: No Hx Musculoskeletal Surgery: No Hx Open Heart Surgery: No Hx Orthopedic Surgery: No Hx Splenectomy: No Hx Valve Replacement: No Other/Comment: d and c x 2 - Anesthesia Hx Anesthesia: Yes Hx Anesthesia Reactions: No Hx Malignant Hyperthermia: No - Suicidal Assessment Feels Threatened In Home Enviroment: No Family/Social History - Physician Review Nursing Documentation Reviewed: Yes Family/Social History: No Known Family HX Smoking Status: Never Smoked Hx Alcohol Use: No Hx Substance Use: No Hx Substance Use Treatment: No Allergies/Home Meds Allergies/Adverse Reactions: Allergies naproxen Allergy (Verified 04/03/17 18:17) RASH Review of Systems - Physician Review All systems were reviewed & negative as marked: Yes - Review of Systems Constitutional: absent: Fevers, Night Sweats Respiratory: absent: SOB Cardiovascular: absent: Chest Pain Gastrointestinal: absent: Abdominal Pain, Nausea, Vomiting Psychiatric: Anxiety, Depression. absent: Suicidal Ideation (/Homicidal ideation) Physical Exam Vital Signs Reviewed: Yes Vital Signs Temp Pulse Resp BP Pulse Ox 05/22/17 16:05 98 H 18 108/77 98 05/22/17 14:01 98.7 F 85 18 92/61 L 98 Temperature: Afebrile Blood Pressure: Hypotensive Pulse: Regular Respiratory Rate: Normal Appearance: Positive for: Well-Appearing, Non-Toxic, Comfortable Pain Distress: None Mental Status: Positive for: Alert and Oriented X 3 - Systems Exam Head: Present: Atraumatic, Normocephalic Pupils: Present: PERRL Extroacular Muscles: Present: EOMI Conjunctiva: Present: Normal Mouth: Present: Moist Mucous Membranes Neck: Present: Normal Range of Motion Respiratory/Chest: Present: Clear to Auscultation, Good Air Exchange. No: Respiratory Distress, Accessory Muscle Use Cardiovascular: Present: Regular Rate and Rhythm, Normal S1, S2. No: Murmurs Abdomen: Present: Normal Bowel Sounds. No: Tenderness, Distention, Peritoneal Signs Back: Present: Normal Inspection Upper Extremity: Present: Normal Inspection. No: Cyanosis, Edema Lower Extremity: Present: Normal Inspection. No: Edema Neurological: Present: GCS=15, CN II-XII Intact, Speech Normal Skin: Present: Warm, Dry, Normal Color. No: Rashes Psychiatric: Present: Alert, Oriented x 3, Anxious, Depressed Mood Medical Decision Making ED Course and Treatment: 05/22/17 14:12 Impression: A 51 year old female with anxiety and depression. Patient denies any suicidal or homicidal ideation. Plan: -- Chest xray -- EKG -- Labs -- Urinalysis -- Reassess and disposition Progress Notes: EKG shows NSR at [address]/T wave changes. Interpreted by me. 05/22/17 15:55 Patient evaluated by PES worker and cleared for discharge. - Lab Interpretations I have reviewed the lab results: Yes - Scribe Statement The provider has reviewed the documentation as recorded by the Scribe Karen Huff Provider Scribe Attestation: All medical record entries made by the Scribe were at my direction and personally dictated by me. I have reviewed the chart and agree that the record accurately reflects my personal performance of the history, physical exam, medical decision making, and the department course for this patient. I have also personally directed, reviewed, and agree with the discharge instructions and disposition. Disposition/Present on Arrival - Present on Arrival Any Indicators Present on Arrival: No History of DVT/PE: No History of Uncontrolled Diabetes: No Urinary Catheter: No History of Decub. Ulcer: No History Surgical Site Infection Following: None - Disposition Have Diagnosis and Disposition been Completed?: Yes Diagnosis: Anxiety, Depression Disposition: HOME/ ROUTINE Disposition Time: 17:35 Condition: STABLE Discharge Instructions (ExitCare): Depression (ED), Suicide Prevention for Adults (DC), Anxiety (ED) Additional Instructions: please folloow up with your doctor and as instructed by pes worker. return to er with worsening symptoms or concerns. Referrals: [facility] [Outside] - Follow up with primary Pete Marroquin MD [Primary Care Provider] - Follow up with primary Forms: [employer] (Khmer)
[2017-05-22 16:17] VITALS: BP 108/77; PULSE 98
--- NOTE | 2017-05-23 19:34 | CARD ---
APPROVED REPORT EKG Measurement Heart [id number] <Conclusion> Normal sinus rhythm Normal ECG
== END 2017-05-22 16:05 | disposition home or self-care (01) ==
LOC: ED 13:43
DX: F41.9 Anxiety disorder, unspecified (principal); F32.9 Major depressive disorder, single episode, unspecified; I10 Essential (primary) hypertension

== ENCOUNTER 2017-10-23 18:40 | Emergency (ER) | payer BC ==
[2017-10-23 18:41] VITALS: BMI 50.8
--- NOTE | 2017-10-23 20:10 | ED PDOC ---
Arrival/HPI - General Historian: Patient - History of Present Illness Symptom Onset: Gradual Symptom Course: Unchanged Severity Level: Mild Context: Home <Marcel Hansen - Last Filed: 10/24/17 00:14> <Enmanuel Hoffman - Last Filed: 10/26/17 14:26> - General Chief Complaint: Palpitations Time Seen by Provider: 10/23/17 19:25 - History of Present Illness Narrative History of Present Illness (Text): 10/23/17 19:30 Karen Hogan is a 52 year old female, whose past medical history includes anxiety and depression, who presents to the emergency department complaining of feeling lethargic and weak with associated palpitations in panic attacks and aches and pains in shoulders for a few days. Patient states that she has stopped taking her medications, working with her psychiatrists, and going to to her therapist because nothing is working for her. Patient has no other complaints at this time. (Marcel Hansen) Past Medical History - Provider Review Nursing Documentation Reviewed: Yes - Infectious Disease Hx of Infectious Diseases: None - Tetanus Immunization Tetanus Immunization: Unknown - Reproductive Menopause: Yes - Cardiac Hx Hypertension: Yes Hx Peripheral Edema: Yes Other/Comment: MORBID OBESITY,HTN,TACHYCARDIA,PRE DAIBETES,DYSLIPDEMIA, POSSIBLE SLEEP RELATED DISORDER. HX OF MULTIPLE EXACERABTION OF ANXIETY, DEPRESSION, PANIC DISORDER WITH AGORAPHOBIA. - Pulmonary Hx Respiratory Disorders: Yes - Neurological HX Cerebrovascular Accident: No Hx Seizures: No - HEENT Hx HEENT Disorder: No (reading glasses) - Renal Hx Renal Disorder: No - Endocrine/Metabolic Hx Endocrine Disorders: Yes Hx Diabetes Mellitus Type 2: Yes Other/Comment: HYPOVITAMINOSIS-D - Hematological/Oncological Hx Blood Disorders: No Hx Cancer: No - Integumentary Hx Dermatological Disorder: No - Musculoskeletal/Rheumatological Hx Musculoskeletal Disorders: No - Gastrointestinal Hx Gastrointestinal Disorders: No - Genitourinary/Gynecological Hx Sexually Transmitted Diseases: No - Psychiatric Hx Depression: No Hx Substance Use: No - Surgical History Hx Amputation: No Hx Appendectomy: No Hx Cholecystectomy: No Hx Gastric Bypass Surgery: No Hx Hysterectomy: No Hx Joint Replacement: No Hx Kidney Transplant: No Hx Liver Transplant: No Hx Mastectomy: No Hx Musculoskeletal Surgery: No Hx Open Heart Surgery: No Hx Orthopedic Surgery: No Hx Splenectomy: No Hx Valve Replacement: No Other/Comment: d and c x 2 - Anesthesia Hx Anesthesia: Yes Hx Anesthesia Reactions: No Hx Malignant Hyperthermia: No - Suicidal Assessment Feels Threatened In Home Enviroment: No <Marcel Hansen - Last Filed: 10/24/17 00:14> Family/Social History - Physician Review Nursing Documentation Reviewed: Yes Family/Social History: No Known Family HX Smoking Status: Never Smoked Hx Alcohol Use: No Hx Substance Use: No Hx Substance Use Treatment: No <Marcel Hansen - Last Filed: 10/24/17 00:14> Allergies/Home Meds <Marcel Hansen - Last Filed: 10/24/17 00:14> <Enmanuel Hoffman - Last Filed: 10/26/17 14:26> Allergies/Adverse Reactions: Allergies naproxen Allergy (Verified 10/23/17 18:55) RASH Home Medications: Home Meds Medication Instructions Recorded Confirmed Losartan [Cozaar] 100 mg PO DAILY 10/23/17 10/23/17 PARoxetine [Paxil] 0 mg PO BID 10/23/17 10/23/17 Propranolol [Inderal] 10 mg PO BID 10/23/17 10/23/17 Review of Systems - Physician Review All systems were reviewed & negative as marked: Yes - Review of Systems Constitutional: absent: Fevers, Night Sweats Eyes: absent: Vision Changes ENT: absent: Hearing Changes Respiratory: absent: SOB, Cough Cardiovascular: absent: Chest Pain Gastrointestinal: absent: Abdominal Pain Genitourinary Female: absent: Dysuria, Frequency Musculoskeletal: absent: Arthralgias Skin: absent: Rash, Pruritis Neurological: absent: Headache, Dizziness Endocrine: absent: Diaphoresis Hemo/Lymphatic: absent: Adenopathy Psychiatric: Anxiety, Depression <Marcel Hansen - Last Filed: 10/24/17 00:14> Physical Exam Vital Signs Reviewed: Yes Temperature: Afebrile Blood Pressure: Normal Pulse: Tachycardic Respiratory Rate: Normal Appearance: Positive for: Other (morbidly obese) Pain Distress: None Mental Status: Positive for: Alert and Oriented X 3 - Systems Exam Head: Present: Atraumatic, Normocephalic Pupils: Present: PERRL Extroacular Muscles: Present: EOMI Conjunctiva: Present: Normal Mouth: Present: Moist Mucous Membranes Neck: Present: Normal Range of Motion Respiratory/Chest: Present: Clear to Auscultation, Good Air Exchange. No: Respiratory Distress, Accessory Muscle Use Cardiovascular: Present: Regular Rate and Rhythm, Normal S1, S2. No: Murmurs Abdomen: Present: Normal Bowel Sounds. No: Tenderness, Distention, Peritoneal Signs Back: Present: Normal Inspection Upper Extremity: Present: Normal Inspection. No: Cyanosis, Edema Lower Extremity: Present: Normal Inspection. No: Edema Neurological: Present: GCS=15, CN II-XII Intact, Speech Normal Skin: Present: Warm, Dry, Normal Color. No: Rashes Psychiatric: Present: Alert, Oriented x 3, Normal Insight, Normal Concentration , Anxious, Depressed Mood <Marcel Hansen - Last Filed: 10/24/17 00:14> Vital Signs Temp Pulse Resp BP Pulse Ox 10/24/17 00:25 98.6 F 80 16 142/73 100 10/23/17 22:41 98.9 F 80 16 142/70 100 10/23/17 20:41 98.9 F 80 16 142/70 100 10/23/17 18:51 99 F 98 H 20 143/68 97 Medical Decision Making - Lab Interpretations I have reviewed the lab results: Yes <Marcel Hansen - Last Filed: 10/24/17 00:14> <Enmanuel Hoffman - Last Filed: 10/26/17 14:26> ED Course and Treatment: 10/23/17 20:11 Impression: 52 year old female who presents to the emergency department complaining of feeling lethargic and weak with associated palpitations in panic attacks and aches and pains in shoulders for a few days. Differential Diagnosis included but are not limited to: Depression Plan: -- Chest X-ray -- Urinalysis -- Labs -- Reassess and disposition Prior Visits: Notes and results from previous visits were reviewed. Patient was last seen in the emergency department on 05/22/17 for anxiety and depression. Patient was discharged home. Progress Notes: EKG: Ordered, reviewed, and independently interpreted the EKG. Rate : 92 BPM Rhythm : NSR Interpretation : Normal axis, normal intervals. 10/24/17 00:14 Patient seen by mental health worker and patient wants to go home. will dc with her labs to take to her doctor. (Marcel Hansen) 10/26/17 14:24 +Urine culture noted with +e.coli, no antibiotic prescribed, this is the second call and able to get in touch with the patient which I explained in detail plus advised to start on the macrobid as it is sensitive but she say that she is asymptomatic. Pt. stated that she will get the macrobid from her PMD Dr. Duque tomorrow for the macrobid prescription as she doesn't want to receive it from me or from the ER. Pt. verbally expressed understanding starting the antibiotic early is standard of care. (Enmanuel Hoffman) - Lab Interpretations Microbiology Results: Microbiology Results 10/23/17 20:30 Urine,Clean Catch Urine Culture - Final Escherichia Coli Lab Results: 10/23/17 20:00 10/23/17 20:00 Lab Results 10/23/17 20:30: Urine Color Yellow, Urine Appearance Sl cloudy, Urine pH 6.0, Ur Specific [place] 1.025, Urine Protein Negative, Urine Glucose (UA) Negative, Urine Ketones Negative, Urine Blood Large H, Urine Nitrate Negative, Urine Bilirubin Negative, Urine Urobilinogen 0.2, Ur Leukocyte Esterase Moderate H, Urine RBC 5 - 10, Urine WBC 2 - 5, Ur Epithelial Cells 10 - 12, Urine Bacteria Mod 10/23/17 20:00: TSH 3rd Generation 1.27, Alcohol, Quantitative < 10 10/23/17 20:00: Salicylates < 1 L, Acetaminophen < 10.0 L 10/23/17 20:00: Sodium 141, Potassium 4.0, Chloride 105, Carbon Dioxide 27, Anion Gap 13, BUN 16, Creatinine 0.7, Est GFR ( Amer) > 60, Est GFR (Non- Af Amer) > 60, Random Glucose 132 H, Calcium 9.6, Total Bilirubin 0.7, AST 19, ALT 19, Alkaline Phosphatase 91, Lactate Dehydrogenase 392, Total Creatine Kinase 54, Troponin I < 0.01, NT-Pro-B Natriuret Pep 30.4, Total Protein 7.7, Albumin 3.8, Globulin 3.9, Albumin/Globulin Ratio 1.0 L 10/23/17 20:00: WBC 8.6 D, RBC 4.07, Hgb 12.3, Hct 38.4, MCV 94.3, MCH 30.2, MCHC 32.0, RDW 13.1, Plt Count 334, MPV 8.4, Gran % 69.2 H, Lymph % (Auto) 22.9 , [place] % (Auto) 5.8, Eos % (Auto) 1.9, Baso % (Auto) 0.2, Gran # 5.97, Lymph # 2.0, [place] # 0.5, Eos # 0.2, Baso # 0.02 - RAD Interpretation Radiology Orders: 10/23/17 19:53 CHEST PORTABLE [RAD] Stat - PA / DECK CADET / Resident Statement MD/DO has reviewed & agrees with the documentation as recorded. - Scribe Statement The provider has reviewed the documentation as recorded by the Scribe <Marcel Hansen - Last Filed: 10/24/17 00:14> <Enmanuel Hoffman - Last Filed: 10/26/17 14:26> - Scribe Statement Sharri Taylor Provider Scribe Attestation: All medical record entries made by the Scribe were at my direction and personally dictated by me. I have reviewed the chart and agree that the record accurately reflects my personal performance of the history, physical exam, medical decision making, and the department course for this patient. I have also personally directed, reviewed, and agree with the discharge instructions and disposition. (Marcel Hansen) Disposition/Present on Arrival - Present on Arrival Any Indicators Present on Arrival: No History of DVT/PE: No History of Uncontrolled Diabetes: No Urinary Catheter: No History of Decub. Ulcer: No History Surgical Site Infection Following: None - Disposition Disposition Time: 00:15 Patient Plan: Discharge <Marcel Hansen - Last Filed: 10/24/17 00:14> - Disposition Have Diagnosis and Disposition been Completed?: Yes <Enmanuel Hoffman - Last Filed: 10/26/17 14:26> - Disposition Diagnosis: Severe depression, Generalized anxiety disorder with panic attacks Disposition: HOME/ ROUTINE Condition: GOOD Discharge Instructions (ExitCare): Depression (ED), Anxiety (ED) Additional Instructions: Mrs Hogan- Please speak with your psychiatrist about next steps. Return to us if problems or new symptoms. Dieter- Dr. Marcel Hansen Referrals: Pete Marroquin MD [Primary Care Provider] - Follow up with primary Forms: [employer] (Gabonese)
[2017-10-23 20:23] LABS: BASO # 0.02 K/mm3 (0.0-2.0); BASO % 0.2 % (0.0-3.0); EOS # 0.2 (0.0-0.7); EOS % 1.9 % (1.5-5.0); GRAN # 5.97 (1.4-6.5); GRAN % 69.2 % (50.0-68.0); HEMOGLOBIN 12.3 g/dL (12.0-16.0); LYMPH % 22.9 % (22.0-35.0); MEAN CELL VOLUME 94.3 fl (80.0-105.0); MEAN CORPUSCULAR HEMOGLOBIN 30.2 pg (25.0-35.0); MEAN PLATELET VOLUME 8.4 fl (7.0-11.0); MONO # 0.5 (0.1-0.6); MONO % 5.8 % (1.0-6.0); RBC 4.07 10^6/uL (3.5-6.1); RED CELL DISTRIBUTION WIDTH 13.1 % (11.5-14.5); WHITE BLOOD COUNT 8.6 10^3/ul (4.5-11.0)
[2017-10-23 20:29] LABS: ALBUMIN 3.8 g/dL (3.0-4.8); ALT/SGPT 19 U/L (7-56); AST/SGOT 19 U/L (14-36); BLOOD UREA NITROGEN 16 mg/dL (7-21); CALCIUM 9.6 mg/dL (8.4-10.5); GFR AFRICAN-AMERICAN > 60; GFR NON-AFRICAN AMERICAN > 60
[2017-10-23 20:30] LABS: ACETAMINOPHEN < 10.0 ug/ml (10.0-20.0); SALICYLATE < 1 mg/dL (2.0-20.0)
[2017-10-23 20:41] LABS: B-TYPE NATRIURETIC PEPTIDE 30.4 pg/mL (0-450); TROPONIN I < 0.01 ng/mL
[2017-10-23 21:04] LABS: URINE BILIRUBIN NEGATIVE (NEGATIVE); URINE BLOOD LARGE (NEGATIVE); URINE GLUCOSE (UA) NEGATIVE (NEGATIVE); URINE LEUKOCYTE ESTERASE MODERATE Leu/uL (NEGATIVE); URINE NITRATE NEGATIVE (NEGATIVE); URINE PROTEIN NEGATIVE mg/dL (<30 mg/dL); URINE UROBILINOGEN 0.2 E.U./dL (<1 E.U./dL)
[2017-10-23 21:14] LABS: URINE APPEARANCE SL CLOUDY (CLEAR); URINE COLOR YELLOW (YELLOW)
[2017-10-23 21:33] LABS: URINE BACTERIA MOD (NEG)
[2017-10-23 23:52] VITALS: PULSE 80; RESP 16; O2SAT 100
[2017-10-24 00:25] VITALS: BP 142/73; TEMP 98.6
--- NOTE | 2017-10-24 14:01 | RAD ---
HISTORY: Chest TTightness and Shoulder Aching COMPARISON: 03/24/2017 FINDINGS: LUNGS: No active pulmonary disease. PLEURA: No significant pleural effusion identified, no pneumothorax apparent. CARDIOVASCULAR: Normal. OSSEOUS STRUCTURES: No significant abnormalities. VISUALIZED UPPER ABDOMEN: Normal. OTHER FINDINGS: None. IMPRESSION: No active disease.
--- NOTE | 2017-10-24 18:33 | CARD ---
APPROVED REPORT EKG Measurement Heart [id number] <Conclusion> Normal sinus rhythm Possible Left atrial enlargement Borderline ECG
== END 2017-10-24 00:25 | disposition home or self-care (01) ==
LOC: ED 18:40
DX: F32.9 Major depressive disorder, single episode, unspecified (principal); F41.1 Generalized anxiety disorder; F41.0 Panic disorder [episodic paroxysmal anxiety]; E11.9 Type 2 diabetes mellitus without complications; I10 Essential (primary) hypertension; E66.01 Morbid (severe) obesity due to excess calories
CPT/HCPCS: 71045; 80053; 81001; 82550; 83615; 83880; 84443; 84484; 85025; 87086; 90791; 93005; 99284; G0480

== ENCOUNTER 2017-12-04 16:53 | Inpatient (IN) | payer BC ==
[2017-12-04 16:54] VITALS: BMI 50.8
[2017-12-04 18:35] LABS: URINE BILIRUBIN NEGATIVE (NEGATIVE); URINE BLOOD NEGATIVE (NEGATIVE); URINE GLUCOSE (UA) NEGATIVE (NEGATIVE); URINE LEUKOCYTE ESTERASE TRACE Leu/uL (NEGATIVE); URINE PROTEIN NEGATIVE mg/dL (<30 mg/dL); URINE UROBILINOGEN 0.2 E.U./dL (<1 E.U./dL)
[2017-12-04 18:36] LABS: URINE APPEARANCE CLEAR (CLEAR); URINE COLOR YELLOW (YELLOW)
[2017-12-04 18:46] LABS: ACETAMINOPHEN < 10.0 ug/ml (10.0-20.0); SALICYLATE < 1 mg/dL (2.0-20.0)
[2017-12-04 18:47] LABS: ALB/GLOB RATIO 1.1 (1.1-1.8); ALBUMIN 4.2 g/dL (3.0-4.8); ALT/SGPT 28 U/L (7-56); AST/SGOT 19 U/L (14-36); BLOOD UREA NITROGEN 15 mg/dL (7-21); GFR AFRICAN-AMERICAN > 60; GFR NON-AFRICAN AMERICAN > 60
[2017-12-04 18:55] LABS: BASO # 0.02 K/mm3 (0.0-2.0); BASO % 0.2 % (0.0-3.0); EOS # 0.2 (0.0-0.7); EOS % 2.1 % (1.5-5.0); GRAN # 6.2 (1.4-6.5); GRAN % 69.3 % (50.0-68.0); HEMOGLOBIN 13.1 g/dL (12.0-16.0); LYMPH % 21.9 % (22.0-35.0); MEAN CELL VOLUME 94.4 fl (80.0-105.0); MEAN CORPUSCULAR HEMOGLOBIN 30.7 pg (25.0-35.0); MEAN CORPUSCULAR HGB CONC 32.5 g/dl (31.0-37.0); MEAN PLATELET VOLUME 8.7 fl (7.0-11.0); MONO # 0.6 (0.1-0.6); MONO % 6.5 % (1.0-6.0); RBC 4.27 10^6/uL (3.5-6.1); RED CELL DISTRIBUTION WIDTH 13.4 % (11.5-14.5)
[2017-12-04 19:19] LABS: URINE RBC 0 - 2 /hpf (0-2); URINE WBC 0 - 2 /hpf (0-6)
[2017-12-04 19:20] LABS: URINE BACTERIA MOD (NEG)
--- NOTE | 2017-12-04 19:36 | ED PDOC ---
Arrival/HPI <Marcel Hansen - Last Filed: 12/04/17 23:22> <Dony Davis - Last Filed: 12/05/17 07:27> - General Chief Complaint: Weakness/Neurological Deficit Time Seen by Provider: 12/04/17 17:18 - History of Present Illness Narrative History of Present Illness (Text): 12/04/17 19:31 Pt is a 52 yo F with PMH of depression/anxiety presents to ED with increased anxiety over the past day. Patient complains of overwhelming fatigue, excessive sleeping, loss of interest, guilt, decreased energy, poor concentration, and poor appetite. Pt states that she has tried prozac in the past, but it only helped for a few months. Her current regimen of Paxil and Klonopin has not been working. Pt was supposed to be weaned off of the Klonopin, but has required more daily. Patient becomes very anxious and cries at random moments. Patient states that she interested in admission to psychiatry as it has helped in the past. Pt denied CP, SOB, n/v/d, abdominal pain, fever, chills, EVANS, or dizziness. PMD: [place] (Dony Davis) Past Medical History - Provider Review Nursing Documentation Reviewed: Yes - Infectious Disease Hx of Infectious Diseases: None - Tetanus Immunization Tetanus Immunization: Unknown - Reproductive Menopause: Yes - Cardiac Hx Cardiac Disorders: Yes Hx Hypertension: Yes Hx Peripheral Edema: Yes Other/Comment: MORBID OBESITY,HTN,TACHYCARDIA,PRE DAIBETES,DYSLIPDEMIA, POSSIBLE SLEEP RELATED DISORDER. HX OF MULTIPLE EXACERABTION OF ANXIETY, DEPRESSION, PANIC DISORDER WITH AGORAPHOBIA. - Pulmonary Hx Respiratory Disorders: Yes - Neurological Hx Neurological Disorder: No - HEENT Hx HEENT Disorder: No (reading glasses) - Renal Hx Renal Disorder: No - Endocrine/Metabolic Hx Endocrine Disorders: Yes Hx Diabetes Mellitus Type 2: Yes Other/Comment: LOW VITAMIN D - Hematological/Oncological Hx Blood Disorders: No Hx Cancer: No - Integumentary Hx Dermatological Disorder: No - Musculoskeletal/Rheumatological Hx Musculoskeletal Disorders: No - Gastrointestinal Hx Gastrointestinal Disorders: No - Genitourinary/Gynecological Hx Genitourinary Disorders: No - Psychiatric Hx Psychophysiologic Disorder: Yes Hx Anxiety: Yes Hx Panic Disorder: Yes Hx Substance Use: No - Surgical History Other/Comment: d and c x 2 - Anesthesia Hx Anesthesia: Yes - Suicidal Assessment Feels Threatened In Home Enviroment: No <Dony Davis - Last Filed: 12/05/17 07:27> Family/Social History - Physician Review Nursing Documentation Reviewed: Yes Family/Social History: Other (non-contributory) Smoking Status: Never Smoked Hx Alcohol Use: No Hx Substance Use: No Hx Substance Use Treatment: No <Dony Davis - Last Filed: 12/05/17 07:27> Allergies/Home Meds <MaxibreeMarcel - Last Filed: 12/04/17 23:22> <Dony Davis - Last Filed: 12/05/17 07:27> Allergies/Adverse Reactions: Allergies naproxen Allergy (Verified 12/05/17 03:52) RASH Home Medications: Home Meds Medication Instructions Recorded Confirmed Losartan [Cozaar] 100 mg PO DAILY 10/23/17 12/04/17 PARoxetine [Paxil] 25 mg PO BID 10/23/17 12/05/17 Propranolol [Inderal] 10 mg PO BID 10/23/17 12/04/17 hydroCHLOROthiazide 12.5 mg PO DAILY 12/05/17 12/05/17 Review of Systems - Physician Review All systems were reviewed & negative as marked: Yes - Review of Systems Constitutional: Fatigue Eyes: Normal ENT: Normal Respiratory: Normal Cardiovascular: Normal Gastrointestinal: Normal Genitourinary Female: Normal Musculoskeletal: Normal Skin: Normal Neurological: Normal Endocrine: Normal Hemo/Lymphatic: Normal Psychiatric: Anxiety, Depression. absent: Suicidal Ideation <Dony Davis - Last Filed: 12/05/17 07:27> Physical Exam Vital Signs Reviewed: Yes Temperature: Afebrile Blood Pressure: Normal Pulse: Regular Respiratory Rate: Normal Appearance: Positive for: Well-Appearing Pain Distress: None Mental Status: Positive for: Alert and Oriented X 3 - Systems Exam Head: Present: Atraumatic, Normocephalic Conjunctiva: Present: Normal Mouth: Present: Moist Mucous Membranes Neck: Present: Normal Range of Motion Respiratory/Chest: Present: Clear to Auscultation. No: Respiratory Distress, Accessory Muscle Use, Wheezes, Rales, Rhonchi Cardiovascular: Present: Regular Rate and Rhythm, Normal S1, S2. No: Murmurs, Rub, Gallop Abdomen: No: Tenderness, Distention, Peritoneal Signs, Rebound, Guarding Back: Present: Normal Inspection Upper Extremity: Present: Normal Inspection Lower Extremity: Present: Normal Inspection Neurological: Present: CN II-XII Intact Skin: Present: Warm, Dry, Normal Color Psychiatric: Present: Alert, Oriented x 3, Normal Concentration (poor), Anxious , Depressed Mood. No: Suicidal Ideation, Homicidal Ideation, Delusional, Hallucinations, Intoxicated, Lethargic <Dony Davis - Last Filed: 12/05/17 07:27> Vital Signs Temp Pulse Resp BP Pulse Ox 12/04/17 23:00 85 18 140/78 98 12/04/17 21:32 84 18 138/80 97 12/04/17 20:27 79 20 121/71 97 12/04/17 17:12 98.4 F 84 16 150/90 94 L Medical Decision Making <Marcel Hansen - Last Filed: 12/04/17 23:22> <Dony Davis - Last Filed: 12/05/17 07:27> ED Course and Treatment: 12/04/17 19:00 Assessment: 52 yo F presents with anxiety and depression. Plan: - CBC - CMP - CXR - UA - Urine - UDS - EKG - Serum ASA, acetaminophen, and alcohol 12/04/17 19:38 EKG shows NSR, rate 82. CXR as read by myself shows no active disease. PES contacted to evaluate patient for admission to psychiatry. (Dony Davis) - Lab Interpretations Lab Results: 12/04/17 18:20 12/04/17 18:20 Lab Results 12/04/17 20:00: Urine Opiates Screen Negative, Urine Methadone Screen Negative, Ur Barbiturates Screen Negative, Ur Phencyclidine Scrn Negative, Ur Amphetamines Screen Negative, U Benzodiazepines Scrn Negative, U Oth Cocaine Metabols Negative, U Cannabinoids Screen Negative 12/04/17 18:31: Urine Color Yellow, Urine Appearance Clear, Urine pH 6.0, Ur Specific [place] 1.025, Urine Protein Negative, Urine Glucose (UA) Negative, Urine Ketones Negative, Urine Blood Negative, Urine Nitrate Negative, Urine Bilirubin Negative, Urine Urobilinogen 0.2, Ur Leukocyte Esterase Trace H, Urine RBC 0 - 2, Urine WBC 0 - 2, Ur Epithelial Cells 10 - 12, Urine Bacteria Mod, Urine Other Fiber 12/04/17 18:20: Alcohol, Quantitative < 10 12/04/17 18:20: Salicylates < 1 L, Acetaminophen < 10.0 L 12/04/17 18:20: Sodium 142, Potassium 3.8, Chloride 100, Carbon Dioxide 32, Anion Gap 13, BUN 15, Creatinine 0.7, Est GFR ( Amer) > 60, Est GFR (Non- Af Amer) > 60, Random Glucose 184 H, Calcium 10.0, Total Bilirubin 1.0, AST 19, ALT 28, Alkaline Phosphatase 132 H D, Total Protein 8.0, Albumin 4.2, Globulin 3.9, Albumin/Globulin Ratio 1.1 12/04/17 18:20: WBC 9.0, RBC 4.27, Hgb 13.1, Hct 40.3, MCV 94.4, MCH 30.7, MCHC 32.5, RDW 13.4, Plt Count 335, MPV 8.7, Gran % 69.3 H, Lymph % (Auto) 21.9 L, Gem % (Auto) 6.5 H, Eos % (Auto) 2.1, Baso % (Auto) 0.2, Gran # 6.20, Lymph # ( Auto) 2.0, Gem # (Auto) 0.6, Eos # (Auto) 0.2, Baso # (Auto) 0.02 - RAD Interpretation Radiology Orders: 12/04/17 18:01 CHEST PORTABLE [RAD] Stat - Medication Orders Current Medication Orders: Acetaminophen (Tylenol 325mg Tab) 650 mg PO Q6H PRN PRN Reason: Pain, moderate (4-7) Last Admin: 12/05/17 05:00 Dose: 650 mg [facility] Pain/Vitals Document 12/05/17 05:00 DC (Rec: 12/05/17 05:01 DC [id number]) Pain Reassessment Is This A Pain ReAssessment? No Presence of Pain Presence of Pain Yes Pain Scale Used Pain Scale Used Numeric Location Left, Right or Bilateral Bilateral Pain Location Body Scenic Artist Description Constant Intensity 6 Scale Used Numeric Pain Behavior Irritability Aggravating Factors ADL's Alleviating Factors Medication Re-Assess: [facility] Pain/Vitals Document 12/05/17 05:53 DC (Rec: 12/05/17 05:53 DC [id number]) Pain Reassessment Is This A Pain ReAssessment? Yes Sleep Is patient sleeping during reassessment? Yes Location Intensity 0 Al Hydrox/Mg Hydrox/Simethicone (Maalox Plus 30 Ml) 30 ml PO DAILY PRN PRN Reason: Indigestion / Heartburn Clonazepam (Klonopin) 0.5 mg PO BID HOOD PRN Reason: Protocol Diphenhydramine HCl (Benadryl) 50 mg IM Q6H PRN PRN Reason: Other Diphenhydramine HCl (Benadryl) 50 mg PO Q6H PRN PRN Reason: Other Haloperidol (Haldol) 5 mg PO Q6H PRN; Protocol PRN Reason: Agitation Haloperidol Lactate (Haldol) 5 mg IM Q6H PRN; Protocol PRN Reason: Agitation Lorazepam (Ativan) 2 mg PO Q6H PRN; Protocol PRN Reason: Anxiety Lorazepam (Ativan) 2 mg IM Q6H PRN; Protocol PRN Reason: Anxiety Magnesium Hydroxide (Milk Of Magnesia) 30 ml PO DAILY PRN PRN Reason: Constipation Paroxetine HCl (Paxil) 25 mg PO BID HOOD Propranolol HCl (Inderal) 10 mg PO BID HOOD Zaleplon (Sonata) 5 mg PO HS PRN PRN Reason: Insomnia Discontinued Medications Clonazepam (Klonopin) 0.5 mg PO STAT STA PRN Reason: Protocol Stop: 12/05/17 00:23 Last Admin: 12/05/17 00:33 Dose: 0.5 mg Behavioural Document 12/05/17 00:33 DC (Rec: 12/05/17 00:33 DC [id number]) Maintenance Maintenance Dose Yes Re-Assess: Reassess Psych Meds Document 12/05/17 01:33 DC (Rec: 12/05/17 02:00 DC [id number]) Reassess Psych Med Effective - PA / DEPUTY COMMISSIONER / Resident Statement /DO has reviewed & agrees with the documentation as recorded. <Marcel Hansen - Last Filed: 12/04/17 23:22> Disposition/Present on Arrival - Disposition Have Diagnosis and Disposition been Completed?: Yes Disposition Time: 23:23 Patient Plan: Admission <Marcel Hansen - Last Filed: 12/04/17 23:22> - Present on Arrival Any Indicators Present on Arrival: No History of DVT/PE: No History of Uncontrolled Diabetes: Yes Urinary Catheter: No History of Decub. Ulcer: No History Surgical Site Infection Following: None <Dony Davis - Last Filed: 12/05/17 07:27> - Disposition Diagnosis: Major depressive disorder, Panic disorder with agoraphobia Disposition: HOSPITALIZED Patient Problems: Current Active Problems Problem Status Onset Major depressive disorder Acute Panic disorder with agoraphobia Acute Condition: GOOD
[2017-12-04 22:45] LABS: BARBITURATES, UR NEGATIVE (NEGATIVE); BENZODIAZEPINES, UR NEGATIVE (NEGATIVE); OPIATES, UR NEGATIVE (NEGATIVE); PHENCYCLIDINE, UR NEGATIVE (NEGATIVE)
[2017-12-05] MEDS ORDERED: Magnesium Hydroxide Susp 30 ml UD PO PRN (04:27)
[2017-12-05] MEDS ORDERED: Alum-Mag Hydrox-Simethicone Susp (30 mL) PO PRN (04:27)
[2017-12-05] MEDS ORDERED: DiphenhydrAMINE 50 mg/ml Inj IM PRN (04:55)
--- NOTE | 2017-12-05 05:43 | PCM.BM ---
<Valentin Landaverde - Last Filed: 12/05/17 05:40> Treatment Plan Problems - Problems identified on initial assessmt Panic Attacks Date Initiated: 12/05/17 Time Initiated: 01:00 Assessment reference: NA Status: Active Priority: 1 Anxiety Date Initiated: 12/05/17 Time Initiated: 01:00 Assessment reference: NA Status: Active Priority: 2 Ineffective Coping Date Initiated: 12/05/17 Time Initiated: 01:00 Assessment reference: NA Status: Active Priority: 3 Feelings of Worthlessness Date Initiated: 12/05/17 Time Initiated: 01:00 Assessment reference: NA Status: Active Priority: 4 Social Isolation Date Initiated: 12/05/17 Time Initiated: 01:00 Assessment reference: NA Status: Active Priority: 5 Altered Sleep Patterns Date Initiated: 12/05/17 Time Initiated: 01:00 Assessment reference: NA Status: Active Priority: 6 Nutrition More than Body Requirements Date Initiated: 12/05/17 Time Initiated: 01:00 Assessment reference: NA Status: Active Priority: 7 Treatment assets and liabiliti Patient Assests: cooperative, educated, insightful, self-reliant, ADL independent, physically healthy, good support system, negotiates basic needs, financial stabiity, cognitively intact, good interpersonal skills Patient Liabilities: other (Inadequate coping skills) - Milieu Protocol Maintain good personal hygiene: daily Encourage regular showers, every shift Remind patient to perform daily oral care, every shift Assist patient to perform ADL's Maintain personal safety: every shift Educate patient to report safety concerns to staff, every shift Monitor environment for contraband/sharps Medication safety: Monitor for expected outcome, potential side effects: every shift, Assess barriers to learning: every shift, Assess readiness for medication education: every shift Family Contact Family involvement: Family/SO is involved Family contact: Family has been contacted by patient - Goals for Treatment Patient goals for treatment: Patient states, "need to feel like I am moving forward instead of backward." Patient's family/SO goals for treatment: same Discharge/Continuing Care - Education Needs Education Needs: Family Medication, Family Diagnosis/Disease Process, Family Coping Skills, Family Community resources, Family Aftercare Safety Plan, Patient Medication, Patient Diagnosis/Disease Process, Patient Coping Skills, Patient Anger Management skills, Patient Placement options, Patient Community resources, Patient Activities of Daily Living, Patient Pain, Patient Nutrition, Patient Uses of Medical Equipment, Patient Health Practices/Safety, Patient Personal Hygiene/Grooming, Patient Aftercare Safety Plan, Patient Other - Discharge Discharge Criteria: Tolerates medication w/o severe side effects, Normal sleep pattern <Evy Brown - Last Filed: 12/05/17 13:32> - Diagnosis (1) Panic disorder with agoraphobia and severe panic attacks Status: Acute Interventions: Psychoeducation Psychopharmacology/adjustment of medications as needed/ monitoring possible side effects Evaluate pt on daily basis Discussion of importance of being compliant with medications and follow up appointments Suicide and homicide risk assessment and prevention, coping strategies, safety plan Reduction of symptoms Relaxation techniques and breathing exercises Improve functional status Family involvement Cognitive behavioral therapy as outpatient (2) Major depressive disorder Status: Acute Interventions: 12/05/17 13:33 Psychoeducation Psychopharmacology/adjustment of medications as needed/ monitoring possible side effects Evaluate pt on daily basis Compliance with medications and follow up appointments Suicide and homicide risk assessment and prevention Relapse prevention Reduction of symptoms Improve functional status Family involvement As outpatient: cognitive behavioral therapy (3) Severe obesity (BMI >= 40) Status: Acute Interventions: 12/05/17 13:34 dietitian consult Pulmonology consult pt will be seen by medical team and specialists Additional consultation by specialists as needed Lab work as needed (CBC, CMP, TSH, free T4, UA, Urine test for females as needed) CXR as needed EKG Physical therapy evaluation as needed <Christine Will - Last Filed: 12/05/17 15:29> Family Contact Family involvement: Family/SO is involved Family contact: Patient agrees to contact <Cece Farnsworth - Last Filed: 12/05/17 15:35>
[2017-12-05 06:49] VITALS: O2SAT 95
[2017-12-05 08:04] LABS: GLUCOSE,FASTING 166 mg/dL (65-110); HDL CHOLESTEROL 45 mg/dL (29-60)
[2017-12-05 08:15] LABS: LDL CHOLESTEROL 91 mg/dL (0-129)
--- NOTE | 2017-12-05 08:42 | RAD ---
HISTORY: sob COMPARISON: 10/23/2017 FINDINGS: LUNGS: No active pulmonary disease. PLEURA: No significant pleural effusion identified, no pneumothorax apparent. CARDIOVASCULAR: Normal. OSSEOUS STRUCTURES: No significant abnormalities. VISUALIZED UPPER ABDOMEN: Normal. OTHER FINDINGS: None. IMPRESSION: No active disease.
[2017-12-05 11:35] LABS: FREE T4 1.08 ng/dL (0.78-2.19); T4 9.6 ug/dL (5.5-11.0)
[2017-12-05] MEDS: Cholecalciferol 1,000 INTLU TAB PO SCH (12:14)
--- NOTE | 2017-12-05 14:49 | PCM.PSYCH ---
Initial Psychiatric Evaluation - Initial Psychiatric Evaluation Type of Admission: Voluntary Legal Status: Capacity (pt has capacity to sign consent for treatment) Chief Complaint (in patient's own words): "I was not able to function, I was depressed, I thought why bother?" Patient's Reaction to Hospitalization: pt was admitted for evaluation of worsening of depression, worsening of anxiety. History of Present Illness and Precipitating Events: shortly patient is 52 years old female, with h/o anxiety, most likely panic disorder with agoraphobia, three previous admission to the psych unit pt was d/c 04/06/2017, pt currently under service (local psychiatrist), no suicidal attempts, patient came to the hospital for evaluation of uncontrolled anxiety, panic attacks, pt requested to be admitted to the psych unit, pt said she cannot function, at present moment pt feels her depression "is worse I am afraid to do something...", pt was keep coming to ED for evaluation, (last visit was October 2017), pt reported being compliant with meds and f/u appts and therapy sessions, pt's meds were changed, pt requested admission. patient was seen today at the treatment team meeting, patient seems to gain a lot of weight, as per patient "I gained more than 25 pounds on Paxil", patient looked older than her chronological age, earlier was observed staying in her room, starring at one spot, tearful. Pt has acceptable personal hygiene, but seems to be careless about her appearance, good ADLS. pt said that after the last admission "things were going well for about 3-4 weeks, I was feeling very good, I was not depressed, was able to function", pt said after that she became depressed and her psychiatrist switched her Prozac (which was working relatively well) to paxil, prozac was stopped in May, paxil was initiated in July, this info was confirmed by pharmacy ( see below). pt said for the past two weeks she was becoming progressively worse, pt had difficulties to concentrate, stay focused, "I was not even able to read books", pt said that she was feeling hopeless and helpless, pt was not sleeping "I was sleeping only for two hours", pt said she was feeling physically exhausted, pt also said that she felt that her meds needs to be changed immediately yesterday because she was afraid that she might do something (at ED), but pt contracted for safety during the interview. pt said that her anxiety is out of control, she has panic attacks "lasting for hours", pt described herself as "feeling very shaky, difficulties to catch up with breath, I am sweating, losing control". Patient reported there is no stress in the house, patient has supportive and loving family, patient denied hearing voices denied seeing things, patient denied smoking denies using drugs. pt said that she is not afraid of deaths, denied fear of aging. Past psych h/o: patient said that since November 2016 patient started to feel depressed, there is no precipitating factors, and anxious. Initially Dr. Marroquin prescribed her Xanax 0.25 mg twice a day as needed and Cymbalta. Currently pt under care of Dr. Marrero, see above. Medical h/o: obesity and HTN, pt was seen by Clinical Nursing Professor regularly, as per report, pt was snoring, will call Pulmonology to r/o sleep apnea. Family h/o: denied Patient denied history of abuse, denied history of trauma. in regards of meds, "prozac, I think it is working", this screen writer offered to start Effexor SNRI, risk/benefits and alternatives explained. as per pt, her therapist left without any notification, pt's current therapist "is not beneficial, I was feeling worse", pt is opened to change the therapist. [facility] pharmacy was called Prozac was discontinued on 05/25/2017 Paxil was started 07/04/17, most recently patient was on extended release 25 mg twice a day clonazepam 0.5 mg twice a day three times a day was are done 100 mg daily Atorvastatin 40 mg daily Propranolol 10 mg daily Hydrochlorothiazide 12.5 mg daily 12/04/17 18:20 12/04/17 18:20 Lab Results 12/05/17 10:44: Free T4 1.08, Thyroxine (T4) 9.6 12/05/17 07:30: TSH 3rd Generation 1.39 12/05/17 07:30: Fasting Glucose 166 H, Triglycerides 150, Cholesterol 159, LDL Cholesterol Direct 91, HDL Cholesterol 45 12/04/17 20:00: Urine Opiates Screen Negative, Urine Methadone Screen Negative, Ur Barbiturates Screen Negative, Ur Phencyclidine Scrn Negative, Ur Amphetamines Screen Negative, U Benzodiazepines Scrn Negative, U Oth Cocaine Metabols Negative, U Cannabinoids Screen Negative 12/04/17 18:31: Urine Color Yellow, Urine Appearance Clear, Urine pH 6.0, Ur Specific [place] 1.025, Urine Protein Negative, Urine Glucose (UA) Negative, Urine Ketones Negative, Urine Blood Negative, Urine Nitrate Negative, Urine Bilirubin Negative, Urine Urobilinogen 0.2, Ur Leukocyte Esterase Trace H, Urine RBC 0 - 2, Urine WBC 0 - 2, Ur Epithelial Cells 10 - 12, Urine Bacteria Mod, Urine Other Fiber 12/04/17 18:20: Alcohol, Quantitative < 10 12/04/17 18:20: Salicylates < 1 L, Acetaminophen < 10.0 L 12/04/17 18:20: Sodium 142, Potassium 3.8, Chloride 100, Carbon Dioxide 32, Anion Gap 13, BUN 15, Creatinine 0.7, Est GFR ( Amer) > 60, Est GFR (Non- Af Amer) > 60, Random Glucose 184 H, Calcium 10.0, Total Bilirubin 1.0, AST 19, ALT 28, Alkaline Phosphatase 132 H D, Total Protein 8.0, Albumin 4.2, Globulin 3.9, Albumin/Globulin Ratio 1.1 12/04/17 18:20: WBC 9.0, RBC 4.27, Hgb 13.1, Hct 40.3, MCV 94.4, MCH 30.7, MCHC 32.5, RDW 13.4, Plt Count 335, MPV 8.7, Gran % 69.3 H, Lymph % (Auto) 21.9 L, [place] % (Auto) 6.5 H, Eos % (Auto) 2.1, Baso % (Auto) 0.2, Gran # 6.20, Lymph # ( Auto) 2.0, [place] # (Auto) 0.6, Eos # (Auto) 0.2, Baso # (Auto) 0.02 Vital Signs Temp Pulse Resp BP Pulse Ox 12/05/17 11:07 98.4 F 82 18 115/75 12/05/17 02:07 98.5 F 76 16 113/67 95 12/04/17 23:00 85 18 140/78 98 12/04/17 21:32 84 18 138/80 97 03/05/18 20:27 79 20 121/71 97 12/04/17 17:12 98.4 F 84 16 150/90 94 L Current Medications: Active Medications Generic Name Dose Route Start Last Admin Trade Name Freq PRN Reason Stop Dose Admin Acetaminophen 650 mg 12/05/17 04:27 12/05/17 05:00 Tylenol 325mg Tab PO 650 mg Q6H PRN Administration Pain, moderate (4-7) Al Hydrox/Mg Hydrox/Simethicone 30 ml 12/05/17 04:27 Maalox Plus 30 Ml PO DAILY PRN Indigestion / Heartburn Aspirin 81 mg 12/05/17 10:45 12/05/17 12:13 Ecotrin PO 81 mg DAILY HOOD Administration Atorvastatin Calcium 40 mg 12/05/17 17:00 Lipitor PO DIN HOOD Cholecalciferol 2,000 intlu 12/05/17 10:45 12/05/17 12:14 Vitamin D PO 2,000 intlu DAILY HOOD Administration Clonazepam 0.25 mg 12/05/17 14:00 Klonopin PO 1400 HOOD Protocol Clonazepam 0.5 mg 12/05/17 22:00 Klonopin PO AMHS HOOD Protocol Diphenhydramine HCl 50 mg 12/05/17 04:55 Benadryl IM Q6H PRN Other Diphenhydramine HCl 50 mg 12/05/17 05:10 Benadryl PO Q6H PRN Other Haloperidol 5 mg 12/05/17 04:48 Haldol PO Q6H PRN Agitation Protocol Haloperidol Lactate 5 mg 12/05/17 04:49 Haldol IM Q6H PRN Agitation Protocol Hydrochlorothiazide 12.5 mg 12/05/17 10:45 12/05/17 12:13 Microzide PO 12.5 mg DAILY HOOD Administration Lorazepam 2 mg 12/05/17 05:12 Ativan PO Q6H PRN Anxiety Protocol Lorazepam 2 mg 12/05/17 05:14 Ativan IM Q6H PRN Anxiety Protocol Losartan Potassium 100 mg 12/05/17 10:45 12/05/17 12:13 Cozaar PO 100 mg DAILY HOOD Administration Magnesium Hydroxide 30 ml 12/05/17 04:27 Milk Of Magnesia PO DAILY PRN Constipation Paroxetine HCl 10 mg 12/05/17 13:26 Paxil PO BID HOOD Propranolol HCl 10 mg 12/05/17 16:00 Inderal PO BID HOOD Venlafaxine HCl 37.5 mg 12/05/17 13:45 Effexor PO DAILY HOOD Zaleplon 5 mg 12/05/17 04:42 Sonata PO HS PRN Insomnia Past Psychiatric History - Past Psychiatric History Previous Treatment History: Inpatient Prior Professional Help: see HPI Prior Psychiatric Treatment: see HPI At what hospital: see HPI Duration: see HPI Nature of Treatment: see HPI Explanation of prior treatment: see HPI History of Abuse: see HPI History of ETOH/Drug Use: see HPI History of Family Illness: see HPI Pertinent Medical Hx (Current Medical&Sleep Prob, Allergies): Allergies Allergy/AdvReac Type Severity Reaction Status Date / Time naproxen Allergy RASH Verified 12/05/17 03:52 RX: Aspirin [Ecotrin] 81 mg PO DAILY 04/05/17 RX: Atorvastatin [Lipitor] 40 mg PO DIN tab 04/05/17 RX: Cholecalciferol [Vitamin D 1000 IU] 2,000 iu PO DAILY tab 04/05/17 RX: clonazePAM [Klonopin] 0.5 mg PO 0800,2200 #30 tab 04/05/17 PARoxetine [Paxil] 25 mg PO BID 10/23/17 RX: Losartan [Cozaar] 100 mg PO DAILY 10/23/17 RX: Propranolol [Inderal] 10 mg PO BID 10/23/17 hydroCHLOROthiazide 12.5 mg PO DAILY 12/05/17 Review of Systems - Review of Systems Systems not reviewed;Unavailable: Acuity of Condition - EENT Eyes: As Per HPI Ears: As Per HPI Nose/Mouth/Throat: As Per HPI - Breasts Breasts: As Per HPI - Cardiovascular Cardiovascular: As Per HPI - Respiratory Respiratory: As Per HPI - Gastrointestinal Gastrointestinal: As Per HPI - Reproductive: Female Reproductive:Female: As Per HPI - Menstruation Menstruation: As Per HPI - Musculoskeletal Musculoskeletal: As Par HPI - Integumentary Integumentary: As Per HPI - Neurological Neurological: As Per HPI - Psychiatric Psychiatric: As Per HPI - Endocrine Endocrine: As Per HPI - Hematologic/Lymphatic Hematologic: As Per HPI Mental Status Examination - Personal Presentation Personal Presentation: Looks older than stated age - Affect Affect: Constricted - Motor Activity Motor Activity: Calm - Reliability in Providing Information Reliability in Providing Information: Good - Speech Speech: Organized - Mood Mood: Depressed, Anxious - Formal Thought Process Formal Thought Process: No Impairment - Obsessions/Compulsions Obsessions: None Compulsions: None - Cognitive Functions Orientation: Person, Place, Situation, Time Sensorium: Alert Attention/Concentration: Easily distracted Estimate of Intelligence: Average Judgement: Intact, as evidence by: Insight regarding need for hospitalization - Risk Risk: Diminished functioning, Other - Strength & Assets Inventory Strength & Assets Inventory: Intelligence, Family support, Education, Spiritual affiliations, Life experience, Cooperative, Other (pt is not using drugs, no h/ o suicidal attempts, relatively good physical health) DSM 5 DX - DSM 5 DSM 5 Diagnosis: MDD ELIER to r/o panic disorder with agoraphobia - Recommended/Plan of Treatment Treatment Recommendations and Plan of Treatment: milieu/structure/supportive therapy Aspirin [Ecotrin] 81 mg PO DAILY Atorvastatin [Lipitor] 40 mg PO DIN Cholecalciferol [Vitamin D 1000 IU] 2,000 iu PO DAILY clonazePAM [Klonopin] 0.5 mg PO 0800,2200 and 0.25mg at 2pm PARoxetine [Paxil] will be decreased to 10mg po bid, with the plan to wean it off Effexor 37.5 mg po daily for depression and anxiety, with the plan to increase it slowly Sonata 5mg po hs PRN for insomnia sleep hygiene print out was provided medical consult appreciated Pulmonology consult called to r/o sleep apnea Dietitian consult was called Losartan [Cozaar] 100 mg PO DAILY Propranolol [Inderal] 10 mg PO BID hydroCHLOROthiazide 12.5 mg PO DAILY Family involvement Pt was educated about risk/benefits and alternatives of meds SW evaluation relaxation technique, mindfulness, breathing exercises implemented pt was given assignment will f/u tomorrow Follow up on labs Will monitor closely Pt was educated about risk/benefits and alternatives of medications, coping strategies (safety plan, suicide prevention), relapse prevention, importance of follow up with psychiatrist and therapist, stay away from drugs/alcohol/smoking Projected ELOS: 7days Prognosis: fair Discharge Plan and Discharge Criteria: Pt will be not depressed or manic, will be more hopeful, will be not psychotic or anxious, will be not having thoughts of harming self or others, will be tolerating medications well, will not have major side effects, will be able to function, will not pose threat to self or others. - Smoking Cessation Smoking Cessation Initiated: No Reason for not providing: pt denied smoking
--- NOTE | 2017-12-05 15:38 | CON ---
DATE: 12/05/2017 REQUESTING PHYSICIAN: Evy Brown MD. HISTORY OF PRESENT ILLNESS: The patient came to the emergency in the last evening. The patient presented to the emergency room as a walk-in complaining of generalized weakness, anxious. The patient presented to the emergency room complaining of increasing anxiety, overwhelming fatigue, poor sleep, loss of interest, decreased energy, poor concentration, poor appetite. The patient states that she has tried Prozac in the past without much help. The patient stated that her present medicine, Klonopin and Paxil not working. The patient was supposed to be weaned off by Klonopin, but it is not working. The patient appear to be anxious in the emergency room, crying with random moments. CODE STATUS: Full code. LIVING WILL ADVANCED DIRECTIVE: None. HEIGHT: 5 feet. WEIGHT: Greater than 300 pounds. BMI: Almost 60. HOME MEDICATIONS: Paxil 10 mg twice a day or 25 mg twice a day, hydrochlorothiazide 12.5 mg daily, Ecotrin 81 mg daily, Cozaar 100 mg daily, vitamin D3 of 2000 units daily, Lipitor 40 mg daily, Klonopin 0.5 mg twice a day, Inderal 10 mg twice a day. SOCIAL HISTORY: Denies substance abuse. Denies alcohol. Denies smoking. Denies drug use. PAST MEDICAL, SURGICAL, PSYCHIATRIC HISTORY: History of anxiety, history of depression, history of hypertension, history of morbid obesity with elevated body mass index of almost 60, history of hypovitaminosis D, history of dyslipidemia, history of severe morbid obesity, history of insomnia, history of sleep disorder with sleep-related disorder with daytime hypersomnolence, history of prediabetes, history of type 2 diabetes, panic disorder, history of D&C, history of pneumonia, hyperlipidemia, history of 40-59% bilateral internal carotid artery stenosis, history of hypertensive cardiovascular disease, history of atypical chest pain. History of exacerbation of anxiety, depression. History of panic disorder with agoraphobia, history of questionable sleep disorder, history of major depression disorder without psychosis, history generalized anxiety disorder. The patient is seen in room 513. PHYSICAL EXAMINATION: VITAL SIGNS: T-max 98.4; pulse 79-85; blood pressure 150/90, 121/71, 138/80, 140/78, 113/67; respirations 16-18, O2 sat 95-98%. HEENT: The patient's head examination normocephalic, atraumatic. HEENT examination shows pink conjunctivae. Anicteric sclerae. No oropharyngeal lesion. No neck rigidity. CHEST: Symmetrical and kyphosis. LUNGS: Shows no rales, crackles or wheezing. CARDIOVASCULAR: S1, S2. Regular rhythm. Questionable soft systolic murmur, left sternal border. No audible gallop or rub. ABDOMEN: Morbidly obese. GENITALIA: Female. RECTAL: Deferred. EXTREMITY: Shows nonpitting swelling of the lower extremity. MUSCULOSKELETAL: Shows a body mass index of 59. NEUROLOGIC: The patient is alert, awake, oriented x3. Cranial nerves II through XII grossly intact. Gait examination is independent. DIAGNOSTICS: On , WBC 9.0, hemoglobin and hematocrit 13.1 and 40.3, platelet 335. Granulocytes 69. Chemistry significant for glucose of 184, alk phos 132, cholesterol 159, LDL 91, HDL 45, TSH 1.39. Urinalysis shows trace leukocyte, moderate bacteria. Urine drug screen is negative. Salicylate, Tylenol, alcohol level negative. Chest x-ray, which shows no active disease. EKG was normal sinus rhythm, mild LVH noted. The patient was evaluated in the emergency room by the ER staff and physician. The patient was medically cleared for admission to Psychiatry. IMPRESSION AND PLAN: 1. Acute exacerbation of anxiety and depression. 2. Sleep dysfunction. 3. Anhedonia. 4. Fatigue with poor concentration. 5. Questionable anorexia. 6. History of panic disorder. 7. Morbid obesity. 8. Prediabetes with hyperglycemia. 9. Hyperlipidemia with elevated LDL. 10. Pyuria and bacteriuria. Plan at this time, the patient has been admitted to Psychiatry floor. Medical consult has been requested. The patient is presently on Ativan 2 mg p.o. q. 6 hours and Ativan 2 mg IM q. hours p.r.n., Benadryl 50 mg q. 6 p.r.n. IM, Benadryl 50 mg p.o. q. 6 hours p.r.n., Haldol 5 mg p.o. q. 6 hours p.r.n. and Haldol 5 mg IM q. 6 hours p.r.n. The patient is on Inderal 10 mg twice a day, Klonopin 0.5 mg twice a day, milk of magnesia and Maalox p.r.n., Paxil 25 mg twice a day, Sonata 5 mg at bedtime p.r.n., Tylenol 650 q. 6 p.r.n. The patient will be resumed on Cozaar, aspirin, hydrochlorothiazide, Inderal and Lipitor and vitamin D. The patient will be ordered a repeat hemoglobin A1c. Urine cultures are pending. Vitamin D 25-hydroxy level will be ordered. The patient's further management will be as per the psychiatrist evaluation. In addition, I have also advised the patient to seek weight loss treatment options, whether surgical or nonsurgical, which the patient acknowledged and understand. At present, the patient appears to be medically stable. The patient's further management will be dependent upon the patient's clinical condition, hemodynamic status and as per the patient's response to therapeutic intervention, as per the patient's diagnostic test results and as per recommendation by all the physician involved in the care of the patient. The patient will be followed from medical service with further therapeutic interventions and modifications as needed. Dictated and electronically signed, not read. Desean Pinto MD
[2017-12-05] MEDS ORDERED: Ergocalciferol 50,000 Intl Units Cap PO SCH (21:00)
--- NOTE | 2017-12-05 21:20 | CARD ---
APPROVED REPORT EKG Measurement Heart [id number] <Conclusion> Normal sinus rhythm Normal ECG
--- NOTE | 2017-12-06 03:16 | CON ---
DATE: 12/05/2017 PULMONARY CONSULTATION REFERRING PHYSICIAN: Evy Brown MD. REASON FOR CONSULTATION: May have sleep apnea syndrome, major depression. HISTORY OF PRESENT ILLNESS: This is a 52-year-old female with past medical history significant for anxiety and depression, history of diabetes, vitamin D deficiency, history of panic attacks, hypertension, came in to emergency room with overwhelming fatigue, excessive sleepiness, decreased energy, been on Paxil and Klonopin. She was admitted to Psych unit for further help. Sitting up in a chair, sleepy, arousable. Admits to have loud snoring, daytime sleepy and tired. No hemoptysis. No hematemesis. No hematuria. No diarrhea reported. PAST MEDICAL HISTORY: As per history present illness. ALLERGIES: TO NAPROXEN, DEVELOPED RASH. SOCIAL HISTORY: Nonsmoker, nondrinker. FAMILY HISTORY: No significant cardiopulmonary disease reported. MEDICATIONS: Presently, she is on Ativan 2 mg q. 6 hours p.r.n., also Ativan 2 mg IM q. 6 hours p.r.n., Benadryl 50 mg IM q. 6 hours p.r.n. Ecotrin 81 mg daily, Effexor 37.5 mg daily, Haldol is 5 mg IM q. 6 hours p.r.n., Inderal 30 mg twice a day, Klonopin 0.25 mg daily, also Klonopin 0.5 mg a.m. and at bedtime, Lipitor 40 mg daily, Maalox mL daily p.r.n., hydrochlorothiazide 12.5 mg daily, Paxil 10 mg twice a day, Sonata 5 mg at bedtime p.r.n., Tylenol p.r.n., vitamin D 2000 International Units daily. REVIEW OF SYSTEMS: No headache. No rhinitis. Admits to have shortness of breath during motion, loud snoring, daytime sleepy and tired. No nausea. No vomiting. No diarrhea, leg pain, leg swelling. PHYSICAL EXAMINATION: GENERAL: Sitting up in a chair. Sleepy, arousable. VITAL SIGNS: Temp is 98, heart rate is 82, respiratory rate is 60, blood pressure 115/75, pulse ox of 95% on room air. HEENT: Moist mucous membranes. Small oral cavity. Crowded airway. Short thick neck. LUNGS: Have a fair airflow with rhonchi. HEART: S1 and S2. ABDOMEN: Soft, nontender. No organomegaly. EXTREMITIES: Does have edema. NEUROLOGIC: Awake, alert. Follows simple commands. LABORATORY DATA: Shows hemoglobin 13.1, hematocrit 40.3, WBC 9.0, platelet is 335. Sodium 142, potassium 2.8, chloride 100, bicarbonate 32, BUN 15, creatinine 0.7, glucose 184, hemoglobin A1c 7.4, albumin is 1.0, AST 19, ALT 28, alk phos is 132, total protein 8.0, albumin 4.2, triglycerides 150, cholesterol 159. Vitamin D is less than 12.8. Thyroxine 9.6, TSH 1.39. Urinalysis is unremarkable. Drug screen was unremarkable. RRP is nonreactive. She had a chest x-ray done in the ER, which shows no infiltrate or effusion. IMPRESSION AND PLAN: May have major depression, hypertension, obesity, may have sleep apnea syndrome. The patient is on multiple sedatives at present time for her anxiety and major depression. We will suggest placing her on a continuous positive airway pressure 7 cm with full-face mask while sleeping. Keep head at 45 degrees. Careful with sedation. Fall precaution. Will get sleep study upon discharge as outpatient. Thank you and we will follow with you. Barbara Eller MD
[2017-12-06 07:20] VITALS: RESP 20
[2017-12-06] MEDS ORDERED: Insulin Lispro (humaLOG) LOW Coverage SC SCH (07:30)
[2017-12-06 08:31] LABS: ALB/GLOB RATIO 1.1 (1.1-1.8); ALBUMIN 3.8 g/dL (3.0-4.8); ALT/SGPT 24 U/L (7-56); AST/SGOT 26 U/L (14-36); BILIRUBIN,DIRECT 0.4 mg/dL (0.0-0.4); BLOOD UREA NITROGEN 20 mg/dL (7-21); CALCIUM 9.7 mg/dL (8.4-10.5); GFR AFRICAN-AMERICAN > 60; GFR NON-AFRICAN AMERICAN > 60
[2017-12-06] MEDS: Cholecalciferol 1,000 INTLU TAB PO SCH (09:23)
--- NOTE | 2017-12-06 12:11 | PCM.PYCHPN ---
Psychiatric Progress Note - Psychiatric Progress Note Patient seen today, length of contact: 30min Patient Chief Complaint: "whatever..." Problems Identified/Issues Discussed: Suicide/ homicide prevention, past psychiatric h/o, current psychiatric symptoms , medical problems, risk/benefits and alternatives of medications, medications compliance, coping strategies, substance abuse h/o, relapse prevention, importance of follow up with psychiatrist and therapist, discharge plan. Medical Problems: obesity and HTN, possible sleep apnea Diagnostic Results: 12/04/17 18:20 12/06/17 06:30 Lab Results 12/06/17 11:16: POC Glucose (mg/dL) 194 H 12/06/17 07:17: POC Glucose (mg/dL) 142 H 12/06/17 06:30: Sodium 142, Potassium 3.8, Chloride 100, Carbon Dioxide 31, Anion Gap 15, BUN 20, Creatinine 0.6 L, Est GFR ( Amer) > 60, Est GFR ( Non-Af Amer) > 60, Random Glucose 160 H, Calcium 9.7, Magnesium 2.0, Total Bilirubin 1.3, Direct Bilirubin 0.4, AST 26, ALT 24, Alkaline Phosphatase 112, Total Protein 7.4, Albumin 3.8, Globulin 3.6, Albumin/Globulin Ratio 1.1 12/06/17 06:30: Hemoglobin A1c 7.4 H 12/05/17 : 25-OH Vitamin D Total < 12.8 L 12/05/17 21:28: POC Glucose (mg/dL) 223 H 12/05/17 10:44: Free T4 1.08, Thyroxine (T4) 9.6 12/05/17 07:30: RPR Nonreactive 12/05/17 07:30: TSH 3rd Generation 1.39 12/05/17 07:30: Fasting Glucose 166 H, Triglycerides 150, Cholesterol 159, LDL Cholesterol Direct 91, HDL Cholesterol 45 12/04/17 23:58: Hemoglobin A1c 7.4 H 12/04/17 20:00: Urine Opiates Screen Negative, Urine Methadone Screen Negative, Ur Barbiturates Screen Negative, Ur Phencyclidine Scrn Negative, Ur Amphetamines Screen Negative, U Benzodiazepines Scrn Negative, U Oth Cocaine Metabols Negative, U Cannabinoids Screen Negative 12/04/17 18:31: Urine Color Yellow, Urine Appearance Clear, Urine pH 6.0, Ur Specific [place] 1.025, Urine Protein Negative, Urine Glucose (UA) Negative, Urine Ketones Negative, Urine Blood Negative, Urine Nitrate Negative, Urine Bilirubin Negative, Urine Urobilinogen 0.2, Ur Leukocyte Esterase Trace H, Urine RBC 0 - 2, Urine WBC 0 - 2, Ur Epithelial Cells 10 - 12, Urine Bacteria Mod, Urine Other Fiber 12/04/17 18:20: Alcohol, Quantitative < 10 12/04/17 18:20: Salicylates < 1 L, Acetaminophen < 10.0 L 12/04/17 18:20: Sodium 142, Potassium 3.8, Chloride 100, Carbon Dioxide 32, Anion Gap 13, BUN 15, Creatinine 0.7, Est GFR ( Amer) > 60, Est GFR (Non- Af Amer) > 60, Random Glucose 184 H, Calcium 10.0, Total Bilirubin 1.0, AST 19, ALT 28, Alkaline Phosphatase 132 H D, Total Protein 8.0, Albumin 4.2, Globulin 3.9, Albumin/Globulin Ratio 1.1 12/04/17 18:20: WBC 9.0, RBC 4.27, Hgb 13.1, Hct 40.3, MCV 94.4, MCH 30.7, MCHC 32.5, RDW 13.4, Plt Count 335, MPV 8.7, Gran % 69.3 H, Lymph % (Auto) 21.9 L, [place] % (Auto) 6.5 H, Eos % (Auto) 2.1, Baso % (Auto) 0.2, Gran # 6.20, Lymph # ( Auto) 2.0, [place] # (Auto) 0.6, Eos # (Auto) 0.2, Baso # (Auto) 0.02 Vital Signs Temp Pulse Resp BP Pulse Ox 12/06/17 09:22 63 120/67 12/06/17 07:19 97.9 F 63 20 120/67 12/06/17 00:04 69 12/05/17 16:00 59 L 115/79 12/05/17 11:07 98.4 F 82 18 115/75 12/05/17 02:07 98.5 F 76 16 113/67 95 12/04/17 23:00 85 18 140/78 98 12/04/17 21:32 84 18 138/80 97 03/05/18 20:27 79 20 121/71 97 12/04/17 17:12 98.4 F 84 16 150/90 94 L DSM 5 Symptoms Update: shortly patient is 52 years old female, with h/o anxiety, most likely panic disorder with agoraphobia, three previous admission to the psych unit pt was d/c 04/06/2017, pt currently under service (local psychiatrist), no suicidal attempts, patient came to the hospital for evaluation of uncontrolled anxiety, panic attacks, pt requested to be admitted to the psych unit, pt said she cannot function, at present moment pt feels her depression "is worse I am afraid to do something...", pt was keep coming to ED for evaluation, (last visit was October 2017), pt reported being compliant with meds and f/u appts and therapy sessions, pt's meds were changed, but seems to be not working, pt tried her best to look for help as outpatient, but outpatient setting failed, pt came to the hospital looking for help and admission. patient was seen today in her room, pt appeared to be apathetic, majority of the answers were "whatever", pt was given assignments yesterday, pt said that she tried relaxation techniques and breathing exercises "it was okay, whatever" . pt reported to feel low energy and amotivated, flat affect. pt was seen by pulmonology team, consult appreciated, possible sleep apnea, was advised to be cautious about sedative medicine. pt said that she does not have any side effects from the effexor, "it is too early, I just took it yesterday". as per staff pt was participating in unit activities, no agitation or aggression. Pt tolerates meds well, no side effects observed or reported, AIMS 0, no EPS. Impression: MDD panic disorder with agoraphobia Medication Change: Yes (effexor started yesterday, tapering dose of paxil) Medical Record Reviewed: Yes Consults ordered or reviewed: medical consult appreciated pulmonology consult appreciated Mental Status Examination - Cognitive Function Orientation: Person, Place, Situation, Time Memory: Intact Attention: Poor ("I cannot concentrate, I cannot even read a book") Concentration: Poor Association: WNL Fund of Knowledge: WNL - Mood Mood: Depressed, Anxious - Affect Affect: Constricted - Formal Thought Process Formal Thought Process: No Impairment - Suicidal Ideation Suicidal Ideation: No - Homicidal Ideation Homicidal Ideation: No Goal/Treatment Plan - Goal/Treatment Plan Need for Continued Stay: Remain at risks for inpatient hospitalization, Severe depression anxiety, Discharge may exacerbated symptoms, Severe functional impairment Progress Toward Problem(s) and Goals/Treatment Plan: milieu/structure/supportive therapy Aspirin [Ecotrin] 81 mg PO DAILY Atorvastatin [Lipitor] 40 mg PO DIN Cholecalciferol [Vitamin D 1000 IU] 2,000 iu PO DAILY clonazePAM [Klonopin] 0.5 mg PO 0800,2200 and 0.25mg at 2pm PARoxetine [Paxil] will be decreased to 10mg po bid, with the plan to wean it off Effexor 37.5 mg po daily for depression and anxiety, with the plan to increase it slowly Sonata 5mg po hs PRN for insomnia sleep hygiene print out was provided medical consult appreciated Pulmonology consult called to r/o sleep apnea, appreciated, recommended sleep study as outpatient Dietitian consult was called Losartan [Cozaar] 100 mg PO DAILY Propranolol [Inderal] 10 mg PO BID hydroCHLOROthiazide 12.5 mg PO DAILY Family involvement Pt was educated about risk/benefits and alternatives of meds SW evaluation relaxation technique, mindfulness, breathing exercises implemented pt was given assignment will f/u tomorrow Follow up on labs Will monitor closely Pt was educated about risk/benefits and alternatives of medications, coping strategies (safety plan, suicide prevention), relapse prevention, importance of follow up with psychiatrist and therapist, stay away from drugs/alcohol/smoking Estimated Date of D/C: 12/11/17
[2017-12-06] MEDS: Insulin Lispro (HUMAlog) HIGH Coverage SC SCH ×2 (12:47→17:43)
--- NOTE | 2017-12-06 13:58 | PN ---
DATE: 12/06/2017 SUBJECTIVE: The patient was seen ambulating on the psychiatry floor. The patient was seen and examined in the patient's room of 513. Overnight nurse's notes were reviewed. The patient was found to be less depressed, less anxious. The patient refused the metformin for unknown reason. PHYSICAL EXAMINATION: VITAL SIGNS: T-max 97.9; pulse 63, 69, 59; blood pressure 120/67; respiration 20; O2 sat 99%, 98%. HEENT: Head examination normocephalic, atraumatic. HEENT examination shows pink conjunctivae. Anicteric sclerae. No oropharyngeal lesion. No neck rigidity. CHEST: Kyphosis. LUNGS: Examination shows no rales, crackles or wheezing. CARDIOVASCULAR: S1, S2. Regular rhythm. ABDOMEN: Obese. Positive bowel sounds. GENITALIA: Female. RECTAL: Deferred. EXTREMITY: Shows nonpitting swelling of the lower extremity. MUSCULOSKELETAL: Shows a body mass index of 60.2. NEUROLOGIC: The patient is alert, awake, oriented x3. Cranial nerves II through XII intact. Gait examination is independent. VASCULAR: Palpable pulses. PSYCHIATRIC: As per the psychiatrist evaluation. DIAGNOSTICS: From 12/06/2017 reviewed. Sodium 142, potassium 3.8, chloride 100, CO2 of 31, anion gap 15, BUN 20, creatinine 0.6, GFR greater than 60. Glucose 142, 160, 223. Hemoglobin A1c is 7.4. LFTs are normal. Vitamin D less than 12.8. TSH, T4 are within normal limit. Cholesterol 159, LDL is 91. RPR is nonreactive. Urine cultures are negative with multiple species, appears to be contamination. IMPRESSION AND PLAN: 1. Acute exacerbation of anxiety and depression. 2. History of panic disorder with agoraphobia. 3. Type 2 noninsulin-requiring diabetes mellitus. 4. Super morbid obesity with elevated body mass index of 60.2. 5. Uncontrolled type 2 diabetes mellitus with hemoglobin A1c of 7.4 and hyperglycemia. 6. Hyperlipidemia with elevated LDL. 7. Severe hypovitaminosis D. Plan at this time, the patient is refusing metformin. The patient has been ordered repeat labs, fructosamine GlycoMark. Repeat hemoglobin A1c has been ordered. The results are pending. The patient's current medications: The patient is refusing metformin, so the patient was started on Amaryl 2 mg before breakfast and dinner. The patient is on an Ativan 2 mg p.o. or IM q. 6 hours p.r.n. The patient is on Benadryl 50 mg IM or p.o. q. 6 hours p.r.n., Cozaar 100 mg daily, Drisdol 50,000 weekly, Ecotrin 81 mg daily, Effexor 37.5 mg daily, Haldol 5 mg p.o. or IM q. 6 hours p.r.n., Humalog low-dose sliding scale coverage before meals, which will be changed. The patient is on Inderal 10 mg twice a day, Klonopin 0.25 mg 2:00 p.m. and Klonopin 0.5 mg a.m. and at bedtime, Lipitor 40 mg daily, hydrochlorothiazide 12.5 mg daily, Paxil 10 mg twice a day, Sonata 5 mg at bedtime p.r.n., Tylenol 650 q. 6 p.r.n., on vitamin D3 at 2000 [address] Unit daily. The patient has been ordered CPAP with a pressure of 7 at bedtime. The patient's diet will be changed to consistent carbohydrate diet, heart healthy. The patient has been told about her diabetes being uncontrolled. The patient was advised strict weight loss, strict diet. The patient was advised to seek outpatient bariatric surgery consultation and evaluation. The patient was advised outpatient followup by Ophthalmology and podiatry for diabetic foot care and eye care. The patient was also advised weight loss. All of the above was explained to the patient at layman's language. All questions concerned answered, which she acknowledged and understand. Dictated and electronically signed, not read. Desean Pinto MD
--- NOTE | 2017-12-06 19:44 | PN ---
DATE: 12/06/2017 PULMONARY PROGRESS NOTE REFERRING PHYSICIAN: Evy Brown MD. SUBJECTIVE: She is lying in the bed, still on CPAP, tolerated it well overnight. Feels much better. No cough. No sputum production. No nausea. No vomiting. No diarrhea, leg pain or leg swelling. OBJECTIVE: GENERAL: In no acute distress. VITAL SIGNS: Temperature is 98, heart rate is 63, respiratory rate is 20, blood pressure 120/67. HEENT: Moist mucous membrane. Crowded airway. NECK: Short thick neck. LUNGS: Have a fair airflow with rhonchi. HEART: S1 and S2. ABDOMEN: Soft, nontender. No organomegaly. EXTREMITIES: No edema. NEUROLOGIC: Sleepy, arousable. Follows simple commands. MEDICATIONS: She is on Amaryl 2 mg a.c. , Ativan 2 mg q. 6 hours p.r.n., also Ativan 2 mg IM q. 6 hours p.r.n., Benadryl 50 mg IM q. 6 hours p.r.n., Benadryl 50 mg q. 6 hours p.r.n., Cozaar 100 mg daily, Vitamin D 1 capsule q. 7 days, Ecotrin 81 mg daily, Effexor 75 mg daily, Haldol 5 mg q. 6 hours p.r.n. and also Haldol 5 mg IM q. 6 hours p.r.n., insulin coverage, Inderal 10 mg twice a day, Klonopin 0.25 mg daily, also Klonopin 0.5 mg a.m. and at bedtime, Lipitor 40 mg daily, 30 mg daily, p.r.n., hydrochlorothiazide 12.5 mg daily, Paxil 10 mg daily, Sonata 5 mg at bedtime p.r.n., Tylenol p.r.n., vitamin D 2000 International Unit daily. LABORATORY DATA: Reviewed. Blood sugar this morning is 135. IMPRESSION AND PLAN: Major depression, hypertension, obesity, suspected sleep apnea syndrome. Overnight did well with CPAP while sleeping. Continue watch for the sedatives. Encourage CPAP use. Keep head at 45 degrees. Gastric prophylaxis. Sequential compression device to lower extremity. Fall precaution. Thank you and we will follow with you. Barbara Eller MD [facility] # [id number]
[2017-12-07 02:25] LABS: FRUCTOSAMINE 228 umol/L (190-270)
[2017-12-07 06:56] VITALS: TEMP 98
[2017-12-07 08:11] LABS: ALB/GLOB RATIO 1.1 (1.1-1.8); ALBUMIN 3.7 g/dL (3.0-4.8); ALT/SGPT 27 U/L (7-56); AST/SGOT 20 U/L (14-36); BILIRUBIN,DIRECT 0.2 mg/dL (0.0-0.4); BLOOD UREA NITROGEN 20 mg/dL (7-21); CALCIUM 9.3 mg/dL (8.4-10.5); GFR AFRICAN-AMERICAN > 60; GFR NON-AFRICAN AMERICAN > 60
[2017-12-07] MEDS: Insulin Lispro (HUMAlog) HIGH Coverage SC SCH ×3 (08:38→17:33)
[2017-12-07] MEDS: Cholecalciferol 1,000 INTLU TAB PO SCH (09:00)
[2017-12-07] MEDS ORDERED: Venlafaxine 75 mg ER Cap PO SCH (13:46)
--- NOTE | 2017-12-07 15:21 | PCM.PYCHPN ---
Psychiatric Progress Note - Psychiatric Progress Note Patient seen today, length of contact: 30min Patient Chief Complaint: " I feel better " Problems Identified/Issues Discussed: Suicide/ homicide prevention, past psychiatric h/o, current psychiatric symptoms , medical problems, risk/benefits and alternatives of medications, medications compliance, coping strategies, substance abuse h/o, relapse prevention, importance of follow up with psychiatrist and therapist, discharge plan. Medical Problems: obesity and HTN, possible sleep apnea patient aware that she needs to be followed up with a primary care physician as well as sleep study as well as pulmonology follow-up as well as possible diabetes medications initiation Diagnostic Results: 12/04/17 18:20 12/06/17 06:30 Lab Results 12/06/17 11:16: POC Glucose (mg/dL) 194 H 12/06/17 07:17: POC Glucose (mg/dL) 142 H 12/06/17 06:30: Sodium 142, Potassium 3.8, Chloride 100, Carbon Dioxide 31, Anion Gap 15, BUN 20, Creatinine 0.6 L, Est GFR ( Amer) > 60, Est GFR ( Non-Af Amer) > 60, Random Glucose 160 H, Calcium 9.7, Magnesium 2.0, Total Bilirubin 1.3, Direct Bilirubin 0.4, AST 26, ALT 24, Alkaline Phosphatase 112, Total Protein 7.4, Albumin 3.8, Globulin 3.6, Albumin/Globulin Ratio 1.1 12/06/17 06:30: Hemoglobin A1c 7.4 H 12/05/17 : 25-OH Vitamin D Total < 12.8 L 12/05/17 21:28: POC Glucose (mg/dL) 223 H 12/05/17 10:44: Free T4 1.08, Thyroxine (T4) 9.6 12/05/17 07:30: RPR Nonreactive 12/05/17 07:30: TSH 3rd Generation 1.39 12/05/17 07:30: Fasting Glucose 166 H, Triglycerides 150, Cholesterol 159, LDL Cholesterol Direct 91, HDL Cholesterol 45 12/04/17 23:58: Hemoglobin A1c 7.4 H 12/04/17 20:00: Urine Opiates Screen Negative, Urine Methadone Screen Negative, Ur Barbiturates Screen Negative, Ur Phencyclidine Scrn Negative, Ur Amphetamines Screen Negative, U Benzodiazepines Scrn Negative, U Oth Cocaine Metabols Negative, U Cannabinoids Screen Negative 12/04/17 18:31: Urine Color Yellow, Urine Appearance Clear, Urine pH 6.0, Ur Specific [place] 1.025, Urine Protein Negative, Urine Glucose (UA) Negative, Urine Ketones Negative, Urine Blood Negative, Urine Nitrate Negative, Urine Bilirubin Negative, Urine Urobilinogen 0.2, Ur Leukocyte Esterase Trace H, Urine RBC 0 - 2, Urine WBC 0 - 2, Ur Epithelial Cells 10 - 12, Urine Bacteria Mod, Urine Other Fiber 12/04/17 18:20: Alcohol, Quantitative < 10 12/04/17 18:20: Salicylates < 1 L, Acetaminophen < 10.0 L 12/04/17 18:20: Sodium 142, Potassium 3.8, Chloride 100, Carbon Dioxide 32, Anion Gap 13, BUN 15, Creatinine 0.7, Est GFR ( Amer) > 60, Est GFR (Non- Af Amer) > 60, Random Glucose 184 H, Calcium 10.0, Total Bilirubin 1.0, AST 19, ALT 28, Alkaline Phosphatase 132 H D, Total Protein 8.0, Albumin 4.2, Globulin 3.9, Albumin/Globulin Ratio 1.1 12/04/17 18:20: WBC 9.0, RBC 4.27, Hgb 13.1, Hct 40.3, MCV 94.4, MCH 30.7, MCHC 32.5, RDW 13.4, Plt Count 335, MPV 8.7, Gran % 69.3 H, Lymph % (Auto) 21.9 L, [place] % (Auto) 6.5 H, Eos % (Auto) 2.1, Baso % (Auto) 0.2, Gran # 6.20, Lymph # ( Auto) 2.0, [place] # (Auto) 0.6, Eos # (Auto) 0.2, Baso # (Auto) 0.02 Vital Signs Temp Pulse Resp BP Pulse Ox 12/06/17 09:22 63 120/67 12/06/17 07:19 97.9 F 63 20 120/67 12/06/17 00:04 69 12/05/17 16:00 59 L 115/79 12/05/17 11:07 98.4 F 82 18 115/75 12/05/17 02:07 98.5 F 76 16 113/67 95 12/04/17 23:00 85 18 140/78 98 12/04/17 21:32 84 18 138/80 97 12/04/17 20:27 79 20 121/71 97 12/04/17 17:12 98.4 F 84 16 150/90 94 L DSM 5 Symptoms Update: shortly patient is 52 years old female, with h/o anxiety, most likely panic disorder with agoraphobia, three previous admission to the psych unit pt was d/c 04/06/2017, pt currently under service (local psychiatrist), no suicidal attempts, patient came to the hospital for evaluation of uncontrolled anxiety, panic attacks, pt requested to be admitted to the psych unit, pt said she cannot function, at present moment pt feels her depression "is worse I am afraid to do something...", pt was keep coming to ED for evaluation, (last visit was October 2017), pt reported being compliant with meds and f/u appts and therapy sessions, pt's meds were changed, but seems to be not working, pt tried her best to look for help as outpatient, but outpatient setting failed, pt came to the hospital looking for help and admission. patient was seen today at the dining area, pt appeared to be '. Today, patient reported to have fair sleep, patient reported that she feels better, patient denied any thoughts of harming herself or others, reported that her anxiety is under control, patient reported that she likes Effexor, denied any side effects , none was observed. Patient requested to be discharged tomorrow pt was seen by pulmonology team, consult appreciated, possible sleep apnea, was advised to be cautious about sedative medicine. as per staff pt was participating in unit activities, no agitation or aggression. Pt tolerates meds well, no side effects observed or reported, AIMS 0, no EPS. Impression: MDD panic disorder with agoraphobia Medication Change: Yes (Effexor was increased to 150 mg daily) Medical Record Reviewed: Yes Consults ordered or reviewed: medical consult appreciated pulmonology consult appreciated Mental Status Examination - Cognitive Function Orientation: Person, Place, Situation, Time Memory: Intact Attention: Poor (improvement) Concentration: Poor (improvement) Association: WNL Fund of Knowledge: WNL - Mood Mood: Depressed ("I'm okay), Anxious (I did not have any anxiety) - Affect Affect: Constricted - Formal Thought Process Formal Thought Process: No Impairment - Suicidal Ideation Suicidal Ideation: No - Homicidal Ideation Homicidal Ideation: No Goal/Treatment Plan - Goal/Treatment Plan Need for Continued Stay: Remain at risks for inpatient hospitalization, Severe depression anxiety, Discharge may exacerbated symptoms, Severe functional impairment Progress Toward Problem(s) and Goals/Treatment Plan: milieu/structure/supportive therapy Aspirin [Ecotrin] 81 mg PO DAILY Atorvastatin [Lipitor] 40 mg PO DIN Cholecalciferol [Vitamin D 1000 IU] 2,000 iu PO DAILY clonazePAM [Klonopin] 0.5 mg PO 0800,2200 and 0.25mg at 2pm PARoxetine discontinued Effexor 50 daily mg po daily for depression and anxiety, with the plan to increase it slowly Sonata 5mg po hs PRN for insomnia sleep hygiene print out was provided medical consult appreciated Pulmonology consult called to r/o sleep apnea, appreciated, recommended sleep study as outpatient Dietitian consult was called Losartan [Cozaar] 100 mg PO DAILY Propranolol [Inderal] 10 mg PO BID hydroCHLOROthiazide 12.5 mg PO DAILY Family involvement Pt was educated about risk/benefits and alternatives of meds SW evaluation relaxation technique, mindfulness, breathing exercises implemented pt was given assignment will f/u tomorrow Follow up on labs Will monitor closely Pt was educated about risk/benefits and alternatives of medications, coping strategies (safety plan, suicide prevention), relapse prevention, importance of follow up with psychiatrist and therapist, stay away from drugs/alcohol/smoking Estimated Date of D/C: 12/08/17 (patient requested to be discharged tomorrow)
--- NOTE | 2017-12-07 23:20 | PN ---
DATE: 12/07/2017 SUBJECTIVE: The patient is seen in room 513, bed 1. The patient is alert, awake, responsive. The patient is ambulating in the room. According to the nurses' note, the patient has been refusing fingerstick blood sugar and sliding scale coverage. Though, the patient has been told for the last 2 days and 3 days when the patient was told that the patient has diabetes mellitus and the patient needs treatment for it including sliding scale coverage and also oral hypoglycemic yesterday, the patient stated that she does not want the metformin, but today the patient is stating that she is agreeable to take metformin. Otherwise, nurse's notes were reviewed. The patient was given CPAP. The patient initially resisted and refused CPAP, but later on agreed to use it. The patient slept through the night without any adverse events noted. PHYSICAL EXAMINATION: VITAL SIGNS: T-max 98.0; pulse 83, 72, 82; blood pressure 133/81, 130/78, 110/70; respiration 20; O2 sat 97%. HEENT: Head examination normocephalic, atraumatic. HEENT examination shows pinkish conjunctivae. Anicteric sclerae. No oropharyngeal lesion. No neck rigidity. CHEST: Symmetrical. LUNGS: Shows no rales, crackles or wheezing. ABDOMEN: Morbidly obese. GENITALIA: Female. RECTAL: Deferred. EXTREMITIES: Show nonpitting edema. MUSCULOSKELETAL: Shows a body mass index of 60. CARDIOVASCULAR: S1, S2. No audible murmur, gallop or rub. NEUROLOGIC: The patient is alert, awake, oriented x3. Cranial nerves II through XII grossly intact. Gait examination is independent. VASCULAR: Palpable pulses. DIAGNOSTICS: On 12/07/2017, sodium 142, potassium 3.8, chloride 100, CO2 of 32, anion gap 13, BUN 20, creatinine 0.6, GFR greater than 60, glucose 139, hemoglobin A1c repeat 7.4. Fingerstick blood sugar 135, 163, 139, 147, 132. Hemoglobin A1c consistently is 7.4. Fructosamine is 228. RPR is negative. Urine culture mixed species. IMPRESSION AND PLAN: 1. Acute exacerbation of anxiety, depression. 2. Super morbid obesity with elevated body mass index of 60. 3. Noninsulin-requiring diabetes mellitus. 4. Possible insulin resistance. 5. Major depression. 6. Panic disorder with agoraphobia. 7. Hypertension. 8. Hypovitaminosis D. 9. Possible sleep apnea syndrome. 10. Uncontrolled diabetes mellitus with hemoglobin A1c of 7.4. 11. Pyuria. 12. Morbid obesity. 13. Questionable noncompliance. 14. Anxiety. 15. Dyslipidemia. 16. Insomnia. Plan at this time, the patient was explained about the need for fingerstick blood sugar, sliding scale coverage while the patient is in the hospital, so the patient states that she will agree to it. The patient wishes to continue taking metformin, so Amaryl will be discontinued. The patient will be started on metformin. The patient's case is referred to asthma educator. The patient is not seen by asthma educator. The patient seen by dietitian, but not asthma educator. The patient's current medications: 1. Ativan 2 mg p.o. or IM q. 6 hours p.r.n. 2. Benadryl 50 mg p.o. or IM q. 6 hours p.r.n. 3. Cozaar 100 mg daily. 4. Drisdol 50,000 units weekly. 5. Aspirin 81 mg daily. 6. Effexor XR 150 mg daily. 7. Metformin 500 mg twice a day. 8. Haldol 5 mg p.o. or IM q. 6 hours p.r.n. 9. Humalog high-dose sliding scale coverage before meals. 10. Inderal 10 mg twice a day. 11. Klonopin 0.25 mg 02:00 p.m. and Klonopin 0.5 mg a.m. and at bedtime. 12. Lipitor 40 mg daily. 13. Hydrochlorothiazide 12.5 mg daily. 14. Milk of magnesia. 15. Maalox p.r.n. 16. Ambien. 17. Sonata 5 mg at bedtime p.r.n. 18. Tylenol 650 q. 6 p.r.n. 19. Vitamin D3 at 2000 International Units daily. 20. The patient is on CPAP with a pressure of 7. The patient is on consistent carbohydrate diet. At present, the patient is overall medically stable. The patient was advised outpatient followup with the primary care physician. Outpatient followup and evaluation with office machine servicer apprentice and skin tanner. The patient was also advised outpatient evaluation and consultation with weight loss treatment option. All of the above was explained to the patient at length and all questions concerned answered to the patient's satisfaction. At present, the patient should be continued on the above therapeutic intervention. We will follow the patient peripherally while the patient is in the hospital and if there is any indication for further modification or intervention or medical therapy, we will institute that. Dictated and electronically signed, not read. Desean Pinto MD
--- NOTE | 2017-12-07 23:29 | PN ---
DATE: 12/07/2017 REFERRING PHYSICIAN: . SUBJECTIVE: She is out of bed to chair in the dining room. Night was unremarkable. Tolerating CPAP whole night, much more awake and alert. No cough. No sputum production. No nausea. No vomiting. No diarrhea. No leg pain or leg swelling. OBJECTIVE: GENERAL: In no acute distress. VITAL SIGNS: Temp is 98, heart rate is 83, respiratory rate is 20, blood pressure 110/70, pulse ox is 98% on room air. HEENT: Moist mucous membrane. Crowded airway. Mallampati score is 4. NECK: Supple. No JVD. LUNGS: Have a fair airflow with rhonchi. HEART: S1, S2. ABDOMEN: Soft, nontender. No organomegaly. EXTREMITIES: No edema. NEUROLOGIC: Awake, alert. Follows simple command. MEDICATIONS: She is on Amaryl 2 mg a.c. , Ativan 2 mg q. 6 hours p.r.n., and Ativan 2 mg IM q. 6 hours p.r.n., Benadryl 50 mg q. 6 hours p.r.n., and also Benadryl 50 mg p.o. q. 6 hours p.r.n., Cozaar 100 mg daily, Vitamin D 03004 units p.o. q. 7 days, Ecotrin 81 mg daily, Effexor 150 mg daily, Haldol 5 mg q. 6 hours p.r.n. and also on Inderal 10 mg twice a day, clonazepam 0.25 mg daily, Klonopin 0.5 mg a.m. and at bedtime, Lipitor 40 mg daily, hydrochlorothiazide 12.5 mg daily, milk of magnesia p.r.n., Sonata 5 mg at bedtime p.r.n., Tylenol p.r.n., vitamin D2 1000 International Unit daily. LABORATORY DATA: Reviewed and noted. Sodium 142, potassium 3.8, chloride 100, bicarbonate 32, BUN 20, creatinine 0.6, glucose is 139, calcium is 9.3. Magnesium 2.1. AST 20, ALT 27, alk phos is 100, albumin is 3.7. IMPRESSION AND PLAN: Major depression, asthma, hypertension, diabetes, obesity. Continue and encourage CPAP use. Keep head at 45 degrees. Careful with sedation. Gastric prophylaxis. Fall precaution. Outpatient attended sleep study upon discharge. Thank you and we will follow with you. Barbara Eller MD
[2017-12-08 06:57] VITALS: BP 135/82; PULSE 75
[2017-12-08] MEDS: Insulin Lispro (HUMAlog) HIGH Coverage SC SCH ×2 (08:00→12:31)
[2017-12-08] MEDS: Cholecalciferol 1,000 INTLU TAB PO SCH (08:09)
[2017-12-08 11:57] LABS: GLYCOMARK(R) 14.6 mcg/mL (7.5-28.4)
--- NOTE | 2017-12-08 12:40 | PCM.PYCHDC ---
Mental Status Examination - Mental Status Examination Orientation: Person, Place, Situation Memory: Intact Mood: Neutral Affect: Broad (appropriately related and reactive) Speech: Appropriate Attention: WNL Concentration: WNL Association: WNL Fund of Knowledge: WNL Formal Thought Process: No Impairment Description of patient's judgement and insight: Good insight and judgement Psychotic Thoughts and Behaviors: She denied hallucinations or paranoia. Delusions were not elicited on day of discharge. Suicidal Ideation: No Current Homicidal Ideation?: No Discharge Summary - Discharge Note Reason for Hospitalization: Patient is 52 years old female who came to the hospital for evaluation of uncontrolled anxiety, panic attacks requesting admission to the psychiatric unit. Psychiatric History (includes Medical, Family, Personal Hx): see HPI Laboratory Data: Laboratory Tests 12/04/17 12/04/17 12/04/17 18:20 18:20 18:20 WBC 9.0 RBC 4.27 Hgb 13.1 Hct 40.3 MCV 94.4 MCH 30.7 MCHC 32.5 RDW 13.4 Plt Count 335 MPV 8.7 Gran % 69.3 H Lymph % (Auto) 21.9 L Valley % (Auto) 6.5 H Eos % (Auto) 2.1 Baso % (Auto) 0.2 Gran # 6.20 Lymph # (Auto) 2.0 Valley # (Auto) 0.6 Eos # (Auto) 0.2 Baso # (Auto) 0.02 Sodium 142 Potassium 3.8 Chloride 100 Carbon Dioxide 32 Anion Gap 13 BUN 15 Creatinine 0.7 Est GFR ( Amer) > 60 Est GFR (Non-Af Amer) > 60 POC Glucose (mg/dL) Random Glucose 184 H Fasting Glucose Hemoglobin A1c Fructosamine Calcium 10.0 Magnesium Total Bilirubin 1.0 Direct Bilirubin AST 19 ALT 28 Alkaline Phosphatase 132 H D Total Protein 8.0 Albumin 4.2 Globulin 3.9 Albumin/Globulin Ratio 1.1 Triglycerides Cholesterol LDL Cholesterol Direct HDL Cholesterol 25-OH Vitamin D Total Free T4 Thyroxine (T4) TSH 3rd Generation Urine Color Urine Appearance Urine pH Ur Specific [place] Urine Protein Urine Glucose (UA) Urine Ketones Urine Blood Urine Nitrate Urine Bilirubin Urine Urobilinogen Ur Leukocyte Esterase Urine RBC Urine WBC Ur Epithelial Cells Urine Bacteria Urine Other Salicylates < 1 L Urine Opiates Screen Urine Methadone Screen Acetaminophen < 10.0 L Ur Barbiturates Screen Ur Phencyclidine Scrn Ur Amphetamines Screen U Benzodiazepines Scrn U Oth Cocaine Metabols U Cannabinoids Screen Alcohol, Quantitative RPR 12/04/17 12/04/17 12/04/17 18:20 18:31 20:00 WBC RBC Hgb Hct MCV MCH MCHC RDW Plt Count MPV Gran % Lymph % (Auto) Valley % (Auto) Eos % (Auto) Baso % (Auto) Gran # Lymph # (Auto) Valley # (Auto) Eos # (Auto) Baso # (Auto) Sodium Potassium Chloride Carbon Dioxide Anion Gap BUN Creatinine Est GFR ( Amer) Est GFR (Non-Af Amer) POC Glucose (mg/dL) Random Glucose Fasting Glucose Hemoglobin A1c Fructosamine Calcium Magnesium Total Bilirubin Direct Bilirubin AST ALT Alkaline Phosphatase Total Protein Albumin Globulin Albumin/Globulin Ratio Triglycerides Cholesterol LDL Cholesterol Direct HDL Cholesterol 25-OH Vitamin D Total Free T4 Thyroxine (T4) TSH 3rd Generation Urine Color Yellow Urine Appearance Clear Urine pH 6.0 Ur Specific [place] 1.025 Urine Protein Negative Urine Glucose (UA) Negative Urine Ketones Negative Urine Blood Negative Urine Nitrate Negative Urine Bilirubin Negative Urine Urobilinogen 0.2 Ur Leukocyte Esterase Trace H Urine RBC 0 - 2 Urine WBC 0 - 2 Ur Epithelial Cells 10 - 12 Urine Bacteria Mod Urine Other Fiber Salicylates Urine Opiates Screen Negative Urine Methadone Screen Negative Acetaminophen Ur Barbiturates Screen Negative Ur Phencyclidine Scrn Negative Ur Amphetamines Screen Negative U Benzodiazepines Scrn Negative U Oth Cocaine Metabols Negative U Cannabinoids Screen Negative Alcohol, Quantitative < 10 RPR 12/04/17 12/05/17 12/05/17 23:58 07:30 07:30 WBC RBC Hgb Hct MCV MCH MCHC RDW Plt Count MPV Gran % Lymph % (Auto) Valley % (Auto) Eos % (Auto) Baso % (Auto) Gran # Lymph # (Auto) Valley # (Auto) Eos # (Auto) Baso # (Auto) Sodium Potassium Chloride Carbon Dioxide Anion Gap BUN Creatinine Est GFR ( Amer) Est GFR (Non-Af Amer) POC Glucose (mg/dL) Random Glucose Fasting Glucose 166 H Hemoglobin A1c 7.4 H Fructosamine Calcium Magnesium Total Bilirubin Direct Bilirubin AST ALT Alkaline Phosphatase Total Protein Albumin Globulin Albumin/Globulin Ratio Triglycerides 150 Cholesterol 159 LDL Cholesterol Direct 91 HDL Cholesterol 45 25-OH Vitamin D Total Free T4 Thyroxine (T4) TSH 3rd Generation 1.39 Urine Color Urine Appearance Urine pH Ur Specific [place] Urine Protein Urine Glucose (UA) Urine Ketones Urine Blood Urine Nitrate Urine Bilirubin Urine Urobilinogen Ur Leukocyte Esterase Urine RBC Urine WBC Ur Epithelial Cells Urine Bacteria Urine Other Salicylates Urine Opiates Screen Urine Methadone Screen Acetaminophen Ur Barbiturates Screen Ur Phencyclidine Scrn Ur Amphetamines Screen U Benzodiazepines Scrn U Oth Cocaine Metabols U Cannabinoids Screen Alcohol, Quantitative RPR 12/05/17 12/05/17 12/05/17 07:30 10:44 21:28 WBC RBC Hgb Hct MCV MCH MCHC RDW Plt Count MPV Gran % Lymph % (Auto) Valley % (Auto) Eos % (Auto) Baso % (Auto) Gran # Lymph # (Auto) Valley # (Auto) Eos # (Auto) Baso # (Auto) Sodium Potassium Chloride Carbon Dioxide Anion Gap BUN Creatinine Est GFR ( Amer) Est GFR (Non-Af Amer) POC Glucose (mg/dL) 223 H Random Glucose Fasting Glucose Hemoglobin A1c Fructosamine Calcium Magnesium Total Bilirubin Direct Bilirubin AST ALT Alkaline Phosphatase Total Protein Albumin Globulin Albumin/Globulin Ratio Triglycerides Cholesterol LDL Cholesterol Direct HDL Cholesterol 25-OH Vitamin D Total Free T4 1.08 Thyroxine (T4) 9.6 TSH 3rd Generation Urine Color Urine Appearance Urine pH Ur Specific [place] Urine Protein Urine Glucose (UA) Urine Ketones Urine Blood Urine Nitrate Urine Bilirubin Urine Urobilinogen Ur Leukocyte Esterase Urine RBC Urine WBC Ur Epithelial Cells Urine Bacteria Urine Other Salicylates Urine Opiates Screen Urine Methadone Screen Acetaminophen Ur Barbiturates Screen Ur Phencyclidine Scrn Ur Amphetamines Screen U Benzodiazepines Scrn U Oth Cocaine Metabols U Cannabinoids Screen Alcohol, Quantitative RPR Nonreactive 12/05/17 12/06/17 12/06/17 Unknown 06:30 06:30 WBC RBC Hgb Hct MCV MCH MCHC RDW Plt Count MPV Gran % Lymph % (Auto) Valley % (Auto) Eos % (Auto) Baso % (Auto) Gran # Lymph # (Auto) Valley # (Auto) Eos # (Auto) Baso # (Auto) Sodium 142 Potassium 3.8 Chloride 100 Carbon Dioxide 31 Anion Gap 15 BUN 20 Creatinine 0.6 L Est GFR ( Amer) > 60 Est GFR (Non-Af Amer) > 60 POC Glucose (mg/dL) Random Glucose 160 H Fasting Glucose Hemoglobin A1c 7.4 H Fructosamine Calcium 9.7 Magnesium 2.0 Total Bilirubin 1.3 Direct Bilirubin 0.4 AST 26 ALT 24 Alkaline Phosphatase 112 Total Protein 7.4 Albumin 3.8 Globulin 3.6 Albumin/Globulin Ratio 1.1 Triglycerides Cholesterol LDL Cholesterol Direct HDL Cholesterol 25-OH Vitamin D Total < 12.8 L Free T4 Thyroxine (T4) TSH 3rd Generation Urine Color Urine Appearance Urine pH Ur Specific [place] Urine Protein Urine Glucose (UA) Urine Ketones Urine Blood Urine Nitrate Urine Bilirubin Urine Urobilinogen Ur Leukocyte Esterase Urine RBC Urine WBC Ur Epithelial Cells Urine Bacteria Urine Other Salicylates Urine Opiates Screen Urine Methadone Screen Acetaminophen Ur Barbiturates Screen Ur Phencyclidine Scrn Ur Amphetamines Screen U Benzodiazepines Scrn U Oth Cocaine Metabols U Cannabinoids Screen Alcohol, Quantitative RPR 12/06/17 12/06/17 12/06/17 07:17 07:30 11:16 WBC RBC Hgb Hct MCV MCH MCHC RDW Plt Count MPV Gran % Lymph % (Auto) Valley % (Auto) Eos % (Auto) Baso % (Auto) Gran # Lymph # (Auto) Valley # (Auto) Eos # (Auto) Baso # (Auto) Sodium Potassium Chloride Carbon Dioxide Anion Gap BUN Creatinine Est GFR ( Amer) Est GFR (Non-Af Amer) POC Glucose (mg/dL) 142 H 194 H Random Glucose Fasting Glucose Hemoglobin A1c Fructosamine 228 Calcium Magnesium Total Bilirubin Direct Bilirubin AST ALT Alkaline Phosphatase Total Protein Albumin Globulin Albumin/Globulin Ratio Triglycerides Cholesterol LDL Cholesterol Direct HDL Cholesterol 25-OH Vitamin D Total Free T4 Thyroxine (T4) TSH 3rd Generation Urine Color Urine Appearance Urine pH Ur Specific [place] Urine Protein Urine Glucose (UA) Urine Ketones Urine Blood Urine Nitrate Urine Bilirubin Urine Urobilinogen Ur Leukocyte Esterase Urine RBC Urine WBC Ur Epithelial Cells Urine Bacteria Urine Other Salicylates Urine Opiates Screen Urine Methadone Screen Acetaminophen Ur Barbiturates Screen Ur Phencyclidine Scrn Ur Amphetamines Screen U Benzodiazepines Scrn U Oth Cocaine Metabols U Cannabinoids Screen Alcohol, Quantitative RPR 12/06/17 12/06/17 12/07/17 16:08 20:59 07:00 WBC RBC Hgb Hct MCV MCH MCHC RDW Plt Count MPV Gran % Lymph % (Auto) Valley % (Auto) Eos % (Auto) Baso % (Auto) Gran # Lymph # (Auto) Valley # (Auto) Eos # (Auto) Baso # (Auto) Sodium 142 Potassium 3.8 Chloride 100 Carbon Dioxide 32 Anion Gap 13 BUN 20 Creatinine 0.6 L Est GFR ( Amer) > 60 Est GFR (Non-Af Amer) > 60 POC Glucose (mg/dL) 135 H 163 H Random Glucose 139 H Fasting Glucose Hemoglobin A1c Fructosamine Calcium 9.3 Magnesium 2.1 Total Bilirubin 1.0 Direct Bilirubin 0.2 AST 20 ALT 27 Alkaline Phosphatase 100 Total Protein 7.1 Albumin 3.7 Globulin 3.4 Albumin/Globulin Ratio 1.1 Triglycerides Cholesterol LDL Cholesterol Direct HDL Cholesterol 25-OH Vitamin D Total Free T4 Thyroxine (T4) TSH 3rd Generation Urine Color Urine Appearance Urine pH Ur Specific [place] Urine Protein Urine Glucose (UA) Urine Ketones Urine Blood Urine Nitrate Urine Bilirubin Urine Urobilinogen Ur Leukocyte Esterase Urine RBC Urine WBC Ur Epithelial Cells Urine Bacteria Urine Other Salicylates Urine Opiates Screen Urine Methadone Screen Acetaminophen Ur Barbiturates Screen Ur Phencyclidine Scrn Ur Amphetamines Screen U Benzodiazepines Scrn U Oth Cocaine Metabols U Cannabinoids Screen Alcohol, Quantitative RPR 12/07/17 12/07/17 12/07/17 07:18 11:56 16:09 WBC RBC Hgb Hct MCV MCH MCHC RDW Plt Count MPV Gran % Lymph % (Auto) Valley % (Auto) Eos % (Auto) Baso % (Auto) Gran # Lymph # (Auto) Valley # (Auto) Eos # (Auto) Baso # (Auto) Sodium Potassium Chloride Carbon Dioxide Anion Gap BUN Creatinine Est GFR ( Amer) Est GFR (Non-Af Amer) POC Glucose (mg/dL) 147 H 132 H 74 Random Glucose Fasting Glucose Hemoglobin A1c Fructosamine Calcium Magnesium Total Bilirubin Direct Bilirubin AST ALT Alkaline Phosphatase Total Protein Albumin Globulin Albumin/Globulin Ratio Triglycerides Cholesterol LDL Cholesterol Direct HDL Cholesterol 25-OH Vitamin D Total Free T4 Thyroxine (T4) TSH 3rd Generation Urine Color Urine Appearance Urine pH Ur Specific [place] Urine Protein Urine Glucose (UA) Urine Ketones Urine Blood Urine Nitrate Urine Bilirubin Urine Urobilinogen Ur Leukocyte Esterase Urine RBC Urine WBC Ur Epithelial Cells Urine Bacteria Urine Other Salicylates Urine Opiates Screen Urine Methadone Screen Acetaminophen Ur Barbiturates Screen Ur Phencyclidine Scrn Ur Amphetamines Screen U Benzodiazepines Scrn U Oth Cocaine Metabols U Cannabinoids Screen Alcohol, Quantitative RPR 12/07/17 21:09 WBC RBC Hgb Hct MCV MCH MCHC RDW Plt Count MPV Gran % Lymph % (Auto) Valley % (Auto) Eos % (Auto) Baso % (Auto) Gran # Lymph # (Auto) Valley # (Auto) Eos # (Auto) Baso # (Auto) Sodium Potassium Chloride Carbon Dioxide Anion Gap BUN Creatinine Est GFR ( Amer) Est GFR (Non-Af Amer) POC Glucose (mg/dL) 138 H Random Glucose Fasting Glucose Hemoglobin A1c Fructosamine Calcium Magnesium Total Bilirubin Direct Bilirubin AST ALT Alkaline Phosphatase Total Protein Albumin Globulin Albumin/Globulin Ratio Triglycerides Cholesterol LDL Cholesterol Direct HDL Cholesterol 25-OH Vitamin D Total Free T4 Thyroxine (T4) TSH 3rd Generation Urine Color Urine Appearance Urine pH Ur Specific [place] Urine Protein Urine Glucose (UA) Urine Ketones Urine Blood Urine Nitrate Urine Bilirubin Urine Urobilinogen Ur Leukocyte Esterase Urine RBC Urine WBC Ur Epithelial Cells Urine Bacteria Urine Other Salicylates Urine Opiates Screen Urine Methadone Screen Acetaminophen Ur Barbiturates Screen Ur Phencyclidine Scrn Ur Amphetamines Screen U Benzodiazepines Scrn U Oth Cocaine Metabols U Cannabinoids Screen Alcohol, Quantitative RPR Abnormal Lab Results 12/07/17 12/07/17 12/07/17 07:00 07:18 11:56 Sodium 142 Potassium 3.8 Chloride 100 Carbon Dioxide 32 Anion Gap 13 BUN 20 Creatinine 0.6 L Est GFR ( Amer) > 60 Est GFR (Non-Af Amer) > 60 POC Glucose (mg/dL) 147 H 132 H Random Glucose 139 H Calcium 9.3 Magnesium 2.1 Total Bilirubin 1.0 Direct Bilirubin 0.2 AST 20 ALT 27 Alkaline Phosphatase 100 Total Protein 7.1 Albumin 3.7 Globulin 3.4 Albumin/Globulin Ratio 1.1 12/07/17 12/07/17 16:09 21:09 Sodium Potassium Chloride Carbon Dioxide Anion Gap BUN Creatinine Est GFR ( Amer) Est GFR (Non-Af Amer) POC Glucose (mg/dL) 74 138 H Random Glucose Calcium Magnesium Total Bilirubin Direct Bilirubin AST ALT Alkaline Phosphatase Total Protein Albumin Globulin Albumin/Globulin Ratio Consultations:: List each consultation separately and include: 1. Reason for request. 2. Findings. 3. Follow-up Consultations: Seen by Dr. Pinto 12/05/17-12/07/17, treated patient with ASA, Lipitor, Vitamin D, Ergocalciferol, HCTZ, Metformin, Inderal Seen by Dr. Eller 12/05/17-12/07/17 Summary of Hospital Course include:: 1. Description of specific treatment plan utilized for patients during their course of treatmen. 2. Summarize the time- course for resolution of acute symptoms and/or regressed behaviors. 3. Describe issues identified and worked on during hospitalization. 4. Describe medication utilized. 5. Describe medical problems identified and treated. 6. Reassessment of suicide risk Summary of Hospital Course: History of Present Illness and Precipitating Events [per Dr. Garcia 12/05/17] : shortly patient is 52 years old female, with h/o anxiety, most likely panic disorder with agoraphobia, three previous admission to the psych unit pt was d/c 04/06/2017, pt currently under service (local psychiatrist), no suicidal attempts, patient came to the hospital for evaluation of uncontrolled anxiety, panic attacks, pt requested to be admitted to the psych unit, pt said she cannot function, at present moment pt feels her depression "is worse I am afraid to do something...", pt was keep coming to ED for evaluation, (last visit was October 2017), pt reported being compliant with meds and f/u appts and therapy sessions, pt's meds were changed, pt requested admission. patient was seen today at the treatment team meeting, patient seems to gain a lot of weight, as per patient "I gained more than 25 pounds on Paxil", patient looked older than her chronological age, earlier was observed staying in her room, starring at one spot, tearful. Pt has acceptable personal hygiene, but seems to be careless about her appearance, good ADLS. pt said that after the last admission "things were going well for about 3-4 weeks, I was feeling very good, I was not depressed, was able to function", pt said after that she became depressed and her psychiatrist switched her Prozac (which was working relatively well) to paxil, prozac was stopped in May, paxil was initiated in July, this info was confirmed by pharmacy ( see below). pt said for the past two weeks she was becoming progressively worse, pt had difficulties to concentrate, stay focused, "I was not even able to read books", pt said that she was feeling hopeless and helpless, pt was not sleeping "I was sleeping only for two hours", pt said she was feeling physically exhausted, pt also said that she felt that her meds needs to be changed immediately yesterday because she was afraid that she might do something (at ED), but pt contracted for safety during the interview. pt said that her anxiety is out of control, she has panic attacks "lasting for hours", pt described herself as "feeling very shaky, difficulties to catch up with breath, I am sweating, losing control". Patient reported there is no stress in the house, patient has supportive and loving family, patient denied hearing voices denied seeing things, patient denied smoking denies using drugs. pt said that she is not afraid of deaths, denied fear of aging. Past psych h/o: patient said that since November 2016 patient started to feel depressed, there is no precipitating factors, and anxious. Initially Dr. Marroquin prescribed her Xanax 0.25 mg twice a day as needed and Cymbalta. Currently pt under care of Dr. Marrero, see above. Medical h/o: obesity and HTN, pt was seen by Phlebotomy Lab Assistant regularly, as per report, pt was snoring, will call Pulmonology to r/o sleep apnea. Family h/o: denied Patient denied history of abuse, denied history of trauma. in regards of meds, "prozac, I think it is working", this underwriter solicitation director offered to start Effexor SNRI, risk/benefits and alternatives explained. as per pt, her therapist left without any notification, pt's current therapist "is not beneficial, I was feeling worse", pt is opened to change the therapist. [facility] [place] [facility] [place] Prozac was discontinued on 05/25/2017 Paxil was started 07/04/17, most recently patient was on extended release 25 mg twice a day clonazepam 0.5 mg twice a day three times a day was are done 100 mg daily Atorvastatin 40 mg daily Propranolol 10 mg daily Hydrochlorothiazide 12.[address] PROGRESS PER DR. GARCIA ON 12/07/17 Today, patient reported to have fair sleep, patient reported that she feels better, patient denied any thoughts of harming herself or others, reported that her anxiety is under control, patient reported that she likes Effexor, denied any side effects, none was observed. Patient requested to be discharged tomorrow pt was seen by pulmonology team, consult appreciated, possible sleep apnea, was advised to be cautious about sedative medicine. as per staff pt was participating in unit activities, no agitation or aggression. Pt tolerates meds well, no side effects observed or reported, AIMS 0, no EPS. DISCHARGE NOTE PER DR. GRIFFIN ON 12/08/17 I interviewed patient in the dayroom to assess continued stability for discharge. Patient is alert and well-oriented to month, year and circumstances. Grooming and eye contact is good. Patient is well oriented and can express her needs well. Patient feels improved and denies any suicidal thoughts or thoughts to harm others. Feels anxiety was her most distressing issue and this has improved during her admission. Affect is calm and appropriately reactive. Patient denies hallucinations and is not responding to internal stimuli. Thought process is clear, goal directed and coherent. Patient is pleasant and makes jokes during our discharge interview. Patient feels comfortable with discharge today and denies any new concerns. Denies acute discomfort or pain. Tolerating medications and denies any issues with them. Delusions and paranoia were not elicited on day of discharge. - Final Diagnosis (DSM 5) Condition upon Discharge: GOOD DSM 5: Major Depression, Severe Panic Disorder with Agoraphobia Disposition: HOME/ ROUTINE Follow-up Treatment Plan: PER NASREEN PROGRESS NOTE 12/07/17 15:11 - by Christine Will attempted to obtain follow up appointment with psychiatrist, Dr. Shan Marrero. NASREEN informed by patient scheduler, Dr. Shan Marrero schedules his own appointments and will get back to this underwriter solicitation director. NASREEN attempted to contact therapist, Araseli Riojas LCSW to schedule appointment. NO response. Left voicemail. PRESCRIPTIONS PROVIDED BY DR. GARCIA INCLUDE Klonopin 0.5 mg AMHS, 0.25 mg q1400 Effexor XR 150 mg daily Sonata 5 mg HS prn Prescriptions/Medication Reconciliation: Metformin HCl [Glucophage] 500 mg PO ACBD #30 tab Venlafaxine [Effexor XR] 150 mg PO DAILY #14 cer - Smoking Cessation Smoking Cessation Medication prescribed: No - Antipsychotic Medications Pt discharged on 2 or more routine antipsychotic medications: No
--- NOTE | 2017-12-08 12:56 | PN ---
DATE: SUBJECTIVE: The patient is seen this morning. She is already discharged from the [facility]. She is under the care of the Behavioral Care Unit, Dr. Ratliff and the medical doctor is Dr. Pinto, I am covering for him today. It is noted that the patient was seen and it is okay for the patient to be discharged. All medications have been already ordered. The patient is getting Glucophage and Ativan. PHYSICAL EXAMINATION VITAL SIGNS: On record, the patient's vital signs, pulse is 75, blood pressure is 135/82, respiration is 20 per minute, the patient's O2 saturation is 99% on room air. HEENT: The patient's head is normocephalic. LUNGS: Clear. HEART: Normal sinus rhythm. ABDOMEN: Soft. Liver and spleen not palpable. SYSTEMS INTEGRATION ANALYST: The patient had no focal deficits. PLAN: I talked to the patient. She feels very comfortable and satisfied. The plan will be to discharge on the medication ordered. The patient will follow up as an outpatient with Dr. Marroquin, he is an equipment maintenance tech and that is satisfactory. Mandy Kirk MD
== END 2017-12-08 15:01 | disposition home or self-care (01) | DRG 885 ==
LOC: ED 16:53 → ERH 23:23 → PSYC 12-05 00:21
PROVIDERS: ADMIT Psychiatry & Neurology Psychiatry; ATTEND Psychiatry & Neurology Psychiatry
PROC: GZ3ZZZZ Medication Management (ICD-10-PCS; principal; 2017-12-05)
PROC: 5A09357 Assistance with Respiratory Ventilation, Less than 24 Consecutive Hours, Continuous Positive Airway Pressure (ICD-10-PCS; 2017-12-06)
DX: F32.2 Major depressive disorder, single episode, severe without psychotic features (principal); E11.65 Type 2 diabetes mellitus with hyperglycemia; I11.9 Hypertensive heart disease without heart failure; Z68.44 Body mass index [BMI] 60.0-69.9, adult; N39.0 Urinary tract infection, site not specified; E66.01 Morbid (severe) obesity due to excess calories; F40.01 Agoraphobia with panic disorder; E78.5 Hyperlipidemia, unspecified; E55.9 Vitamin D deficiency, unspecified; R06.83 Snoring; G47.00 Insomnia, unspecified; J45.909 Unspecified asthma, uncomplicated

== ENCOUNTER 2018-05-01 07:39 | Emergency (ER) | payer OTHER ==
[2018-05-01 07:40] VITALS: BMI 50.8
[2018-05-01 07:53] VITALS: TEMP 98.2
[2018-05-01 08:33] LABS: BASO # 0.02 K/mm3 (0.0-2.0); BASO % 0.3 % (0.0-3.0); EOS # 0.2 (0.0-0.7); EOS % 2.7 % (1.5-5.0); GRAN # 4.7 (1.4-6.5); GRAN % 65.8 % (50.0-68.0); HEMOGLOBIN 13.2 g/dL (12.0-16.0); LYMPH # 1.9 (1.2-3.4); LYMPH % 25.9 % (22.0-35.0); MEAN CELL VOLUME 91.7 fl (80.0-105.0); MEAN CORPUSCULAR HEMOGLOBIN 30.5 pg (25.0-35.0); MEAN CORPUSCULAR HGB CONC 33.2 g/dl (31.0-37.0); MEAN PLATELET VOLUME 8.2 fl (7.0-11.0); MONO # 0.4 (0.1-0.6); MONO % 5.3 % (1.0-6.0); RBC 4.33 10^6/uL (3.5-6.1); RED CELL DISTRIBUTION WIDTH 13.3 % (11.5-14.5); WHITE BLOOD COUNT 7.1 10^3/ul (4.5-11.0)
[2018-05-01 08:43] LABS: ALB/GLOB RATIO 1.1 (1.1-1.8); ALBUMIN 4.2 g/dL (3.0-4.8); ALT/SGPT 23 U/L (7-56); AST/SGOT 25 U/L (14-36); BLOOD UREA NITROGEN 15 mg/dL (7-21); CALCIUM 9.6 mg/dL (8.4-10.5); GFR AFRICAN-AMERICAN > 60; GFR NON-AFRICAN AMERICAN > 60; INR 0.97
[2018-05-01 08:53] LABS: TROPONIN I < 0.01 ng/mL
--- NOTE | 2018-05-01 08:56 | ED PDOC ---
Arrival/HPI - General Chief Complaint: Chest Pain Time Seen by Provider: 05/01/18 07:57 Historian: Patient - History of Present Illness Narrative History of Present Illness (Text): 05/01/18 09:01 52 year old female, whose PMH includes hypertension, peripheral edema, and diabetes, who presents to the emergency department complaining of left sided chest discomfort since 2 am last night. Patient denies taking any medication for pain, but took medication for her anxiety at 06:30 this morning. Patient describes the discomfort as a dull musculoskeletal pain rated 5 out of 10 in pain. Patient denies any shortness of breath, fever, coughing, abdominal pain, dizziness, headache, nausea, vomiting, diarrhea, or other complaints. Time/Duration: 4-6 hours Symptom Onset: Sudden Symptom Course: Unchanged Severity Level: 5 Context: Home Past Medical History - Provider Review Nursing Documentation Reviewed: Yes - Infectious Disease Hx of Infectious Diseases: None - Tetanus Immunization Tetanus Immunization: Unknown - Cardiac Hx Cardiac Disorders: Yes Hx Hypertension: Yes Hx Peripheral Edema: Yes Other/Comment: MORBID OBESITY,HTN,TACHYCARDIA,PRE DAIBETES,DYSLIPDEMIA, POSSIBLE SLEEP RELATED DISORDER. HX OF MULTIPLE EXACERABTION OF ANXIETY, DEPRESSION, PANIC DISORDER WITH AGORAPHOBIA. - Pulmonary Hx Respiratory Disorders: Yes - Neurological Hx Neurological Disorder: No - HEENT Hx HEENT Disorder: No (reading glasses) - Renal Hx Renal Disorder: No - Endocrine/Metabolic Hx Endocrine Disorders: Yes Hx Diabetes Mellitus Type 2: Yes Other/Comment: LOW VITAMIN D - Hematological/Oncological Hx Blood Disorders: No - Integumentary Hx Dermatological Disorder: No - Musculoskeletal/Rheumatological Hx Musculoskeletal Disorders: No - Gastrointestinal Hx Gastrointestinal Disorders: No - Genitourinary/Gynecological Hx Genitourinary Disorders: No - Psychiatric Hx Psychophysiologic Disorder: Yes Hx Anxiety: Yes Hx Depression: Yes Hx Panic Disorder: Yes Hx Substance Use: No - Surgical History Hx Dilation and Curettage: Yes (x2) Other/Comment: d and c x 2 - Anesthesia Hx Anesthesia: Yes - Suicidal Assessment Feels Threatened In Home Enviroment: No Family/Social History - Physician Review Nursing Documentation Reviewed: Yes Family/Social History: Unknown Family HX Smoking Status: Never Smoked Hx Alcohol Use: No Hx Substance Use: No Hx Substance Use Treatment: No Allergies/Home Meds Allergies/Adverse Reactions: Allergies naproxen Allergy (Verified 05/01/18 07:54) RASH Home Medications: Home Meds Medication Instructions Recorded Confirmed Losartan [Cozaar] 100 mg PO DAILY 05/01/18 05/01/18 Propranolol [Inderal] 10 mg PO BID 05/01/18 05/01/18 clonazePAM [Klonopin] 0.25 mg PO BID 05/01/18 05/01/18 Review of Systems - Review of Systems Constitutional: absent: Fevers ENT: absent: Sinus Congestion Respiratory: absent: SOB, Cough Cardiovascular: Other (chest discomfort ) Gastrointestinal: absent: Abdominal Pain Genitourinary Female: absent: Dysuria Musculoskeletal: absent: Back Pain Skin: absent: Rash Neurological: absent: Headache, Dizziness Endocrine: absent: Diaphoresis Physical Exam Vital Signs Reviewed: Yes Vital Signs Temp Pulse Resp BP Pulse Ox 05/01/18 09:21 67 16 140/87 98 05/01/18 07:50 98.2 F 73 18 143/91 H 96 Temperature: Afebrile Blood Pressure: Hypertensive Pulse: Regular Respiratory Rate: Normal Appearance: Positive for: Well-Appearing, Non-Toxic, Comfortable Pain Distress: None Mental Status: Positive for: Alert and Oriented X 3 - Systems Exam Head: Present: Atraumatic, Normocephalic Pupils: Present: PERRL Extroacular Muscles: Present: EOMI Conjunctiva: Present: Normal Mouth: Present: Moist Mucous Membranes Respiratory/Chest: Present: Clear to Auscultation, Good Air Exchange, Tender to Palpation (mild tenderness on left pectoral muscle and left sided ribs 2-3). No : Respiratory Distress, Accessory Muscle Use, Wheezes, Decreased Breath Sounds, Retracting, Rhonchi Cardiovascular: Present: Regular Rate and Rhythm, Normal S1, S2. No: Murmurs Abdomen: Present: Normal Bowel Sounds. No: Tenderness, Distention, Peritoneal Signs, Rebound, Guarding Neurological: Present: GCS=15, CN II-XII Intact, Speech Normal Skin: Present: Warm, Dry, Normal Color. No: Rashes Psychiatric: Present: Alert, Oriented x 3, Normal Insight, Normal Concentration Medical Decision Making ED Course and Treatment: 05/01/18 Impression: 52 year old female with mild tenderness on left pectoral muscle and left sided ribs 2-3 complaining of chest discomfort since last night. Plan: -- EKG -- Chest X-ray -- Labs -- Reassess and disposition Progress Notes: EKG: Ordered, reviewed, and independently interpreted the EKG. Rate : 73 BPM Rhythm : NSR Interpretation : No ST-segment elevations or depressions, no T-wave inversions, normal intervals. 05/01/18 09:30 Chest X-ray: Creator: Rosa Porras COMPARISON: 12/04/2017 FINDINGS: LUNGS: No consolidation. Low normal lung volumes and large body habitus noted PLEURA: No significant pleural effusion identified, no pneumothorax apparent. CARDIOVASCULAR: Top-normal heart size. Pulmonary vasculature also appears top- normal yet similar. OSSEOUS STRUCTURES: Thoracic spondylosis. VISUALIZED UPPER ABDOMEN: Normal. OTHER FINDINGS: None. IMPRESSION: No interval pathology noted. Findings as above - Lab Interpretations Lab Results: 05/01/18 08:20 05/01/18 08:20 Lab Results 05/01/18 08:20: Sodium 141, Potassium 4.5, Chloride 102, Carbon Dioxide 29, Anion Gap 14, BUN 15, Creatinine 0.7, Est GFR ( Amer) > 60, Est GFR (Non- Af Amer) > 60, Random Glucose 156 H, Calcium 9.6, Phosphorus 4.3, Magnesium 2.1 , Total Bilirubin 0.7, AST 25, ALT 23, Alkaline Phosphatase 128 H D, Lactate Dehydrogenase 516, Total Creatine Kinase 77, Troponin I < 0.01, Total Protein 8.0, Albumin 4.2, Globulin 3.8, Albumin/Globulin Ratio 1.1 05/01/18 08:20: PT 11.2, INR 0.97, D-Dimer, Quantitative < 200 05/01/18 08:20: WBC 7.1 D, RBC 4.33, Hgb 13.2, Hct 39.7, MCV 91.7, MCH 30.5, MCHC 33.2, RDW 13.3, Plt Count 325, MPV 8.2, Gran % 65.8, Lymph % (Auto) 25.9, Laurel % (Auto) 5.3, Eos % (Auto) 2.7, Baso % (Auto) 0.3, Gran # 4.70, Lymph # ( Auto) 1.9, La[place] # (Auto) 0.4, Eos # (Auto) 0.2, Baso # (Auto) 0.02 I have reviewed the lab results: Yes - RAD Interpretation Radiology Orders: 05/01/18 08:15 CXR [CHEST PORTABLE] [RAD] Stat Dedicated Local Truck Driver: Radiologist - EKG Interpretation Interpreted by ED Physician: Yes Type: 12 lead EKG - Scribe Statement The provider has reviewed the documentation as recorded by the Scribe Sharon Tameka Provider Scribe Attestation: All medical record entries made by the Scribe were at my direction and personally dictated by me. I have reviewed the chart and agree that the record accurately reflects my personal performance of the history, physical exam, medical decision making, and the department course for this patient. I have also personally directed, reviewed, and agree with the discharge instructions and disposition. Disposition/Present on Arrival - Present on Arrival Any Indicators Present on Arrival: Yes History of DVT/PE: No History of Uncontrolled Diabetes: Yes Urinary Catheter: No History of Decub. Ulcer: No History Surgical Site Infection Following: None - Disposition Have Diagnosis and Disposition been Completed?: Yes Diagnosis: Atypical chest pain, Diabetes, Hyperlipidemia, Hypertension, Anxiety Disposition: HOME/ ROUTINE Disposition Time: 10:05 Patient Plan: Discharge Condition: GOOD Discharge Instructions (ExitCare): Chest Pain (ED) Additional Instructions: Mrs Sony Rollins that you are going through this. All of your test results were normal. Please follow up with your doctors. Return to us if worse or new problems. Dieter- Dr. Marcel Hansen Forms: [employer] (Danish)
--- NOTE | 2018-05-01 09:30 | RAD ---
Date of service: 05/01/2018 HISTORY: chest discomfort COMPARISON: 12/04/2017 FINDINGS: LUNGS: No consolidation. Low normal lung volumes and large body habitus noted PLEURA: No significant pleural effusion identified, no pneumothorax apparent. CARDIOVASCULAR: Top-normal heart size. Pulmonary vasculature also appears top-normal yet similar. OSSEOUS STRUCTURES: Thoracic spondylosis. VISUALIZED UPPER ABDOMEN: Normal. OTHER FINDINGS: None. IMPRESSION: No interval pathology noted. Findings as above
[2018-05-01 10:34] VITALS: BP 139/85; PULSE 65; RESP 18; O2SAT 99
--- NOTE | 2018-05-01 14:17 | CARD ---
APPROVED REPORT Date of service: 05/01/2018 EKG Measurement Heart [id number] [id number] <Conclusion> Normal sinus rhythm Normal ECG
[2018-05-02 13:56] LABS: D DIMER < 200 ng/mL; PROTHROMBIN TIME 11.2 SECONDS (9.4-12.5)
== END 2018-05-01 10:34 | disposition home or self-care (01) ==
LOC: ED 07:39
DX: R07.89 Other chest pain (principal); I10 Essential (primary) hypertension; E11.9 Type 2 diabetes mellitus without complications; E78.5 Hyperlipidemia, unspecified; F41.9 Anxiety disorder, unspecified

== ENCOUNTER 2018-07-26 17:57 | Emergency (ER) | payer BC, OTHER ==
[2018-07-26 17:58] VITALS: BMI 50.8
[2018-07-26 18:24] VITALS: RESP 18
--- NOTE | 2018-07-26 19:57 | ED PDOC ---
Arrival/HPI - General Chief Complaint: Anxiety Time Seen by Provider: 07/26/18 19:21 Historian: Patient - History of Present Illness Narrative History of Present Illness (Text): 07/26/18 19:30 52 year old female, whose PMHx includes hypertension, peripheral edema, anxiety and diabetes, who presents to the emergency department complaining of a transient episode of right upper back pain radiating to her shoulder prior to arrival. Patient worries her symptoms are secondary to anxiety, which she experiences often. Patient is currently asymptomatic and denies any associated complaints. Patient denies any fevers, chills, headache, dizziness, chest pain, shortness of breath, dyspnea on exertion, cough, abdominal pain, nausea, vomiting, diarrhea, back pain, neck pain, or any other complaints. Time/Duration: Prior to Arrival Symptom Onset: Gradual Symptom Course: Resolved Activities at Onset: Light Context: Home Past Medical History - Provider Review Nursing Documentation Reviewed: Yes - Infectious Disease Hx of Infectious Diseases: None - Tetanus Immunization Tetanus Immunization: Unknown - Reproductive Menopause: No - Cardiac Hx Cardiac Disorders: Yes Hx Hypertension: Yes Hx Peripheral Edema: Yes Other/Comment: MORBID OBESITY,HTN,TACHYCARDIA,PRE DAIBETES,DYSLIPDEMIA, POSSIBLE SLEEP RELATED DISORDER. HX OF MULTIPLE EXACERABTION OF ANXIETY, DEPRESSION, PANIC DISORDER WITH AGORAPHOBIA. - Pulmonary Hx Respiratory Disorders: Yes - Neurological Hx Neurological Disorder: No - HEENT Hx HEENT Disorder: No (reading glasses) - Renal Hx Renal Disorder: No - Endocrine/Metabolic Hx Endocrine Disorders: Yes Hx Diabetes Mellitus Type 2: Yes Other/Comment: LOW VITAMIN D - Hematological/Oncological Hx Blood Disorders: No - Integumentary Hx Dermatological Disorder: No - Musculoskeletal/Rheumatological Hx Musculoskeletal Disorders: No - Gastrointestinal Hx Gastrointestinal Disorders: No - Genitourinary/Gynecological Hx Genitourinary Disorders: No - Psychiatric Hx Psychophysiologic Disorder: Yes Hx Anxiety: Yes Hx Depression: Yes Hx Panic Disorder: Yes Hx Substance Use: No - Surgical History Hx Dilation and Curettage: Yes (x2) Other/Comment: d and c x 2 - Anesthesia Hx Anesthesia: Yes - Suicidal Assessment Feels Threatened In Home Enviroment: No Family/Social History - Physician Review Nursing Documentation Reviewed: Yes Family/Social History: Unknown Family HX Smoking Status: Never Smoked Hx Alcohol Use: No Hx Substance Use: No Hx Substance Use Treatment: No Allergies/Home Meds Allergies/Adverse Reactions: Allergies naproxen Allergy (Verified 05/01/18 07:54) RASH Home Medications: Home Meds Medication Instructions Recorded Confirmed Losartan [Cozaar] 100 mg PO DAILY 05/01/18 05/01/18 Propranolol [Inderal] 10 mg PO BID 05/01/18 05/01/18 clonazePAM [Klonopin] 0.25 mg PO BID 05/01/18 05/01/18 Review of Systems - Physician Review All systems were reviewed & negative as marked: Yes - Review of Systems Constitutional: absent: Fevers Respiratory: absent: SOB, Cough Cardiovascular: absent: Chest Pain, WARREN Gastrointestinal: absent: Abdominal Pain, Diarrhea, Nausea, Vomiting Genitourinary Female: absent: Dysuria, Hematuria Musculoskeletal: absent: Back Pain, Neck Pain Skin: absent: Rash Neurological: absent: Headache, Dizziness Psychiatric: Anxiety. absent: Depression Physical Exam Vital Signs Reviewed: Yes Vital Signs Temp Pulse Resp BP Pulse Ox 07/26/18 18:18 98.7 F 92 H 18 156/96 H 99 Temperature: Afebrile Blood Pressure: Hypertensive Pulse: Regular Respiratory Rate: Normal Appearance: Positive for: Well-Appearing, Non-Toxic, Comfortable Pain Distress: None Mental Status: Positive for: Alert and Oriented X 3 - Systems Exam Head: Present: Atraumatic, Normocephalic Pupils: Present: PERRL Extroacular Muscles: Present: EOMI Conjunctiva: Present: Normal Neck: Present: Normal Range of Motion Respiratory/Chest: Present: Clear to Auscultation, Good Air Exchange. No: Respiratory Distress, Accessory Muscle Use Cardiovascular: Present: Regular Rate and Rhythm, Normal S1, S2. No: Murmurs Abdomen: No: Tenderness, Distention, Peritoneal Signs Back: Present: Normal Inspection Upper Extremity: Present: Normal Inspection. No: Cyanosis, Edema Lower Extremity: Present: Normal Inspection. No: Edema Neurological: Present: GCS=15, CN II-XII Intact, Speech Normal Skin: Present: Warm, Dry, Normal Color. No: Rashes Psychiatric: Present: Alert, Oriented x 3, Normal Insight, Normal Concentration Medical Decision Making ED Course and Treatment: 07/26/18 19:30 Impression: 52 year old female presents to the Emergency department complaining of a transient episode of back pain secondary to possible anxiety. Plan: -- EKG -- Labs -- Chest X-ray -- Reassess and disposition Prior Visits: Notes and results from previous visits were reviewed. Progress Notes: 07/26/18 19:30 EKG: Ordered, reviewed, and independently interpreted the EKG. Rate : 85 BPM Rhythm : NSR Interpretation : No ST-segment elevations or depressions, no T-wave inversions, normal intervals. 07/26/18 21:20 Chest X-ray reviewed, shows: No acute process. - RAD Interpretation Radiology Orders: 07/26/18 19:30 CHEST PORTABLE [RAD] Stat - Scribe Statement The provider has reviewed the documentation as recorded by the Scribe Tami Lopez. All medical record entries made by the Scribe were at my direction and pers onally dictated by me. I have reviewed the chart and agree that the record accurately reflects my personal performance of the history, physical exam, medical decision making, and the department course for this patient. I have also personally directed, reviewed, and agree with the discharge instructions and disposition. Disposition/Present on Arrival - Present on Arrival Any Indicators Present on Arrival: No History of DVT/PE: No History of Uncontrolled Diabetes: Yes Urinary Catheter: No History of Decub. Ulcer: No History Surgical Site Infection Following: None - Disposition Have Diagnosis and Disposition been Completed?: Yes Diagnosis: Anxiety Disposition: HOME/ ROUTINE Disposition Time: 21:30 Patient Plan: Discharge Condition: GOOD Discharge Instructions (ExitCare): Anxiety, Adult (DC) Additional Instructions: Follow up with your doctor this week/any recurrent persistent symptoms return to the emergency room Forms: [employer] (Italian)
[2018-07-26 20:07] LABS: HEMOGLOBIN 13.9 g/dL (12.0-16.0); MEAN CELL VOLUME 93.3 fl (80.0-105.0); MEAN CORPUSCULAR HGB CONC 33.2 g/dl (31.0-37.0); MEAN PLATELET VOLUME 8.4 fl (7.0-11.0); RBC 4.49 10^6/uL (3.5-6.1); RED CELL DISTRIBUTION WIDTH 13.3 % (11.5-14.5); WHITE BLOOD COUNT 6.6 10^3/uL (4.5-11.0)
[2018-07-26 20:15] LABS: PARTIAL THROMBOPLASTIN TIME 31.6 Seconds (25.1-36.5); PROTHROMBIN TIME 11.4 SECONDS (9.4-12.5)
[2018-07-26 20:16] VITALS: O2SAT 98
[2018-07-26 20:16] LABS: D DIMER < 200 ng/mlDDU (0-243)
[2018-07-26 20:19] LABS: ALB/GLOB RATIO 1.1 (1.1-1.8); ALBUMIN 4.3 g/dL (3.0-4.8); ALT/SGPT 29 U/L (7-56); AST/SGOT 27 U/L (14-36); BLOOD UREA NITROGEN 16 mg/dL (7-21); CALCIUM 9.4 mg/dL (8.4-10.5); GFR NON-AFRICAN AMERICAN > 60
[2018-07-26 20:30] LABS: TROPONIN I < 0.01 ng/mL
[2018-07-26 21:42] VITALS: BP 148/71; PULSE 78; TEMP 98.1
--- NOTE | 2018-07-27 10:05 | RAD ---
Date of service: 07/26/2018 HISTORY: Back pain COMPARISON: 05/01/2018. FINDINGS: LUNGS: No active pulmonary disease. PLEURA: No significant pleural effusion identified, no pneumothorax apparent. CARDIOVASCULAR: No atherosclerotic calcification present No radiographic findings to suggest acute or significant cardiovascular disease. OSSEOUS STRUCTURES: No significant abnormalities. VISUALIZED UPPER ABDOMEN: Normal. OTHER FINDINGS: None. IMPRESSION: No active disease. No significant interval change compared to the prior examination(s).
--- NOTE | 2018-07-27 11:01 | CARD ---
APPROVED REPORT Date of service: 07/26/2018 EKG Measurement Heart [id number] [id number] <Conclusion> Normal sinus rhythm PRWP, possibly lead placement Otherwise no change
== END 2018-07-26 21:47 | disposition home or self-care (01) ==
LOC: ED 17:57
DX: F41.9 Anxiety disorder, unspecified (principal); I10 Essential (primary) hypertension; E11.9 Type 2 diabetes mellitus without complications